=== PATIENT | male | born 1940 | race Caucasian/White ===

== ENCOUNTER 2020-06-01 09:30 | Outpatient (REF) | payer MEDICARE, SELFPAY ==
[2020-06-01 19:16] LABS: HCT 47.1 % (40.0-50.0); HGB 14.8 g/dL (13.5-17.5); MCHC 31.4 % (32.0-36.0); MCV 92.4 fL (80-95); MPV 12.5 fL (8.0-11.0); Platelet Count 193 10^3/uL (130-400); RDW 14.1 % (11.8-14.1); RDW-SD 48.2 fL; WBC 5.86 10^3/uL (4.4-10.8)
[2020-06-01 19:51] LABS: Hemoglobin A1C 5.5 % (<5.7)
[2020-06-01 20:23] LABS: ALT 26 U/L (16-63); AST 23 U/L (15-37); Albumin 3.6 g/dL (3.4-5.0); Alkaline Phosphatase 75 U/L (46-116); Anion Gap 5.7 mmol/L (3-11); BUN 23 mg/dL (7-18); Bilirubin, Total 1.6 mg/dL (0.2-1.0); CO2 29.3 mmol/L (21.0-32.0); CREATININE 1.59 mg/dL (0.70-1.30); Calcium 10.2 mg/dL (8.5-10.1); Calculated LDL 125 mg/dL (<100); Chloride 107 mmol/L (98-107); Cholesterol 177 mg/dL (<200); Estimated GFR 42.43 (mL/min/1.73m2); Glucose 97 mg/dL (74-106); HDL Cholesterol 41 mg/dL (40-60); Potassium 4.4 mmol/L (3.5-5.1); Sodium 142 mmol/L (136-145); TSH 0.57 uIU/mL (0.36-3.74); Total Protein 6.7 g/dL (6.4-8.2); Triglyceride 55 mg/dL (<150); Vitamin B12 366 pg/mL (193-986)
[2020-06-01 22:27] LABS: FREE T4 1.01 ng/dL (0.76-1.46)
[2020-06-06 10:07] LABS: Methylmalonic Acid 0.27 nmol/mL (<=0.40)
== END 2020-06-01 09:50 ==
LOC: NCHCN 09:30
PROVIDERS: Visit Provider Physician Assistant
DX: I25.10 Atherosclerotic heart disease of native coronary artery without angina pectoris (principal); R73.03 Prediabetes; R53.83 Other fatigue; R41.3 Other amnesia
CPT/HCPCS: 80053; 80061; 80186; 85027; 82607; 83036; 84439; 84443

== ENCOUNTER 2020-06-09 04:49 | Outpatient (CLI) | payer MEDICARE, SELFPAY ==
--- NOTE | 2020-06-09 | DI.MRI_ITS ---
EXAM: MR BRAIN WO CLINICAL HISTORY: MEMORY DEFICIT,LOSS,R41.3 TECHNIQUE: Multiplanar multisequence MRI of the brain was performed. COMPARISON: No exams were available for comparison FINDINGS: VENTRICLES AND EXTRA AXIAL SPACES: Normal in size and morphology for the patient's age. MIDLINE SHIFT: None. CEREBRAL PARENCHYMA: No focus of restricted diffusion to suggest acute infarct. There is a large area of encephalomalacia in the right frontal lobe. There is a thin rim of surrounding gliosis or calcif ication. An additional area of old infarct is seen in the posterior right parietal lobe, also showin g surrounding gliosis versus calcification. An area of increased signal is seen in the posterior lef t frontal lobe, also consistent with an old infarct. Scattered high signal foci in the white matter without restricted diffusion, consistent with sequela of chronic microvascular disease. HEMORRHAGE: No acute hemorrhage. BRAINSTEM/CEREBELLUM: Mildly increased central signal within the jean consistent with microvascular c hanges. VISUALIZED PARANASAL SINUSES/MASTOIDS:Clear. [place]UZ: Normal flow void. PITUITARY GLAND: Unremarkable. 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 No evidence of acute h emorrhage or acute infarct. No evidence of mass. DATA REPOSITORY: CONTRAST MATERIAL: Noncontrast.
== END 2020-06-09 05:09 ==
PROVIDERS: Visit Provider Physician Assistant
DX: R41.3 Other amnesia (principal); Z86.73 Personal history of transient ischemic attack (TIA), and cerebral infarction without residual deficits
CPT/HCPCS: 70551

== ENCOUNTER 2020-06-28 01:00 | Outpatient (CLI) | payer MEDICARE, SELFPAY ==
--- NOTE | 2020-06-28 | DI.US_ITS ---
EXAM: US CAROTID CLINICAL HISTORY: CEREBROVASCULAR ACCIDENT LATE EFFECTS, I69.90, DIZZINESS, R42, CAD, I25.10. TECHNIQUE: Ultrasound carotids performed using grayscale, color-flow, and spectral Doppler imaging. COMPARISON: No exams were available for comparison FINDINGS: RIGHT CAROTID ARTERY: Plaque: Minimal. Velocity elevation: None. LEFT CAROTID ARTERY: Plaque: Minimal calcific plaque is seen in the proximal left internal carotid artery. Velocity elevation: None. VERTEBRAL ARTERIES: Antegrade flow. Measurements: R Bulb: 53.3cm/s PS / 8.4cm/s ED R CCA: 91.9cm/s PS / 17.4cm/s ED R ECA: 95.4cm/s PS / 14.5cm/s ED R ICA Prox: 128.3cm/s PS /16.8cm/s ED R ICA Mid: 73.1cm/s PS / 16.3cm/s ED R ICA Distal: 82cm/s PS /19.5cm/s ED R Vert: 56.8cm/s PS / 17.4cm/s ED R SVR: 1.4 R DVR: 0.97 L Bulb: 84.1cm/s PS /16.8cm/s ED L CCA: 87.3cm/s PS / 25.2cm/s ED L ECA: 89.9cm/s PS /14.7cm/s ED L ICA Prox:72.6cm/s PS / 25.2cm/s ED L ICA Mid: 74.7cm/sPS / 25.2cm/s ED L ICA Distal: 83.6cm/s PS / 29.4cm/s ED L Vert: 58.4cm/s PS / 15.2cm/s ED L SVR: 0.96 L DVR: 1.17 IMPRESSION: No evidence for hemodynamically significant carotid stenosis. Criteria for Carotid Stenosis: Normal: ICA PSV <125 cm/s no plaque or intimal thickening is visible. <50% stenosis: ICA PSV <125 cm/s and plaque or intimal thickening is visible. 50-69% stenosis: ICA PSV is 125-250 cm/s and plaque is visible. >70% stenosis to near occlusion: ICA PSV >250 cm/s with visible plaque and luminal narrowing. DATA REPOSITORY:
== END 2020-06-28 01:20 ==
PROVIDERS: PCP Physician Assistant; Visit Provider Physician Assistant
DX: I69.398 Other sequelae of cerebral infarction (principal); R42 Dizziness and giddiness; I25.10 Atherosclerotic heart disease of native coronary artery without angina pectoris
CPT/HCPCS: 93880

== ENCOUNTER 2020-07-10 16:17 | Outpatient (REF) | payer MEDICARE, SELFPAY ==
[2020-07-13 08:42] LABS: SARS-CoV-2 RNA Not Detected (NotDetected); SARS-CoV-2 RNA Source Nasal/Nares
== END 2020-07-10 16:37 ==
LOC: NCHCN 16:17
PROVIDERS: PCP Physician Assistant; Visit Provider Physician Assistant
DX: Z11.59 Encounter for screening for other viral diseases (principal)
CPT/HCPCS: U0003

== ENCOUNTER 2020-07-13 00:40 | Outpatient (CLI) | payer MEDICARE, SELFPAY ==
--- NOTE | 2020-07-13 12:30 | DI.US_ITS ---
APPROVED REPORT EXAM: Comprehensive 2D, Doppler, and color-flow Echocardiogram Patient Location: Out-Patient Head Of Strategy: Stephanie Sanchez RDCS ([facility]) Indications: CVA, CAD Other Information Study Quality: Adequate Conclusion Left Ventricle : Left ventricle is mildly dilated. Left ventricular systolic function is moderately d ecreased. There is normal left ventricular wall thickness. There is global hypokinesis of the left ve ntricle. The left ventricular diastolic function is abnormal LVEF is 28-30%. Right Ventricle: Right ventricle is borderline dilated. The right ventricular systolic function is mi ldly reduced. The RVSP is 21.2 mmHg. Atria : Left atrium is moderately dilated. Right atrium is moderately dilated. Valves: There are no hemodynamically significant valvular lesions. Great Vessels : The aortic root is normal in size. The ascending aorta is normal in size. Aortic arch is normal in caliber. IVC is normal in size and collapses >50% with inspiration. Compared to study from August 2017 at [facility], the patient's ejection fraction has decreased from normal to moderately reduced. Wall motion Left Ventricle Left ventricle is mildly dilated. Left ventricular systolic function is moderately decreased. There i s normal left ventricular wall thickness. There is global hypokinesis of the left ventricle. The left ventricular diastolic function is abnormal There is no ventricular septal defect visualized. LVEF is 28-30%. Right Ventricle Right ventricle is borderline dilated. The right ventricular systolic function is mildly reduced. The RVSP is 21.2 mmHg. Atria Left atrium is moderately dilated. Right atrium is moderately dilated. The interatrial septum is inta ct with no evidence for an atrial septal defect. Aortic Valve The Aortic valve is sclerotic. Aortic valve is trileaflet. There is no aortic valvular stenosis. No a ortic regurgitation is present. Mitral Valve Mild mitral annular calcification. No evidence of mitral valve stenosis. Trace to mild mitral regurgi tation. Tricuspid Valve The tricuspid valve is normal in structure. There is no tricuspid valve stenosis. Trace tricuspid reg urgitation. Pulmonic Valve The pulmonary valve is normal in structure. There is no pulmonic valvular stenosis. Trace pulmonic re gurgitation. Great Vessels The aortic root is normal in size. The ascending aorta is normal in size. Aortic arch is normal in ca liber. IVC is normal in size and collapses >50% with inspiration. Pericardium There is no pericardial effusion. 2D Dimensions IVSD d PLAX 0.72 cm M: 0.6-1.2 LV Vol A2C d MOD 143.6 mL LVPW d PLAX 0.79 cm M: 0.6 - 1.2 LV Vol A4C d MOD 146.4 mL LVID d PLAX 6.01 cm M: 4.2 - 5.8 LA vol/ BSA A2C s A-L 37.1 mL/m2 LVDs 5.10 cm M: 2.5 - 4.0 LA vol/ BSA A4C s A-L 35.2 mL/m2 Ao Root d 2.91 cm M: 3.1 - 3.7 LA Vol/ BSA Biplane s A-L 36.4 mL/m2 RA Area A4C 10.70 cm2 LA Area A4C s MOD 21.07 cm2 RA Vol/ BSA A4C s A-L 13.8 mL/m2 LA Area A2C s MOD 21.49 cm2 Ao Asc Diam d 3.40 cm M: 2.6 - 3.4 LV EF A4C MOD 32.5 % LV EF Teichholz 31.2 % LV EF A2C MOD 28.3 % LVEF ([facility]) 28.47 % M: 52 - 72 LV EF Biplane MOD 28.5 % LV Volume 114.57 mL M: 62 - 150 SV 41.57 mL LV Volume Index 65.46 mL/m2 M: 34 - 74 SV Index 23.67 mL/m2 LV Vol Biplane MOD 146.0 mL FS 14.95 % M-Mode TAPSE 1.42 cm (M/F) >1.7 LV Diastology MV E' medial 0.046 (>0.07 m/s) E/A Ratio 0.7 LV E/e MED 9.30 (<14) MV E Vmax 0.43 (0.4-1.3 m/s) MV E' lateral 0.102 (>0.1 m/s) MV A Vmax 0.60 (0.4-1.3 m/s) LV E/e LAT 4.15 (<14) MV E/A Ratio 0.67 MV E/E' medial 9.34 MV E/E' lateral 4.18 Aortic Valve LVOT Area 2.72 cm2 AoV Area Vmax 2.04 cm2 LVOT Vmax 0.89 m/s AoV Area/ BSA (Vmax) 1.16 cm2/m2 LVOT Mean Monty. 0.59 m/s TESSA Mean Monty. 2.01 cm2 LVOT Peak Grad 3.1 mmHg TESSA Mean Monty. Index 1.15 cm2/m2 LVOT Mean Grad 1.6 mmHg LVOT VTI 0.171 m LVOT Diam s 1.85 cm AoV Vmax 1.18 m/s Velocity Ratio 0.75 AoV Mean Monty. 0.79 m/s AoV Peak Grad 5.6 mmHg LVOT SV 46.48 mL AoV Mean Grad 2.8 mmHg AoV VTI 0.210 m AoV Area VTI 2.22 cm2 AoV Area/ BSA (VTI) 1.26 cm/m2 Mitral Valve MV DT 273 (160-240 msec) MR Vmax 4.20 m/s MV PHT 79 msec MR VTI 1.458 m MV Area PHT 2.77 cm2 MR Peak Grad 70.7 mmHg MV VTI 0.264 m MR Mean Grad 44.9 mmHg MV VTI Annulus 0.243 m MV Area VTI 1.63 (4.0-6.0 cm2) Pulmonary Valve PV Vmax 1.00 (0.5-1.5 m/s) RVOT Peak Gr. 1.31 mmHg PV Peak Grad 4.0 mmHg RVOT Mean Gr. 0.65 mmHg PV Mean Grad 2.1 mmHg RVOT VTI 0.130 m PV VTI 0.207 m RVOT Vmax 0.57 m/s Tricuspid Valve TR Peak Grad 18.1 mmHg TR Vmax 2.13 m/s RA Pressure 3.00 mmHg RVSP (TR) 21.2 mmHg
== END 2020-07-13 01:00 ==
PROVIDERS: PCP Physician Assistant; Visit Provider Physician Assistant
DX: I25.10 Atherosclerotic heart disease of native coronary artery without angina pectoris (principal); Z86.73 Personal history of transient ischemic attack (TIA), and cerebral infarction without residual deficits; I51.7 Cardiomegaly
CPT/HCPCS: 93306

== ENCOUNTER 2020-09-26 18:03 | Outpatient (REF) | payer MEDICARE, SELFPAY ==
[2020-09-26 16:01] LABS: Anion Gap 5.8 mmol/L (3-11); BUN 36 mg/dL (7-18); CO2 27.2 mmol/L (21.0-32.0); CREATININE 1.62 mg/dL (0.70-1.30); Calcium 10.1 mg/dL (8.5-10.1); Chloride 107 mmol/L (98-107); Estimated GFR 41.52 (mL/min/1.73m2); Glucose 147 mg/dL (74-106); Potassium 4.4 mmol/L (3.5-5.1); Sodium 140 mmol/L (136-145)
[2020-09-27 09:35] LABS: Parathyroid Hormone,Intact 190 pg/mL (19-88)
[2020-09-28 04:48] LABS: Vitamin D 25 Total 17.1 ng/ml (30-100)
== END 2020-09-26 18:23 ==
LOC: NCHCN 18:03
PROVIDERS: PCP Physician Assistant; Visit Provider Nurse Practitioner Family
DX: I10 Essential (primary) hypertension (principal); N28.9 Disorder of kidney and ureter, unspecified; E78.5 Hyperlipidemia, unspecified; I25.10 Atherosclerotic heart disease of native coronary artery without angina pectoris
CPT/HCPCS: 80048; 82306; 83970

== ENCOUNTER 2020-12-25 11:39 | Outpatient (REF) | payer MEDICARE, SELFPAY ==
[2020-12-25 12:19] LABS: Calcium 10.3 mg/dL (8.5-10.1); Magnesium 2.1 mg/dL (1.8-2.4); PHOSPHORUS 2.3 mg/dL (2.6-4.7)
[2020-12-25 12:39] LABS: Vitamin D 25 Total 27.4 ng/mL (30-100)
[2020-12-26 11:45] LABS: Parathyroid Hormone,Intact 170 pg/mL (19-88)
== END 2020-12-25 11:40 | disposition home or self-care (01) ==
LOC: NCHCN 11:39
PROVIDERS: PCP Physician Assistant; Visit Provider Nurse Practitioner Family
DX: R19.7 Diarrhea, unspecified (principal); I50.9 Heart failure, unspecified; E83.52 Hypercalcemia; R53.83 Other fatigue; K21.9 Gastro-esophageal reflux disease without esophagitis; I10 Essential (primary) hypertension; R79.89 Other specified abnormal findings of blood chemistry
CPT/HCPCS: 82306; 82310; 83735; 83970; 84100

== ENCOUNTER 2021-03-19 03:19 | Outpatient (CLI) | payer MEDICARE, SELFPAY ==
[2021-03-19 09:59] LABS: Hemoglobin A1C 5.6 % (<5.7)
[2021-03-19 11:29] LABS: ALT 25 U/L (16-63); AST 16 U/L (15-37); Albumin 3.8 g/dL (3.4-5.0); Alkaline Phosphatase 70 U/L (46-116); BUN 23 mg/dL (7-18); CREATININE 1.7 mg/dL (0.70-1.30); Calcium 10.7 mg/dL (8.5-10.1); Chloride 107 mmol/L (98-107); Estimated GFR 39.18 (mL/min/1.73m2); Glucose 147 mg/dL (74-106); NT-proBNP 458 pg/mL (<300); PHOSPHORUS 2.3 mg/dL (2.6-4.7); Potassium 4.6 mmol/L (3.5-5.1); Sodium 144 mmol/L (136-145)
[2021-03-19 12:36] LABS: Vitamin D 25 Total 29.2 ng/mL (30-100)
[2021-03-19 15:29] LABS: Ionized Calcium 1.28 mmol/L (1.12-1.32)
[2021-03-20 09:46] LABS: Parathyroid Hormone,Intact 183 pg/mL (19-88)
[2021-03-20 10:21] LABS: Lyme Ab w Rflx to Lyme Confirm Positive (Negative)
[2021-03-22 15:58] LABS: IgG Band(s) p93; IgG Immunoblot Positive (Negative); IgM Band(s) p41; IgM Immunoblot Negative (Negative)
== END 2021-03-19 03:20 | disposition home or self-care (01) ==
LOC: LBO 03:20
PROVIDERS: PCP Physician Assistant; Visit Provider Nurse Practitioner Family
DX: R79.89 Other specified abnormal findings of blood chemistry (principal); E83.52 Hypercalcemia; E55.9 Vitamin D deficiency, unspecified; N28.9 Disorder of kidney and ureter, unspecified; R19.7 Diarrhea, unspecified; I10 Essential (primary) hypertension; R41.3 Other amnesia; R53.83 Other fatigue; I25.10 Atherosclerotic heart disease of native coronary artery without angina pectoris; I50.9 Heart failure, unspecified
CPT/HCPCS: 36415; 80053; 82306; 86617; 82330; 83036; 83880; 83970; 84100; 86618

== ENCOUNTER 2021-05-09 02:00 | Outpatient (CLI) | payer MEDICARE, SELFPAY ==
--- NOTE | 2021-05-09 | DI.US_ITS ---
Exam(s) US RENAL EXAM: US RENAL CLINICAL HISTORY: RENAL INSUFFICIENCY,N28.9. TECHNIQUE: Hernandez scale, color and spectral Doppler were used. COMPARISON: No exams were available for comparison FINDINGS: Renal size in cm: Right: 16.5 cm. This includes the large cyst superiorly.. Left: 9.5. Echogenicity: Normal. Hydronephrosis: No. Cyst or mass: In the right kidney, there is an 8.6 x 8.1 x 5.8 cm cyst. There is a thin septation. No internal blood flow is seen. In the left kidney there is a 0.5 x 0.4 x 0.4 cm simple cyst in the inferior pole. No follow-up is recommended. Nephrolithiasis: No. Other findings: Mild bilateral renal cortical thinning. Bladder:Normal. Ureteral jets: Right: Visualized and unremarkable. Left: Visualized and unremarkable. Prevoid vol:116 cc Postvoid vol:Patient was unable to void. Prostate: 18 cc Renal color flow: Symmetric and within normal limits. IMPRESSION: 1. Bilateral renal cysts. DATA REPOSITORY:
--- NOTE | 2021-05-09 | DI.US_ITS ---
Exam(s) US THYROID EXAM: US THYROID CLINICAL HISTORY: ELEVATED PARATHYROID HORMONE,R79.89,HYPERCALCEMIA,E83.52,VIT D DEFICIENCY. TECHNIQUE: Ultrasound thyroid performed using standard protocol. COMPARISON: No exams were available for comparison FINDINGS: ISTHMUS: 3 mm RIGHT LOBE: Size: 4.8 cc by 1.6 AP by 1.9 transverse cm Echogenicity: Normal. Vascularity: Normal. Nodules: There are multiple subcentimeter nodules in the right lobe of the thyroid gland. There is a 1 x 0.6 x 0.6 cm cystic lesion in the superior pole. Comet tail artifact are seen internally. This is consistent with a TI-RADS level 2 nodule. LEFT LOBE: Size: 4.8 cc by 1.7 AP by 1.9 transverse cm Echogenicity: Normal. Vascularity: Normal. Nodules: There are multiple subcentimeter nodules in the left lobe. There is a 1.8 x 1.3 x 0.7 cm mi xed cystic and solid nodule in the midpole. It is hypoechoic and well-circumscribed with no echogeni c foci. It is consistent with a TI-RADS level 3 nodule. OTHER FINDINGS: There is a 1.8 x 1.4 x 1.7 cm hypoechoic avascular nodule which is at the inferior as pect of the right lobe of the thyroid gland. It appears to be separate from the thyroid gland and ma y represent a parathyroid nodule. IMPRESSION: 1. Multinodular thyroid gland. 2. 1.8 x 1.4 x 1.7 cm hypoechoic nodule at the inferior aspect of the thyroid gland which appears sep arate from the thyroid gland and may represent a parathyroid nodule. DATA REPOSITORY:
== END 2021-05-09 02:20 ==
PROVIDERS: PCP Physician Assistant; Visit Provider Nurse Practitioner Family
DX: N28.9 Disorder of kidney and ureter, unspecified (principal); R79.89 Other specified abnormal findings of blood chemistry; E83.52 Hypercalcemia; E55.9 Vitamin D deficiency, unspecified; E04.2 Nontoxic multinodular goiter; Q61.02 Congenital multiple renal cysts
CPT/HCPCS: 76770; 76536

== ENCOUNTER 2021-06-04 15:47 | Outpatient (REF) | payer MEDICARE, SELFPAY ==
[2021-06-04 16:36] LABS: Bilirubin Negative (Negative); Blood Negative (Negative); Clarity Clear (Clear); Glucose Negative (Negative); Ketones Negative (Negative); Leukocyte Esterase Trace (Negative); Nitrite Negative (Negative); Specific Gravity 1.015 (1.005-1.025); Urobilinogen 0.2 EU/dL (Up TO 0.2); pH 5.5 (5-8)
[2021-06-04 16:46] LABS: Bacteria Few HPF (Negative); C & S Indicated? Yes; Casts Negative LPF (Negative); Crystals Negative HPF (Negative); Epithelial Cells Rare HPF (Negative); Mucus Negative (Negative); RBC 0-2 HPF (0-2)
== END 2021-06-04 15:48 | disposition home or self-care (01) ==
LOC: NCHCN 15:47
PROVIDERS: PCP Physician Assistant; Visit Provider Nurse Practitioner Family
DX: R31.9 Hematuria, unspecified (principal); N28.89 Other specified disorders of kidney and ureter
CPT/HCPCS: 81003; 81015; 87086

== ENCOUNTER 2021-09-10 13:33 | Outpatient (REF) | payer MEDICARE, SELFPAY ==
[2021-09-10 15:30] LABS: Anion Gap 7.4 mmol/L (3-11); BUN 27 mg/dL (7-18); CO2 29.6 mmol/L (21.0-32.0); CREATININE 1.7 mg/dL (0.70-1.30); Calcium 10.5 mg/dL (8.5-10.1); Chloride 105 mmol/L (98-107); Estimated GFR 39.18 (mL/min/1.73m2); Glucose 126 mg/dL (74-106); Potassium 5.5 mmol/L (3.5-5.1); Sodium 142 mmol/L (136-145)
[2021-09-10 15:40] LABS: Hemoglobin A1C 5.6 % (<5.7)
== END 2021-09-10 13:34 | disposition home or self-care (01) ==
LOC: NCHCN 13:33
PROVIDERS: PCP Physician Assistant; Visit Provider Nurse Practitioner Family
DX: R73.03 Prediabetes (principal); I10 Essential (primary) hypertension; N28.9 Disorder of kidney and ureter, unspecified
CPT/HCPCS: 80048; 83036

== ENCOUNTER 2021-09-14 11:46 | Outpatient (CLI) | payer MEDICARE, SELFPAY ==
[2021-09-16 15:33] LABS: COVID-19 RT-PCR UVMMC Result Negative (Negative)
== END 2021-09-14 11:47 | disposition home or self-care (01) ==
PROVIDERS: PCP Physician Assistant; Visit Provider Nurse Practitioner Family
DX: Z20.822 Contact with and (suspected) exposure to COVID-19 (principal)
CPT/HCPCS: U0003

== ENCOUNTER 2021-09-19 17:25 | Outpatient (REF) | payer MEDICARE, SELFPAY ==
[2021-09-19 17:31] LABS: Anion Gap 6.1 mmol/L (3-11); BUN 26 mg/dL (7-18); CO2 27.9 mmol/L (21.0-32.0); CREATININE 1.6 mg/dL (0.70-1.30); Calcium 10.2 mg/dL (8.5-10.1); Chloride 107 mmol/L (98-107); Estimated GFR 42.01 (mL/min/1.73m2); Glucose 94 mg/dL (74-106); Sodium 141 mmol/L (136-145)
== END 2021-09-19 17:26 | disposition home or self-care (01) ==
LOC: NCHCN 17:25
PROVIDERS: PCP Physician Assistant; Visit Provider Nurse Practitioner Family
DX: E87.5 Hyperkalemia (principal)
CPT/HCPCS: 80048

== ENCOUNTER 2022-01-11 20:25 | Outpatient (REF) | payer MEDICARE, SELFPAY ==
[2022-01-12 12:14] LABS: COVID-19 RT-PCR UVMMC Result Negative (Negative)
== END 2022-01-11 20:26 | disposition home or self-care (01) ==
LOC: NCHCN 20:25
PROVIDERS: PCP Nurse Practitioner Family; Visit Provider Nurse Practitioner Family
DX: Z20.822 Contact with and (suspected) exposure to COVID-19 (principal)
CPT/HCPCS: U0003; U0005

== ENCOUNTER 2022-01-15 15:52 | Outpatient (REF) | payer MEDICARE, SELFPAY ==
[2022-01-16 12:06] LABS: COVID-19 RT-PCR UVMMC Result Positive (Negative)
== END 2022-01-15 15:53 | disposition home or self-care (01) ==
LOC: NCHCN 15:52
PROVIDERS: PCP Nurse Practitioner Family; Visit Provider Nurse Practitioner Family
DX: Z20.822 Contact with and (suspected) exposure to COVID-19 (principal)
CPT/HCPCS: U0003; U0005

== ENCOUNTER 2022-01-16 18:24 | Outpatient (REF) | payer MEDICARE, SELFPAY ==
[2022-01-17 15:04] LABS: COVID-19 RT-PCR UVMMC Result Positive (Negative)
== END 2022-01-16 18:25 | disposition home or self-care (01) ==
LOC: NCHCN 18:24
PROVIDERS: PCP Nurse Practitioner Family; Visit Provider Nurse Practitioner Family
DX: Z20.822 Contact with and (suspected) exposure to COVID-19 (principal)
CPT/HCPCS: U0003; U0005

== ENCOUNTER 2022-03-21 18:59 | Outpatient (REF) | payer MEDICARE, SELFPAY ==
[2022-03-21 21:03] LABS: ALT 19 U/L (16-63); AST 19 U/L (15-37); Albumin 3.4 g/dL (3.4-5.0); Alkaline Phosphatase 98 U/L (46-116); Anion Gap 7.5 mmol/L (3-11); BUN 29 mg/dL (7-18); Bilirubin, Total 0.7 mg/dL (0.2-1.0); CO2 26.5 mmol/L (21.0-32.0); CREATININE 1.6 mg/dL (0.70-1.30); Calcium 8.7 mg/dL (8.5-10.1); Chloride 110 mmol/L (98-107); Glucose 96 mg/dL (74-106); Potassium 5.2 mmol/L (3.5-5.1); Sodium 144 mmol/L (136-145); TSH (W/Ref FT4) 0.22 uIU/mL (0.36-3.74); Total Protein 6.7 g/dL (6.4-8.2)
[2022-03-21 21:08] LABS: Hemoglobin A1C 5.6 % (<5.7)
[2022-03-21 21:17] LABS: Vitamin D 25 Total 33.8 ng/mL (30-100)
[2022-03-21 21:21] LABS: FREE T4 0.85 ng/dL (0.76-1.46)
== END 2022-03-21 19:00 | disposition home or self-care (01) ==
LOC: NCHCN 18:59
PROVIDERS: PCP Nurse Practitioner Family; Visit Provider Nurse Practitioner Family
DX: R73.03 Prediabetes (principal); E87.5 Hyperkalemia; E21.5 Disorder of parathyroid gland, unspecified; N28.9 Disorder of kidney and ureter, unspecified; E55.9 Vitamin D deficiency, unspecified
CPT/HCPCS: 80053; 82306; 83036; 84439; 84443

== ENCOUNTER → 2022-04-24 01:26 | Outpatient (CLI) | payer MEDICARE, SELFPAY ==
--- NOTE | 2022-04-24 15:00 | DI.US_ITS ---
APPROVED REPORT EXAM: Comprehensive 2D, Doppler, and color-flow Echocardiogram Patient Location: Out-Patient [employer]er: Stephanie Sanchez RDCS (AE) Indications: Heart failure, Reduced ejection fraction Other Information Study Quality: Adequate Conclusion Normal left ventricular wall thickness and chamber size. Estimated ejection fraction is 35%. There is global hypokinesis Right ventricle is normal in size, mildly hypokinetic Both atria are normal in size There are no structural or hemodynamically significant valvular abnormalities Wall motion Left Ventricle The left ventricle is normal size. Left ventricular systolic function is moderately decreased. There is normal left ventricular wall thickness. There is global hypokinesis of the left ventricle. There i s no ventricular septal defect visualized. LVEF is 35%. Right Ventricle The right ventricle is normal size. Right ventricular systolic function is mildly reduced. Atria The left atrium size is normal. The right atrium size is normal. The interatrial septum is intact wit h no evidence for an atrial septal defect. Aortic Valve The aortic valve is normal in structure. Aortic valve is trileaflet. There is no aortic valvular sten osis. No aortic regurgitation is present. Mitral Valve Mitral valve leaflets are mildly thickened. No evidence of mitral valve stenosis. Trace mitral regurg itation. Tricuspid Valve The tricuspid valve is normal in structure. There is no tricuspid valve stenosis. Trace tricuspid reg urgitation. Unable to assess PA pressure. Pulmonic Valve The pulmonary valve is normal in structure. There is no pulmonic valvular stenosis. Trace pulmonic re gurgitation. Great Vessels The aortic root is normal in size. The ascending aorta is normal in size. Aortic arch is normal in ca liber. IVC is normal in size and collapses >50% with inspiration. Pericardium There is no pericardial effusion. 2D Dimensions IVSD d PLAX 0.84 cm M: 0.6-1.2 LV Vol A2C d MOD 89.1 mL LVPW d PLAX 0.85 cm M: 0.6 - 1.2 LV Vol A4C d MOD 107.4 mL LVID d PLAX 5.48 cm M: 4.2 - 5.8 LA vol/ BSA A2C s A-L 27.6 mL/m2 LVDs 4.50 cm M: 2.5 - 4.0 LA vol/ BSA A4C s A-L 27.6 mL/m2 Ao Root d 3.24 cm M: 3.1 - 3.7 LA Vol/ BSA Biplane s A-L 27.7 mL/m2 RA Area A4C 11.22 cm2 LA Area A4C s MOD 17.09 cm2 RA Vol/ BSA A4C s A-L 13.2 mL/m2 LA Area A2C s MOD 17.01 cm2 Ao Asc Diam d 3.42 cm M: 2.6 - 3.4 LV EF A4C MOD 35.5 % LV EF Teichholz 35.2 % LV EF A2C MOD 30.0 % LVEF ([facility]) 33.29 % M: 52 - 72 LV EF Biplane MOD 33.3 % LV Volume 77.82 mL M: 62 - 150 SV 33.19 mL LV Volume Index 43.71 mL/m2 M: 34 - 74 SV Index 18.63 mL/m2 LV Vol Biplane MOD 99.7 mL FS 17.00 % M-Mode TAPSE 1.60 cm (M/F) >1.7 LV Diastology MV E' medial 0.037 (>0.07 m/s) E/A Ratio 0.6 LV E/e MED 10.10 (<14) MV E Vmax 0.38 (0.4-1.3 m/s) MV E' lateral 0.047 (>0.1 m/s) MV A Vmax 0.65 (0.4-1.3 m/s) LV E/e LAT 8.00 (<14) MV E/A Ratio 0.58 MV E/E' medial 10.12 MV E/E' lateral 8.03 Aortic Valve LVOT Area 3.21 cm2 AoV Area Vmax 2.61 cm2 LVOT Vmax 0.82 m/s AoV Area/ BSA (Vmax) 1.47 cm2/m2 LVOT Mean Monty. 0.57 m/s TESSA Mean Monty. 2.70 cm2 LVOT Peak Grad 2.7 mmHg TESSA Mean Monty. Index 1.52 cm2/m2 LVOT Mean Grad 1.5 mmHg LVOT VTI 0.156 m LVOT Diam s 2.00 cm AoV Vmax 1.01 m/s Velocity Ratio 0.81 AoV Mean Monty. 0.68 m/s AoV Peak Grad 4.1 mmHg LVOT SV 50.02 mL AoV Mean Grad 2.1 mmHg AoV VTI 0.188 m AoV Area VTI 2.67 cm2 AoV Area/ BSA (VTI) 1.50 cm/m2 Mitral Valve MV DT 265 (160-240 msec) MV PHT 77 msec MV Area PHT 2.86 cm2 MV VTI 0.221 m MV Area VTI 2.26 (4.0-6.0 cm2) Pulmonary Valve PV Vmax 1.08 (0.5-1.5 m/s) RVOT Peak Gr. 0.96 mmHg PV Peak Grad 4.7 mmHg RVOT Mean Gr. 0.45 mmHg PV Mean Grad 1.8 mmHg RVOT VTI 0.096 m PV VTI 0.169 m RVOT Vmax 0.49 m/s
== END ==
PROVIDERS: PCP Nurse Practitioner Family; Visit Provider Nurse Practitioner
DX: I50.9 Heart failure, unspecified (principal); I50.33 Acute on chronic diastolic (congestive) heart failure
CPT/HCPCS: 93306

== ENCOUNTER 2022-05-06 18:47 | Outpatient (REF) | payer MEDICARE, SELFPAY ==
[2022-05-06 14:06] LABS: TSH (W/Ref FT4) 0.53 uIU/mL (0.36-3.74)
== END 2022-05-06 18:48 | disposition home or self-care (01) ==
LOC: NCHCN 18:47
PROVIDERS: PCP Nurse Practitioner Family; Visit Provider Nurse Practitioner Family
DX: R53.83 Other fatigue (principal); R19.7 Diarrhea, unspecified; I10 Essential (primary) hypertension; E78.5 Hyperlipidemia, unspecified; D35.1 Benign neoplasm of parathyroid gland
CPT/HCPCS: 84443

== ENCOUNTER 2022-08-26 16:41 | Outpatient (REF) | payer MEDICARE, SELFPAY ==
[2022-08-26 17:18] LABS: BUN 30 mg/dL (7-18); CREATININE 1.6 mg/dL (0.70-1.30); Chloride 107 mmol/L (98-107); Estimated GFR 43.56 (mL/min/1.73m2); Glucose 96 mg/dL (74-106); Potassium 4.6 mmol/L (3.5-5.1); Sodium 142 mmol/L (136-145)
== END 2022-08-26 16:42 | disposition home or self-care (01) ==
LOC: NCHCN 16:41
PROVIDERS: PCP Nurse Practitioner Family; Visit Provider Nurse Practitioner Family
DX: D35.1 Benign neoplasm of parathyroid gland (principal); R19.7 Diarrhea, unspecified; R79.89 Other specified abnormal findings of blood chemistry
CPT/HCPCS: 80048

== ENCOUNTER 2022-12-16 13:57 | Outpatient (REF) | payer MEDICARE, SELFPAY ==
[2022-12-16 11:22] LABS: ALT 21 U/L (16-63); AST 16 U/L (15-37); Albumin 3.6 g/dL (3.4-5.0); Alkaline Phosphatase 82 U/L (46-116); Anion Gap 7.2 mmol/L (3-11); BUN 29 mg/dL (7-18); CO2 29.8 mmol/L (21.0-32.0); CREATININE 1.8 mg/dL (0.70-1.30); Calcium 8.9 mg/dL (8.5-10.1); Chloride 108 mmol/L (98-107); Estimated GFR 37.82 (mL/min/1.73m2); Glucose 135 mg/dL (74-106); Potassium 4.3 mmol/L (3.5-5.1); Sodium 145 mmol/L (136-145); TSH (W/Ref FT4) 1.05 uIU/mL (0.36-3.74); Total Protein 6.9 g/dL (6.4-8.2)
== END 2022-12-16 13:58 | disposition home or self-care (01) ==
LOC: NCHCN 13:57
PROVIDERS: PCP Nurse Practitioner Family; Visit Provider Nurse Practitioner Family
DX: I10 Essential (primary) hypertension (principal); B07.9 Viral wart, unspecified; D35.1 Benign neoplasm of parathyroid gland; E04.2 Nontoxic multinodular goiter; R19.7 Diarrhea, unspecified; E83.52 Hypercalcemia; R53.83 Other fatigue; F32.A Depression, unspecified
CPT/HCPCS: 80053; 84443

== ENCOUNTER 2023-02-21 15:00 | Outpatient (REF) | payer MEDICARE, SELFPAY ==
[2023-02-21 17:24] LABS: Hemoglobin A1C 5.5 % (<5.7)
[2023-02-21 17:46] LABS: ALT 20 U/L (16-63); AST 18 U/L (15-37); Albumin 3.7 g/dL (3.4-5.0); Alkaline Phosphatase 89 U/L (46-116); Anion Gap 8.7 mmol/L (3-11); BUN 30 mg/dL (7-18); Bilirubin, Total 1.1 mg/dL (0.2-1.0); CO2 27.3 mmol/L (21.0-32.0); CREATININE 1.6 mg/dL (0.70-1.30); Calcium 8.7 mg/dL (8.5-10.1); Chloride 105 mmol/L (98-107); Estimated GFR 43.29 (mL/min/1.73m2); Glucose 138 mg/dL (74-106); Potassium 4.3 mmol/L (3.5-5.1); Sodium 141 mmol/L (136-145); TSH (W/Ref FT4) 0.63 uIU/mL (0.36-3.74); Total Protein 7.3 g/dL (6.4-8.2)
== END 2023-02-21 15:01 | disposition home or self-care (01) ==
LOC: NCHCN 15:00
PROVIDERS: PCP Nurse Practitioner Family; Visit Provider Nurse Practitioner Family
DX: B07.9 Viral wart, unspecified (principal); D35.1 Benign neoplasm of parathyroid gland; E04.2 Nontoxic multinodular goiter; R19.7 Diarrhea, unspecified; R53.83 Other fatigue; F32.A Depression, unspecified; I10 Essential (primary) hypertension; E83.52 Hypercalcemia
CPT/HCPCS: 80053; 83036; 84443

== ENCOUNTER 2023-08-16 15:51 | Outpatient (REF) | payer MEDICARE, SELFPAY ==
[2023-08-16 16:18] LABS: Hemoglobin A1C 5.6 % (<5.7)
[2023-08-16 16:22] LABS: ALT 15 U/L (16-63); AST 17 U/L (15-37); Albumin 3.6 g/dL (3.4-5.0); Alkaline Phosphatase 81 U/L (46-116); Anion Gap 9.2 mmol/L (3-11); BUN 29 mg/dL (7-18); Bilirubin, Total 0.8 mg/dL (0.2-1.0); CO2 25.8 mmol/L (21.0-32.0); CREATININE 1.7 mg/dL (0.70-1.30); Calcium 8.9 mg/dL (8.5-10.1); Chloride 107 mmol/L (98-107); Estimated GFR 40.25 (mL/min/1.73m2); Glucose 144 mg/dL (74-106); Potassium 4.6 mmol/L (3.5-5.1); Sodium 142 mmol/L (136-145); TSH 0.74 uIU/mL (0.36-3.74)
== END 2023-08-16 15:52 | disposition home or self-care (01) ==
LOC: NCHCN 15:51
PROVIDERS: PCP Nurse Practitioner Family; Visit Provider Nurse Practitioner Family
DX: N18.32 Chronic kidney disease, stage 3b (principal); E83.52 Hypercalcemia; R73.9 Hyperglycemia, unspecified
CPT/HCPCS: 80053; 83036; 84443

== ENCOUNTER 2023-10-28 18:37 | Outpatient (REF) | payer MEDICARE, SELFPAY ==
[2023-10-28 17:26] LABS: Source Nasopharynx
[2023-10-28 18:06] LABS: COVID-19 PCR Negative (Negative)
== END 2023-10-28 18:38 | disposition home or self-care (01) ==
LOC: NCHCN 18:37
PROVIDERS: PCP Nurse Practitioner Family; Visit Provider Nurse Practitioner Family
DX: Z20.822 Contact with and (suspected) exposure to COVID-19 (principal)
CPT/HCPCS: 87635

== ENCOUNTER 2024-03-28 13:00 | Outpatient (REF) | payer MEDICARE, SELFPAY ==
--- OUTSIDE RECORDS SUMMARY | 2024-03-28 13:04 | XMS_ITS | Encounter Summary ---
[place] [address] Care Team Providers Care Corporate Wellness Coordinator Name Role Phone Yumi Moreland APRN Primary Care Provider [phone] Reason for Referral * Consultation (Routine) - Closed Specialty Diagnoses / Procedures Referred By Contac t Referred To Contact General Surgery Diagnoses Hyperparathyroidism Yuri Regan MD [facility] [place] [address] Gardenia Francis MD [facility] [place] [address] Referral ID Status Reason Start Date Expiration Date V isits Requested Visits Authorized [id number] Closed Consult, Test & Treat 12/28/2021 12/28/2022 1 1 * Diagnostic Test (Routine) - Closed Specialty Diagnoses / Procedures Referred By Contac t Referred To Contact Radiology Diagnoses Hyperparathyroidism Procedures NM Parathyroid w Spect CT & Thyroid Imaging (Leb) Jamie Tristan DO [facility] [place] [address] [place] [address] Referral ID Status Reason Start Date Expiration Date V isits Requested Visits Authorized [id number] Closed Specialty Service Requested 09/14/2021 03/14/2023 3 3 Reason for Visit * Consultation (Routine) - Closed Specialty Diagnoses / Procedures Referred By Mt kong Referred To Contact Endocrinology Diagnoses Disorder of parathyroid gland, unspecified Nontoxic multinodular goiter Other specified abnormal findings of blood chemistry Hypercalcemia Vitamin D deficiency, unspecified Yumi Moreland APRN [address] [place] [address] [facility] [address] [place] [address] Referral ID Status Reason Start Date Expiration Date V isits Requested Visits Authorized [id number] Closed Consult, Test & Treat Connection Center PCP Updated and/or Approved 05/11/2021 05/11/2022 6 6 Encounter Details Date Type Department Care Team (Late st Contact Info) Description 09/14/2021 10:00 AM EST Office [place] [address] Jamie Tristan, [facility] [place] [address] Hyperparathyroidism; Hyperthyroidism Social History Tobacco Use Types Packs/Day Years Used Date Smoking Tobacco: Former Cigarettes 0.5 15 0 09/08/1978 - 09/08/1993 Smokeless Tobacco: Never Comments:Patient smoked a pi pe for 20 more years (quit 1993) after quitting cigarettes Alcohol Use Standard Drinks/Week Comments No 0 (1 standard drink = 0.6 oz pur e alcohol) Sex and Gender Information Value Date Recorded Sex Assigned at Not on file Gender Identity Not on file Sexual Orientation Not on file documented as of this encounter Last Filed Vital Signs Vital Sign Reading Time Taken Comments Blood Pressure 151/93 09/14/2021 10:46 AM EST Pulse 93 09/14/2021 10:46 AM EST Temperature 37.1 ??C (98.8 ??F) 09/14/2021 1 0:46 AM EST Respiratory Rate - - Oxygen Saturation 94% 09/14/2021 10: 46 AM EST Inhaled Oxygen Concentration - - Weight 77.5 kg (170 lb 12.8 oz) 022 10:46 AM EST Height 172.7 cm (5' 8) 09/14/2021 10:4 6 AM EST Body Mass Index 25.97 09/14/2021 10:46 AM EST documented in this encounter Progress Notes * Jamie Tristan, - 09/14/2021 10:00 AM EST Images from the original note were not included. Mr. Jacob Allen is an 80 y.o. male who presents in consultation for chief complaint of thyroidnodule / parathyroid adenoma. Referred by: Yumi Moreladn APRN Acquisition, Review and Summation of Old Medical Records: Prior thyroid ultrasound report reviewed. 80-year-old male with a history of CAD, cognitive dysfunction presents for evaluation of thyroid nodules and possible parathyroid adenoma. patient is unable to provide history. He comes today with a staff member from his living facility who has known him for about 2 years. Per chart review seems hehas had labs showing elevated calcium and PTH. His last TSH on file was from a few years back and was suppressed. He is asking to be taking thyroid related medications. As far as we know he has not broken any bones. There is a recent renal ultrasound in the chart shows no nephrolithiasis. He does have a reduced GFR and is hypertensive. He does not sleep well. Past Medical History: Diagnosis Date ??? Depression 12/29/2013 ??? Dyslipidemia 12/30/2013 Trialed mevachor in 1993 for lipids ??? Essential hypertension 09/16/2017 ??? Gastroesophageal reflux disease without esophagitis 09/16/2017 ??? ST elevation myocardial infarction (STEMI) of lateral wall 12/29/[address] [facility] w/ 4-5mm JES Rec'd lytics prior to transfer No past surgical history on file. Social History Socioeconomic History ??? Marital status: Single Spouse name: Not on file ??? Number of children: Not on file ??? Years of education: Not on file ??? Highest education level: Not on file Occupational History ??? 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 Smoking status: Former Smoker Packs/day: 0.50 Years: 15.00 Pack years: 7.50 Types: Cigarettes Quit date: 09/08/1993 Years since quittin.0 ??? Smokeless tobacco: Never Used ??? Tobacco comment: Patient smoked a pipe for 20 more years (quit 1993) after quitting cigarettes Substance and Sexual Activity ??? Alcohol use: No ??? Drug use: No ??? Sexual activity: Not Currently Other Topics Concern ??? Not on file Social History Narrative Patient lives alone; His brother and sister are his closest living relatives. 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 Social Determinants of Health Financial Resource Strain: Not on file Food Insecurity: Not on file Transportation Needs: Not on file Physical Activity: Not on file Housing Stability: Not on file Family History Problem Relation Age of Onset ??? Myocardial Infarction Mother ??? Rectal Cancer Father ??? Heart Disease Paternal Uncle Review of Systems: Unable to obtain due to cognitive dysfunction Current Outpatient Medications: ??? atorvastatin (Lipitor) 20 mg Tablet, Take 20 mg by mouth daily., Disp: , Rfl: ??? lisinopriL (Zestril) 5 mg Tablet, Take 5 mg by mouth daily., Disp: , Rfl: ??? mirtazapine (REMERON) 7.5 mg Tablet, Take 7.5 mg by mouth nightly., Disp: , Rfl: ??? cholecalciferol, Vitamin D3, (Vitamin D3) 1,000 unit Tablet, Take by mouth daily., Disp: , Rfl: ??? aspirin 81 mg Tablet, Delayed Release (E.C.), Take 1 tablet by mouth daily., Disp: 30 tablet, Rfl: 12 ??? nitroGLYcerin (NITROSTAT) 0.4 mg Tablet, Sublingual, Place 1 tablet under the tongue daily as needed for Chest pain. (Patient not taking: Reported on 09/14/2021), Disp: 90 tablet, Rfl: 3 ??? meTOPROLOL succinate (TOPROL-XL) 25 mg Tablet Sustained Release 24 hr, Take 1 tablet by mouth daily. (Patient not taking: Reported on 09/14/2021), Disp: 30 tablet, Rfl: 12 ??? clopidogrel (PLAVIX) 75 mg Tablet, Take 1 tablet by mouth daily. (Patient not taking: Reported on 09/14/2021), Disp: 90 tablet, Rfl: 3 No Known Allergies Physical Exam: Patient Vitals for the past 24 hrs: Temp Pulse BP SpO2 09/14/21 1046 37.1 ??C (98.8 ??F) 93 (!) 151/93 94 % Respiratory: symmetrical chest expansion, breathing comfortably on room air without audible wheeze or stridor Cardiovascular: RRR Musculoskeletal: moving all 4 extremities normally. normal male musculature Skin: normal temperature/texture, no jaundice or pallor Neurological: awake and alert Psychological: cooperative, confused Radiology Studies: Laboratory Data: Assessment / Plan: 80-year-old male presents for evaluation of thyroid nodules hyperparathyroidism with possible parathyroid nodule seen on outside ultrasound. We performed bedside ultrasound here today. There is a 1.78 cm lesion in the right lobe of the thyroid which could be a thyroid nodule or could be parathyroidadenoma. We will obtain a sestamibi scan to further clarify this. He will need repeat ultrasound atsome point to be determined after the sestamibi is performed. Will update labs today. -lab today including BMP, PTH, Vit D, Phos, TFTs (TSH suppressed in the past) -Sestamibi scan for parathyroid adenoma -repeat ultrasound in 1 year or earlier A note will be sent to the referring provider Return to clinic in 12 months Discussed with attending physician, Dr. Regan. It was a pleasure to be involved in the care of Jacob Allen. If you have any questions about the management and treatment plan as outlined above, or if I can be of further assistance, please do not hesitate to contact me. Sincerely, Jamie Tristan DO Endocrinology Fellow * Yuri Regan MD - 09/14/2021 10:00 AM EST I have seen the patient and reviewed Dr. Jamie Tristan's above history and I agree with the details as written. The assessment and plan were formulated in discussion with me and I agree with them as documented. I also directly supervised thyroid US and agree with the findings as written. The RLP iso-/hypoechoic solid nodule looks more like thyroid nodule especially on the isoechoic core but there are also area of deep hypoechoic which looks like a large 1.8 cm PTH adenoma below the right lower pole of thethyroid. He will need Sestamibi PTH nuclear/Spec CT scan soon to clarify this nodule as we need to localize PTH adenoma for his primary hyperparathyroidism (PTH 183 with Ca 10.7, 25vitD 29, Cr 1.7) with cognitive dysfunction. Review of his old lab also showed hyperthyroid with suppressed TSH 0.02 in 2017 of unclear reason, so we will recheck TFTs today as well. Thanks for the consult of this interesting patient. Yuri Regan MD, PhD, FACP, FACE Recent Results (from the past 24 hour(s)) Calcium, Ionized, Serum Result Value Ref Range ICA serum 1.44 (H) 1.15 - 1.33 mmol/L Vitamin D, 25-Hydroxy Result Value Ref Range 25-OH Vit D Total 30 21 - 100 ng/mL 25-OH Vit D Interp Sufficient Phosphorus Result Value Ref Range Phosphorus 2.0 (L) 2.5 - 4.5 mg/dL T3 Total Result Value Ref Range T3, Total 89 75 - 170 ng/dL T4, free Result Value Ref Range Free T4 1.09 0.93 - 1.70 ng/dL TSH Result Value Ref Range TSH 0.64 0.27 - 4.20 mcIU/mL Albumin Level Result Value Ref Range Albumin 4.4 3.2 - 5.2 g/dL Basic Metabolic Panel (non-fasting) Result Value Ref Range Glucose Lvl 82 65 - 199 mg/dL BUN 27 (H) 10 - 20 mg/dL Creatinine 1.50 0.80 - 1.50 mg/dL Sodium 138 135 - 145 mmol/L Potassium 4.8 3.5 - 5.0 mmol/L Chloride 106 98 - 107 mmol/L CO2 24 22 - 31 mmol/L Anion Gap 8 5 - 15 mmol/L Calcium 11.0 (H) 8.5 - 10.5 mg/dL Estimated GFR 44 (L) >=60 mL/min/1.73 m?? EXAMINATION: NM PARATHYROID W SPECT CT AND THYROID IMAGING (LEB) ??Date 12/27/21 CLINICAL HISTORY: hyperparathyroidism TECHNIQUE: Technetium-99m sestamibi was administered intravenously at a dose of 18.2 mCi. 15 minutes later, anterior image of the neck and chest was obtained.?? COMPARISON: None?? FINDINGS: Early and delayed planar sestamibi scans: Small focus of persistent sestamibi uptake in the right lower pole region. ?? SPECT-CT sestamibi scan: Confirms the presence of a 16 mm sestamibi avid nodule posterior to the right lower pole thyroid (CT series 3 axial image 47). ?? Pertechnetate thyroid scan: Normal activity in both lobes of the thyroid. ?? Incidental CT findings: Coronary and aortic calcifications. Large area of encephalomalacia in the right frontoparietal region and additional focal areas of encephalomalacia in the posterior right parietal and left frontoparietal region, consistent with sites of prior infarcts. ?? IMPRESSION 1. A 16 mm sestamibi avid nodule posterior to the right lower pole thyroid, consistent with a parathyroid adenoma. 2. Unexpected finding. Multiple areas of focal encephalomalacia in the partially visualized brain as described above, consistent with prior infarcts. Please correlate with prior CT or MR imaging. * Jamie Tristan DO - 09/14/2021 10:00 AM EST Images from the original note were not included. ENDOCRINOLOGY THYROID ULTRASOUND REPORT Patient:Jacob Allen, [id number] Date of exam: 09/14/2021 Indication: thyroid nodules, hyperparathyroidism Comparison: US 05/09/21 Performed by: Yuri Garcias DO, MD Real time images of the thyroid gland were obtained using a BK US machine. All measurements are given as Longitudinal/Sagittal x AP x Transverse. Right Lobe: The right lobe measures 3.9cm x 1.4cm x 2.2cm. Isthmus: The isthmus measures 3mm. Left Lobe: The left lobe measures 3.3cm x 1.7cm x 2.2cm. Lateral neck: I examined the lateral neck regions and saw no morphologically abnormal lymph nodes. Impression: Right Lobe: -Nodule 1: 1.6cm x 1.7cm x 1.8cm. Solid hypoechoic wider than tall smooth ill- defined borders with no calcifications. If this is a thyroid nodule, would be TR4. Unclear if this was the lesion suspected of being a parathyroid adenoma or if the more inferior hypoechoic area is a parathyroid adenoma. Also present in the right lobe is a subcentimeter cyst with comet-tail artifact Left Lobe: -Nodule 1: 1.6cm x 0.6cm x 1.3cm. Mixed cystic and solid, 12 calcifications Should have repeat ultrasound in 1 year, posisbly earlier depending on results of Sestamibi scan. documented in this encounter Miscellaneous Notes * Addendum Note - Yuri Regan MD - 09/14/2021 10:00 AM ESTAddended by: YURI REGAN on: 12/28/2021 12:28 PM Modules accepted: Orders documented in this encounter Plan of Treatment Scheduled Referrals Name Type Priority Associated Diagnoses Orde r Schedule Referral to General Surgery Outpatient Referral Routine Hyperparathyroidism Ordered: 12/28/2021 documented as of this encounter Procedures Procedure Name Priority Date/Time Associated Diagnosis Comments HC VENIPUNCTURE Routine 09/14/2021 12:04 PM EST Hyperparathyroidism HC VITAMIN D TOTAL-25 HYDROXY Routine 09/14/2021 12:04 PM EST Hyperparathyroidism HC TOTAL T3 Routine 09/14/2021 12:04 PM EST Hyperthyroidism HC THYROID STIMULATING HORMONE, SERUM Routine 09/14/2021 12:04 PM EST Hyperthyroidism HC FREE THYROXINE (T4) Routine 09/14/2021 12:04 PM EST Hyperthyroidism HC PHOSPHORUS, SERUM Routine 09/14/2021 12:04 PM EST Hyperparathyroidism HC ALBUMIN, SERUM Routine 09/14/2021 12: 04 PM EST Hyperparathyroidism BASIC METABOLIC PANEL (NON-FASTING) Routine 09/14/2021 12:04 PM EST Hyperparathyroidism documented in this encounter Results * (ABNORMAL) NM Parathyroid w Spect CT & Thyroid Imaging (Leb) (12/27/2021 1:27 PM EDT) Anatomical Region Laterality Modality Nuclear Medicine Impressions 12/28/2021 11:47 AM EDT 1. ??A 16 mm sestamibi avid nodule posterior to the right lower pole thyroid, consistent with a parathyroid adenoma. 2. ??Unexpected finding. Multiple areas of focal encephalomalacia in the partially visualized brain as described above, consistent with prior infarcts. Please correlate with prior CT or MR imaging. Thank you for letting us participate in the care of this patient. ??If you are a health care provider and have any questions regarding this report, please contact the number below. ??For patients who have questions please contact the health care management specialist that requested your imaging first. ? Electronically signed by: Justo Waite MD, [facility] ([phone]), at 12/28/2021 11:47 AM Narrative 12/28/2021 11:47 AM EDT EXAMINATION: NM PARATHYROID W SPECT CT AND THYROID IMAGING (LEB) CLINICAL HISTORY: hyperparathyroidism TECHNIQUE: Technetium-99m sestamibi was administered intravenously at a dose of 18.2 mCi. 15 minutes later, anterior image of the neck and chest was obtained. Two hours later, the anterior image of the neck and chest was repeated. Tomographic imaging of the neck and chest was then performed with the images reconstruction in the axial, coronal and sagittal planes. A low dose CT scan was acquired for attenuation correction and anatomic localization. Technetium-99m pertechnetate was then administered intravenously at a dose of 18.8 mCi. 20 minutes later, the anterior image of the neck and chest was repeated. COMPARISON: None FINDINGS: Early and delayed planar sestamibi scans: Small focus of persistent sestamibi uptake in the right lower pole region. SPECT-CT sestamibi scan: Confirms the presence of a 16 mm sestamibi avid nodule posterior to the right lower pole thyroid (CT series 3 axial image 47). Pertechnetate thyroid scan: Normal activity in both lobes of the thyroid. Incidental CT findings: Coronary and aortic calcifications. Large area of encephalomalacia in the right frontoparietal region and additional focal areas of encephalomalacia in the posterior right parietal and left frontoparietal region, consistent with sites of prior infarcts. Resulting Agency Comment Unexpected Finding Yuri Regan MD [facility] [place] ORDERABLES * (ABNORMAL) Calcium, Ionized, Serum (09/14/2021 12:04 PM EST) ICA serum 1.44(H) 1.15 - 1.33 mmol/L [facility] Comment: Note: Total bilirubin higher than 20 mg/dL may lead to falsely low ionized calcium. Blood 09/14/2021 12:0 4 PM EST 09/14/2021 12:10 PM EST Narrative Resulting Agency Comment Spec In Lab Yuri Regan MD CHEMISTRY ORDERAB LES [facility] [place] [address] * Vitamin D, 25-Hydroxy (09/14/2021 12:04 PM EST) 25-OH Vit D Total 30 21 - 100 ng/mL [facility] 25-OH Vit D Interp Sufficient [facility] Blood 09/14/2021 12:0 4 PM EST 09/14/2021 12:10 PM EST Narrative Resulting Agency Comment Spec In Lab Yuri Regan MD CHEMISTRY ORDERAB LES [facility] [place] [address] * (ABNORMAL) Phosphorus (09/14/2021 12:04 PM EST) Phosphorus 2.0(L) 2.5 - 4.5 mg/dL [facility] Blood 09/14/2021 12:0 4 PM EST 09/14/2021 12:10 PM EST Narrative Resulting Agency Comment Spec In Lab Yuri Regan MD CHEMISTRY ORDERAB LES [facility] [place] [address] * T3 Total (09/14/2021 12:04 PM EST) T3, Total 89 75 - 170 ng/dL [facility] Blood 09/14/2021 12:0 4 PM EST 09/14/2021 12:10 PM EST Narrative Resulting Agency Comment Spec In Lab Yuri Regan MD CHEMISTRY ORDERAB LES Performing Organization Address City/[facility]/ZIP Co de Phone Number [facility] [place] [address] * T4, free (09/14/2021 12:04 PM EST) Free T4 1.09 0.93 - 1.70 ng/dL [facility] Comment: Reference Interval (ng/dL): Females: ??First Trimester: 0.97-1.68 ??Second Trimester: 0.77-1.51 ??Third Trimester: 0.77-1.49 Blood 09/14/2021 12:0 4 PM EST 09/14/2021 12:10 PM EST Narrative Resulting Agency Comment Spec In Lab Yuri Regan MD CHEMISTRY ORDERAB LES Performing Organization Address City/[facility]/ZIP Co de Phone Number [facility] [place] [address] * TSH (09/14/2021 12:04 PM EST) TSH 0.64 0.27 - 4.20 mcIU/mL [facility] Comment: Reference Interval (mcIU/mL): Females: ??First Trimester: 0.23-3.88 ??Second Trimester: 0.22-3.90 ??Third Trimester: 0.44-4.66 Blood 09/14/2021 12:0 4 PM EST 09/14/2021 12:10 PM EST Narrative Resulting Agency Comment Spec In Lab Yuri Regan MD CHEMISTRY ORDERAB LES Performing Organization Address [facility] Co de Phone Number [facility] [place] [address] * Albumin Level (09/14/2021 12:04 PM EST) Albumin 4.4 3.2 - 5.2 g/dL [facility] Blood 09/14/2021 12:0 4 PM EST 09/14/2021 12:10 PM EST Narrative Resulting Agency Comment Spec In Lab Yuri Regan MD CHEMISTRY ORDERAB LES Performing Organization Address [facility] Co de Phone Number [facility] [place] [address] * (ABNORMAL) Basic Metabolic Panel (non-fasting) (09/14/2021 12:04 PM EST) Glucose Lvl 82 65 - 199 mg/dL [facility] Comment:Diabetes: >=200 mg/d L plus symptoms BUN 27(H) 10 - 20 mg/dL [facility] Creatinine 1.50 0.80 - 1.50 mg/dL [facility] Sodium 138 135 - 145 mmol/L [facility] Potassium 4.8 3.5 - 5.0 mmol/L [facility] Comment: Please note: ??Patients with WBC >100,000 may have falsely elevated Potassium levels. ??For accurate Potassium quantification in these patients send serum separator tube (gold top) for subsequent determinations. ??Contact the Clinical Chemistry Laboratory if there are any questions. Chloride 106 98 - 107 mmol/L [facility] CO2 24 22 - 31 mmol/L [facility] Anion Gap 8 5 - 15 mmol/L [facility] Calcium 11.0(H) 8.5 - 10.5 mg/dL [facility] Estimated GFR 44(L) >=60 mL/min/1. 73 m?? [facility] Comment: This patient? s estimated glomerular filtration rate (eGFR) is between 44 mL/min/1.73 m2 (patients with less muscle mass per kg body weight) and 51 mL/min/1.73 m2 (patients with more muscle mass per kg body weight) as determined by the CKD-EPI equation. Assessment of eGFR is not appropriate when creatinine concentrations are rapidly changing. For clinical decisions where creatinine clearance will affect therapy, a 24-hour urine creatinine clearance may be advised. Assignment of CKD stage 1 - 5 for patients with an eGFR near the transition point between stages may be based on clinical assessment of muscle mass and symptoms in addition to eGFR. Blood 09/14/2021 12:0 4 PM EST 09/14/2021 12:10 PM EST Narrative Resulting Agency Comment Spec In Lab Yuri Regan MD CHEMISTRY ORDERAB LES [facility] [place] [address] documented in this encounter Visit Diagnoses Diagnosis Hyperparathyroidism Hyperparathyroidism, unspecified Hyperthyroidism Thyrotoxicosis without mention of goiter or other cause, without mention of thyrotoxic crisis or storm Hyperparathyroidism Hyperparathyroidism, unspecified documented in this encounter Care Teams Corporate Wellness Coordinator Relationship Specialty Start Date End Date Yumi Moreland APRN [address] [place] [address] PCP - General Family Medicine 05/20/21 documented as of this encounter
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
--- OUTSIDE RECORDS SUMMARY | 2024-03-28 13:04 | XMS_ITS | Encounter Summary ---
Author Organization [facility] Address [facility] [place] [address] Care Team Providers Care Laboratory Technology Teacher Name Role Phone Yumi [place] APRN Primary Care Provider [phone] Reason for Visit * Diagnostic Test (Routine) - Closed Specialty Diagnoses / Procedures Referred By Contac t Referred To Contact Radiology Diagnoses Hyperparathyroidism Procedures NM Parathyroid w Spect CT & Thyroid Imaging (Leb) Jamie Tristan, [facility] [place] [address] [place] [address] Referral ID Status Reason Start Date Expiration Date V isits Requested Visits Authorized [id number] Closed Specialty Service Requested 09/14/2021 03/14/2023 3 3 Encounter Details Date Type Department Care Team (Latest Contact Info) Description 12/27/2021 10:18 AM EDT - 12/27/2021 11:59 PM EDT Hospital Encounter [place] [address] Yuri Regan MD [facility] [place] [address] Discharge Disposition: Home Social History Tobacco Use Types Packs/Day Years [...] on file documented as of this encounter Medications at Time of Discharge Medication Sig Dispensed Refills Start Date End Date atorvastatin (Lipitor) 20 mg Tablet Take 20 mg by mouth daily. mirtazapine (REMERON) 7.5 mg Tablet Take 7.5 mg by mouth nightly. cholecalciferol, Vitamin D3, (Vitamin D3) 1,000 unit Tablet Take by mouth daily. aspirin 81 mg Tablet, Delayed Release (E.C.) Take 1 tablet by mouth daily. 30 tablet 12 08/19/2017 lisinopriL (Zestril) 5 mg Tablet Take 5 mg by mouth daily. 02/07/2022 nitroGLYcerin (NITROSTAT) 0.4 mg Tablet, Sublingual Place 1 tablet under the tongue daily as needed for Chest pain. 90 tablet 3 08/19/2017 02/07/2022 meTOPROLOL succinate (TOPROL-XL) 25 mg Tablet Sustained Release 24 hr Take 1 tablet by mouth daily. 30 tablet 12 08/19/2017 02/07/2022 clopidogrel (PLAVIX) 75 mg Tablet Take 1 tablet by mouth daily. 90 tablet 3 08/19/2017 02/07/2022 documented as of this encounter Plan of Treatment Not on file documented as of this encounter Procedures Procedure Name Priority Date/Time Associated Diagnosis Comments NM PARATHYROID W/SPECT CT AND THYROID IMAGING Routine 12/27/2021 1:27 PM EDT Hyperparathyroidism documented in this encounter Visit Diagnoses Not on filedocumented in this encounter Administered Medications Inactive Administered Medications - up to 3 most recent administrations Medication Order MAR Action Action Date Dose Rate Site technetium (Tc-99m) pertechnetate (TC04) injection 0-20 mCi 0-20 mCi, Intravenous, ONCE PRN, 1 dose, Starting on Thelma 12/27/21 at 1312, Until Thelma 12/27/21 at 1310, Per Protocol, Radiology Contrast, Routine Given 12/27/2021 1:10 PM EDT 18.8 mCi Right Arm documented in this encounter Care Teams Laboratory Technology Teacher Relationship Specialty Start Date End Date Yumi Moreland APRN [address] [place] [address] PCP - General Family Medicine 05/20/21 documented as of this encounter
--- OUTSIDE RECORDS SUMMARY | 2024-03-28 13:04 | XMS_ITS | Encounter Summary ---
Author Organization [facility] Address [facility] [facility] [place] [address] Care Team Providers Care Sap Portal Architect Name Role Phone Yumi Moreland APRN Primary Care Provider [phone] Reason for Visit * Diagnostic Test (Routine) - Closed Specialty Diagnoses / Procedures Referred By Contac t Referred To Contact Radiology Diagnoses Hyperparathyroidism Procedures NM Parathyroid w Spect CT & Thyroid Imaging ([place]eb) Jamie Tristan, [facility] [place] [address] [place] [address] Referral ID Status Reason Start Date Expiration Date V isits Requested Visits Authorized [id number] Closed Specialty Service Requested 09/14/2021 03/14/2023 3 3 Encounter Details Date Type Department Care Team (Latest Contact Info) Description 12/27/2021 10:18 AM EDT - 12/27/2021 11:59 PM EDT Hospital Encounter [place] [address] Yuri Regan MD [facility] [place] [address] Discharge Disposition: Home Social History [...] PM EDT Hyperparathyroidism documented in this encounter Results * [...] who have questions please contact the health career professional that requested your imaging first. ? Electronically signed by: Justo Waite MD, [facility] ([phone]), at 12/28/2021 11:47 AM Narrative 12/28/2021 11:47 [...] Agency Comment Unexpected Finding Yuri Regan MD IMG NM ORDERABLES documented in this encounter Visit Diagnoses Not on filedocumented in this encounter Care Teams Sap Portal Architect Relationship Specialty Start Date End Date Yumi Moreland APRN [address] [place] [address] PCP - General Family Medicine 05/20/21 documented as of this encounter
--- OUTSIDE RECORDS SUMMARY | 2024-03-28 13:04 | XMS_ITS | Encounter Summary ---
Author Organization [facility] Address [facility] [place] [address] Care Team Providers Care Peer Support Specialist Name Role Phone Kierra Clay APRN Primary Care Provider Encounter Details Date Type Department Care Team (Late st Contact Info) Description 09/16/2017 Abstract Cardiology at [address] [address] Santiago Aguilera RN Social History Tobacco Use Types Packs/Day Years [...] on file documented as of this encounter Plan of Treatment Not on file documented as of this encounter Visit Diagnoses Not on filedocumented in this encounter Care Teams Peer Support Specialist Relationship Specialty Start Date End Date Kierra Clay APRN [address] [place] [address] PCP - General Internal Medicine 08/19/17 09/29/17 documented as of this encounter
--- OUTSIDE RECORDS SUMMARY | 2024-03-28 13:04 | XMS_ITS | Encounter Summary ---
Author Organization [facility] [place] [address] Care Team Providers Care Force Variation Equipment Tender Name Role Phone Yumi Moreland APRN Primary Care Provider [phone] Encounter Details Date Type Department Care Team (Latest Contact Info) Description 03/05/2022 9:58 AM EDT - 03/05/2022 5:04 PM EDT Hospital Encounter [place] [address] Kenneth Yap MD [facility] [place] [place] [address] Primary hyperparathyroidism (PTH 183 with Ca 10.7, 25vitD 29, Cr 1.7) w/ cognitive dysfunction Discharge Disposition: Home Social History Tobacco Use [...] Sign Reading Time Taken Comments Blood Pressure 111/86 03/05/2022 4:55 PM EDT Pulse 69 03/05/2022 10:30 AM EDT Temperature 36.8 ??C (98.2 ??F) 03/05/2022 4:30 PM ED T Respiratory Rate 16 03/05/2022 4:55 PM EDT Oxygen Saturation 92% 03/05/2022 4:55 PM EDT Inhaled Oxygen Concentration - - Weight 74.8 kg (165 lb) 03/05/2022 10:30 AM EDT Height 172.7 cm (5' 8) 03/05/2022 10:30 AM EDT Body Mass Index 25.09 03/05/2022 10:30 AM EDT documented in this encounter Discharge Instructions * Patient Instructions* Jayleen Velasquez MD - 03/04/2022 12:01 PM EDT PARATHYROIDECTOMY PATIENT DISCHARGE INSTRUCTIONS What to Expect Following Surgery: Swelling and/or bruising under and around the incision is normal. It is usually greatest on the second or third day following surgery. You may also feel the sensation of swelling or firmness that canlast for a month or more Your scar will be most visible for 1-2 months following your operation and will gradually fade overthe next 6-8 months. As it heals, a scar often looks more pink or red than the skin around it. You may feel a ???healing ridge?? directly under the incision. This is completely normal and is the result of swelling, healing, and scar formation. Usually, this will go away when healing is complete in 3-6 months. The skin just above and below your incision will feel numb. This will improve over several months but some patients may have long-term decrease in sensation over these areas. You may notice minor difficulty in swallowing which will improve over time. Your voice may be hoarse or weak at first--this is normal and does not mean there was damage done to the nerves that make the vocal cords move. Your voice will usually go back to normal after severaldays to a few weeks. Incision Care: Neck incisions heal rapidly--usually within a week or two. The incision can get wet in the shower 24 hours after surgery. However, do not submerge the incision underwater (i.e. bath tub, swimming pool, hot tub, etc.) for at least 2 weeks after your operation. Pat the incision dry immediately following your shower. Do not scrub the area vigorously for the next 2 weeks. You have a skin glue closure, and you may notice tiny pieces of yellow/white/aguillon material on your washcloth or there may be a thin clear or purplish/aguillon crust around the edges of the incision. Thisis normal. The glue will start to come off about a week after surgery. Do not pull off the skin glue in order to allow time for the incision to heal completely. If there is still some glue on your skin 2 weeks after surgery, you may gently wash it away. Do not use any ointments/salves/Vitamin E on the incision for 2 weeks as these may impair early wound healing. After 2 weeks (and after the skin glue is gone), you may apply vitamin E oil or scar creams to the incision. Gentle massage may help soften your scar tissue. Incisions are sensitive to sunlight. For at least 1 year after surgery you should use sunscreen when outdoors for long periods of time to prevent permanent darkening of the scar. This includes tanning booths. Pain Management: You may apply ice or cold packs to the incision for 15-20 minutes several times a day for the first2-3 days following surgery to help with discomfort. You may feel some stiffness/soreness in your shoulders, back, and neck. This may take a few days orweeks to go away completely. You may use moist warm heat, a heating pad, or massage to these areas for 15-20 minutes several times a day. Do not be afraid to move your neck - gently flexing and stretching your neck muscles and light massage will help prevent stiffness NSAIDs (non-steroidal anti-inflammatory drugs) such as ibuprofen (Motrin, Advil) and naproxen (Naprosyn, Aleve) or acetaminophen (Tylenol) are most helpful for the pain experienced after surgery. Generally, these are even more effective than the stronger pain medications (narcotics or opioids) after parathyroid surgery. Take NSAIDS or Tylenol every 6 hours [id number] for the first 3-5 days following surgery to help minimize pain. It is unusual to require opioid pain medications after parathyroid surgery. If you were prescribed oxycodone, use only for severe pain, and never take with alcohol. Opioid medications typically causeconstipation, so we suggest using a stool softener in addition (metamucil, colace...etc.). Diet & Activity: No restrictions in your diet are necessary. Activity as tolerated by your comfort level. You may return to work as soon as you would like. However, if your job requires heavy lifting or strenuous physical activity, your surgeon may ask you to wait to return to work for two weeks. NO DRIVING for at least 8 hours following any dose of an opioid pain medication if one was prescribed for you. Pathology Report: All specimens removed at surgery are analyzed by a pathologist. This report usually takes approximately 5-7 business days to be ready. As of December 2020, the reports are released directly to your electronic patient portal as soon as they are available. THIS MAY MEAN THAT YOU WILL SEE THE RESULTS BEFORE YOUR SURGEON DOES!!! Dr. Yap or Shaila Gonzales APRN, will call you to discuss the report within 72 hours of its release. Follow-up Appointment: Will be scheduled with Dr. Yap and/or Shaila Gonzales APRN, in 6 weeks. If you do not already have a follow up appointment, the date and time as well as any required labs will be mailed to you. Please call [phone] to confirm the date and time of your appointment if you do not hear from us in the next 2 weeks. Future Appointments Date Time Provider Department [place] 04/18/2022 9:40 AM LAB, THREE L Lab 3L [place] 04/18/2022 11:00 AM Shaila Gonzales APRN [facility] SURG [facility] Call Doctor for: Call if you have trouble talking or breathing (call 911 if this is severe) Call if you develop numbness or tingling around your mouth/lips or on the tips of your fingers or your hands, as this may mean your calcium is low. This may also be related to pain medication, where the breathing tube was positioned against your lips, the positioning of your arms and hands in the operating room, or how you were positioned when sleeping. If the sensation does not go away within a half hour, or if it worsens prior to that, call us immediately so we can discuss increasing your calcium if we think you need it. Call if your incision becomes red or begins to drain fluid. Call if you have fevers greater than 101 degrees F Call if you have persistent nausea or vomiting (this may be related to opioid pain medications). Call if you begin feeling worse, rather than better, several days after surgery. Information about Calcium Supplementation WHAT IS THE EFFECT OF SURGERY ON MY CALCIUM LEVELS? The parathyroid glands are responsible for controlling the body???s calcium levels, and you probably needed parathyroid surgery because your calcium level was too high. However, after we remove the abnormal gland(s), the remaining parathyroids frequently do not work perfectly right away. This can result in a decrease in blood calcium levels. This is usually temporary and the remaining parathyroidglands almost always make a full recovery. WHAT ARE THE SYMPTOMS OF LOW CALCIUM? If the calcium level in the blood stream decreases after surgery, you may experience symptoms of numbness, tingling, or cramps in the fingers, toes, legs, or around the mouth. WHAT ARE CALCIUM SUPPLEMENTS? Each over the counter calcium supplement tablet is approximately 500-600 mg. There are several different types of calcium sold over the counter. Some of the more common brands you will see include: Tums, Viactiv, Citracal, Caltrate. The two main forms of calcium in supplements are carbonate and citrate. Calcium carbonate (Tums, Viactiv) is absorbed most efficiently when taken with food, whereas calcium citrate (Citracal) is absorbed equally well when taken with or without food. HOW MUCH CALCIUM SHOULD I TAKE AFTER SURGERY? The exact dose of calcium that is right for you after surgery depends on several factors including the type and extent of surgery. Most patients will temporarily require some extra calcium as the parathyroid glands recover. You probably already purchased calcium supplements after reviewing your preoperative handout. A good guideline is to start with 600-1200 mg (1-2 over the counter supplements) twice a day. If you notice symptoms of numbness/tingling, you may need to take it more frequently (up to 3-4 times perday). If you have no symptoms, the dose can be gradually decreased and the extra calcium stopped altogether within a few days of surgery. WHAT ABOUT VITAMIN D? Vitamin D can be very helpful with calcium levels, as adequate vitamin D stores in the body help your body absorb calcium. If you were on Vitamin D prior to surgery, this can be resumed post-operatively. Additional Vitamin D may be included in your calcium supplement, this is fine as well. If you are not on Vitamin D and would like to start after surgery, an over the counter supplement of 400-800 IU is the usual recommended dosage, however, if you are on other medications or have otherhealth issues, you will want to discuss this with your PCP. If your surgeon is concerned about your calcium levels, (s)he may prescribe a different form of vitamin D called Rocaltrol (Calcitriol). This should be taken as instructed. Note that this is not a replacement for calcium, it should be taken in addition to the recommended calcium supplements to helpwith absorption. COMMONLY ASKED QUESTIONS: Are there side effects to calcium supplements? The most common side effect is constipation and stomach upset. If you are taking high doses of calcium after surgery, be sure to include a stool softener or laxative as needed. Minimize narcotics, as these can also cause constipation. Finally, decreaseyour calcium supplements if you note no symptoms of low calcium as noted above. Do I need a blood test after surgery to check my calcium levels? Your calcium level will be checkedat your routine follow up visit to make sure it has returned to normal. You will most likely be offthe postoperative supplements by then. Our bodies will signal us that the calcium level is low withthe symptoms noted above. If you do not have these symptoms, then most likely your calcium level isjust fine. Should I take a long-term calcium supplement? Routine calcium supplements can be good for general bone health, especially if you have osteoporosis as a result of your hyperparathyroidism. We recommend that you discuss long-term supplementation with your PCP. Phone number for questions: [phone] before 5 PM on weekdays [phone] after 5 PM and on weekends/holidays. Ask for the general surgery resident extension division director. documented in this encounter Medications at Time of Discharge [...] by mouth daily. 30 tablet 12 08/19/2017 documented as of this encounter Progress Notes * Ynes Hudson RN - 03/05/2022 4:47 PM EDT AVS reviewed with pt and caregiver with good understanding. Pt tolerating po prior to dc. IV removed without difficulty. Pt meets discharge criteria at this time. Pt discharged home with caregiver. Abbi RN documented in this encounter H&P Notes * Jayleen Velasquez MD - 03/05/2022 10:28 AM EDT [facility] General Surgery Pre-Operative History and Physical Jacob Allen is a 81 y.o. male with primary hyperparathyroidism and abnormality of the right lower parathyroid on localization studies who presents today for parathyroidectomy with intraoperativePTH monitoring. The patient reports that he has been well since his last clinic visit in early February, without significant changes to medical status. He denies new diagnoses or medication changes. He denies recent illness including fever/chills, cough/flu- like symptoms, or recent infection. He denies chest pain or shortness of breath. Signficant PM/SH Limited mobility, wheelchair bound CAD, EF 38% Past Medical History: Diagnosis Date ??? Depression 12/29/2013 ??? Dyslipidemia 12/30/2013 Trialed mevachor in 1993 for lipids ??? Essential hypertension 09/16/2017 ??? Gastroesophageal reflux disease without esophagitis 09/16/2017 ??? ST elevation myocardial infarction (STEMI) of lateral wall 12/29/2013 Presented to [facility] w/ 4-5mm JES Rec'd lytics prior to transfer No prior neck surgery. Physical Exam Gen: no distress, lying comfortably in bed Neuro: alert and oriented, no focal deficits CV: regular rate and rhythm Pulm: clear bilaterally, breathing comfortably on room air GI: soft, nondistended, nontender Assessment and Plan: Proceed with scheduled procedure: parathyroidectomy with intraoperative PTH monitoring. - He has been appropriately consented and is ready to proceed. Jayleen Velasquez MD 03/05/2022 documented in this encounter Miscellaneous Notes * Brief Op Note - Kenneth Yap MD - 03/05/2022 1:37 PM EDT Brief Operative Note Patient Name: Jacob Allen : [id number] MR#: [id number] Case Date: 03/05/2022 Surgeon: Surgeon(s) and Role: * Kenneth Yap MD - Primary * Jayleen Velasquez MD - Resident Preoperative diagnosis: HYPERPARATHYROIDISM Postoperative diagnosis: HYPERPARATHYROIDISM Procedure(s) (LRB): PARATHYROIDECTOMY OR EXPLORATION OF PARATHYROID(S) (WRVU 15.6) (N/A) FACIAL NERVE MONITORING, SETUP LARYNGEAL (WRVU 1.57) (N/A) Anesthesia: General Findings: massively enlarged right lower parathyroid. Right RLN adherent to the posterior aspect ofthe gland, preserved thoughout. Friable thyroid. IOPTH findings (from anterior jugular): Baseline: 267 pg/mL Preexcision 219 pg/mL 10-min post-excision 140 pg/mL 15-min post-excision 88 pg/mL Complications: none apparent Intake: Intraprocedure Crystalloid Total Output Blood Loss 50 mL Total Output 50 mL Transfusion No data found in the last 1 encounters. Output: Estimated Blood Loss: 50 mL Urine Output:: (no urine output recorded) Other Output: (no other output recorded) Drains: none Specimens removed during surgery: Order Name Source Comment Collection Info Order Time SPECIMEN TO PATHOLOGY HYPERPARATHYROIDISM right lower parathyroid excision No 03/05/2022 12:33 PM Time specimen removed from patient: 12:32 PM Number of tissue samples (in container) 1 Biospecimen to store? No PATHOLOGY ORDER UPDATE 03/05/2022 1:26 PM Additional information: Cancellation Enter requested changes: cancel order eD-H Order Id number [id number] Disposition: awakened from anesthesia, extubated and taken to the recovery room in a stable condition, having suffered no apparent untoward event. Condition: doing well without problems Attestation: Case Date: 03/05/2022 I was present and I participated during the entire procedure (does not need to include opening and closing). (Please see the Surgical Encounter Summary for any Implant and Specimen details pertinent to this patient.) Surgical Infection Prevention Bundle Used? N/A * Op Note - Kenneth Yap MD - 03/05/2022 11:52 AM EDT [facility] Operative Note Patient Name: Jacob Allen : [id number] MR#: [id number] Case Date: 03/05/2022 Surgeon: Surgeon(s) and Role: * Kenneth Yap MD - Primary * Jayleen Velasquez MD - Resident Preoperative diagnosis: HYPERPARATHYROIDISM Postoperative diagnosis: HYPERPARATHYROIDISM Procedure(s) (LRB): PARATHYROIDECTOMY OR EXPLORATION OF PARATHYROID(S) (WRVU 15.6) (N/A) FACIAL NERVE MONITORING, SETUP LARYNGEAL (WRVU 1.57) (N/A) Anesthesia: General Estimated Blood Loss: 50 mL Specimens removed during surgery: Order Name Source Comment Collection Info Order Time SPECIMEN TO PATHOLOGY HYPERPARATHYROIDISM right lower parathyroid excision No 03/05/2022 12:33 PM Time specimen removed from patient: 12:32 PM Number of tissue samples (in container) 1 Biospecimen to store? No PATHOLOGY ORDER UPDATE 03/05/2022 1:26 PM Additional information: Cancellation Enter requested changes: cancel order eD-H Order Id number [id number] Drains: * No LDAs found * Surgical Closure: Primary Closure - skin incision is completely closed without any wires, tracy, drains or other devices Disposition: awakened from anesthesia, extubated and taken to the recovery room in a stable condition, having suffered no apparent untoward event. Condition: doing well without problems (Please see the Surgical Encounter Summary for any Implant and Specimen details pertinent to this patient.) HPI/Surgical Indications: Mr. Jacob Allen is a 81 y.o. year old male with symptomatic biochemical primary hyperparathyroidism. Localization studies including ultrasound and sestamibi scan indicate a right lower parathyroid abnormality. We discussed the typical work up and management of primary hyperparathyroidism. He has a significant cardiac history, but with careful review I think would maine safe surgical candidate. Given his limited mobility, he is a fall risk and therefore maintaining bone density is important. I would recommend that he get a baseline DEXA scan. His parathyroid is easily localized by two modalities and I therefore recommended minimally invasive parathyroidectomy with intraoperative parathyroid hormone monitoring. If IOPTH levels do not decrease appropriately, we will proceed with a bilateral exploration. Procedure Description: The patient was taken to the operating room and placed on the operating table in the supine position. Adequate general anesthesia was completed by anesthesiology with the [employer] recurrent laryngeal nerve monitoring system. A crease on the anterior neck was identified and marked, and this area was infiltrated with 10 cc 0.25% marcaine with epinephrine. He was then preppedand draped in the usual sterile fashion over the anterior neck. A timeout procedure was done, and all members of the OR team were in agreement. The procedure began by making a curvilinear incision along the lower anterior neck along the previously marked skin crease with a scalpel. Electrocautery was used to continue dissection through the subcutaneous tissue and through the platysma muscle. Subplatysmal flaps were created in cranial and caudal directions. The median raphe of the strap muscles was divided with electrocautery. We josé a baseline PTH from a right anterior jugular vein. IOPTH levels are noted in the table below, and the same anterior jugular was used for all 4 draws. We then dissected the strap muscles off the right thyroid lobe out to its lateral aspect. The middle thyroidal veins were ligated. The thyroid surface was extremely friable. We identified a right lower parathyroid gland in the normal anatomic position which was markedly enlarged. It had some fibrous adhesions around it, and the right recurrent laryngeal nerve was adherent to the posterior surfaceof the adenoma. We were able to carefully dissect this away and preserve it throughout. We dissected the enlarged parathyroid free onto its vascular pedicle. We josé a pre-excision PTH from the anterior jugular vein. We then removed the right lower parathyroid gland and ligated its vascular pediclewith a 3-0 silk suture. The gland was passed off the table as a permanent specimen. At 10 and 15 minutes, we josé post-excision PTHs from the internal jugular vein. While we waited for them to result, we worked on hemostasis, as the friable thyroid continued to ooze throughout. When the 10 minute resulted still elevated, we started to explore for the right uppergland. It was not immediately evident, and simply retracting the thyroid caused additional surface bleeding. The 15 minute IOPTH result was a 67% decrease from baseline and a 37% decrease from the 10-minute, and therefore we decided to conclude the exploration. We then irrigated the operative field. A Valsalva to 30 millimeters of mercury was accomplished by Anesthesia. Hemostasis was assured again. The recurrent laryngeal nerve was tested again, and it wasfully functional on the nerve monitor. We placed Surgicel in the paratracheal space, closed the strap muscles using running 3-0 Vicryl suture, the platysma with interrupted 3-0 Vicryl suture, and theskin with running 5-0 Prolene subcuticular suture. We then placed Dermabond on the incision and removed the Prolene suture. A final PTH level will be checked in recovery. IOPTH findings: Baseline: 267 pg/mL Preexcision 219 pg/mL 10-min post-excision 140 pg/mL 15-min post-excision 88 pg/mL Surgical Infection Prevention Bundle Used? N/A Attestation: Case Date: 03/05/2022 I was present and I participated during the entire procedure (does not need to include opening and closing). KENNETH YAP MD 03/05/2022 documented in this encounter Plan of Treatment Not on file documented as of this encounter Procedures Procedure Name Priority Date/Time Associated Diagnosis Comments HC PARATHYROID HORMONE(PTH INTACT STAT 03/05/2022 3:31 PM EDT HC INTRAOPERATIVE PTH STAT 03/05/2022 12:49 PM EDT HC INTRAOPERATIVE PTH Routine 03/05/2022 12:41 PM EDT SPECIMEN TO PATHOLOGY Routine 03/05/2022 12:33 PM EDT SURGICAL PATHOLOGY REPORT Routine 03/05/2022 12:32 PM EDT HC INTRAOPERATIVE PTH STAT 03/05/2022 12:27 PM EDT HC INTRAOPERATIVE PTH STAT 03/05/2022 11:55 AM EDT Needle Electromyography, Larynx Global ([id number]) 03/05/2022 11:12 AM EDT HYPERPARATHYROIDIS M Explore Parathyroid Glands ([id number]) 03/05/2022 11:12 AM EDT HYPERPARATHYROIDIS M documented in this encounter Results * Calcium (04/18/2022 9:48 AM EDT) Calcium 9.4 8.5 - 10.5 mg/dL [facility] Blood 04/18/2022 9:48 AM EDT 04/18/2022 9:56 AM EDT Narrative Resulting Agency Comment Spec In Lab Kenneth Yap MD CHEMISTRY ORDERAB LES [facility] [place] [address] * PTH (04/18/2022 9:48 AM EDT) PTH 65 15 - 65 pg/mL [facility] Blood 04/18/2022 9:48 AM EDT 04/18/2022 9:56 AM EDT Narrative Resulting Agency Comment Spec In Lab Kenneth Yap MD CHEMISTRY ORDERAB LES Performing Organization Address City/[facility]/ZIP Co de Phone Number [facility] [place] [address] * PTH (03/05/2022 3:31 PM EDT) PTH 21 15 - 65 pg/mL [facility] Blood 03/05/2022 3:31 PM EDT 03/05/2022 3:31 PM EDT Narrative Resulting Agency Comment Spec In Lab Kenneth Yap MD CHEMISTRY ORDERAB LES Performing Organization Address City/[facility]/ZIP Co de Phone Number [facility] [place] [address] * (ABNORMAL) Intraoperative PTH ([facility]) (03/05/2022 12:49 PM EDT) Intraoper PTH 88(H) 15 - 65 pg/mL [facility] Comment: 15 min post Called by: remy, Read back by: Chloe Paz, Date/Time:03/05/22 13:19. A 50 % decrease in venous iPTH levels at 10 min post adenoma excision is expected if all the hypersecreting parathyroid tissue has been removed (Dexter GL et al. Surgery 1993:114; [id number]) Blood 03/05/2022 12:4 9 PM EDT 03/05/2022 12:56 PM EDT Narrative Resulting Agency Comment Spec In Lab Kenneth Yap MD CHEMISTRY ORDERAB LES Performing Organization Address [facility] Co de Phone Number [facility] [place] [address] * (ABNORMAL) Intraoperative PTH ([facility]) (03/05/2022 12:41 PM EDT) Intraoper PTH 140(H) 15 - 65 pg/mL [facility] Comment: 10 min post Called by: remy, Read back by: Chloe Machado, Date/Time:03/05/22 13:07. A 50 % decrease in venous iPTH levels at 10 min post adenoma excision is expected if all the hypersecreting parathyroid tissue has been removed (Edxter GL et al. Surgery 1993:114; [id number]) Blood 03/05/2022 12:4 1 PM EDT 03/05/2022 12:47 PM EDT Narrative Resulting Agency Comment Spec In Lab Kenneth Yap MD CHEMISTRY ORDERAB LES Performing Organization Address [facility] Co de Phone Number [facility] [place] [address] * Specimen to Pathology (03/05/2022 12:33 PM EDT) AP Specimen 03/05/2022 12:3 3 PM EDT 03/05/2022 12:33 PM EDT Narrative [facility] - 03/05/2022 12:33 PM EDT Specimen requisition ordered. ??Separate Pathology report to follow Kenneth Yap MD PATHOLOGY/CYTOLOG Y ORDERABLES Performing Organization Address [facility]/ZIP Co de Phone Number [facility] [place] [address] * Surgical Pathology Report (03/05/2022 12:32 PM EDT) [facility] Surgical Pathology Report [id number] ? Location: [facility]; [facility]; A The signing pathologist has (i) examined the relevant preparation(s) for the specimen(s) and (ii) rendered or confirmed the diagnosis(es). . ?Surgical Pathology DIAGNOSIS Right lower parathyroid, excision: Parathyroid adenoma with associated internal hemorrhage and fibrosis Electronically signed by: ?Jose LUIS, Jayleen Brannon Verified: ??03/13/2022 11:20 ??Pathologist Performed at: ??-[facility] Dept. of Pathology, [place], [place] DISCUSSION The intraoperative PTH decrease from 267 pg/mL to 88 pg/mL. SPECIMEN(S) SUBMITTED A - right lower parathyroid, excision (1) CLINICAL INFORMATION Hyperparathyroidi sm SPECIMEN PROCESSING A - Labeled/Fixative: Right lower parathyroid, fresh. Quantity/Size/Gonzales ght: Single, 2.8 x 2.0 x 1.2 cm, 3.40 g. Tissue Description: Irregular ovoid samuel-brown rubbery tissue. Sections/Processi ng: Entirely submitted in 3 cassettes labeled A1-A3. ??pps [facility] 03/05/2022 12:3 2 PM EDT Kenneth Yap MD PATHOLOGY/CYTOLOG Y ORDERABLES Performing Organization Address City/[facility]/ZIP Co de Phone Number [facility] [place] [address] * (ABNORMAL) Intraoperative PTH ([facility]/P) (03/05/2022 12:27 PM EDT) Pathologist [facility] Intraoper PTH 219(H) 15 - 65 pg/mL [facility] Comment: pre-excision Called by: remy, Read back by: Chloe Paz, Date/Time:03/05/22 12:51. A 50 % decrease in venous iPTH levels at 10 min post adenoma excision is expected if all the hypersecreting parathyroid tissue has been removed (Dexter GL et al. Surgery 1993:114; [id number]) Blood 03/05/2022 12:2 7 PM EDT 03/05/2022 12:32 PM EDT Narrative Resulting Agency Comment Spec In Lab Kenneth Yap MD CHEMISTRY ORDERAB LES Performing Organization Address [facility]/ZIP Co de Phone Number [facility] [place] [address] * (ABNORMAL) Intraoperative PTH ([facility]) (03/05/2022 11:55 AM EDT) Intraoper PTH 267(H) 15 - 65 pg/mL [facility] Comment: baseline Called by: remy, Read back by: Lucy Mireles, Date/Time:03/05/22 12:20. A 50 % decrease in venous iPTH levels at 10 min post adenoma excision is expected if all the hypersecreting parathyroid tissue has been removed (Dexter GL et al. Surgery 1993:114; [id number]) Blood 03/05/2022 11:5 5 AM EDT 03/05/2022 12:00 PM EDT Narrative Resulting Agency Comment Spec In Lab Kenneth Yap MD CHEMISTRY ORDERAB LES Performing Organization Address City/[facility]/ZIP Co de Phone Number [facility] [place] [address] documented in this encounter Visit Diagnoses Diagnosis Primary hyperparathyroidism (PTH 183 with Ca 10.7, 25vitD 29, Cr 1.7) w/ cognitive dysfunction Primary hyperparathyroidism documented in this encounter Administered Medications Inactive Administered Medications - up to 3 most recent administrations Medication Order MAR Action Action Date Dose Rate Site acetaminophen (Tylenol) tablet 975 mg 975 mg, Oral, ONCE, 1 dose, On Fri03/05/22 at 1100, Maximum dose of acetaminophen is 4000 mg from all sources in 24 hours. When ordered for pain, acetaminophen should be given even when other ordered pain medications are indicated. , Day of Surgery (Day of Procedure), Routine Given 03/05/2022 11:08 AM EDT 975 mg fentaNYL (pf) (50 mcg/mL) multi-dose injection 12.5 mcg 12.5 mcg, Intravenous, EVERY 5 MIN PRN, Starting on Fri03/05/22 at 1412, Until Fri03/05/22 at 1706, Pain, Mild to moderate pain (1-5 out of 10), Hold for respiratory rate less than 10 per minute. Maximum dose 200 mcg over one hour, including OR administration. If ordered with HYDROmorphone or morphine, give HYDROmorphone or morphine first and use fentaNYL for breakthrough pain., PACU Recovery, Routine fentaNYL (pf) (50 mcg/mL) multi-dose injection 25 mcg 25 mcg, Intravenous, EVERY 5 MIN PRN, Starting on Fri03/05/22 at 1412, Until Fri03/05/22 at 1706, Pain, Moderate to severe pain (6-10 out of 10), Hold for respiratory rate less than 10 per minute. Maximum dose 200 mcg over one hour, including OR administration. If ordered with HYDROmorphone or morphine, give HYDROmorphone or morphine first and use fentaNYL for breakthrough pain., PACU Recovery, Routine lactated ringers infusion 1,000 mL, at 100 mL/hr, Intravenous, CONTINUOUS, Starting on Fri03/05/22 at 1100, Until Fri03/05/22 at 1706, Day of Surgery (Day of Procedure) New Bag 03/05/2022 11:03 AM EDT lidocaine (Xylocaine) 1% (10 mg/mL) injection 3 mg 3 mg (0.3 mL), Subcutaneous, ONCE PRN, 1 dose, Starting on Fri03/05/22 at 1030, Until Fri03/05/22 at 1706, for discomfort with PIV insertion, Day of Surgery (Day of Procedure), Routine naloxone (Narcan) (0.4 mg/mL) injection 0.04 mg 0.04 mg, Intravenous, EVERY 5 MIN PRN, 3 doses, Starting on Fri03/05/22 at 1412, Until Fri03/05/22 at 1706, Opioid Reversal, for respiratory rate less than 6 or unresponsive., May repeat every 5 minutes to increase respiratory rate. DO NOT exceed 0.12 mg total dose. Notify anesthesia immediately if administered., PACU Recovery, Routine ondansetron (pf) (Zofran) (2 mg/mL) injection 4 mg 4 mg, Intravenous, EVERY 30 MIN PRN, 2 doses, Starting on Fri03/05/22 at 1412, Until Fri03/05/22 at 1706, Nausea, Maximum total dose of 8 mg (including OR administration). If multiple antiemetics ordered, use ondansetron first and if ineffective use prochlorperazine second and if ineffective use promethazine, PACU Recovery prochlorperazine (Compazine) (5 mg/mL) injection 5 mg 5 mg, Intravenous, EVERY 30 MIN PRN, 2 doses, Starting on Fri03/05/22 at 1412, Until Fri03/05/22 at 1706, Nausea, Maximum total dose of 10 mg (including OR administration). If multiple antiemetics ordered, use ondansetron first and if ineffective use prochlorperazine second and if ineffective use promethazine, PACU Recovery, Routine promethazine (Phenergan) (25 mg/mL) injection 6.25 mg 6.25 mg, Intravenous, EVERY 30 MIN PRN, Nausea, Starting on Fri03/05/22 at 1412, 2 doses, Until Fri03/05/22 at 1706, Maximum total dose of 12.5 mg (including OR administration). VESICANT - Dilute with a minimum of 10 mL sodium chloride 0.9%. LARGE VEIN only. Inject over 10 minutes into the farthest port of a running IV infusion. Remain with the patient and STOP infusion immediately if patient reports burning. Avoid extravasation. If multiple antiemetics are ordered, use ondansetron first and if ineffective use prochlorperazine second and if ineffective use promethazine., PACU Recovery sodium chloride 0.9 % (flush) (BD PosiFlush Normal Saline 0.9) flush 5-20 mL 5-20 mL, Intravenous, EVERY 1 MIN PRN, Starting on Fri03/05/22 at 1030, Until Fri03/05/22 at 1706, flush, Flush pertains to all indwelling lines. Flush per protocol found in the job aid using the link provided on this medication record., Day of Surgery (Day of Procedure), Routine documented in this encounter Active and Recently Administered Medications Times are shown in EDT. Scheduled Medication Order 03/03/2022 03/04/2022 03/05/2022 acetaminophen (Tylenol) tablet 975 mg (COMPLETED) 975 mg, Oral, ONCE, 1 dose, On Fri03/05/22 at 1100, Maximum dose of acetaminophen is 4000 mg from all sources in 24 hours. When ordered for pain, acetaminophen should be given even when other ordered pain medications are indicated. , Day of Surgery (Day of Procedure), Routine 1108 (Given - Provid er: Veronique Murphy RN) Continuous Medication Order 03/03/2022 03/04/2022 03/05/2022 lactated ringers infusion 1,000 mL, at 100 mL/hr, Intravenous, CONTINUOUS, Starting on Fri03/05/22 at 1100, Until Fri03/05/22 at 1706, Day of Surgery (Day of Procedure) 1103 (New Bag - Prov ider: Josh Cassidy MD)1336 (Anesthesia Volume Adjustment - Provider: Josh Cassidy MD) PRN Medication Order 03/03/2022 03/04/2022 03/05/2022 BUpivacaine-EPINEPHrine (Marcaine-epiNEPHrine) 0.25 %-1:200,000 injection (CANCELED) ONCE PRN, Starting on Fri03/05/22 at 1151, Until Fri03/05/22 at 1904, Intra-Operative (Intra-Procedure), Routine 1151 (Given - Provid er: Jayleen Velasquez MD) fentaNYL (pf) (50 mcg/mL) multi-dose injection 12.5 mcg(Linked Group 1) 12.5 mcg, Intravenous, EVERY 5 MIN PRN, Starting on Fri03/05/22 at 1412, Until Fri03/05/22 at 1706, Pain, Mild to moderate pain (1-5 out of 10), Hold for respiratory rate less than 10 per minute. Maximum dose 200 mcg over one hour, including OR administration. If ordered with HYDROmorphone or morphine, give HYDROmorphone or morphine first and use fentaNYL for breakthrough pain., PACU Recovery, Routine fentaNYL (pf) (50 mcg/mL) multi-dose injection 25 mcg(Linked Group 1) 25 mcg, Intravenous, EVERY 5 MIN PRN, Starting on Fri03/05/22 at 1412, Until Fri03/05/22 at 1706, Pain, Moderate to severe pain (6-10 out of 10), Hold for respiratory rate less than 10 per minute. Maximum dose 200 mcg over one hour, including OR administration. If ordered with HYDROmorphone or morphine, give HYDROmorphone or morphine first and use fentaNYL for breakthrough pain., PACU Recovery, Routine lidocaine (Xylocaine) 1% (10 mg/mL) injection 3 mg 3 mg (0.3 mL), Subcutaneous, ONCE PRN, 1 dose, Starting on Fri03/05/22 at 1030, Until Fri03/05/22 at 1706, for discomfort with PIV insertion, Day of Surgery (Day of Procedure), Routine naloxone (Narcan) (0.4 mg/mL) injection 0.04 mg 0.04 mg, Intravenous, EVERY 5 MIN PRN, 3 doses, Starting on Fri03/05/22 at 1412, Until Fri03/05/22 at 1706, Opioid Reversal, for respiratory rate less than 6 or unresponsive., May repeat every 5 minutes to increase respiratory rate. DO NOT exceed 0.12 mg total dose. Notify anesthesia immediately if administered., PACU Recovery, Routine ondansetron (pf) (Zofran) (2 mg/mL) injection 4 mg 4 mg, Intravenous, EVERY 30 MIN PRN, 2 doses, Starting on Fri03/05/22 at 1412, Until Fri03/05/22 at 1706, Nausea, Maximum total dose of 8 mg (including OR administration). If multiple antiemetics ordered, use ondansetron first and if ineffective use prochlorperazine second and if ineffective use promethazine, PACU Recovery prochlorperazine (Compazine) (5 mg/mL) injection 5 mg 5 mg, Intravenous, EVERY 30 MIN PRN, 2 doses, Starting on Fri03/05/22 at 1412, Until Fri03/05/22 at 1706, Nausea, Maximum total dose of 10 mg (including OR administration). If multiple antiemetics ordered, use ondansetron first and if ineffective use prochlorperazine second and if ineffective use promethazine, PACU Recovery, Routine promethazine (Phenergan) (25 mg/mL) injection 6.25 mg 6.25 mg, Intravenous, EVERY 30 MIN PRN, Nausea, Starting on Fri03/05/22 at 1412, 2 doses, Until Fri03/05/22 at 1706, Maximum total dose of 12.5 mg (including OR administration). VESICANT - Dilute with a minimum of 10 mL sodium chloride 0.9%. LARGE VEIN only. Inject over 10 minutes into the farthest port of a running IV infusion. Remain with the patient and STOP infusion immediately if patient reports burning. Avoid extravasation. If multiple antiemetics are ordered, use ondansetron first and if ineffective use prochlorperazine second and if ineffective use promethazine., PACU Recovery sodium chloride 0.9 % (flush) (BD PosiFlush Normal Saline 0.9) flush 5-20 mL 5-20 mL, Intravenous, EVERY 1 MIN PRN, Starting on Fri03/05/22 at 1030, Until Fri03/05/22 at 1706, flush, Flush pertains to all indwelling lines. Flush per protocol found in the job aid using the link provided on this medication record., Day of Surgery (Day of Procedure), Routine Linked Groups Order Group 1: fentaNYL (pf) (50 mcg/mL) multi-dose injection 12.5 mcgJump to med 12.5 mcg, Intravenous, EVERY 5 MIN PRN, Starting on Fri03/05/22 at 1412, Until Fri03/05/22 at 1706, Pain, Mild to moderate pain (1-5 out of 10), Hold for respiratory rate less than 10 per minute. Maximum dose 200 mcg over one hour, including OR administration. If ordered with HYDROmorphone or morphine, give HYDROmorphone or morphine first and use fentaNYL for breakthrough pain., PACU Recovery, Routine Or fentaNYL (pf) (50 mcg/mL) multi-dose injection 25 mcgJump to med 25 mcg, Intravenous, EVERY 5 MIN PRN, Starting on Fri03/05/22 at 1412, Until Fri03/05/22 at 1706, Pain, Moderate to severe pain (6-10 out of 10), Hold for respiratory rate less than 10 per minute. Maximum dose 200 mcg over one hour, including OR administration. If ordered with HYDROmorphone or morphine, give HYDROmorphone or morphine first and use fentaNYL for breakthrough pain., PACU Recovery, Routine documented in this encounter Care Teams Force Variation Equipment Tender Relationship Specialty Start Date End Date Yumi Moreland, LEVEL VIAL INSPECTOR AND TESTER [address] [place] [address] PCP - General Family Medicine 05/20/21 documented as of this encounter
--- OUTSIDE RECORDS SUMMARY | 2024-03-28 13:04 | XMS_ITS | Encounter Summary ---
[place] [address] Care Team Providers Care Maintenance Electrician Name Role Phone DinoPancho Fernandez CARDOZA Primary Care Provider [phone] Reason for Visit * Reason Comments Follow-up F/U After Cardiac Re hab ends in 3 months Encounter Details Date Type Department Care Team (Late st Contact Info) Description 12/23/2017 10:20 AM EDT Office Visit Cardiology at [address] [phone] Nikhil Nunez Jr., MD [address] [place] [id number] Essential hypertension; Dyslipidemia; ASCVD (arteriosclerotic cardiovascular disease) Social History Tobacco Use Types Packs/Day Years [...] Sign Reading Time Taken Comments Blood Pressure 140/88 12/23/2017 10:26 AM EDT Pulse 60 12/23/2017 10:25 AM EDT Temperature - - Respiratory Rate - - Oxygen Saturation - - Inhaled Oxygen Concentration - - Weight 73.5 kg (162 lb) 12/23/2017 10:25 AM EDT Height 172.7 cm (5' 8) 12/23/2017 10:25 AM EDT Body Mass Index 24.63 12/23/2017 10:25 AM EDT documented in this encounter Progress Notes * Nikhil Nunez Jr., MD - 12/23/2017 10:20 AM EDT Subjective: Patient ID: Jacob Allen is a 77 y.o. male. Chief Complaint Patient presents with ??? Follow-up F/U After Cardiac Rehab ends in 3 months HPI He did well in cardiac rehab increasing his METS level from 2.1-6.3. He has been walking and snow shoeing without chest pain or limiting dyspnea. His energy level is good. He denies palpitations,dizziness or edema. He had stopped his statin in August (did not tell me that at last visit) but is taking all the other medications as below. Review of Systems denies other issues No Known Allergies Current Outpatient Prescriptions Medication Sig Dispense Refill ??? lisinopril (PRINIVIL;ZESTRIL) 2.5 mg Tablet Take 2.5 mg by mouth daily. ??? aspirin 81 mg Tablet, Delayed Release (E.C.) Take 1 tablet by mouth daily. 30 tablet 12 ??? nitroGLYcerin (NITROSTAT) 0.[address], [address] 1 tablet under the tongue daily as needed for Chest pain. 90 tablet 3 ??? meTOPROLOL succinate (TOPROL-XL) 25 mg Tablet Sustained Release 24 hr Take 1 tablet by mouth daily. 30 tablet 12 ??? clopidogrel (PLAVIX) 75 mg Tablet Take 1 tablet by mouth daily. 90 tablet 3 No current facility-administered medications for this visit. Patient Active Problem List Diagnosis ??? Essential hypertension ??? Gastroesophageal reflux disease without esophagitis ??? Dyslipidemia Trialed mevachor in 1993 for lipids ??? ST elevation myocardial infarction (STEMI) of lateral wall 2014: STEMI- cath mild diffuse disease and significant disease in D1-> BMS Did not take meds post [place] 08/2017: Presented to [facility] w/ 4-5mm JES Rec'd lytics prior to transfer Cath- mild diffuse disease, patent staent, 90% distal RCA-> BMS Echo- EF 56%, lateral hypokinesis, basal inferior akinesis, mild MR ??? Depression Objective: Physical Exam BP 140/88 (BP Location (NBP): Left arm, Patient Position: Standing) Pulse 60 Ht 172.7 cm (5' 8) Wt 73.5 kg (162 lb) BMI 24.63 kg/m2 NAD thin No JVD/HJR Chest clear Cor RR, no murmur Abd benign Ext no edema Assessment and Plan: Well controlled angina- encouraged to stay on medications and keep up activity Acceptable BP Lipids- LDL off statin 94- continue to work on diet and exercise Follow up 6 months documented in this encounter Plan of Treatment Not on file documented as of this encounter Visit Diagnoses Diagnosis Essential hypertension Unspecified essential hypertension Dyslipidemia Other and unspecified hyperlipidemia ASCVD (arteriosclerotic cardiovascular disease) Unspecified cardiovascular disease documented in this encounter Care Teams Maintenance Electrician Relationship Specialty Start Date End Date Pancho Sun DO [address] [place] [address] PCP - General General Internal Medicine 09/30/17 documented as of this encounter
--- OUTSIDE RECORDS SUMMARY | 2024-03-28 13:04 | XMS_ITS | Encounter Summary ---
Author Organization [facility] [place] [address] Care Team Providers Care Gymnastics Coach Or Instructor Name Role Phone Yumi Moreland APRN Primary Care Provider [phone] Encounter Details Date Type Department Care Team (Late st Contact Info) Description 05/28/2021 Orders [place] [phone] Jacob Fuentes MD [facility] [place] [address] Thyroid nodule Social History Tobacco Use Types Packs/Day Years [...] as of this encounter Visit Diagnoses Diagnosis Thyroid nodule Nontoxic uninodular goiter documented in this encounter Care Teams Gymnastics Coach Or Instructor Relationship Specialty Start Date End Date Yumi Moreland APRN [address] [place] [address] PCP - General Family Medicine 05/20/21 documented as of this encounter
--- OUTSIDE RECORDS SUMMARY | 2024-03-28 13:04 | XMS_ITS | Encounter Summary ---
Author Organization [facility] [place] [address] Care Team Providers Care Oil Boiler Name Role Phone Yumi Moreland APRN Primary Care Provider [phone] [phone] Encounter Details Date Type Department Care Team (Late st Contact Info) Description 03/05/2022 11:16 AM EDT - 03/05/2022 2:42 PM EDT [place] [address] Kenneth Yap MD [facility] [place] [address] PARATHYROIDECTOMY OR EXPLORATION OF PARATHYROID(S) (WRVU 15.6) Social History Tobacco Use Types Packs/Day Years [...] Sign Reading Time Taken Comments Blood Pressure 145/96 03/05/2022 2:30 PM EDT Pulse 69 03/05/2022 10:30 AM EDT Temperature 36.3 ??C (97.3 ??F) 03/05/2022 2:09 PM ED T Respiratory Rate 16 03/05/2022 2:30 PM EDT Oxygen Saturation 97% 03/05/2022 2:30 PM EDT Inhaled Oxygen Concentration - - [...] Take NSAIDS or Tylenol every 6 hours xbvrdd-[id number] for the first 3-5 days following surgery [...] will be mailed to you. Please call [phone] to confirm the date and time of your appointment if you do not hear from us in the next 2 weeks. Future Appointments Date Time Provider Department [place] 04/18/2022 9:40 AM LAB, THREE L Lab 3L NINO CALIX 04/18/2022 11:00 AM Shaila Gonzales APRN [facility] SURG [facility] Call Doctor for: Call if you have [...] with your PCP. Phone number for questions: [phone] before 5 PM on weekdays [phone] after 5 PM and on weekends/holidays. Ask for the general surgery resident director cloud transformation. documented in this encounter Medications at Time [...] Velasquez MD - 03/05/2022 10:28 AM EDT [facility] General Surgery Pre-Operative History and Physical Jacob [...] (STEMI) of lateral wall 12/29/2013 Presented to [facility] w/ 4-5mm JES Rec'd lytics prior [...] Operative Note Patient Name: Jacob Allen : [id number] MR#: [id number] Case Date: 03/05/2022 Surgeon: Surgeon(s) and Role: [...] changes: cancel order eD-H Order Id number [id number] Disposition: awakened from anesthesia, extubated and taken [...] Yap MD - 03/05/2022 11:52 AM EDT [facility] Operative Note Patient Name: Jacob Allen : [id number] MR#: [id number] Case Date: 03/05/2022 Surgeon: Surgeon(s) and Role: [...] changes: cancel order eD-H Order Id number [id number] Drains: * No LDAs found * Surgical [...] anesthesia was completed by anesthesiology with the [employer] recurrent laryngeal nerve monitoring system. A crease [...] 11:55 AM EDT Needle Electromyography, Larynx Global (09601) 03/05/2022 11:12 AM EDT HYPERPARATHYROIDIS M Explore Parathyroid Glands (62562) 03/05/2022 11:12 AM EDT HYPERPARATHYROIDIS M documented in this encounter Results * Calcium (04/18/2022 9:48 AM EDT) Calcium 9.4 8.5 - 10.5 mg/dL [facility] Blood 04/18/2022 9:48 AM EDT 04/18/2022 9:56 AM EDT Narrative Resulting Agency Comment Spec In Lab Kenneth Yap MD CHEMISTRY ORDERAB LES Performing Organization Address City/[facility]/ZIP Co de Phone Number [facility] [place] [address] * PTH (04/18/2022 9:48 AM EDT) PTH 65 15 - 65 pg/mL [facility] Blood 04/18/2022 9:48 AM EDT 04/18/2022 9:56 AM EDT Narrative Resulting Agency Comment Spec In Lab Kenneth Yap MD CHEMISTRY ORDERAB LES Performing Organization Address City/[facility]/ZIP Co de Phone Number [facility] [place] [address] * PTH (03/05/2022 3:31 PM EDT) PTH 21 15 - 65 pg/mL [facility] Blood 03/05/2022 3:31 PM EDT 03/05/2022 3:31 PM EDT Narrative Resulting Agency Comment Spec In Lab Kenneth Yap MD CHEMISTRY ORDERAB LES Performing Organization Address [facility] Co de Phone Number [facility] [place] [address] * (ABNORMAL) Intraoperative PTH ([facility]) (03/05/2022 12:49 PM EDT) Intraoper PTH 88(H) 15 - 65 pg/mL [facility] Comment: 15 min post Called by: remy, Read back by: Chloe Paz, Date/Time:03/05/22 13:19. A 50 % decrease in venous iPTH levels at 10 min post adenoma excision is expected if all the hypersecreting parathyroid tissue has been removed (Dexter GL et al. Surgery 1993:114; [id number]) Blood 03/05/2022 12:4 9 PM EDT 03/05/2022 12:56 PM EDT Narrative Resulting Agency Comment Spec In Lab Kenneth Yap MD CHEMISTRY ORDERAB LES Performing Organization Address [facility] Co de Phone Number [facility] [place] [address] * (ABNORMAL) Intraoperative PTH ([facility]) (03/05/2022 12:41 PM EDT) Intraoper PTH 140(H) 15 - 65 pg/mL [facility] Comment: 10 min post Called by: remy, Read back by: Chloe Machado, Date/Time:03/05/22 13:07. A 50 % decrease in venous iPTH levels at 10 min post adenoma excision is expected if all the hypersecreting parathyroid tissue has been removed (Dexter GL et al. Surgery 1993:114; [id number]) Blood 03/05/2022 12:4 1 PM EDT 03/05/2022 12:47 PM EDT Narrative Resulting Agency Comment Spec In Lab Kenneth Yap MD CHEMISTRY ORDERAB LES Performing Organization Address [facility] Co de Phone Number [facility] [place] [address] * Specimen to Pathology (03/05/2022 12:33 PM EDT) AP Specimen 03/05/2022 12:3 3 PM EDT 03/05/2022 12:33 PM EDT Narrative [facility] - 03/05/2022 12:33 PM EDT Specimen requisition ordered. ??Separate Pathology report to follow Kenneth Yap MD PATHOLOGY/CYTOLOG Y ORDERABLES Performing Organization Address [facility] Co de Phone Number [facility] [place] [address] * Surgical Pathology Report (03/05/2022 12:32 PM EDT) Pathologist [facility] Surgical Pathology Report [id number] ? Location: [facility]; [facility]; A The signing pathologist has (i) examined the relevant preparation(s) for the specimen(s) and (ii) rendered or confirmed the diagnosis(es). . ?Surgical Pathology DIAGNOSIS Right lower parathyroid, excision: Parathyroid adenoma with associated internal hemorrhage and fibrosis Electronically signed by: ?Jose LUIS, Jayleen Brannon Verified: ??03/13/2022 11:20 ??Pathologist Performed at: ??-[facility] Dept. of Pathology, [place], [place] DISCUSSION The intraoperative PTH decrease from 267 pg/mL to 88 pg/mL. SPECIMEN(S) SUBMITTED A - right lower parathyroid, excision (1) CLINICAL INFORMATION Hyperparathyroidi sm SPECIMEN PROCESSING A - Labeled/Fixative: Right lower parathyroid, fresh. Quantity/Size/Gonzales ght: Single, 2.8 x 2.0 x 1.2 cm, 3.40 g. Tissue Description: Irregular ovoid samuel-brown rubbery tissue. Sections/Processi ng: Entirely submitted in 3 cassettes labeled A1-A3. ??pps [facility] 03/05/2022 12:3 2 PM EDT Kenneth Yap MD PATHOLOGY/CYTOLOG Y ORDERABLES [facility] [place] [address] * (ABNORMAL) Intraoperative PTH ([facility]) (03/05/2022 12:27 PM EDT) Intraoper PTH 219(H) 15 - 65 pg/mL [facility] Comment: pre-excision Called by: remy, Read back by: Chloe Paz, Date/Time:03/05/22 12:51. A 50 % decrease in venous iPTH levels at 10 min post adenoma excision is expected if all the hypersecreting parathyroid tissue has been removed (Dexter GL et al. Surgery 1993:114; [id number]) Blood 03/05/2022 12:2 7 PM EDT 03/05/2022 12:32 PM EDT Narrative Resulting Agency Comment Spec In Lab Kenneth Yap MD CHEMISTRY ORDERAB LES Performing Organization Address [facility]/ZIP Co de Phone Number [facility] [place] [address] * (ABNORMAL) Intraoperative PTH ([facility]) (03/05/2022 11:55 AM EDT) Intraoper PTH 267(H) 15 - 65 pg/mL [facility] Comment: baseline Called by: remy, Read back by: Lucy Mireles, Date/Time:03/05/22 12:20. A 50 % decrease in venous iPTH levels at 10 min post adenoma excision is expected if all the hypersecreting parathyroid tissue has been removed (Dexter GL et al. Surgery 1993:114; [id number]) Blood 03/05/2022 11:5 5 AM EDT 03/05/2022 12:00 PM EDT Narrative Resulting Agency Comment Spec In Lab Kenneth Yap MD CHEMISTRY ORDERAB LES Performing Organization Address City/[facility]/ZIP Co de Phone Number [facility] [place] [address] documented in this encounter Visit Diagnoses Not [...] Given 03/05/2022 11:08 AM EDT 975 mg BUpivacaine-EPINEPHrine (Marcaine-epiNEPHrine) 0.25 %-1:200,000 injection ONCE PRN, Starting on Fri03/05/22 at 1151, Until Fri03/05/22 at 1904, Intra-Operative (Intra-Procedure), Routine Given 03/05/2022 11:51 AM EDT 10 mLs 19- Surgical Site fentaNYL (pf) (50 mcg/mL) multi-dose injection 12.5 [...] Routine documented in this encounter Care Teams Oil Boiler Relationship Specialty Start Date End Date Yumi Moreland APRN [address] [place] [address] PCP - General Family Medicine 05/20/21 documented as of this encounter
--- OUTSIDE RECORDS SUMMARY | 2024-03-28 13:04 | XMS_ITS | Encounter Summary ---
Author Organization [facility] [place] [address] Care Team Providers Care Parts Salesman Name Role Phone Yumi Moreland APRN Primary Care Provider [phone] [phone] Encounter Details Date Type Department Care Team (Latest Contact Info) Description 02/27/2022 4:40 PM EDT Ext Surgery or Single Event [facility] [address] [place] [address] Swetha Mckenzie MD [facility] [place] [address] Systolic congestive heart failure, unspecified HF chronicity Social History Tobacco Use Types Packs/Day Years [...] Procedure Name Priority Date/Time Associated Diagnosis Comments ECHO SCAN (SCAN) 02/27/2022 12:0 0 AM EDT documented in this encounter Results * SCAN DOC: ECHO (02/27/2022 12:00 AM EDT) Anatomical Region Laterality Modality Cardiac Other Unknown MEDIA MGR SCAN EXT O RDR/RSLT documented in this encounter Visit Diagnoses Diagnosis Systolic congestive heart failure, unspecified HF chronicity documented in this encounter Care Teams Parts Salesman Relationship Specialty Start Date End Date Yumi Moreland, VERONIQUE [address] [place] [address] PCP - General Family Medicine 05/20/21 documented as of this encounter
--- OUTSIDE RECORDS SUMMARY | 2024-03-28 13:04 | XMS_ITS | Encounter Summary ---
Author Organization [facility] [place] [address] Care Team Providers Care Surveillance Observer Name Role Phone Carl Mahan DO Primary Care Provider [phone]- [phone] Reason for Visit * Reason Comments Follow-up 6 month F/U HTN, Dys lipidemia, ASCVD Encounter Details Date Type Department Care Team (Late st Contact Info) Description 06/25/2018 9:40 AM EDT Office Visit Cardiology at [address] [id number] Nikhil Nunez Jr., MD [address] [place] [id number] ASCVD (arteriosclerotic cardiovascular disease); Essential hypertension; Hyperlipidemia, unspecified hyperlipidemia type Social History Tobacco Use Types Packs/Day Years [...] Sign Reading Time Taken Comments Blood Pressure 136/86 06/25/2018 9:46 AM EDT Pulse 60 06/25/2018 9:42 AM EDT Temperature - - Respiratory Rate - - Oxygen Saturation - - Inhaled Oxygen Concentration - - Weight 73.5 kg (162 lb) 06/25/2018 9:42 AM EDT Height 172.7 cm (5' 8) 06/25/2018 9:42 AM EDT Body Mass Index 24.63 06/25/2018 9:42 AM EDT documented in this encounter Progress Notes * Nikhil Nunez Jr., MD - 06/25/2018 9:40 AM EDT Subjective: Patient ID: Jacob Allen is a 77 y.o. male. Chief Complaint Patient presents with ??? Follow-up 6 month F/U HTN, Dyslipidemia, ASCVD HPI He has kept active cutting firewood and going on long walks. He has not had chest pain or limiting dyspnea but has had occasional orthostatic visual changes which has interfered with some activities. He denies dizziness or palpitations. He has not had edema, PND or orthopnea. His energy level is stable. Review of Systems no bruising or bleeding, ongoing problem with low body temperature, denies other issues No Known Allergies Current Outpatient Medications Medication Sig Dispense Refill ??? lisinopril (PRINIVIL;ZESTRIL) [...] D1-> BMS Did not take meds post [place] 08/2017: Presented to [facility] w/ 4-5mm JES Rec'd lytics prior to transfer Cath- mild diffuse disease, patent staent, 90% distal RCA-> BMS Echo- EF 56%, lateral hypokinesis, basal inferior akinesis, mild MR ??? Depression Objective: Physical Exam BP 136/86 (BP Location (NBP): Left arm, Patient Position: Standing) Pulse 60 Ht 172.7 cm (5' 8) Wt 73.5 kg (162 lb) BMI 24.63 kg/m?? NAD No JVD/HJR Chest clear Cor RR, 1/6 systolic murmur Abd benign Ext no edema Assessment and Plan: Well controlled angina Good BP- blurry vision may be side effect of lisinopril- to hold it and see if symptoms improve Lipids- intolerant of statins- continue to work on diet Follow up 6 months documented in this encounter Plan of Treatment Not on file documented as of this encounter Visit Diagnoses Diagnosis ASCVD (arteriosclerotic cardiovascular disease) Unspecified cardiovascular disease Essential hypertension Unspecified essential hypertension Hyperlipidemia, unspecified hyperlipidemia type documented in this encounter Care Teams Surveillance Observer Relationship Specialty Start Date End Date Carl Mahan DO [address] [place] [address] PCP - General General Internal Medicine 06/25/1803/08 documented as of this encounter
--- OUTSIDE RECORDS SUMMARY | 2024-03-28 13:04 | XMS_ITS | Encounter Summary ---
[place] [address] Care Team Providers Care Concrete Plant Laborer Name Role Phone Yumi Moreland APRN Primary Care Provider [phone] [phone] Encounter Details Date Type Department Care Team (Late st Contact Info) Description 02/19/2022 Orders [place] [address] Marivel Tracey [place] [address] HFrEF (heart failure with reduced ejection fraction) Social History Tobacco Use Types Packs/Day Years [...] as of this encounter Visit Diagnoses Diagnosis HFrEF (heart failure with reduced ejection fraction) documented in this encounter Care Teams Concrete Plant Laborer Relationship Specialty Start Date End Date Yumi Moreland APRN [address] [place] [address] PCP - General Family Medicine 05/20/21 documented as of this encounter
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
--- OUTSIDE RECORDS SUMMARY | 2024-03-28 13:04 | XMS_ITS | Encounter Summary ---
[place] [address] Care Team Providers Care Taffy Puller Name Role Phone Yumi Moreland APRN Primary Care Provider [phone] Reason for Referral * Diagnostic Test (Routine) - Closed Specialty Diagnoses / Procedures Referred By Contac t Referred To Contact Radiology Diagnoses Hyperparathyroidism Procedures NM Parathyroid w Spect CT & Thyroid Imaging ([place]) Jamie Tristan [facility] [place] [address] [place] [address] Referral ID Status Reason Start Date Expiration Date V isits Requested Visits Authorized [id number] Closed Specialty Service Requested 09/14/2021 03/14/2023 3 3 Reason for Visit * Diagnostic Test (Routine) - Closed Specialty Diagnoses / Procedures Referred By Contac t Referred To Contact Radiology Diagnoses Hyperparathyroidism Procedures NM Parathyroid w Spect CT & Thyroid Imaging ([place]) Jamie Tristan [facility] [place] [address] [place] [address] Referral ID Status Reason Start Date Expiration Date V isits Requested Visits Authorized [id number] Closed Specialty Service Requested 09/14/2021 03/14/2023 3 3 Encounter Details Date Type Department Care Team (Latest Contact Info) Description 12/27/2021 10:16 AM EDT - 12/27/2021 10:17 AM EDT Hospital Encounter [place] [address] Yuri Regan MD [facility] [address] [place] [address] Hyperparathyroidism Discharge Disposition: Home Social History Tobacco Use [...] who have questions please contact the health pet care worker that requested your imaging first. ? Electronically signed by: Justo Waiet MD, [facility] ([phone]), at 12/28/2021 11:47 AM Narrative 12/28/2021 11:47 [...] Agency Comment Unexpected Finding Yuri Regan MD [facility] [place] ORDERABLES documented in this encounter Visit Diagnoses Diagnosis Hyperparathyroidism Hyperparathyroidism, unspecified documented in this encounter Administered Medications Inactive Administered Medications - up to 3 most recent administrations Medication Order MAR Action Action Date Dose Rate Site technetium (Tc-99m) sestamibi injection 0-30 mCi 0-30 mCi, Intravenous, 2 TIMES DAILY PRN, 2 doses, Starting on Thelma 12/27/21 at 1035, Until 12/28/21 at 0433, Per Protocol, Radiology Contrast, Routine Given 12/27/2021 10:30 AM EDT 18.2 mCi documented in this encounter Care Teams Taffy Puller Relationship Specialty Start Date End Date Yumi Moreland APRN [address] [place] [address] PCP - General Family Medicine 05/20/21 documented as of this encounter
--- OUTSIDE RECORDS SUMMARY | 2024-03-28 13:04 | XMS_ITS | Encounter Summary ---
[place] [address] Care Team Providers Care Client Service Representative Name Role Phone Yumi Moreland APRN Primary Care Provider [phone] Encounter Details Date Type Department Care Team (Latest Contact Info) Description 04/18/2022 9:40 AM EDT Laboratory Appointment Lab [address] [place] [address] Primary hyperparathyroidism (PTH 183 with Ca 10.7, 25vitD 29, Cr 1.7) w/ cognitive dysfunction Social History Tobacco Use Types Packs/Day Years [...] Associated Diagnosis Comments HC PARATHYROID HORMONE(PTH INTACT Routine 04/18/2022 9:48 AM EDT Primary hyperparathyroidism (PTH 183 with Ca 10.7, 25vitD 29, Cr 1.7) w/ cognitive dysfunction HC VENIPUNCTURE Routine 04/18/2022 9:48 AM EDT Primary hyperparathyroidism (PTH 183 with Ca 10.7, 25vitD 29, Cr 1.7) w/ cognitive dysfunction documented in this encounter Results * PTH (04/18/2022 9:48 AM EDT) PTH 65 15 - 65 pg/mL [facility] Blood 04/18/2022 9:48 AM EDT 04/18/2022 9:56 AM EDT Narrative Resulting Agency Comment Spec In Lab Khushi Barber MD CHEMISTRY ORDERAB LES [facility] [place] [address] * Calcium (04/18/2022 9:48 AM EDT) Calcium 9.4 8.5 - 10.5 mg/dL [facility] Blood 04/18/2022 9:48 AM EDT 04/18/2022 9:56 AM EDT Narrative Resulting Agency Comment Spec In Lab Khushi Barber MD CHEMISTRY ORDERAB LES Performing Organization Address City/[facility]/ZIP Co de Phone Number [facility] [place] [address] documented in this encounter Visit Diagnoses Diagnosis Primary hyperparathyroidism (PTH 183 with Ca 10.7, 25vitD 29, Cr 1.7) w/ cognitive dysfunction Primary hyperparathyroidism documented in this encounter Care Teams Client Service Representative Relationship Specialty Start Date End Date Yumi Moreland, VERONIQUE [address] [place] [address] PCP - General Family Medicine 05/20/21 documented as of this encounter
--- OUTSIDE RECORDS SUMMARY | 2024-03-28 13:04 | XMS_ITS | Encounter Summary ---
[place] [address] Care Team Providers Care Hearing Specialist Name Role Phone Nawaf Mahanrey Justin CARDOZA Primary Care Provider [phone] Encounter Details Date Type Department Care Team (Late st Contact Info) Description 12/21/2018 Telephone Cardiology at [address] [address] Nikhil Nunez Jr., MD [address] [place] [id number] Social History Tobacco Use Types Packs/Day Years [...] on file documented as of this encounter Miscellaneous Notes * Telephone Encounter - Nikhil Nunez Jr., MD - 12/21/2018 8:25 AM EDT email from patient- please cancell my appointment with Dr Nunez .He told me to stop taking lisinopril 2.5 tab on 06/25/18 This was the wrong med. for blurred ??vision it should have been clopidogrel 75mg per H ??Radha LUIS guide I stopped taking clopidogrel on . I had one more spell the next week andnone since. I restarted the Lisinopril on 09/08/18 with no side affects since The Dr will not treat my low ??body temp ??which I have charted since 1993 * Telephone Encounter - Nikhil Nunez Jr., MD - 12/21/2018 8:25 AM EDT Regarding: Appointment Follow-Up Question Contact: ----- Message from Santiago Aguilera RN sent at 12/16/2018 8:46 AM EDT ----- ----- Message from Jacob Allen to Nikhil Nunez Jr., MD sent at 12/16/2018 8:12 AM ----- please cancell my appointment with Dr Nunez .He told me to stop taking lisinopril 2.5 tab on 06/25/18 This was the wrong med. for blurred vision it should have been clopidogrel 75mg per H Tati Naqvi MD guide I stopped taking clopidogrel on . I had one more spell the next week and none since. I restarted the Lisinopril on 09/08/18 with no side affects since The Dr will not treat my low body temp which I have charted since 1993 documented in this encounter Plan of Treatment Not on file documented as of this encounter Visit Diagnoses Not on filedocumented in this encounter Care Teams Hearing Specialist Relationship Specialty Start Date End Date Carl Mahan DO [address] [place] [address] PCP - General General Internal Medicine 06/25/1803/08 documented as of this encounter
--- OUTSIDE RECORDS SUMMARY | 2024-03-28 13:04 | XMS_ITS | Encounter Summary ---
[place] [address] Care Team Providers Care Electrical Manager Name Role Phone Yumi Moreland APRN Primary Care Provider [phone] Encounter Details Date Type Department Care Team (Late st Contact Info) Description 02/18/2022 10:00 AM EDT TH Visit (TeleHealth) [place] [id number] Social History Tobacco Use Types Packs/Day Years [...] on filedocumented in this encounter Care Teams Electrical Manager Relationship Specialty Start Date End Date Yumi Moreland APRN [address] [place] [address] PCP - General Family Medicine 05/20/21 documented as of this encounter
--- OUTSIDE RECORDS SUMMARY | 2024-03-28 13:04 | XMS_ITS | Encounter Summary ---
Author Organization [facility] Address [facility] [place] [address] Care Team Providers Care Director Sterile Processing Name Role Phone Yumi Moreland APRN Primary Care Provider [phone] Reason for Visit * Consultation (Routine) - Closed Specialty Diagnoses / Procedures Referred By Contbrook t Referred To Contact General Surgery Diagnoses Hyperparathyroidism Yuri Regan MD [facility] [place] [address] Gardenia Francis MD [facility] [place] [address] Referral ID Status Reason Start Date Expiration Date V isits Requested Visits Authorized [id number] Closed Consult, Test & Treat 12/28/2021 12/28/2022 1 1 Encounter Details Date Type Department Care Team (Late st Contact Info) Description 02/07/2022 1:00 PM EDT Office [place] [address] Khushi Barber MD [facility] [place] [address] Shaila Gonzales APRN [facility] [place] [address] Hyperparathyroidism, primary Social History Tobacco Use Types Packs/Day Years [...] Sign Reading Time Taken Comments Blood Pressure 150/82 02/07/2022 1:35 PM EDT Pulse 76 02/07/2022 1:35 PM EDT Temperature 37 ??C (98.6 ??F) 02/07/2022 1:35 PM EDT Respiratory Rate 16 02/07/2022 1:35 PM EDT Oxygen Saturation 96% 02/07/2022 1:35 PM EDT Inhaled Oxygen Concentration - - Weight 74.4 kg (164 lb) 02/07/2022 1:35 PM EDT Height - - Body Mass Index 24.94 09/14/2021 10:46 AM EST documented in this encounter Progress Notes * Khushi Barber MD - 02/07/2022 1:00 PM EDT `Endocrine Surgery Initial Consultation HPI: Mr. Jacob Allen is a pleasant 81 y.o. year old male who presents for evaluation of primary hyperparathyroidism as a referral from Dr. Regan. His hypercalcemia was initially detected on routine labs. There is not a history of nephrolithiasis. He does not have a history of osteoporosis but it is unclear if he has ever had a bone density scan. There is not a recent history of fractures. He has limited mobility and is in a wheelchair. He reports symptoms of hyperparathyroidism includingfatigue and nocturia x 2. There is not a history of previous anterior neck surgery. He does not have a family history of endocrinopathies, hypercalcemia or endocrine malignancy. He presents today for consideration of surgical management of his hyperparathyroidism. Recent labs: Serum calcium Lab Results Component Value Date CALCIUM 11.0 (H) 09/14/2021 mg/dL PTH pg/mL 25-OH Vitamin D Lab Results Component Value Date 25OHVITD 30 09/14/2021 ng/mL Ionized Calcium mmol/L Phosphorus Lab Results Component Value Date PHOS 2.0 (L) 09/14/2021 mg/dL 24 hour urine calcium mg/24hr Recent studies: Recent DEXA scan: never performed Sestamibi scan: possible right lower parathyroid abnormality Cervical ultrasound from [facility] suggested a right-sided parathyroid Past Medical History: Diagnosis Date ??? Depression 12/29/2013 ??? Dyslipidemia 12/30/2013 Trialed mevachor in 1993 for lipids ??? Essential hypertension 09/16/2017 ??? Gastroesophageal reflux disease without esophagitis 09/16/2017 ??? ST elevation myocardial infarction (STEMI) of lateral wall 12/29/2013 Presented to [facility] w/ 4-5mm JES Rec'd lytics prior to transfer No past surgical history on file. Current Outpatient Medications on File Prior to Visit Medication Sig Dispense Refill ??? atorvastatin (Lipitor) 20 mg Tablet Take 20 mg by mouth daily. ??? mirtazapine (REMERON) 7.5 mg Tablet Take 7.5 mg by mouth nightly. ??? cholecalciferol, Vitamin D3, (Vitamin D3) 1,000 unit Tablet Take by mouth daily. ??? [DISCONTINUED] lisinopriL (Zestril) 5 mg Tablet Take 5 mg by mouth daily. ??? aspirin 81 mg Tablet, Delayed Release (E.C.) Take 1 tablet by mouth daily. 30 tablet 12 ??? [DISCONTINUED] nitroGLYcerin (NITROSTAT) 0.4 mg Tablet, Sublingual Place 1 tablet under the tongue daily as needed for Chest pain. (Patient not taking: Reported on 09/14/2021) 90 tablet 3 ??? [DISCONTINUED] meTOPROLOL succinate (TOPROL-XL) 25 mg Tablet Sustained Release 24 hr Take 1 tablet by mouth daily. (Patient not taking: Reported on 09/14/2021) 30 tablet 12 ??? [DISCONTINUED] clopidogrel (PLAVIX) 75 mg Tablet Take 1 tablet by mouth daily. (Patient not taking: Reported on 09/14/2021) 90 tablet 3 No current facility-administered medications on file prior to visit. Allergies as of 02/07/2022 ??? (No Known Allergies) Family History: No thyroid cancer. No pituitary, pancreas or adrenal tumors. No parathyroid disease. Social History: He is in assisted living at [facility] in [facility]. Does not have any close family. He is a former pipe smoker. No etoh. No professional public speaking or singing. Review of Systems: 10 of 14 systems reviewed and all negative except as per HPI Encounter Vitals: BP 150/82 Pulse 76 Temp 37 ??C (98.6 ??F) Resp 16 Wt 74.4 kg (164 lb) SpO2 96% BMI 24.94 kg/m?? Physical Exam: System Normal Abnl Findings General [x] [] Well nourished, appears well Skin [x] [] Warm and dry Neck [x] [] No thyromegaly, no masses, trachea midline Lymph Nodes [x] [] No cervical lymphadenopathy Lungs [x] [] Normal respiratory effort, clear to auscultation bilaterally Cardiovascular [x] [] Regular rate and rhythm, no murmurs Extremities [x] [] Warm, no edema, full ROM Neuro [x] [] Motor intact, voice normal Psych [x] [] Normal mood and affect; responds to questions appropriately Procedures performed this visit: Thyroid, Parathyroid and Cervical Ultrasound I performed a thyroid, parathyroid and cervical ultrasound at the time of the clinic visit today using the 12 mHz linear ultrasound transducer. The thyroid, parathyroid and central and bilateral lateral neck lymph node basins were evaluated. The findings include: Thyroid Isthmus: Thickness: 0.26 cm Nodules: none Right lobe: Lobe: 5.51 x 2.24 x 1.60 cm Nodules: scattered subcentimeter cysts and nodules Left lobe: Lobe: 3.72 x 1.61 x 1.36 cm Nodules: Scattered subcentimeter cysts and nodules In the right lower parathyroid location is a hypoechoic nodule measuring 2.26 x1.71 x 1.52cm Cervical lymph nodes Central neck: Normal ultrasonographic appearing lymph nodes Right lateral neck: Normal ultrasonographic appearing lymph nodes Left lateral neck: Normal ultrasonographic appearing lymph nodes Assessment and Plan: Mr. Jacob Allen is a 81 y.o. year old male with symptomatic biochemical primary hyperparathyroidism. Localization studies including ultrasound and sestamibi scan indicate a right lower parathyroid abnormality. We discussed the typical work up and management of primary hyperparathyroidism. He has a significant cardiac history, but with careful review I think would be a safe surgical candidate. Given his limited mobility, he is a fall risk and therefore maintaining bone density is important.I would recommend that he get a baseline DEXA scan. His parathyroid is easily localized by two modalities and I therefore recommended minimally invasive parathyroidectomy with intraoperative parathyro id hormone monitoring. If IOPTH levels do not decrease appropriately, we will proceed with a bilateral exploration. I discussed the risks of parathyroidectomy with the patient including, but not limited to, nerve injury resulting in voice changes or hoarseness of voice, low calcium related to removal of parathyroid tissue, bleeding which may require reoperation, infection and complications related to anesthesia. He confirmed understanding of these risks and consent was obtained today. Surgery will be scheduled for the soonest mutually convenient date. I did ask for an anesthesia review of hiscomorbidities to ensure that the available cardiac workup (per recent PCP's notes, EF 38%) is satisfactory. I discussed his post-operative status with the director of teenage activities from his assisted living facility, who told me they have 24/7 nursing care available and would be comfortable with this as a same-day procedure. [facility] Data Patient Characteristics Body mass index is 24.94 kg/m??. Prior neck irradiation: no Prior anterior neck surgery: no Pre-operative laryngoscopy: no Anti-coagulation meds (warfarin, heparin, oral thrombin or factor Xa inhibitors): no Plan to hold for surgery: no Anti-platelet meds (aspirin, clopidogrel): yes Plan to hold for surgery: no Disease Characteristics Primary Pre-Operative Diagnosis: sporadic primary hyperparathyroidism Persistent/Recurrent Hyperparathyroidism: No Calcium: high high 24-hour Urine calcium: not examined GFR decreased: No Ionized calcium: not examined PTH:high [id number] D: normal Subjective Symptoms: yes Objective Symptoms: unsure Imaging Studies: Localization studies performed: yes Localization study type: ultrasound and sestamibi Ultrasound result: Localized single gland with high confidence Sestamibi result: Localized single gland with high confidence documented in this encounter Plan of Treatment Scheduled Referrals Name Type Priority Associated Diagnoses Orde r Schedule Referral to General Surgery Outpatient Referral Routine Hyperparathyroidism Ordered: 12/28/2021 documented as of this encounter Visit Diagnoses Diagnosis Hyperparathyroidism, primary Primary hyperparathyroidism documented in this encounter Care Teams Director Sterile Processing Relationship Specialty Start Date End Date Yumi Moreland APRN [address] [place] [address] PCP - General Family Medicine 05/20/21 documented as of this encounter
--- OUTSIDE RECORDS SUMMARY | 2024-03-28 13:04 | XMS_ITS | Clinical Summary ---
Author Organization [facility] Address [facility] [place] [address] Care Team Providers Care Garage Hand Name Role Phone Yumi Moreland APRN Primary Care Provider [phone] Allergies Active Allergy Reactions Criticality Noted Date Comments Lisinopril 02/18/2022 Venom-Honey Bee 02/18/2022 Medications Medication Sig Dispensed Refills Start Date End Date Status aspirin 81 mg Tablet, Delayed Release (E.C.) Take 1 tablet by mouth daily. 30 tablet 12 08/19/2017 Active atorvastatin (Lipitor) 20 mg Tablet Take 20 mg by mouth daily. Active mirtazapine (REMERON) 7.5 mg Tablet Take 7.5 mg by mouth nightly. Active cholecalciferol, Vitamin D3, (Vitamin D3) 1,000 unit Tablet Take by mouth daily. Active Active Problems Problem Noted Date Diagnosed Date Hyperthyroidism (TSH 0.02 in 2017) 09/14/2021 Primary hyperparathyroidism (PTH 183 with Ca 10.7, 25vitD 29, Cr 1.7) w/ cognitive dysfunction 09/14/2021 Essential hypertension 09/16/2017 Gastroesophageal reflux disease without esophagi tis 09/16/2017 Dyslipidemia 12/30/2013 Overview (12/30/2013): Trialed mevachor in [address] elevation myocardial infarction (STEMI) of la teral wall 12/29/2013 Overview (09/30/2017): 2014: STEMI- cath mild diffuse disease and significant disease in D1-> BMS Did not take meds post AL 08/2017: Presented to [facility] w/ 4-5mm JES Rec'd lytics prior to transfer Cath- mild diffuse disease, patent staent, 90% distal RCA-> BMS Echo- EF 56%, lateral hypokinesis, basal inferior akinesis, mild MR Depression 12/29/2013 Resolved Problems Problem Noted Date Diagnosed Date Resolved Date STEMI (ST elevation myocardial infarction) 08/16/2017 09/30/2017 Family History Medical History Relation Comments Rectal Cancer Father Myocardial Infarction Mother Heart Disease Paternal Uncle Relation Status Comments Brother Alive healthy Father (Age 74) rectal CA Mother (Age 66) fatal AL age 6 6 Paternal Uncle Sister Alive healthy Social History Tobacco Use Types Packs/Day Years [...] on file Sexual Orientation Not on file Last Filed Vital Signs Vital Sign Reading [...] 10:30 AM EDT Height 172.7 cm (5' 7.99) 04/18/2022 11:01 AM E DT Body Mass Index 25.09 03/05/2022 10:30 AM EDT Plan of Treatment Health Maintenance Due Date Last Done Comments Pneumoccocal Vaccine: 65+ (1 of 2 - PCV) 1948 Tdap adult 1961 Tetanus vaccine 1961 Zoster vaccine (1 of 2) 1992 Covid-19 Vaccine (1 - 2022-24 season) 2023 Influenza (Flu) vaccine (1 o f 1 - Influenza standard series) 05/09/2024 Advance Directives Documents on File Type Date Recorded Patient Software Intern Expl anation Advance Directives and Living Will 03/05/2022 11:58 AM General Durable 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 r of [employer] 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 dated 05-29-2020 * Attempt Cardiopulmonary Resuscitation - Inpatient (Latest Code Status on File) Date Activated Date Inactivated Comments 03/05/2022 10:33 AM 03/05/2022 7:04 PM Question Answer Comments Code Status decision made by: Patient * Full Code Date Activated Date Inactivated Comments 08/16/2017 12:11 PM 08/19/2017 2:19 PM Question Answer Comments Does patient have capacity to make decision: Yes * Full Code Date Activated Date Inactivated Comments 08/16/2017 10:07 AM 08/16/2017 12:11 PM Question Answer Comments Does patient have capacity to make decision: Yes * Full Code Date Activated Date Inactivated Comments 12/30/2013 12:06 AM 01/02/2014 2:32 PM Question Answer Comments Order Status: Initial Order Does patient have decision m aking capacity? Yes, Order is based on Patients wishes. Care Teams Garage Hand Relationship Specialty Start Date End Date Yumi Moreland APRN [address] [place] [address] PCP - General Family Medicine 05/20/21
--- OUTSIDE RECORDS SUMMARY | 2024-03-28 13:04 | XMS_ITS | Encounter Summary ---
Author Organization [facility] [place] [address] Care Team Providers Care Prize Jacker Name Role Phone Yumi Moreland APRN Primary Care Provider [phone] Reason for Visit * Reason Comments Follow-up Encounter Details Date Type Department Care Team (Latest Contact Info) Description 04/18/2022 11:00 AM EDT Office [place] [phone] Shaila Gonzales APRN [facility] [place] [address] S/P parathyroidectomy Social History Tobacco Use Types Packs/Day Years [...] Sign Reading Time Taken Comments Blood Pressure - - Pulse - - Temperature - - Respiratory Rate - - Oxygen Saturation - - Inhaled Oxygen Concentration - - Weight - - Height 172.7 cm (5' 7.99) 04/18/2022 11:01 AM E DT Body Mass Index - - documented in this encounter Progress Notes * Shaila Gonzales APRN - 04/18/2022 11:00 AM EDT Parathyroidectomy Post-Op Visit Subjective: Mr. Jacob Allen is a very pleasant 81 y.o. year old male who is 6 weeks s/p right lower parathyroidectomy for primary hyperparathyroidism. He is doing very well without complaints. He is not having hypocalcemic symptoms or issues with pain or difficulty swallowing. Exam: No data found. Healing anterior neck incision with underlying healing ridge. No hematoma or seroma. Voice appears normal. 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 Jacob Allen is a very pleasant 81 y.o. year old male s/p targeted parathyroidectomy for primary hyperparathyroidism who is doing very well post- operatively without evidence of complications.I discussed the pathology results with the patient and recommended no further treatment. Calcium was checked today and was normal. He does not need to continue taking post-operative supplemental doses of calcium and vitamin D. I did encourage him to discuss calcium supplementation for general bone health purposes with his PCP. I explained that he should have his serum calcium checked annually, and that we do not need to follow PTH levels unless his calcium level rises again. I discussed scar massage with vitamin E to aid in incisional appearance and discussed the importance of UV light protection on scar healing. Overall, he is doing very well post-operatively and I recommended follow up with me on an as neededbasis hereafter. Shaila Gonzales APRN documented in this encounter Plan of Treatment Not on file documented as of this encounter Visit Diagnoses Diagnosis S/P parathyroidectomy Other postprocedural status documented in this encounter Care Teams Prize Jacker Relationship Specialty Start Date End Date Yumi Moreland APRN [address] [place] [address] PCP - General Family Medicine 05/20/21 documented as of this encounter
--- OUTSIDE RECORDS SUMMARY | 2024-03-28 13:04 | XMS_ITS | Encounter Summary ---
[place] [address] Care Team Providers Care Stonecutter Apprentice Hand Name Role Phone None Primary Care Provider Unavailabl e Encounter Details Date Type Department Care Team (Late st Contact Info) Description 05/09/2021 Ancillary Procedure [place] [phone] Yumi Moreland APRN [address] [place] [address] Social History Tobacco Use Types Packs/Day Years [...] Procedure Name Priority Date/Time Associated Diagnosis Comments FILM LIBRARY STORAGE ONLY ULTRASOUND STUDY Routine 05/09/2021 12:00 AM EDT documented in this encounter Results * Film Library- Storage Only Ultrasound Study (05/09/2021 12:00 AM EDT) Narrative [facility] - 02/05/2022 2:36 PM EDT This exam is auto-finalizing. It's purpose is for storage only. Yumi Moreland APRN IMG FILM LIBRARY ORDERABLES Performing Organization Address City/State/[facility] Co de Phone Number [place], [place] documented in this encounter Visit Diagnoses Not on filedocumented in this encounter Care Teams Stonecutter Apprentice Hand Relationship Specialty Start Date End Date None None PCP - General 07/10/20 05/19/21 documented as of this encounter
--- OUTSIDE RECORDS SUMMARY | 2024-03-28 13:04 | XMS_ITS | Encounter Summary ---
[place] [address] Care Team Providers Care News Technical Director Name Role Phone Yumi Moreland APRN Primary Care Provider [phone] Encounter Details Date Type Department Care Team (Late st Contact Info) Description 02/28/2022 3:30 PM EDT TH Visit (TeleHealth) [place] [id number] Social History Tobacco Use Types Packs/Day Years [...] on filedocumented in this encounter Care Teams News Technical Director Relationship Specialty Start Date End Date Yuim Moreland APRN [address] [place] [address] PCP - General Family Medicine 05/20/21 documented as of this encounter
--- OUTSIDE RECORDS SUMMARY | 2024-03-28 13:04 | XMS_ITS | Encounter Summary ---
Author Organization [facility] [place] [address] Care Team Providers Care Javascript Programmer Name Role Phone None Primary Care Provider Unavailabl e Encounter Details Date Type Department Care Team (Latest Contact Info) Description 07/10/2020 4:52 PM EST - 07/10/2020 11:59 PM EST Hospital [place] [address] Discharge Disposition: Home Social History Tobacco Use [...] Sig Dispensed Refills Start Date End Date aspirin 81 mg Tablet, Delayed Release (E.C.) Take 1 tablet by mouth daily. 30 tablet 12 08/19/2017 nitroGLYcerin (NITROSTAT) 0.[address], [address] [...] Procedure Name Priority Date/Time Associated Diagnosis Comments COVID-19 PCR Routine 07/10/2020 1:30 PM EST documented in this encounter Results * COVID-19 PCR (07/10/2020 1:30 PM EST) SARS-CoV-2 RNA Not Detected Not Detected [facility] Comment: This result should be interpreted in combination with the clinical observations, patient history and epidemiological information in making a final diagnosis. For testing of asymptomatic individuals, assay performance characteristics and clinical utility have not been evaluated. Testing for SARS-CoV-2 (Severe acute respiratory syndrome coronavirus 2, formerly known as 2019 novel coronavirus or 2019-nCoV) to aid in the diagnosis of COVID-19 is performed using the fl3ur m SARS-CoV-2 Assay as authorized by the FDA Emergency Use Authorization (EUA). This EUA assay is intended for In-vitro Diagnostic (IVD) use with respiratory specimens such as nasopharyngeal swabs collected from individuals during the acute phase of infection. This assay is performed based on the instructions for use provided by [employer] and additional guidance provided by CDC and FDA. Testing is performed in the [facility] within the Department of Pathology and Laboratory Medicine at [facility], certified under the Clinical Laboratory Improvement Amendments of 1988 (CLIA), 42 U.S.C. 263a, to perform high complexity tests. Assay performance has been verified according to clinical laboratory regulatory requirements for use with specimens collected from individuals suspected of COVID-19. Test results are provided above. A result of ? Not Detected? indicates that the viral RNA target is not present above the limit of detection, but does not preclude SARS-CoV-2 infection. False negative results may occur if a specimen is improperly collected, transported or handled; if amplification inhibitors are present; or if inadequate numbers of viral particles are present in the specimen. When a diagnostic test is negative, the possibility of a false negative result should be considered in the context of a patient? s recent exposures and the presence of clinical signs and symptoms consistent with COVID-19. A result of ? Detected? indicates that RNA from SARS-CoV-2 was detected and the patient is infected. As required or requested by public health authorities, positive specimens may be sent for additional testing. Positive and negative predictive values for this test are highly dependent on disease prevalence. A result of ? Invalid? indicates that neither the viral RNA targets nor the internal control target was detected. An invalid result suggests the presence of inhibitors. Recollection and re-testing is recommended in the case of an invalid result. CDC COVID-19 criteria for testing on human specimens and clinical management guidance information are available at the CDC Coronavirus Disease 2019 (COVID-19) webpage under ? Information for Healthcare Professionals? (https://www.cdc.gov/coronavirus/2019-ncov/hcp/index.html) Additional information about this and other EUA tests can be found in provider and patient fact sheets at the following FDA website: https://www.fda.gov/medical-devices/ccmzxxcsoiu-cuchzxm-1010-jjsyh-58-oqkyuktmg- use-a ygjtqzuwulbey-lpfeame-xgtaqgm/mntpa-zpuggpcnqob-cqtj SARS-Cov-2 RNA Source Nasal [facility] Specimen from nose (specimen) Other / Unknown 07/10/2020 1:30 PM EST 07/12/2020 12:21 AM EST Narrative Resulting Agency Comment Spec In Lab [facility] - GENER AL ORDERABLES Performing Organization Address City/State/[facility] Co de Phone Number [facility] [place] [address] documented in this encounter Visit Diagnoses Not on filedocumented in this encounter Care Teams Javascript Programmer Relationship Specialty Start Date End Date None None PCP - General 07/10/20 05/19/21 documented as of this encounter
--- OUTSIDE RECORDS SUMMARY | 2024-03-28 13:04 | XMS_ITS | Encounter Summary ---
Author Organization [facility] Address [facility] [place] [address] Care Team Providers Care Exchange Mechanic Name Role Phone Yumi Moreland APRN Primary Care Provider [phone] Encounter Details Date Type Department Care Team (Late st Contact Info) Description 03/05/2022 11:13 AM EDT Anesthesia [place] [id number] Lauren Mcgill MD [facility] [place] [address] Marivel Tracey [place] [address] Anesthesia Record Procedure Summary Procedure Name Responsible Anesthesiologist Anesthesia Start Time Anesthesia Stop Time PARATHYROIDECTOMY OR EXPLORATION OF PARATHYROID(S) (WRVU 15.6) (Neck) Lauren Mcgill MD 03/05/22 1113 03/05/22 1414 Events Date Time Event Comment 03/05/2022 1112 AN Verify 1113 Start 1114 An Start Data 1121 An Induction 1122 An Intubation 1123 Anesthesia Ready 1151 Procedure Start 1319 Handoff Intra-procedure anesthesia care was transferred after review of the patient's history, current anesthetic/surgical status and procedural plan, anticipated issues and expected post-operative course (including disposition.) Lauren Mcgill MD 1335 PACU Bed 1402 Extubation/LMA Out 1414 an stop data 1414 Recovery or ICU Handoff Leticia ent care was transferred to the destination unit staff after review of the patient's medical history, current anesthetic/surgical status and plan, according to the Provider Handoff Checklist. 1414 Stop 03/06/2022 0820 Meds Name Total Propofol 190 mg Ondansetron 8 mg Dexamethasone 8 mg REMIfentanil INF 1.36 mg PHENYLephrine INF 5,830 mcg ePHEDrine 30 mg Succinylcholine 100 mg lactated ringers infusion 700 mL * Agents Name O2 Air N2O Sevoflurane (et) * Blood No blood administrations on file. Lines, Drains, and Airways Type Details Placement Removal Incision 03/05/22; 1152; neck 03/05/22 11 52 by Danielle Paz, ELO (RETIRED) Peripheral IV Line - Single Lumen 03/05/22; 1053; metacarpal vein (top of hand), right; mdpd-kqt-yxtkzs catheter system; Anatomical Landmarks; 20 gauge; Stephanie Mathur RN; distraction, tolerated well, appears comfortable; no longer indicated; 03/05/22; 1656 03/05/22 1053 by Stephanie Hinojosa RN 03/05/22 1656 by Zeny Barry RN ETT Mask Ventilation: Ea sy (1); ETT Type: Cuffed, Oral; ETT Size: 8 mm; Mac Blade: 3; Notes: Asleep; Attempts: 1; Laryngoscopy Grade: 1; Secured at Teeth: 22 cm; Inserted by: Khanh LUIS; Removal Date: 03/05/22; Removal Time: 1402 03/05/22 1127 by Josh Cassidy MD 03/05/22 1402 by Josh Cassidy MD documented in this encounter Social History Tobacco Use Types Packs/Day Years [...] on file documented as of this encounter OR Notes * Anesthesia Postprocedure Evaluation - Josh Cassidy MD - 03/05/2022 2:14 PM EDT Department of Anesthesiology Post-procedure Note Patient: Jacob Aleln Procedure Summary Date: 03/05/22 Room / Location: [address] MAIN OR Anesthesia Start: 1113 Anesthesia Stop: 1414 Procedures: PARATHYROIDECTOMY OR EXPLORATION OF PARATHYROID(S) (WRVU 15.6) (N/A Neck) FACIAL NERVE MONITORING, SETUP LARYNGEAL (WRVU 1.57) (N/A Neck) Diagnosis: (HYPERPARATHYROIDISM) Surgeons: Khushi Barbre MD Responsible Provider: Lauren Mcgill MD Anesthesia Type: general ASA Status: 3 All Anesthesia Providers: Anesthesiologist: Dominique Best MD; Lauren Mcgill MD SOFTWARE PROGRAM MANAGER: Jimi Gianes CRNA Director Transportation: Josh Cassidy MD Vitals Value Taken Time BP 151/96 03/05/22 1409 Temp Pulse Resp SpO2 95 % 03/05/22 1413 Pain Level Vitals shown include unvalidated device data. Patient Location: PACU/[facility] Level of Consciousness: Conscious but Sleepy Pain Management: Satisfactory Analgesia PONV: None Cardiovascular Status: At Baseline and Hemodynamically Stable Respiratory Status: At Baseline and Room Air Postoperative Fluid Status: Intravascular EUvolemia Possible Anesthetic Complications: NONE apparent at time of evaluation Final Primary Anesthesia Type: General (The anesthetic type performed was the same as planned.) Comments: Josh Cassidy MD * Anesthesia Preprocedure Evaluation - Dominique Best MD - 02/18/2022 3:14 PM EDT Pre-Anesthesia Evaluation for: Jacob Allen a 81 y.o. male. Procedure(s): PARATHYROIDECTOMY OR EXPLORATION OF PARATHYROID(S) (WRVU 15.6) FACIAL NERVE MONITORING, SETUP LARYNGEAL (WRVU 1.57) Patient Active Problem List Diagnosis Date Noted ??? Primary hyperparathyroidism (PTH 183 with Ca 10.7, 25vitD 29, Cr 1.7) w/ cognitive dysfunction 09/14/2021 ??? Hyperthyroidism (TSH 0.02 in 2017) 09/14/2021 ??? Essential hypertension 09/16/2017 ??? Gastroesophageal reflux disease without esophagitis 09/16/2017 ??? Dyslipidemia 12/30/2013 ??? ST elevation myocardial infarction (STEMI) of lateral wall 12/29/2013 ??? Depression 12/29/2013 Past Medical History: Diagnosis Date ??? Depression 12/29/2013 ??? Dyslipidemia 12/30/2013 Trialed mevachor in 1993 for lipids ??? Essential hypertension 09/16/2017 ??? Gastroesophageal reflux disease without esophagitis 09/16/2017 ??? ST elevation myocardial infarction (STEMI) of lateral wall 12/29/[address] [facility] w/ 4-5mm JES Rec'd lytics prior to transfer No past surgical history on file. Social History Tobacco Use ??? Smoking status: Former Smoker Packs/day: 0.50 Years: 15.00 Pack years: 7.50 Types: Cigarettes Quit date: 09/08/1993 Years since quittin.4 ??? Smokeless tobacco: Never Used ??? Tobacco comment: Patient smoked a pipe for 20 more years (quit 1993) after quitting cigarettes Substance Use Topics ??? Alcohol use: No Social History Substance and Sexual Activity Drug Use No Allergies Allergen Reactions ??? Lisinopril ??? Venom-Honey Bee Medications: MAR and/or home medications have been reviewed. Physical Exam: Preprocedure Vitals Current as of 02/18/22 1514 No BP, pulse, respiration, SpO2, or temperature recorded. Height: Weight: BMI: IBW: Airway Assessment: Mallampati: III TM distance: >3 FB Neck ROM: full Cardiovascular Assessment: Rhythm: regular Rate: normal Pulmonary Assessment: unlabored breathing Dental Assessment: Comment: Poor overall Misc Assessment: Last Filed Perioperative Cognitive Screening None Anesthesia Plan: ASA 3 general, with a(n) intravenous induction Jacob Allen is a 81 y.o. male (body mass index is unknown because there is no height or weighton file. ) with primary hyperparathyroudism and abnormality of the right lower parathyroid on location studies presenting for right parathyroidectomy PMHx: GERD (not on medication), STEMI (see anesthesia screening note), HTN stable off medications I140n's/80's NPO adequate. No other recent illnesses/fevers. Activity tolerance: METS>4. Anesthesia Hx: Remote history of anesthesia without prior issues with. Labs (reviewed): 09/14/21: iCa1.44 Plan is for GA with ETT, standard ASA monitors, and adequate venous access+ intra-op PTH monitoring. Special consideration to avoid post op delirium due to baseline cognitive deficits (opiate sparing) Josh Cassidy MD 03/04/2022 Region - Other Informed Consent: Anesthetic plan and risks discussed with patient. Use of blood products discussed with patient who. Plan discussed with resident. Anesthesia Screening Note: Date and Time of Entry: 02/18/2022 3:14 PM Entered By: Marivel Tracey APRN Reason for Evaluation: Surgeon Request Other Reason: Cardiac history Screening Visit Type: Telephone Call Additional/Outside Records Requested? Did not request medical information from outside organization. Findings, Assessment and Plan: 81 y.o. male presenting for a telephone pre- anesthesia consultation prior to a parathyroidectomy with Dr. Barber on 03/05/22. The patient lives in an assisted living facility ([facility]) and the patient's nurse, Jose Francisco Bull was present to help provide details.Deandra states the patient has some baseline confusion and is not an accurate historian. Information was also obtained from most recent PCP note scanned under media. ?? MEDICAL HISTORY: #CAD s/p STEMI 2013 s/p BMS to diag 1 of LAD, STEMI 2016 s/p BMS to RCA, and possible STEMI of lateral wall in 2019 per PCP notes although unable to find records of this admission, #heart failure with reduced EF 28-30% - on statin and 81mg asa. Per PCP notes, has declined referral to cardiology previously. Update 02/27/22: patient had updated echo EF 40%, see full results below #HTN with renal insufficiency: BP stable off medications #HLD: on statin #CVA: patient unsure about details of when this occurred or where he was evaluated, per guardian, had TIA in 2019. No residual symptoms #prediabetes: A1C 5.6 #GERD: managed with diet #Depression and anxiety ?? The patient denies chest pain, SOB or syncope. Jacob's nurse states the patient is not very physically active but would be able to climb a flight of stairs. ?? [facility] Echo 07/2020: LV mildly dilated, LV systolic function moderately decreased. Normal wall thickness, Global hypokinesis of the LV. LVEF 28-30%. RV borderline dilated. RVSP 21.2. Left and right atrium moderately dilated. No hemodynamically significant valvular lesions. TTE 02/27/22 ([facility], under media): Normal LV wall thickness and size, LVEF 40%. There is generalized hypokinesis though septal and inferobasal segments appear worse. Mildly dilated RV with normal systolic function. Atria normal in size. No hemodynamically significant valve disease. ?? ANESTHETIC HISTORY: Patient states they had hand surgery in the 5th grade. No personal or family history of complications related to anesthesia. ?? Allergies reviewed Labs reviewed Meds reviewed Overall: Jacob has a history of CAD s/p multiple STEMIs with BMS placement, HTN, HLD and previousCVA. Update (02/28/22) Records from PCP indicate patient had STEMI in 2019 but they do not have any records on where patient was evaluated for this. Contacted [facility], no records of patient having STEMI in 2019, discussed with patient's guardian who thinks last AZ was in 2017. We have records of an echocardiogram being performed at [facility] from 2019. Echo from 2020 showed a reduced EF of 28-30%. Obtained updated echo which shows LVEF of 40%, generalized hypokinesis though septal and inferobasal segments appear worse, mildly dilated RV. We discussed the risks, benefits and alternatives of GA. Since Jacob has some baseline cognitive impairment, he is at increased risk of post-operative delirium. Discussed possible mitigation strategies. He will bring his glasses with him on the DOS. Patient's nurse states Jacob's brother is hisDPOA. Requested DPOA paperwork be faxed to us to include in chart. Contacted POA/guardian Jose Allen, reviewed anesthesia consent for parathyroidectomy. Discussed general anesthesia and the risks associated with it. Discussed the possibility of an arterial line for close hemodynamic monitoring. Made aware final anesthetic plan will be determined by day of surger y anesthesia team. All question's answered. Marivel rTacey, VERONIQUE 02/18/22 documented in this encounter Plan of Treatment Not on file documented as of this encounter Visit Diagnoses Not on filedocumented in this encounter Administered Medications Inactive Administered Medications - up to 3 most recent administrations Medication Order MAR Action Action Date Dose Rate Site dexAMETHasone (Decadron) injection Intravenous, PRN, Starting on Fri03/05/22 at 1147, Until Fri03/05/22 at 1414, Anesthesia Intra-op, Routine Given 03/05/2022 11:47 AM EDT 8 mg ePHEDrine sulfate (5 mg/mL) multi-dose injection Intravenous, PRN, Starting on Fri03/05/22 at 1131, Until Fri03/05/22 at 1414, Anesthesia Intra-op, Routine Given 03/05/2022 12:40 PM EDT 5 mg Given 03/05/2022 11:53 AM EDT 10 mg Given 03/05/2022 11:48 AM EDT 5 mg lactated ringers infusion 1,000 mL, at 100 mL/hr, Intravenous, CONTINUOUS, Starting on Fri03/05/22 at 1100, Until Fri03/05/22 at 1706, Day of Surgery (Day of Procedure) New Bag 03/05/2022 11:03 AM EDT ondansetron (pf) (Zofran) (2 mg/mL) injection Intravenous, PRN, Starting on Fri03/05/22 at 1340, Until Fri03/05/22 at 1414, Anesthesia Intra-op, Routine Given 03/05/2022 1:40 PM EDT 8 mg PHENYLephrine (Subhash-Synephrine) (80 mcg/mL) in sodium chloride 0.9% 250 mL infusion Intravenous, CONTINUOUS PRN, Starting on Fri03/05/22 at 1127, Until Fri03/05/22 at 1414, Anesthesia Intra-op, Routine Rate/Dose Change 03/05/2022 1:17 PM EDT 25 mcg/min 18.75 mL/hr Restarted 03/05/2022 12:07 PM EDT 30 mcg/min 22.5 mL/hr Rate/Dose Change 03/05/2022 12:03 PM EDT 20 mcg/min 15 mL/ hr propofoL (Diprivan) 10 mg/mL bolus injection (Anesthesia) Intravenous, PRN, Starting on Fri03/05/22 at 1120, Until Fri03/05/22 at 1414, Anesthesia Intra-op Given 03/05/2022 1:45 PM EDT 20 mg Given 03/05/2022 1:19 PM EDT 20 mg Given 03/05/2022 1:15 PM EDT 20 mg remifentaniL (Ultiva) (0.02 mg/mL) infusion (Anesthesia) Intravenous, CONTINUOUS PRN, Starting on Fri03/05/22 at 1127, Until Fri03/05/22 at 1414, Anesthesia Intra-op Rate/Dose Change 03/05/2022 1:42 PM EDT 0.05 mcg/kg/min 11.22 mL/hr Rate/Dose Change 03/05/2022 12:55 PM EDT 0.1 mcg/kg/min 22 .44 mL/hr Rate/Dose Change 03/05/2022 11:50 AM EDT 0.13 mcg/kg/min 2 9.172 mL/hr succinylcholine (Anectine;Quelicin) (20 mg/mL) injection Intravenous, PRN, Starting on Fri03/05/22 at 1120, Until Fri03/05/22 at 1414, Anesthesia Intra-op, Routine Given 03/05/2022 11:20 AM EDT 100 mg documented in this encounter Care Teams Exchange Mechanic Relationship Specialty Start Date End Date Yumi Moreland, VERONIQUE [address] [place] [address] PCP - General Family Medicine 05/20/21 documented as of this encounter
--- OUTSIDE RECORDS SUMMARY | 2024-03-28 13:04 | XMS_ITS | Encounter Summary ---
[place] [address] Care Team Providers Care Union Laborer Name Role Phone Yumi Moreland APRN Primary Care Provider [phone] Encounter Details Date Type Department Care Team (Late st Contact Info) Description 12/28/2021 Telephone [place] [address] Jamie Tristan DO [facility] [place] [address] Social History Tobacco Use Types Packs/Day Years [...] encounter Miscellaneous Notes * Telephone Encounter - Jamie Tristan DO - 12/28/2021 1:11 PM EDT Called patient's living facility and conveyed test results showing parathyroid adenoma. Discussed that we will place a surgical consult for him to meet with endocrine surgery regarding possible surgical management of the parathyroid adenoma causing elevated calcium levels. Jamie Tristan DO Endocrinology Fellow documented in this encounter Plan of Treatment Not on file documented as of this encounter Visit Diagnoses Not on filedocumented in this encounter Care Teams Union Laborer Relationship Specialty Start Date End Date Yumi Moreland APRN [address] [place] [address] PCP - General Family Medicine 05/20/21 documented as of this encounter
--- OUTSIDE RECORDS SUMMARY | 2024-03-28 13:04 | XMS_ITS | Encounter Summary ---
Author Organization [facility] Address [facility] [place] [address] Care Team Providers Care Sealant Mixer Name Role Phone SunPancho Fernandez CARDOZA Primary Care Provider [phone] Reason for Visit * Reason Comments Establish Care Here after having an NC in and transfered to Encounter Details Date Type Department Care Team (Late st Contact Info) Description 09/30/2017 8:20 AM EST Office Visit Cardiology at [address] [phone] Nikhil Nunez Jr., MD [address] [place] [address] [id number] elevation myocardial infarction (STEMI) of lateral wall; Essential hypertension; Hyperlipidemia, unspecified hyperlipidemia type Social [...] Sign Reading Time Taken Comments Blood Pressure 128/88 09/30/2017 8:21 AM EST Pulse 65 09/30/2017 8:21 AM EST Temperature - - Respiratory Rate - - Oxygen Saturation - - Inhaled Oxygen Concentration - - Weight 72.1 kg (159 lb) 09/30/2017 8:21 AM EST Height 172.7 cm (5' 8) 09/30/2017 8:21 AM EST Body Mass Index 24.18 09/30/2017 8:21 AM EST documented in this encounter Progress Notes * Nikhil Nunez Jr., MD - 09/30/2017 8:20 AM EST Subjective: Patient ID: Debora Allen is a 76 y.o. male. Chief Complaint Patient presents with ??? Establish Care Here after having an NC in and transfered to HPI He has had no chest pain and is progressing in cardiac rehab. He denies limiting dyspnea, palpitations, edema, PND or orthopnea. His energy level is stable. He stopped pantoprazole due to dizziness but says he is taking all the other medications as directed (though he told Dr. Sun he would not take lisinopril or atorvastatin). 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 atorvastatin (LIPITOR) 80 mg Tablet Take 80 mg by mouth daily. ??? lisinopril (PRINIVIL;ZESTRIL) 2.5 mg Tablet Take [...] take meds post NC 08/2017: Presented to [facility] w/ 4-5mm JES Rec'd lytics prior to transfer Cath- mild diffuse disease, patent staent, 90% distal RCA-> BMS Echo- EF 56%, lateral hypokinesis, basal inferior akinesis, mild MR ??? Depression Objective: Physical Exam BP 128/88 (BP Location (NBP): Left arm, Patient Position: Sitting) Pulse 65 Ht 172.7 cm (5' 8) Wt 72.1 kg (159 lb) BMI 24.18 kg/m2 NAD No JVD/HJR Chest clear Cor RR, 1/6 systolic murmur at apex Abd benign Ext no edema EKG: NSR 65, T inversions 2,3,F,V5-6 no change Labs: TSH 0.79 cre 1.54 LFT nl except bili 1.5 Results for DEBORA ALLEN ( ) as of 09/30/2017 09:31 Ref. Range 09/02/2017 00:00 Chol, Total Unknown 144 HDL Unknown 36 Triglycerides Unknown 69 LDL Cholesterol Unknown 94 Assessment and Plan: Well controlled angina- encouraged to continue rehab and progressively increase activity Good BP Acceptable lipids- he says he is taking his statin now I could find no connection between hypothermia and Saulo's disease- unclear what workup he had forthat in the past Routine follow up 3 months documented in this encounter Plan of Treatment Not on file documented as of this encounter Procedures Procedure Name Priority Date/Time Associated Diagnosis Comments ECG SCAN 10/07/2017 12:00 AM EST EXTERNAL LIPID LAB RESULTS PANEL Routine 09/02/2017 documented in this encounter Results * SCAN DOC: ECG (10/07/2017 12:00 AM EST) Narrative 10/07/2017 12:00 AM EST Ordered by an unspecified provider. Scanning Provider MEDIA MGR SCAN EXT O RDR/RSLT * Lipid External Results (09/02/2017) Chol, Total 144 HDL 36 LDL Cholesterol 94 Triglycerides 69 Historical Provider POINT OF CARE JIMMIE T ORDERABLES documented in this encounter Visit Diagnoses Diagnosis ST elevation myocardial infarction (STEMI) of lateral wall Acute myocardial infarction of other lateral wall, episode of care unspecified Essential hypertension Unspecified essential hypertension Hyperlipidemia, unspecified hyperlipidemia type documented in this encounter Care Teams Sealant Mixer Relationship Specialty Start Date End Date Pancho Sun DO [address] [place] [address] PCP - General General Internal Medicine 09/30/17 documented as of this encounter
--- OUTSIDE RECORDS SUMMARY | 2024-03-28 13:05 | XMS_ITS | Encounter Summary ---
Author Organization [facility] [place] [address] Care Team Providers Care Business Services Representative Name Role Phone Yumi Mroeland APRN Primary Care Provider [phone] Reason for Visit * Reason Comments Medication Refill Encounter Details Date Type Department Care Team (Late st Contact Info) Description 01/17/2015 [place]ill [place] [address] Telly Rizvi MD [facility] [place] [address] Social History Tobacco Use Types Packs/Day Years Used Date Smoking Tobacco: Former Cigarettes 0.5 15 0 09/08/1978 - 09/08/1993 Comments:Patient smoked a pi pe for 20 [...] on filedocumented in this encounter Care Teams Business Services Representative Relationship Specialty Start Date End Date Yumi Moreland APRN [address] [place] [address] PCP - General Family Medicine 05/20/21 documented as of this encounter
--- OUTSIDE RECORDS SUMMARY | 2024-03-28 13:05 | XMS_ITS | Encounter Summary ---
Author Organization Formerly [facility] [place] [address] Care Team Providers Care Web Site Developer Name Role Phone Kierra Clay APRN Primary Care Provider [phone] Reason for Referral * Consultation (Routine) - Closed Specialty Diagnoses / Procedures Referred By Contact Referred To Contact Cardiac Rehabilitation Diagnoses ST elevation myocardial infarction (STEMI) of lateral wall Hardik Schultz MD [facility] [place] [address] Cardiac Rehab, [address] [place] [address] Referral ID Status Reason Start Date Expiration Date V isits Requested Visits Authorized [id number] Closed Consult, Test & Treat 08/19/2017 02/15/2018 36 36 Reason for Visit * Auth/Cert Specialty Diagnoses / Procedures Referred By Contac t Referred To Contact Diagnoses STEMI (ST elevation myocardial infarction) STEMI STEMI Procedures CARDIAC CATHETERIZATION Referral ID Status Reason Start Date Expiration Date Visits Re quested Visits Authorized [id number] 1 1 Encounter Details Date Type Department Care Team (Late st Contact Info) Description 08/16/2017 9:03 AM EST - 08/19/2017 12:19 PM EST Hospital Encounter Cardiac Special Care Unit [facility] [place] [address] Jade Strickland [place] [address] Hardik Schultz MD [facility] [place] [address] Marika Acuna MD [facility] [place] [address] ST elevation myocardial infarction (STEMI) of lateral wall Discharge Disposition: Home Social History Tobacco Use [...] Sign Reading Time Taken Comments Blood Pressure 103/64 08/19/2017 8:01 AM EST Pulse 63 08/19/2017 8:01 AM EST Temperature 36.3 ??C (97.3 ??F) 08/19/2017 8:01 AM ES T Respiratory Rate 14 08/19/2017 3:43 AM EST Oxygen Saturation 96% 08/19/2017 8:01 AM EST Inhaled Oxygen Concentration - - Weight 71.7 kg (158 lb 1.1 oz) 08/18/2017 5:00 A M EST Height 172.7 cm (5' 7.99) 08/16/2017 10:[address] Body Mass Index 24.04 08/16/2017 10:00 AM EST documented in this encounter Discharge Summaries * Hardik Schultz MD - 08/16/2017 3:11 PM EST Inpatient Hospital Medicine - Discharge Summary Patient Name: Jacob Allen Patient Age: 76 y.o. Birthdate: 1940 Admit date: 08/16/2017 Discharge date and time: 08/19/2017 Attending Physician: No att. providers found Follow-up Recommendations for Providers: Patient started on lisinopril: eleanor follow up BMP upon follow up for K and Cr changes possible with this new medication Please follow up BP and HR to ensure patient not bradycardic on metoprolol and lisinopril. These should be triturated as blood pressure allows: we started at low doses. Patient will need to continue dual antiplatelet medications for 12 months Patient with cerumen impaction, started mineral oil drops to soften wax, please remove or refer to ENT out patient for removal Discharge Diagnoses (Hospital Problems) and Secondary Diagnoses (Chronic Problems): Active Hospital Problems Diagnosis ??? STEMI (ST elevation myocardial infarction) Resolved Hospital Problems Diagnosis Date Resolved No resolved problems to display. Active Non-Hospital Problems Diagnosis ??? Dyslipidemia Trialed mevachor in 1993 for lipids ??? ST elevation myocardial infarction (STEMI) of lateral wall Presented to [facility] w/ 4-5mm JES Rec'd lytics prior to transfer ??? Depression Operations/Major Procedures: Operations: Procedure(s) with comments: CARDIAC CATHETERIZATION - Procedure: Coronary Angiography Other Major Procedures: History of Presentation: Jacob Allen is a 76 y.o. male with a PMHX significant for prior STEMI in December 2013 s/p BMS todiag 1 of LAD. He woke up this morning with severe chest pain, mostly in the middle of his chest. It did not radiate. He also reports SOB yesterday afternoon, and possible shortness of breath this morning. He went to OSH and was found to have inferior ST elevations. STEMI alert called and transferred to [facility]. Loaded with plavix and aspirin. 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 Taken to [facility] post cath for close monitoring. ?? On arrival to [facility], chest pain has resolved. He reports that he has not seen a doctor in january years,other then prior stent And STEMI in 2013. He was prescribed medications at that time, but does not take any of them. The only medication he does take was prescribed to him over [address] Chiang (of [employer]) in [place]. It is for his baseline low body temperature. ?? Hospital Course: STEMI Patient admitted to [facility] post cath and started on appropriate ACS meds of aspirin, plavix, and statin.Patients coronary cath showed one vessel disease in RCA (distal, 90%)and a BMS was placed with recommendation to continue DAPT for 12 months. TTE showed EF preserved at 56% with some lateral apicalhypokinesis and akinetic basal infeior and basal inferoseptal segments. His pressures post cath were soft and so we conservatively started low doses of metoprolol and lisinopril. #ATN Patient had a depressed GFR on discharge, this is possibly ATN in setting of BP changes, impaired renal function and dye loads during an Acute KS and his renal function should be followed up on discharge Cerumen impaction: Attempted saline wash out of cerumen bilaterall after plugs were appreciated on otoscope exam, no effect. ENT consulted, as he could not be taken to ENT lab/room mineral oil drops recommended. Important Studies and Lab Data: Labs: Recent Results (from the past 24 hour(s)) BMP w/fasting Glucose Result Value Ref Range Glucose Fasting 117 (H) 65 - 99 mg/dL BUN 29 (H) 10 - 20 mg/dL Creatinine 1.49 0.80 - 1.50 mg/dL Sodium 140 135 - 145 mmol/L Potassium 4.4 3.5 - 5.0 mmol/L Chloride 104 98 - 107 mmol/L CO2 21 (L) 22 - 31 mmol/L Anion Gap 15 5 - 15 mmol/L Calcium 10.0 8.5 - 10.5 mg/dL Estimated GFR 46 (L) >=60 Hemogram Result Value Ref Range WBC 7.1 4.0 - 9.5 x10(3)/mcL RBC 5.47 4.58 - 5.54 x10(6)/mcL Hemoglobin 16.0 13.7 - 16.5 gm/dL Hematocrit 47.3 40.5 - 48.5 % MCV 86.5 82.9 - 93.1 fL MCH 29.3 27.5 - 32.1 pg MCHC 33.8 32.0 - 35.7 gm/dL Platelets 171 145 - 357 x10(3)/mcL RDWSD 39.9 36.0 - 45.0 fL RDWCV 12.8 11.4 - 13.8 % MPV 10.6 7.6 - 12.9 fL nRBC % Auto 0.0 % nRBC Abs Auto 0.000 0.000 - 0.000 x10(3)/mcL Differential, Automated Result Value Ref Range Neutrophils % 69.1 % Neutr Abs (ANC) 4.93 1.70 - 6.10 x10(3)/mcL Lymphocytes % 17.3 % Lymphocytes Abs 1.2 0.9 - 3.2 x10(3)/mcL Monocytes % 10.0 % Monocyte Abs 0.7 0.3 - 0.9 x10(3)/mcL Eosinophils % 2.8 % Eosinophils Abs 0.2 0.0 - 0.4 x10(3)/mcL Basophils % 0.7 % Basophils Abs 0.0 0.0 - 0.1 x10(3)/mcL Immature Gran % 0.10 % Rebecca Gran Abs 0.01 0.00 - 0.04 x10(3)/mcL Studies: Cardiac cath 08/16/17: Dominance: Right ? Left Main There was mild diffuse disease of the ostial segment of the left main artery. ? Left Anterior Descending There was mild diffuse disease of the entire vessel segment of the left anterior descending artery (LAD). ? The proximal segment of the first diagonal branch (Diagonal 1) of the LAD was noted. The previously placed stent is patent. The mid segment of the Diagonal 1 had a single discrete 40% stenosis. ? Left Circumflex There was mild diffuse disease of the entire vessel segment of the left circumflex artery (LCX). ? Right Coronary Artery There was mild diffuse disease of the entire vessel segment of the right coronary artery (RCA). The RCA was large. The distal segment of the RCA had a single discrete 90% stenosis. * One vessel coronary artery disease (RCA) * Elevated left ventricular end diastolic pressure * Successful stent insertion of the distal RCA lesion * Recommend continuing clopidogrel 75 mg PO daily for 12 months (see DAPT Recommendations above for more information.) TTE 08/18/17 1. The left ventricular chamber size is normal. The quantitative left ventricular ejection fraction by biplane Grigsby's method is 56%. The mid anterolateral, and apical lateral wall segments are hypokinetic (score 2). The basal inferior, and basal inferoseptal wall segments are akinetic (score 3). 2. The left atrium is normal in size. 3. Right ventricular chamber size, wall thickness, and systolic function are within normal limits. 4. The aortic valve is trileaflet. The leaflets are thin with normal excursion. There is no aortic stenosis or regurgitation present. 5. There is mild (1+/4+) mitral regurgitation present. 6. There is trace tricuspid regurgitation present. 7. There is no pericardial effusion Pending Studies and Lab Data: No current labs Discharge Conditions/Prognosis: Stable for discharge Discharge to: Home Discharge Medications: Your Medications New Medications Dose Details meTOPROLOL succinate 25 mg Tablet sr Commonly known as: TOPROL-XL Take 1 tablet by mouth daily. 25 mg Quantity: 30 tablet Refills: 12 mineral oil Oil Apply 15 mLs topically nightly. 15 mL Quantity: 240 mL Refills: 0 pantoprazole 40 mg Tbec Commonly known as: PROTONIX Take 1 tablet by mouth daily. 40 mg Quantity: 90 tablet Refills: 3 Continued medications with new dosing Dose Details * aspirin 81 mg Tbec Take 1 tablet by mouth daily. What changed: Another medication with the same name was added. Make sure you understand how and when to take each. 81 mg Quantity: 30 tablet Refills: 12 * aspirin 81 mg Tbec Take 1 tablet by mouth daily. What changed: You were already taking a medication with the same name, and this prescription was added. Make sure you understand how and when to take each. 81 mg Quantity: 90 tablet Refills: 3 * atorvastatin 80 mg Tab Commonly known as: LIPITOR Take 1 tablet by mouth every evening. What changed: Another medication with the same name was added. Make sure you understand how and when to take each. 80 mg Quantity: 30 tablet Refills: 12 * atorvastatin 80 mg Tab Commonly known as: LIPITOR Take 1 tablet by mouth daily. What changed: You were already taking a medication with the same name, and this prescription was added. Make sure you understand how and when to take each. 80 mg Quantity: 90 tablet Refills: 3 * clopidogrel 75 mg Tab Commonly known as: PLAVIX Take 1 tablet by mouth daily. What changed: Another medication with the same name was added. Make sure you understand how and when to take each. 75 mg Quantity: 30 tablet Refills: 12 * clopidogrel 75 mg Tab Commonly known as: PLAVIX Take 1 tablet by mouth daily. What changed: You were already taking a medication with the same name, and this prescription was added. Make sure you understand how and when to take each. 75 mg Quantity: 90 tablet Refills: 3 lisinopril 2.5 mg Tab Commonly known as: PRINIVIL;ZESTRIL Take 1 tablet by mouth daily. What changed: - medication strength - how much to take 2.5 mg Quantity: 90 tablet Refills: 3 * Notice: This list has 6 medication(s) that are the same as other medications prescribed for you. Read the directions carefully, and ask your doctor or other care provider to review them with you. Continued medications, unchanged Dose Details nitroGLYcerin 0.4 mg Subl Commonly known as: NITROSTAT Place 1 tablet under the tongue daily as needed for Chest pain. 0.4 mg Quantity: 90 tablet Refills: 3 Updated Allergies/ADRs: No Known Allergies Instructions Given to Patient at Discharge: Patient Instructions Why you were hospitalized: You were admitted with signs and symptoms indicative of a heart attack or a myocardial infarction. It is important that you take your medications every day. In particular, missing a day of aspirin or plavix could allow your stent to close and cause another heart attack. Call your doctor or report to the nearest Emergency Department: if you have chest pain or pressure or symptoms similar or worse to that which initially brought you in to the hospital. If you begin sweating for no reason, have nausea/vomiting, headaches, blurred vision, lightheadedness/ fainting spells, or bleeding from the access site please call your doctor and/or call EMS. Activity: If you are very physically active, then take it easy for the next month, until you are seen in cardiology follow up or given permission by your primary care doctor. It will take time for your heart to recover, so while cardiovascular activity is highly encouraged, over working the heart too soon can be dangerous. Also do not do any heavy lifting for the next 7-10 days, as we accessed your heart via the high pressure femoral artery. We do not want you to begin bleeding. If you do so, apply much pressure and report to the nearest emergency department. Driving: Please refrain from driving for 48 hours after your procedure, as the access site is an area of high pressure and abrupt automobile accident can result in excessive bleeding. Also, it would be difficult to place pressure at the catheterization site if it began to bleed as you were driving. Diet: heart healthy diet including low carbohydrates/refined sugars, and much vegetables, fruits, lean protein and whole grains. Bathing: Showers are ok. Do not submerge your wound into a bath or hot tub for about 7-10 days in order to prevent infection. Sexual activity: You should refrain from sexual activity for 1 month following a heart attack. Wound care: since your femoral artery is in an area of high pressure, if it begins to bleed at all,please place a lot of pressure on this and report to the nearest emergency department. The importance of your medications: 1. Metoprolol, a beta silverio, lowers your heart rate and blood pressure and is known to decrease mortality rates in the acute post-heart attack setting. 2. Lisinopril, an EMILY inhibitor, lowers your blood pressure, is anti- inflammatory, and prevents remodeling and dilation of the parrish of your heart. 3. Atorvastatin, a statin, is a lipid-lowering drug. It is also anti- inflammatory and studies show intensive lipid lowering therapy decreases the rate of myocardial events after a heart attack. 4. Aspirin, an anti-platelet drug, is protective against future thrombus formation, especially in the stent. 5. Plavix or clopidogrel, is also an anti-platelet drug, is protective against future thrombus formation, especially in the stent. 6. Sublingual Nitroglycerine, an anti-anginal medication, is to be used only if you have recurrent chest pain; if you use this med, SEEK MEDICAL ATTENTION FOLLOW-UP APPOINTMENTS: Cardiology Follow up will be With Dr. Pugh on 09/30/[address] 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 It is very important that you abide by the instructions above with regards to activity, and this applies to work. 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 General Instructions None Discharge References/Attachments: Discharge References/Attachments None For questions regarding this document or issues relating to this hospitalization on the Medical Service, please contact your inpatient physician through the [facility] Food Service Representative . Issues afterhours and on weekends will be handled by the Hospitalist staff on-call. Signed: TRU VALENCIA MD documented in this encounter Discharge Instructions * Patient Instructions* Tru Valencia MD - 08/18/2017 3:29 PM EST Why you were hospitalized: You were admitted with signs and symptoms indicative of a heart attack or a myocardial infarction. It is important that you take your medications every day. In particular, missing a day of aspirin or plavix could allow your stent to close and cause another heart attack. Call your doctor or report to the nearest Emergency Department: if you have chest pain or pressure or symptoms similar or worse to that which initially brought you in to the hospital. If you begin sweating for no reason, have nausea/vomiting, headaches, blurred vision, lightheadedness/ fainting spells, or bleeding from the access site please call your doctor and/or call EMS. Activity: If you are very physically active, then take it easy for the next month, until you are seen in cardiology follow up or given permission by your primary care doctor. It will take time for your heart to recover, so while cardiovascular activity is highly encouraged, over working the heart too soon can be dangerous. Also do not do any heavy lifting for the next 7-10 days, as we accessed your heart via the high pressure femoral artery. We do not want you to begin bleeding. If you do so, apply much pressure and report to the nearest emergency department. Driving: Please refrain from driving for 48 hours after your procedure, as the access site is an area of high pressure and abrupt automobile accident can result in excessive bleeding. Also, it would be difficult to place pressure at the catheterization site if it began to bleed as you were driving. Diet: heart healthy diet including low carbohydrates/refined sugars, and much vegetables, fruits, lean protein and whole grains. Bathing: Showers are ok. Do not submerge your wound into a bath or hot tub for about 7-10 days in order to prevent infection. Sexual activity: You should refrain from sexual activity for 1 month following a heart attack. Wound care: since your femoral artery is in an area of high pressure, if it begins to bleed at all,please place a lot of pressure on this and report to the nearest emergency department. The importance of your medications: 1. Metoprolol, a beta silverio, lowers your heart rate and blood pressure and is known to decrease mortality rates in the acute post-heart attack setting. 2. Lisinopril, an EMILY inhibitor, lowers your blood pressure, is anti- inflammatory, and prevents remodeling and dilation of the parrish of your heart. 3. Atorvastatin, a statin, is a lipid-lowering drug. It is also anti- inflammatory and studies show intensive lipid lowering therapy decreases the rate of myocardial events after a heart attack. 4. Aspirin, an anti-platelet drug, is protective against future thrombus formation, especially in the stent. 5. Plavix or clopidogrel, is also an anti-platelet drug, is protective against future thrombus formation, especially in the stent. 6. Sublingual Nitroglycerine, an anti-anginal medication, is to be used only if you have recurrent chest pain; if you use this med, SEEK MEDICAL ATTENTION FOLLOW-UP APPOINTMENTS: Cardiology Follow up will be With Dr. Pugh on 09/30/[address] 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 It is very important that you abide by the instructions above with regards to activity, and this applies to work. 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 documented in this encounter Medications at Time of Discharge Medication Sig Dispensed Refills Start Date End Date aspirin 81 mg Tablet, Delayed Release (E.C.) Take 1 tablet by mouth daily. 30 tablet 12 08/19/2017 atorvastatin (LIPITOR) 80 mg Tablet Take 1 tablet by mouth every evening. 30 tablet 12 08/19/2017 09/16/2017 clopidogrel (PLAVIX) 75 mg Tablet Take 1 tablet by mouth daily. 30 tablet 12 08/19/2017 09/16/2017 lisinopril (PRINIVIL;ZESTRIL) 2.5 mg Tablet Take 1 tablet by mouth daily. 90 tablet 3 08/19/2017 09/16/2017 nitroGLYcerin (NITROSTAT) 0.4 mg Tablet, Sublingual Place 1 tablet under the tongue daily as needed for Chest pain. 90 tablet 3 08/19/2017 02/07/2022 pantoprazole (PROTONIX) 40 mg Tablet, Delayed Release (E.C.) Take 1 tablet by mouth daily. 90 tablet 3 08/19/2017 09/30/2017 mineral oil Oil Apply 15 mLs topically nightly. 240 mL 08/19/2017 09/30/2017 meTOPROLOL succinate (TOPROL-XL) 25 mg Tablet Sustained Release 24 hr Take 1 tablet by mouth daily. 30 tablet 12 08/19/2017 02/07/2022 atorvastatin (LIPITOR) 80 mg Tablet Take 1 tablet by mouth daily. 90 tablet 3 08/19/2017 09/16/2017 clopidogrel (PLAVIX) 75 mg Tablet Take 1 tablet by mouth daily. 90 tablet 3 08/19/2017 02/07/2022 documented as of this encounter Progress Notes * Hardik Schultz MD - 08/18/2017 2:51 PM EST Inpatient Cardiology Progress Note Patient Name: Jacob Allen Date of Admission: 08/16/2017 ( Hospital Day 2 days ) Service: S1 ID:Jacob Allen is a 76 y.o. male with a PMHX significant for prior STEMI in December 2013 s/p BMSto diag 1 of LAD. Loaded with plavix and aspirin. 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 Active Problems: Active Hospital Problems Diagnosis ??? STEMI (ST elevation myocardial infarction) Resolved Hospital Problems Diagnosis Date Resolved No resolved problems to display. 24 hr events: - No acute events overnight ROS: No complaints this AM. Denies CP, SOB, palpitations, PND, Orthopnea. Has fullness in ears with decreased hearing, same as yesterday. Telemetry: sinus rhythm with rare PVCs and brief episodes of bradycardia to mid 40s. Physical Exam: Last value Range last 24 hrs Temperature Temp: 36.7 ??C (98.1 ??F) Temp: [36.6 ??C (97.9 ??F)-36.7 ??C (98.1 ??F)] Heart Rate Heart Rate: 56 Heart Rate: [49-85] Blood Pressure BP: 91/56 BP: (91-124)/(47-80) Respiratory Rate Resp: 16 Resp: [14-18] SpO2 SpO2: 95 % SpO2: [91 %-97 %] Intake/Output Summary (Last 24 hours) at 08/18/17 1451 Last data filed at 08/18/17 1306 Gross per 24 hour Intake 390 ml Output 1825 ml Net -1435 ml Patient Vitals for the past 168 hrs: Weight 08/18/17 0500 71.7 kg (158 lb 1.1 oz) 08/17/17 0658 72.4 kg (159 lb 9.8 oz) 08/16/17 1000 75.4 kg (166 lb 3.6 oz) Gen: pleasant male in NAD. Disheveled with appearance of poor self care and crusted dirt. HEENT: MMM with poor dentition, atraumatic CV: RRR, normal s1/s2 , no m/r/g Resp: CTAB with good effort Abd: nondistended, soft, NT, normoactive bowel sounds throughout Ext: WWP, ++ dp/pt pulses, no edema Neuro: alert and responsive. Without focal deficit Labs Recent Labs 08/18/17 0406 08/17/17 0640 08/16/17 1230 WBC 7.2 7.9 10.7* HGB 15.4 14.9 15.1 HCT 45.6 44.8 45.9 PLATELET 171 157 178 Recent Labs 08/18/17 0406 08/17/17 0640 08/16/17 1230 NA 141 137 141 K 4.6 4.6 5.3* CL 106 103 107 CO2 22 23 24 BUN 26* 22* 21* CREATININE 1.41 1.43 1.40 Recent Labs 08/16/17 1230 AST 242* ALT 34 ALKPHOS 83 BILITOT 1.1 BILIDIR 0.2 Recent Labs 08/18/17 0406 08/17/17 0640 08/16/17 1230 CALCIUM 9.6 9.4 9.6 MAGNESIUM -- -- 0.98 PHOS -- -- 2.3* Recent Labs 08/16/17 1230 INR 1.0 PT 13.4 PTT 44* Recent Labs 08/17/17 0640 08/16/17 2330 08/16/17 1800 CK 861* 1257* 1909* TROPONINT 8.16* 11.25* 17.53* New Studies Assessment Jacob Allen is a 76 y.o. male with a PMHX significant for prior STEMI s/p BMS to LAD who presented as STEMI alert for inferior ST elevations. 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 Patient is currently stable and asymptomatic. Having rare ectopy. Will plan to start betablocker after echo evaluates hear function. Will start lisinopril and metoprolol for post KS therapy today. ?? Plan: ?? #Inferior STEMI - s/p RCA stent. Prior LAD stent in 2013 - cont aspirin, statin, plavix, lisinopril, metoprolol - consult to cardiac rehab -TTE today to eval heart function -discontinue heparin #poor hearing with ear fullness -suspect cerumen impaction, will consult ENT. ?? # Routine - DVT PPx: SCDs - GI PPx: protonix - Diet: heart healthy - Bowel meds: dulcolax PRN - Code Status: FULL ?? Madhav Zuluaga MD Cardiology S2 (pgr. [id number]) Cardiology Staff - Progress Note This patient was seen and examined on morning rounds. I agree with the findings and plan of care per Dr. Zuluaga (medical housestaff). Please refer to his note above for details. * Dania Self RN - 08/18/2017 5:53 AM EST OUTCOME EVALUATION NOTE: OUTCOME SUMMARY: Jacob had a good night, slept well between care. SR/SB on tele with rare PVCs/interpolated PVCs, rare couplets, rare NS burst PACs, HR 48-90 (rare NS reyna to 44). Pt sats well on RA; denied pain/discomfort and SOB throughout the shift. R radial cath site WDL, dressing CDI. Pt does need some reminding of R arm precautions. PLAN MOVING FORWARD: Continue education, PT/OT & cardiac rehab consults, Possible D/C home on Friday? INDIVIDUALIZED FALL PREVENTION INTERVENTIONS: Patient-specific fall risk factors per assessment: [current deficits]: New environment, tele wires,recent procedure Assistance [level of assistance required for transfers and ambulation]: SBA - Independent Supervision [direct monitoring required during toileting and ADLs]: Arms reach, call thakkar within reach Surveillance [continuous indirect monitoring]: Hourly rounding, room near nurses station, telemetrymonitoring Patient-specific fall prevention interventions for sensory deficits provided, if applicable: N/A CPG GOAL OUTCOME EVALUATION: On-going * Hardik Schultz MD - 08/17/2017 7:11 AM EST Inpatient Cardiology Progress Note Patient Name: Jacob Allen Date of Admission: 08/16/2017 ( Hospital Day 1 day ) Service: S1 ID:Jacob Allen is a 76 y.o. male with a PMHX significant for prior STEMI in December 2013 s/p BMSto diag 1 of LAD. Loaded with plavix and aspirin. 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 Active Problems: Active Hospital Problems Diagnosis ??? STEMI (ST elevation myocardial infarction) Resolved Hospital Problems Diagnosis Date Resolved No resolved problems to display. 24 hr events: - No acute events overnight -Trops down trending -750 ml without diuresis ROS: Denies CP, SOB, palpitations, PND, Orthopnea. Has fullness in ears with decreased hearing. Telemetry: sinus rhythm with rare PVC and 5 beat run VT Physical Exam: Last value Range last 24 hrs Temperature Temp: 36.6 ??C (97.9 ??F) Temp: [36.6 ??C (97.9 ??F)-37 ??C (98.6 ??F)] Heart Rate Heart Rate: 66 Heart Rate: [53-78] Blood Pressure BP: 105/63 BP: (104-156)/(57-104) Respiratory Rate Resp: 16 Resp: [12-22] SpO2 SpO2: 95 % SpO2: [93 %-97 %] Intake/Output Summary (Last 24 hours) at 08/17/17 0711 Last data filed at 08/17/17 0600 Gross per 24 hour Intake 850 ml Output 1575 ml Net -725 ml Patient Vitals for the past 168 hrs: Weight 08/17/17 0658 82.4 kg (181 lb 10.5 oz) 08/16/17 1000 75.4 kg (166 lb 3.6 oz) Gen: pleasant male in NAD. Disheveled with appearance of poor self care and crusted dirt. HEENT: MMM with poor dentition, atraumatic CV: RRR, s1/s2 of nl character and amplitude, no m/r/g, JVP Resp: CTAB with good effort Abd: nondistended, soft, NT, nabs throughout Ext: WWP, ++ dp/pt pulses, no edema Neuro: alert and responsive. Without focal deficit Labs Recent Labs 08/17/17 0640 08/16/17 1230 WBC 7.9 10.7* HGB 14.9 15.1 HCT 44.8 45.9 PLATELET 157 178 Recent Labs 08/16/17 1230 NA 141 K 5.3* CL 107 CO2 24 BUN 21* CREATININE 1.40 Recent Labs 08/16/17 1230 AST 242* ALT 34 ALKPHOS 83 BILITOT 1.1 BILIDIR 0.2 Recent Labs 08/16/17 1230 CALCIUM 9.6 MAGNESIUM 0.98 PHOS 2.3* Recent Labs 08/16/17 1230 INR 1.0 PT 13.4 PTT 44* Recent Labs 08/16/17 2330 08/16/17 1800 08/16/17 1230 CK 1257* 1909* 2465* TROPONINT 11.25* 17.53* 19.27* New Studies Assessment Jacob Allen is a 76 y.o. male with a PMHX significant for prior STEMI s/p BMS to LAD who presented as STEMI alert for inferior ST elevations. 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 Patient is currently stable and asymptomatic. Having rare ectopy: 5 beat run VT overnight. Will plan to start betablocker after echo evaluates hear function. Will start lisinopril for post KS therapytoday. ?? Plan: ?? #Inferior STEMI - s/p RCA stent. Prior LAD stent in 2014 - cont aspirin, statin, plavix - consult to cardiac rehab -Starting lisinopril today -Monitor for ectopy, plan metoprolol before discharge -TTE tomorrow to eval heart function #poor hearing with ear fullness -suspect cerumen impaction, will examine if otoscope can be obtained. ?? # Routine - DVT PPx: subq heparin - GI PPx: protonix - Diet: heart healthy - Bowel meds: dulcolax PRN - Code Status: FULL ?? TRU VALENCIA MD Cardiology S2 (pgr. [id number]) Cardiology Staff - Progress Note This patient was seen and examined on morning rounds. I agree with the findings and plan of care per Dr. Valencia (medical housestaff). Please refer to his note above for details. * Dania Self, RN - 08/17/2017 5:58 AM EST OUTCOME EVALUATION NOTE: OUTCOME SUMMARY: Jacob had a good night, slept well between care. SR/SB on tele with rare MF PVCs, rare couplets, 5 beat run VT, HR 50-82 (rare non-sustained reyna to 39). Pt sats well on RA; denied pain/discomfortand SOB throughout the shift. R radial cath site WDL, dressing CDI. PLAN MOVING FORWARD: Continue monitoring, Possible D/C Friday or Friday? INDIVIDUALIZED FALL PREVENTION INTERVENTIONS: Patient-specific fall risk factors per assessment: [current deficits]: New environment, tele wires,recent procedure Assistance [level of assistance required for transfers and ambulation]: SBA Supervision [direct monitoring required during toileting and ADLs]: Arms reach, call thakkar within reach Surveillance [continuous indirect monitoring]: Hourly rounding, room near nurses station, telemetrymonitoring Patient-specific fall prevention interventions for sensory deficits provided, if applicable: N/A CPG GOAL OUTCOME EVALUATION: On-going * Mariella Ferrer - 08/16/2017 3:43 PM EST Post-Catheterization Check S: Patient resting comfortably, mild discomfort at cath site. Notes no bleeding. Denies chest pain,palpitations, or SOB. O: Most Recent Vitals: 08/16/17 1400 BP: 131/88 Pulse: 66 Resp: 17 Temp: SpO2: 97% Gen: resting comfortably Arm: R radial access site without hematoma or ecchymosis. No active bleeding. Dressing c/d/i. No tenderness to palpation. Abd: No Jan's sign. Ext: LE warm with 2+ DP pulses. Sensation intact in LE bilaterally. Back: No flank or back tenderness. No retroperitoneal ecchymosis/ Khanna Adam's sign. Neuro: CNII-XII intact. Strength/sensation intact distally A/P: Patient stable following cardiac cath. No apparent complications. Will continue to monitor. * Marika Acuna MD - 08/16/2017 10:01 AM EST Preliminary Cardiac Catheterization Procedure Note: Procedure(s) performed: coronary angiography, [facility], PCI with bare metal stent to distal RCA Access: R radial A time-out was conducted prior to the start of the procedure to verify the correct patient and procedure, procedure location, and all relevant critical information. Preliminary findings: Focal 90% distal RCA lesion, patent previously placed diagonal stent with focal lesion distal, elsewhere mild diffuse disease. 3.5 mm BMS to distal RCA, good result. LVEDP 24. The patient tolerated the procedures smoothly and was transferred from the cardiac catheterization lab to the next level of care in stable condition. No evident early complications. Full report to follow. MARIKA ACUNA MD documented in this encounter H&P Notes * Hardik Schultz MD - 08/16/2017 12:04 PM EST CARDIOLOGY HISTORY & PHYSICAL EXAM Date of Admission: 08/16/2017 ( Hospital Day 0 days ) Responsible Attending: Jade Strickland MD PCP: Kelly Jackson APRN PCP#: [phone] CC: chest pain Patient Active Problem List Diagnosis Code ??? ST elevation myocardial infarction (STEMI) of lateral wall I21.29 ??? Depression F32.9 ??? Dyslipidemia E78.5 ??? STEMI (ST elevation myocardial infarction) I21.3 History of Present Illness: Jacob Allen is a 76 y.o. male with a PMHX significant for prior STEMI in December 2013 s/p BMS todiag 1 of LAD. He woke up this morning with severe chest pain, mostly in the middle of his chest. It did not radiate. He also reports SOB yesterday afternoon, and possible shortness of breath this morning. He went to OSH and was found to have inferior ST elevations. STEMI alert called and transferred to [facility]. Loaded with plavix and aspirin. 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 Taken to [facility] post cath for close monitoring. On arrival to [facility], chest pain has resolved. He reports that he has not seen a doctor in january years,other then prior stent And STEMI in 2013. He was prescribed medications at that time, but does not take any of them. The only medication he does take was prescribed to him over [address] Chiang (of [facility]) in [place]. It is for his baseline low body temperature. ROS: Constitutional: Low body temperature, no night sweats, no chills, no fatigue, no recent weight changes HEENT: No ZARATE, no dizziness, no rhinorrea; no vision changes, hearing loss (chronic) GI: No n/v/d/c, no abd pain : No trouble urinating, or dysuria or burning, no polyuria, no polydypsia MSK: No soreness or arthlagias otherwise, no joint pain or swelling Neuro: AAO x 3, non-focal Skin: No new rashes, ulcers, skin or hair changes Past Medical History: Past Medical History: Diagnosis Date ??? Depression 12/29/2013 ??? Dyslipidemia 12/30/2013 Trialed mevachor in 1993 for lipids ??? ST elevation myocardial infarction (STEMI) of lateral wall 12/29/[address] [facility] w/ 4-5mm JES Rec'd lytics prior to transfer Past Surgical History: No past surgical history on file. Medications: No current facility-administered medications on file prior to encounter. Current Outpatient Prescriptions on File Prior to Encounter Medication Sig Dispense Refill ??? aspirin 81 mg EC tablet Take 1 tablet by mouth daily. 30 tablet 12 ??? atorvastatin (LIPITOR) 80 mg tablet Take 1 tablet by mouth every evening. 30 tablet 12 ??? clopidogrel (PLAVIX) 75 mg tablet Take 1 tablet by mouth daily. 30 tablet 12 ??? nitroGLYcerin (NITROSTAT) 0.[address] 1 tablet under the tongue daily as needed for Chest pain. 90 tablet 3 ??? lisinopril (PRINIVIL;ZESTRIL) 5 mg tablet Take 1 tablet by mouth daily. 30 tablet 12 Allergies: No Known Allergies Family History: Family History Problem Relation Age of Onset ??? Rectal Cancer Father ??? Myocardial Infarction Mother ??? Heart Disease Paternal Uncle Social History: Social History Social History ??? Marital status: Single Spouse name: N/A ??? Number of children: N/A ??? 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 Smoking status: Former Smoker Packs/day: 0.50 Years: 15.00 Types: Cigarettes Quit date: 09/08/1993 ??? Smokeless tobacco: Not on file Comment: Patient smoked a pipe for 20 more years (quit 1993) after quitting cigarettes ??? Alcohol use No ??? Drug use: No ??? Sexual activity: Not on file Other Topics Concern ??? Not on file Social History Narrative Patient lives alone; His brother and sister are his closest living relatives. 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 Physical Exam: Vitals: Most Recent Vitals: 08/16/17 1200 BP: 132/84 Pulse: 66 Resp: 17 Temp: 36.7 ??C (98.1 ??F) SpO2: 93% General: disheleved male in no acute distress. HEENT: NCAT, EOMI, no thyromegaly, no lymphadenopathy, MMM + pink Neck: Supple, normal ROM, no JVD appreciated Heart: RRR, normal S1 and S2; no m/r/g apparent Lungs: No increased WOB; Abdomen: Soft, BS+ NT, ND, no bruits, no rebound or guarding, no organomegaly Extremities: Full ROM; no cyanosis, edema, or clubbing; pulses 2+ bilaterally Neuro: AOx3, tangential train of thought. non-focal, CN II-XII intact Skin: Warm, dry; no rashes or lesions Assessment: Jacob Allen is a 76 y.o. male with a PMHX significant for prior STEMI s/p BMS to LAD who presented as STEMI alert for inferior ST elevations. 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 To CV post cath for close monitoring. Plan: #Inferior STEMI - s/p RCA stent. Prior LAD stent in 2014 - cont aspirin, statin, plavix - consult to cardiac rehab - TSH, LFTs, lipid panel, HBA1c pending # Routine - DVT PPx: subq heparin - GI PPx: protonix - Diet: heart healthy - Bowel meds: dulcolax PRN - Code Status: FULL - Dispo: [facility] Mariella Ferrer MD 08/16/2017 Cardiology S2, Team Pager # [phone] Cardiology Staff - Admission Note This patient was seen and examined on morning rounds on Friday morning (08/16/17). I agree with the findings and plan of care per Dr. Ferrer (medical housestaff). Please refer to his note above for details. Jay aspects of care and updates are as noted below: documented in this encounter Miscellaneous Notes * Plan of Care - Radha Garner PT - 08/19/2017 12:19 PM EST Problem: Patient Care Overview Goal: Plan of Care Review Outcome: Ongoing (Interventions Implemented as Appropriate) 08/19/17 1226 Coping/Psychosocial Plan Of Care Reviewed With patient Physical Therapy Assessment Pt seen for skilled PT Treatment Number: 2 Please see the Rehab Evaluation Summaries report for objective data and specifics of today???s session. Pt has progressed well and goals of IND are met. No further PT needs. Appropriate for DC to home, plan is for later today. 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 Staff Mobility Recommendations: dc home today Precautions/Restrictions: cardiac Anticipated Physical Therapy Frequency: (DC) Anticipated Equipment Needs at Discharge: (none) Anticipated Discharge Disposition: home with home health Pager: [phone] Radha Garner, PT 08/19/2017 Inpatient Physical Therapy Problem: Acute Rehab Services Goal & Intervention Plan Goal: Gait Training Goal Stand Alone Therapy Goal Outcome: Ongoing (Interventions Implemented as Appropriate) 08/19/17 1226 Gait Training Goal Gait Training Goal, Outcome goal met Goal: Goal Transfer Training Stand Alone Therapy Goal Outcome: Ongoing (Interventions Implemented as Appropriate) 08/19/17 1226 Goal Transfer Training Transfer Training Goal, Outcome goal met * Plan of Care - Jeffrey Howell RN - 08/19/2017 12:43 AM EST Problem: Patient Care Overview Goal: Plan of Care Review Outcome: Ongoing (Interventions Implemented as Appropriate) 08/18/1734608/18/171999 Plan of Care Review Progress progress toward functional goals as expected -- Coping/Psychosocial Plan Of Care Reviewed With -- patient OUTCOME EVALUATION NOTE: OUTCOME SUMMARY: No pain, no acute events overnight. Pt still c/o hard of hearing/fullness of the ears, treated withmineral oil. Pt slept. PLAN MOVING FORWARD: Discharge this morning, outpatient ENT f/u. INDIVIDUALIZED FALL PREVENTION INTERVENTIONS: Patient-specific fall risk factors per assessment: [current deficits]: none Assistance [level of assistance required for transfers and ambulation]: none Supervision [direct monitoring required during toileting and ADLs]: none Surveillance [continuous indirect monitoring]: Telemetry + Pulse Ox CPG GOAL OUTCOME EVALUATION: Progressing Goal: Individualization & Mutuality Outcome: Ongoing (Interventions Implemented as Appropriate) 08/16/17 1000 Mutuality/Individual Preferences What Anxieties, Fears or Concerns Do You Have About Your Health or Care? none What Questions Do You Have About Your Health or Care? none What Information Would Help Us Give You More Personalized Care? none Goal: Fall Prevention-Safe Patient Handling Outcome: Ongoing (Interventions Implemented as Appropriate) 08/18/1734608/18/171999 Restraint Interventions Safety Promotion/Fall Prevention -- fall prevention program maintained;activity supervised;nonskid shoes/slippers when out of bed;safety round/check completed Positioning Body Position -- independent Activity and Safety Assistive Device None -- Daily Care Interventions Self-Care Promotion -- independence encouraged Musculoskeletal Interventions Muscle Strengthening activity/mobility promoted;mobility in bed promoted;personal routines for BADL/IADL promoted;sitting on edge of bed encouraged;strengthening exercises performed;up in chair encouraged for meals and activities -- Jacobson Fall Risk History of Falling -- 0 Secondary Diagnosis -- 15 Ambulatory Aids -- 0 Intravenous Therapy/Heparin/Saline Lock -- 20 Gait/Transferring -- 0 Mental Status -- 0 Score -- 35 OTHER Jacobson Fall Risk -- Med Goal: Infection Control Outcome: Ongoing (Interventions Implemented as Appropriate) 08/18/171999 Safety Interventions Isolation Precautions standard precautions maintained Infection Prevention environmental surveillance performed;rest/sleep promoted Coping Strategies Supportive Measures active listening utilized;decision-making supported;goal setting facilitated;positive reinforcement provided;problem solving facilitated;relaxation techniques promoted;self-care encouraged;self-reflection promoted;self-responsibility promoted;verbalization of feelings encouraged Goal: Discharge Needs Assessment Outcome: Ongoing (Interventions Implemented as Appropriate) 08/18/17 0347 08/18/17 1410 Discharge Needs Assessment Concerns To Be Addressed -- adjustment to diagnosis/illness concerns;basic needs concerns;compliance issue concerns;home safety concerns Readmission Within The Last 30 Days no previous admission in last 30 days -- Equipment Needed After Discharge -- none Current Discharge Risk -- lives alone Discharge Disposition still a patient;home or self-care -- Current Health Outpatient/Agency/Support Group Needs -- homecare agency (specify level of care) Anticipated Changes Related to Illness -- inability to care for self Activity/Self Care Review of Systems Equipment Currently Used at Home none -- Living Environment Transportation Available -- family or friend will provide Goal: Interdisciplinary Rounds/Family Conf Outcome: Ongoing (Interventions Implemented as Appropriate) 08/19/17 0039 Interdisciplinary Rounds/Family Conf Participants nursing;patient Problem: Cardiac Cath/Percutaneous Coronary Intervention (Adult) Goal: Signs and Symptoms of Listed Potential Problems Will be Absent, Minimized or Managed (CardiacCath/Percutaneous Coronary Intervention) Signs and symptoms of listed potential problems will be absent, minimized or managed by discharge/transition of care (reference Cardiac Cath/Percutaneous Coronary Intervention (Adult) CPG). Outcome: Ongoing (Interventions Implemented as Appropriate) 08/18/171999 Cardiac Cath/Percutaneous Coronary Intervention Problems Assessed (Cardiac Catheterization) all Problems Present (Cardiac Catheterization) none Problem: Health Knowledge, Opportunity to Enhance (Adult,NICU,,Obstetrics,Pediatric) Goal: Knowledgeable about Health Subject/Topic Patient will demonstrate the desired outcomes by discharge/transition of care. Outcome: Ongoing (Interventions Implemented as Appropriate) 08/18/17 0349 Health Knowledge, Opportunity to Enhance (Adult,NICU,[place],Obstetrics,Pediatric) Knowledgeable about Health Subject/Topic making progress toward outcome * Initial Assessments - Unique Rossi RN - 08/18/2017 5:58 PM EST Office of Care Management Initial Assessment UNIQUE ROSSI RN reviewed record and discussed patient with Care Team. Source of Information: Per patient and chart review. Introduced self/reviewed role; services accepted. Reason for Hospitalization: Reason for Admission as Stated by Patient: chest pain Per H&P: CC: chest pain. Past Medical History: Diagnosis Date ??? Depression 12/29/2013 ??? Dyslipidemia 12/30/2013 Trialed mevachor in 1993 for lipids ??? ST elevation myocardial infarction (STEMI) of lateral wall 12/29/2013 Presented to [facility] w/ 4-5mm JES Rec'd lytics prior to transfer No past surgical history on file. Hospitalizations Within the Past 30 Days: None at [facility] nor at outside hospitals. Anticipated Length Of Stay: Expected Length of Hospitalization: 4 IPI Admission Order completed by Dr. Marika Acuna on 08/16/17 @ 1007. Tentative discharge planned for 08/19 Current Decision-Making Capacity: Patient alert, oriented, pleasant. Pt currently capable of makinghis own health care decisions. Advance Care Planning: Not on file in eDH. Pt is a Full Code Status. If AD's have not been completed, pt's brother Jose Allen would be surrogate decision maker per [place] surrogate decision making law. Any patient receiving care at [facility] must abide by [place] law. The hierarchy for surrogate decision making is: (a) Patient???s spouse, or civil union partner or common law spouse unless there is a divorce proceeding, separation agreement, or restraining order limiting that person???s relationship with the patient. (b) Any adult son or daughter of the patient. (c) Either parent of the patient. (d) Any adult brother or sister of the patient. Current Coping/Education/Information Needs: Pt satisfied with updates from physicians and nurses. Am I going home for sure tomorrow? My brother needs to come get me before the weather gets bad. Current Functional Ability: Resting in bed. Pt on room air. No IV infusions in place. Functional Status Prior to Admission: Totally independent at baseline. 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 I go to [employer] in [place] once a month. Home Environment: Lives alone in [place], [place]. Social & Family Supports/Community Resources: ?? Jose Allen (Sibling) [address] [facility] [address] (H) [phone] (M) ? I have a sister in [place]. Behavioral Health History: Per H&P, history of Depression. Substance Use/Abuse: Tobacco Use: Former cigarette smoker; quit in 1993, also smoked a pipe for greater than 20 years. EtOH: None Illicit Drug Use: None Other Pertinent/Service Specific Information: None Health/Prescription Coverage: Primary Insurance: MEDICARE A&B Secondary Insurance: [facility] Prescription Coverage: I think so. Preferred Pharmacy: [id number] - [place], [place] - [address] [place] [address] ? [address] [facility] [id number] ? Not a 24 hour pharmacy; exact hours not known Other: None Primary Care Provider: Kelly Jackson APRN [phone] No longer sees this ROUGH RICE GRADER. I don't see nobody. I want to see a Crust Sorter at [facility]. Patient/Caregiver Goals of Treatment: To return home to independent living. I would like to go to Cardiac Rehab at [facility]. I did that before, went okay. Potential Needs for Transition of Care: Rehab/SNF: No previous experience with inpatient rehab facilities. Home Health: No prior VNA services. DME: None prior to admission Dialysis: N/A Community Resources: No Life Alert, No Meals on Wheels. Transportation: Pt's brother will drive pt home. Other: None Anticipated Barriers to Discharge/Special Considerations: No barriers noted during this visit. Plan: A member of the Care Management team will continue to monitor progress, follow for continuity of care and assist with transition of care planning. UNIQUE ROSSI, RN Pager: [phone] * Consult Note - Liv Atkins MD - 08/18/2017 2:35 PM EST OTOLARYNGOLOGY - HEAD & NECK SURGERY CONSULT NOTE Name: Jacob Allen Age/Sex: 76 y.o. male ENT Attending: Dr. Joshua Hospital Day: 3 2 Days Post-Op History of Present Illness We are seeing Jacob Allen today at the request of Hardik Powell MD regarding bilateral cerumen impaction resistant to saline flushes. Jacob Allen is a 76 y.o. male who presented with a STEMI to OSH after chest pain and then here was taken to cardiac catheterization. He has had difficulty hearing and per cardiology, has bilateral ear wax. Cardiology tried to removesome of the ear wax and were not able to. ASSESSMENT & RECOMMENDATIONS Jacob Allen is a 76 y.o. male with bilateral cerumen impaction. Recommendations: 1. Since patient recently had a cardiac event and is on telemetry, we would not bring him to the ENT clinic for cerumen removal while inpatient. 2. We recommend mineral oil drops in both ears nightly at 5 days to soften the cerumen. 3. Can do outpatient referral to ENT for cerumen removal with an SEGMENT BLOCK LAYER/PA if needed after discharge. __ Liv Atkins MD, PGY-1 08/18/17 2:36 PM Pager: [phone] * Plan of Care - Meagan Cruz RN - 08/18/2017 2:34 PM EST Problem: Patient Care Overview Goal: Individualization & Mutuality OUTCOME EVALUATION NOTE: OUTCOME SUMMARY:Pt had a OK morning, had PT and OT evals, totally refused any shape of AM Care, doesn't want to hear about shower, likes his bath tub at home. The r wrist looks stable no signs of bleeding or hematoma. PLAN MOVING FORWARD: Medications compliance. Patient-specific fall prevention interventions for sensory deficits provided, if applicable: OOB with SBA. The plan is after all to d/c home on friday [facility] GOAL OUTCOME EVALUATION: Goal: Fall Prevention-Safe Patient Handling Outcome: Ongoing (Interventions Implemented as Appropriate) 08/17/17203408/18/177 Restraint Interventions Safety Promotion/Fall Prevention fall prevention program maintained;nonskid shoes/slippers when outof bed;safety round/check completed -- Positioning Body Position independent -- Activity and Safety Assistive Device -- None Musculoskeletal Interventions Muscle Strengthening -- activity/mobility promoted;mobility in bed promoted;personal routines for BADL/IADL promoted;sitting on edge of bed encouraged;strengthening exercises performed;up in chair encouraged for meals and activities Goal: Infection Control 08/17/17203408/18/17 0800 Safety Interventions Isolation Precautions standard precautions maintained -- Infection Prevention environmental surveillance performed;rest/sleep promoted -- Coping Strategies Supportive Measures -- active listening utilized Goal: Discharge Needs Assessment Outcome: Ongoing (Interventions Implemented as Appropriate) 08/18/1734608/18/17 141 Discharge Needs Assessment Concerns To Be Addressed -- adjustment to diagnosis/illness concerns;basic needs concerns;compliance issue concerns;home safety concerns Readmission Within The Last 30 Days no previous admission in last 30 days -- Equipment Needed After Discharge -- none Current Discharge Risk -- lives alone Current Health Outpatient/Agency/Support Group Needs -- homecare agency (specify level of care) Anticipated Changes Related to Illness -- inability to care for self Activity/Self Care Review of Systems Equipment Currently Used at Home none -- Living Environment Transportation Available -- family or friend will provide Problem: Cardiac Cath/Percutaneous Coronary Intervention (Adult) Intervention: Monitor ECG and Peripheral Pulses 08/18/171409 ECG Lead Monitored Lead II Sinus Rhythm normal sinus rhythm Intervention: Prevent/Manage Vascular Access Site Complications 08/18/171409 Activity Activity Type bedrest with bathroom privileges Safety Interventions Bleeding Precautions coagulation study results reviewed Goal: Signs and Symptoms of Listed Potential Problems Will be Absent, Minimized or Managed (CardiacCath/Percutaneous Coronary Intervention) Signs and symptoms of listed potential problems will be absent, minimized or managed by discharge/transition of care (reference Cardiac Cath/Percutaneous Coronary Intervention (Adult) [facility]). Outcome: Ongoing (Interventions Implemented as Appropriate) 08/17/172034 Cardiac Cath/Percutaneous Coronary Intervention Problems Assessed (Cardiac Catheterization) all Problems Present (Cardiac Catheterization) none Problem: Health Knowledge, Opportunity to Enhance (Adult,NICU,[place],Obstetrics,Pediatric) Goal: Knowledgeable about Health Subject/Topic Patient will demonstrate the desired outcomes by discharge/transition of care. Outcome: Unable to achieve outcome by discharge 08/18/17 0349 Health Knowledge, Opportunity to Enhance (Adult,NICU,,Obstetrics,Pediatric) Knowledgeable about Health Subject/Topic making progress toward outcome * Consult Note - Janis Lei RN - 08/18/2017 12:08 PM EST Cardiac Rehabilitation Inpatient Evaluation Primary Cardiac Diagnosis: STEMI s/p MUKUL Cardiac Risk Factors: Smoking: no Overweight: no Hyperlipidemia: yes Sedentary: no HTN: yes Patient Education: Reviewed cardiac cath findings, implications of coronary artery disease, managing angina and risk factor modification. Reviewed managing angina /use of sl nitroglycerin. Mediterranean diet guidelines briefly reviewed. Given parameters for home exercise. Phase II Referral: Participation in the outpatient cardiac rehabilitation program at [facility] was discussed. Patient agrees to a referral to this program. The referral will be sent at discharge and the patient should be contacted by the Program within 1- 2 weeks from discharge. Activity Summary: By discharge, patient will be able to perform self care, walk 5-7 minutes and go up and down stairs without signs or symptoms of ischemia. Activity Baseline Response Symptoms/Comments 5 min walk HR 61 80 Pt tolerated activity well. Denied any s/s stairs BP 114/72 128/80 of angina O2 Sat RA 96 RA 96 ECG NSR NSR * Plan of Care - Arleth Freeman OT - 08/18/2017 12:03 PM EST Problem: Patient Care Overview Goal: Plan of Care Review Outcome: Ongoing (Interventions Implemented as Appropriate) 08/18/17 1158 Coping/Psychosocial Plan Of Care Reviewed With patient Occupational Therapy Evaluation Pertinent History of Current Problem: Jacob Allen is a 76 y.o. male with a PMHX significant for prior STEMI in December 2013 s/p BMS to diag 1 of LAD. Loaded with plavix and aspirin. 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 Active Non-Hospital Problems Diagnosis ??? Dyslipidemia ??? ST elevation myocardial infarction (STEMI) of lateral wall ??? Depression Precautions/Restrictions: cardiac Living Environment Comment: Patient lives alone in a private home. 2 JES, no rail. Once inside, single floor living with the exception of the basement; 12 steps; (has a workshop). Tub shower without a chair. No other AD. Prior Functional Level Comment: Independent all ADL/IADL tasks including driving. Very active. Enjoys snow shoeing Assessment: Pt has been seen by OT for evaluation, please refer to associated flowsheet data for details. Pt demonstrates the ability to perform basic ADL???s/functional mobility independently without any AD. He lives alone, but has a brother close by who can assist if needed. He does not require any AD. Anticipate that pt will return home with assistance once medically ready for discharge. Do not anticipate further OT needs while hospitalized. Therapy Frequency: evaluation only Anticipated Equipment Needs at Discharge: Patient has all necessary AD Anticipated Discharge Disposition: home Pager: [phone] ARLETH FREEMAN OT 08/18/2017 Occupational Therapy Rehabilitation Department 2017 OT Evaluation Code Rationale: ?? Diagnosis & Pertinent Co-Morbidities affecting Plan of Care: see PMHx above ?? Occupational Profile & Client History: Brief Expanded Extensive x ?? Assessment of Occupational Performance: 1-3 performance deficits x 3-5 performance deficits 5 + performance deficits ?? Clinical Decision Making: Low Moderate High x Clinical decision making of low complexity using standardized patient assessment instrument and measurable assessment of functional outcome. * Plan of Care - Radha Garner PT - 08/18/2017 11:24 AM EST Problem: Patient Care Overview Goal: Plan of Care Review Outcome: Ongoing (Interventions Implemented as Appropriate) 08/18/17 1001 Coping/Psychosocial Plan Of Care Reviewed With patient Physical Therapy Assessment Pt seen for skilled PT Treatment Number: 1 Please see the Rehab Evaluation Summaries report for objective data and specifics of today???s session. Pt alert and cooperative. Tolerated eval well.Pt is ind with bed mobility, sup with transfers and amb. To benefit from 1-2 more sessions to ensure ind, including stairs. 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 Staff Mobility Recommendations: amb with sup in hallway, Precautions/Restrictions: cardiac Anticipated Physical Therapy Frequency: 1-3 more visits Anticipated Equipment Needs at Discharge: (none) Anticipated Discharge Disposition: home with home health Pager: [phone] Radha Garner, PT 08/18/2017 Inpatient Physical Therapy Problem: Acute Rehab Services Goal & Intervention Plan Goal: Gait Training Goal Stand Alone Therapy Goal Outcome: Ongoing (Interventions Implemented as Appropriate) 08/18/17 1001 Gait Training Goal Gait Training Goal, Date Established 08/18/17 Gait Training Goal, Time to Achieve by discharge Gait Training Goal, [place] Level independent Gait Training Goal, Distance to Achieve 300 Gait Training Goal, Additional Goal ascend/descend 12 stairs ind without railing Goal: Goal Transfer Training Stand Alone Therapy Goal Outcome: Ongoing (Interventions Implemented as Appropriate) 08/18/17 1001 Goal Transfer Training Transfer Training Goal, Date Established 08/18/17 Transfer Training Goal, Time to Achieve by discharge Transfer Training Goal, Activity Type dph-kw-ifabp/fkpbn-oi-sum;qpn-gg-bvsds/rkidb-gt-xqg Transfer Train Goal, [place] Level independent * Plan of Care - Yumi Mascorro RN - 08/17/2017 3:26 PM EST Problem: Patient Care Overview Goal: Plan of Care Review 08/17/17 0315 08/17/17 0731 Plan of Care Review Progress progress toward functional goals as expected -- Coping/Psychosocial Plan Of Care Reviewed With -- patient OUTCOME EVALUATION NOTE: OUTCOME SUMMARY: Uneventful day, SR on telemetry. Ambulated around the unit, asymptomatic. Medication education initiated but patient will need reinforcement. PLAN MOVING FORWARD: Ambulate, Education, Medication changes. INDIVIDUALIZED FALL PREVENTION INTERVENTIONS: . Patient-specific fall risk factors per assessment: [current deficits]: Wires, Knowledge deficit Assistance [level of assistance required for transfers and ambulation]: SBA Supervision [direct monitoring required during toileting and ADLs]: IND Surveillance [continuous indirect monitoring]: Telemetry, purposeful rounding Patient-specific fall prevention interventions for sensory deficits provided, if applicable: [X] N/A [facility] GOAL OUTCOME EVALUATION: Goal: Individualization & Mutuality 08/16/17 1000 Mutuality/Individual Preferences What Anxieties, Fears or Concerns Do You Have About Your Health or Care? none What Questions Do You Have About Your Health or Care? none What Information Would Help Us Give You More Personalized Care? none Goal: Fall Prevention-Safe Patient Handling 08/16/17 2540 08/17/1731408/17/17730 Restraint Interventions Safety Promotion/Fall Prevention -- -- nonskid shoes/slippers when out of bed;safety round/check completed Positioning Body Position -- -- independent Activity and Safety Assistive Device -- None -- Daily Care Interventions Self-Care Promotion independence encouraged;BADL personal objects within reach;BADL personal routines maintained -- -- Musculoskeletal Interventions Muscle Strengthening -- activity/mobility promoted;mobility in bed promoted;personal routines for BADL/IADL promoted;sitting on edge of bed encouraged;strengthening exercises performed;up in chair encouraged for meals and activities -- Jacobson Fall Risk History of Falling -- -- 0 Secondary Diagnosis -- -- 15 Ambulatory Aids -- -- 0 Intravenous Therapy/Heparin/Saline Lock -- -- 20 Gait/Transferring -- -- 0 Mental Status -- -- 0 Score -- -- 35 OTHER Jacobson Fall Risk -- -- Med Goal: Infection Control 08/17/17730 Safety Interventions Isolation Precautions standard precautions maintained Infection Prevention rest/sleep promoted Coping Strategies Supportive Measures verbalization of feelings encouraged;self-responsibility promoted;self-care encouraged Goal: Discharge Needs Assessment 08/17/17314 Discharge Needs Assessment Concerns To Be Addressed denies needs/concerns at this time Readmission Within The Last 30 Days no previous admission in last 30 days Equipment Needed After Discharge none Discharge Disposition still a patient;home or self-care Current Health Anticipated Changes Related to Illness none Activity/Self Care Review of Systems Equipment Currently Used at Home none Living Environment Transportation Available family or friend will provide;car Problem: Cardiac Cath/Percutaneous Coronary Intervention (Adult) Goal: Signs and Symptoms of Listed Potential Problems Will be Absent, Minimized or Managed (CardiacCath/Percutaneous Coronary Intervention) Signs and symptoms of listed potential problems will be absent, minimized or managed by discharge/transition of care (reference Cardiac Cath/Percutaneous Coronary Intervention (Adult) [facility]). 08/16/17 2350 Cardiac Cath/Percutaneous Coronary Intervention Problems Assessed (Cardiac Catheterization) all Problems Present (Cardiac Catheterization) none documented in this encounter Plan of Treatment Scheduled Orders Name Type Priority Associated Diagnoses Orde r Schedule EKG [address] elevation myocardial infarction (STEMI) of lateral wall One Time for 1 Occurrences starting 08/16/2017 until 08/16/2017 Scheduled Referrals Name Type Priority Associated Diagnoses Orde r Schedule Referral to Cardiac Rehab Outpatient Referral Routine ST elevation myocardial infarction (STEMI) of lateral wall Ordered: 08/19/2017 documented as of this encounter Procedures Procedure Name Priority Date/Time Associated Diagnosis Comments EKG 12-LEAD STAT 08/19/2017 9:[address] elevation myocardial infarction (STEMI) of lateral wall BMP W/FASTING GLUCOSE Routine 08/19/2017 5:08 AM EST HEMOGRAM Routine 08/19/2017 5:08 AM EST DIFFERENTIAL, AUTOMATED Routine 08/19/20 17 5:08 AM EST CBC (WITH DIFF) Routine 08/19/2017 5:08 AM EST ECHO COMPLETE Routine 08/18/2017 10:[address] elevation myocardial infarction (STEMI) of lateral wall BMP W/FASTING GLUCOSE Routine 08/18/2017 4:06 AM EST HEMOGRAM Routine 08/18/2017 4:06 AM EST DIFFERENTIAL, AUTOMATED Routine 08/18/20 17 4:06 AM EST CBC (WITH DIFF) Routine 08/18/2017 4:06 AM EST EKG 12-LEAD Routine 08/17/2017 8:[address] elevation myocardial infarction (STEMI) of lateral wall BMP W/FASTING GLUCOSE Routine 08/17/2017 6:40 AM EST HEMOGRAM Routine 08/17/2017 6:40 AM EST DIFFERENTIAL, AUTOMATED Routine 08/17/20 17 6:40 AM EST CARDIAC ENZYMES ([facility]) Routine 08/17/2017 6:40 AM EST CBC (WITH DIFF) Routine 08/17/2017 6:40 AM EST LDL CHOLESTEROL, DIRECT Routine 08/17/20 6:40 AM EST HDL/CHOL PROFILE Routine 08/17/2017 6:40 AM EST HEMOGLOBIN A1C Routine 08/17/2017 6:40 AM EST CARDIAC ENZYMES ([facility]) Routine 08/16/2017 11:30 PM EST CARDIAC ENZYMES ([facility]) Routine 08/16/2017 6:00 PM EST XR CHEST ONE VIEW Routine 08/16/2017 12: 34 PM EST HEMOGRAM Routine 08/16/2017 12:30 PM EST DIFFERENTIAL, AUTOMATED Routine 08/16/20 17 12:30 PM EST CARDIAC ENZYMES ([facility]) Routine 08/16/2017 12:30 PM EST APTT Routine 08/16/2017 12:30 PM EST PROTHROMBIN TIME Routine 08/16/2017 12:3 0 PM EST CBC (WITH DIFF) Routine 08/16/2017 12:30 PM EST TSH Routine 08/16/2017 12:30 PM EST PHOSPHORUS Routine 08/16/2017 12:30 PM EST PRO-BRAIN NATRIURETIC PEPTIDE Routine 08/16/2017 12:30 PM EST MAGNESIUM Routine 08/16/2017 12:30 PM EST HEPATIC FUNCTION PANEL Routine 7 12:30 PM EST BASIC METABOLIC PANEL (NON-FASTING) Routine 08/16/2017 12:30 PM EST EKG 12-LEAD Routine 08/16/2017 12:[address] elevation myocardial infarction (STEMI) of lateral wall CARDIAC ENZYMES ([facility]) STAT 08/16/2017 11:30 AM EST CARDIAC CATHETERIZATION Routine 08/16/20 17 9:57 AM EST documented in this encounter Results * EKG 12 Lead (08/19/2017 9:09 AM EST) Ventricular rate 86 BPM MUSE SYSTEM Atrial Rate 86 BPM MUSE SYSTEM P-R Interval 154 ms MUSE SYSTEM QRS Duration 86 ms MUSE SYSTEM Q-T Interval 350 ms MUSE SYSTEM QTC Calculated (Bezet) 418 ms MUSE SYSTEM Calculated P [place] 54 degrees MUSE SYSTEM Calculated R [place] 0 degrees MUSE SYSTEM Calculated T [place] -92 degrees MUSE SYSTEM INTERPRETATION Normal sinus rhythm Inferior infarct , age undetermined T wave abnormality, consider lateral ischemia Abnormal ECG When compared with ECG of 17-AUG-2017 08:04, suspect limb lead error corrected with QRS in I and L now positive TWI now present in V4-V6 Confirmed by MD CRISTIANA, SYLVIE ([id number]) on 08/20/2017 5:46:16 PM MUSE SYSTEM 08/19/2017 9:09 AM EST 08/20/2017 5:46 PM EST Hardik Schultz MD ECG ORDERABLES MUSE SYSTEM * Differential, Automated (08/19/2017 5:08 AM EST) Neutrophils % 69.1 % [facility] Neutr Abs (ANC) 4.93 1.70 - 6.10 x10(3)/[facility] Lymphocytes % 17.3 % [facility] Lymphocytes Abs 1.2 0.9 - 3.2 x10(3)/[facility] Monocytes % 10.0 % [facility] Monocyte Abs 0.7 0.3 - 0.9 x10(3)/[facility] Eosinophils % 2.8 % [facility] Eosinophils Abs 0.2 0.0 - 0.4 x10(3)/[facility] Basophils % 0.7 % [facility] Basophils Abs 0.0 0.0 - 0.1 x10(3)/[facility] Immature Gran % 0.10 % [facility] Comment: Immature granulocytes(IG's)percentage and absolute count will include metamyelocytes, myelocytes, and promyelocytes. Blood smears from CBCs yielding IG's will be scanned manually for concordance. If this scan disagrees with the automated IG or if promyelocytes are noted, a manual differential will be performed. Rebecca Gran Abs 0.01 0.00 - 0.04 x10(3)/[facility] Blood specimen (specimen) 08/19/2017 5:08 AM EST 08/19/2017 5:15 AM EST Narrative Resulting Agency Comment Spec In Lab Hardik Schultz MD HEMATOLOGY ORDERABL ES [facility] [place] [address] * Hemogram (08/19/2017 5:08 AM EST) WBC 7.1 4.0 - 9.5 x10(3)/[facility] RBC 5.47 4.58 - 5.54 x10(6)/[facility] Hemoglobin 16.0 13.7 - 16.5 gm/dL [facility] Hematocrit 47.3 40.5 - 48.5 % [facility] MCV 86.5 82.9 - 93.1 [facility] MCH 29.3 27.5 - 32.1 pg [facility] MCHC 33.8 32.0 - 35.7 gm/dL [facility] Platelets 171 145 - 357 x10(3)/[facility] RDWSD 39.9 36.0 - 45.0 [facility] RDWCV 12.8 11.4 - 13.8 % [facility] MPV 10.6 7.6 - 12.9 [facility] nRBC % Auto 0.0 % [facility] nRBC Abs Auto 0.000 0.000 - 0.000 x10(3)/[facility] Blood specimen (specimen) 08/19/2017 5:08 AM EST 08/19/2017 5:15 AM EST Narrative Resulting Agency Comment Spec In Lab Hardik Schultz MD HEMATOLOGY ORDERABL ES [facility] [place] [address] * (ABNORMAL) BMP w/fasting Glucose (08/19/2017 5:08 AM EST) Glucose Fasting 117(H) 65 - 99 mg/dL [facility] Comment: ?Fasting* Glucose Interpretive Criteria Normal ?65-99 mg/dL Impaired Fasting glucose ?100-125 mg/dL Consistent with Diabetes Mellitus ? >or= 126 mg/dL *Fasting is defined as no caloric intake for at least 8 hours In the absence of unequivocal hyperglycemia a plasma glucose value of >or= 126 mg/dL should be repeated on a subsequent day. Diagnosis and Classification of Diabetes Mellitus, Position Statement from the [place] [employer]. ??Diabetes Care, Volume 33, Supplement 1, Sep 2009 BUN 29(H) 10 - 20 mg/dL [facility] Creatinine 1.49 0.80 - 1.50 mg/dL [facility] Sodium 140 135 - 145 mmol/L [facility] Potassium 4.4 3.5 - 5.0 mmol/L [facility] Comment: Please note: ??Patients with WBC >100,000 may have falsely elevated Potassium levels. ??For accurate Potassium quantification in these patients send serum separator tube (gold top) for subsequent determinations. ??Contact the Clinical Chemistry Laboratory if there are any questions. Chloride 104 98 - 107 mmol/L [facility] CO2 21(L) 22 - 31 mmol/L [facility] Anion Gap 15 5 - 15 mmol/L [facility] Calcium 10.0 8.5 - 10.5 mg/dL [facility] Estimated GFR 46(L) >=60 [facility] Comment: The reported eGFR should be multiplied by 1.2 for patients. The MDRD is not an appropriate measure of renal function for patients with body mass extremes or in patients with acute kidney failure. http://[employer]/DHnkdep http://[employer]/DHMCnkf Blood specimen (specimen) 08/19/2017 5:08 AM EST 08/19/2017 5:15 AM EST Narrative Resulting Agency Comment Spec In Lab Hardik Schultz MD CHEMISTRY ORDERABLE S [facility] [place] [address] * ECHO COMPLETE (08/18/2017 10:25 AM EST) EF 56 [facility] SYSTEM Anatomical Region Laterality Modality Other 08/18/2017 Narrative 08/18/2017 10:52 AM EST Procedure: ?Transthoracic Echocardiogram Patient: ?LINO JACOB Hall ?(Age): 1940(76y) Med Rec#: ? [id number] ?Sex: ?M ? [place] Loc[place] ? [facility] [place]Ht / Wt: ??173(cm)/72(kg) Pt. Loc: ?Adult Floor ? BSA: ?1.85 Study Date: ?? 08/18/2017 ?Pt. Type: Inpatient Tape: ? Referring: CATHERINE STEEL J Referring: Hardik Schultz ([id number]) Reading: Carl Flores ([id number]) Calcine Furnace Loader: Daniel Villegas Diagnosis: *ICD-10-PCS ST elevation (STEMI) myocardial infarction involving left anterior descending coronary artery (I21.02) CPT Codes: *Echo Full (35822) *Spectral Doppler (47171) *Color Doppler (71302) *Optison ([id number]) BP: ? 101/67 SUMMARY: 1. The left ventricular chamber size is normal. The quantitative left ventricular ejection fraction by biplane Grigsby's method is 56%. The mid anterolateral, and ??apical lateral wall segments are hypokinetic (score 2). The ??basal inferior, and ??basal inferoseptal wall segments are akinetic (score 3). 2. The left atrium is normal in size. 3. Right ventricular chamber size, wall thickness, and systolic function are within normal limits. 4. The aortic valve is trileaflet. The leaflets are thin with normal excursion. There is no aortic stenosis or regurgitation present. 5. There is mild (1+/4+) mitral regurgitation present. 6. There is trace tricuspid regurgitation present. 7. There is no pericardial effusion. Findings ? : Study Quality: ? Adequate Left Ventricle: ? The left ventricular chamber size is normal. ?Left ventricular wall thickness is normal. ?There is normal global left ventricular systolic function. ?The quantitative left ventricular ejection fraction by biplane Grigsby's method is 56%. ?There are left ventricular segmental wall motion abnormalities present, as shown in the diagram below. ?The left ventricular diastolic filling pattern is consistent with impaired LV relaxation. ?Doppler assessment is consistent with normal left sided filling pressure. ?The ??mid anterolateral, and ??apical lateral wall segments are hypokinetic (score 2). ?The ??basal inferior, and ??basal inferoseptal wall segments are akinetic (score 3). ?Overall wallmotion score index is ??1.38 Left Atrium: ? The left atrium is normal in size. 20.5 ml/m2 Right Ventricle: ? Right ventricular chamber size, wall thickness, and systolic function are within normal limits. ?The estimated pulmonary artery systolic pressure is 19 mmHg. ?The estimated right atrial pressure is 3 mmHg. Right Atrium: ? The right atrium is normal in size. Aortic Valve: ? The aortic valve is trileaflet. The leaflets are thin with normal excursion. There is no aortic stenosis or regurgitation present. Mitral Valve: ? The mitral valve appears normal in structure and function. ?There is no evidence of mitral stenosis. ?There is mild (1+/4+) mitral regurgitation present. Tricuspid Valve: ? The tricuspid valve appears normal in structure and function. ?There is trace tricuspid regurgitation present. Pulmonic Valve: ? The pulmonic valve appears normal in structure and function. ?There is trace pulmonic regurgitation present. Pericardium: ? There is no pericardial effusion. ?No pleural effusion is present. Aorta: ? The aortic root is normal in size. ?The ascending aorta is normal in size. Pulmonary Artery: ? The main pulmonary artery appears normal. Venous: ? The inferior vena cava appears normal in size. ?There is a greater than 50% respiratory change in the inferior vena cava dimension. Misc: ? See remainder of report for additional findings. ?Two-dimensional echo, spectral Doppler and color Doppler performed. Chambers 2D ?Value ?Units (Range) ? IVSd (2D) ? 1 ?cm ? LVPWd (2D) ?1 ?cm ? IVS:LVPW ratio (2D) 1 ?ratio ? RWT (2D) ?0.4 ?ratio ? RWT PW (2D) ? 0.4 ?ratio ? LVIDd (2D) ?5.3 ?cm ? LVIDs (2D) ?4.1 ?cm ? LV FS (2D) ?24 ? % ? EF Teichholz (2D) ?? 47 ? % ? Ao root diameter (2D3 ?cm (2.1 - 3.6) ? Ascending Ao ?3 ?cm (2 - 3.5) ? Volumes/Mass ?Value ?Units (Range) ? LA Area 4 CH ?17.3 ? cm2 (<21) ? LA ESV BP (A/L) inde20.5 ? ml/m2 ? RA AREA 4CH ? 11.8 ? cm2 ? LV ESV SP 4CH (MOD) 45 ? ml ? LV ESV SP 2CH (MOD) 51 ? ml ? LV EDV BP ? 117 ?ml ? LV ESV BP ? 51 ? ml ? BP EF (MOD) ? 56 ? % ? LV mass (2D) ?213.1 ?g ? Diastolic/Systolic Function ?Value ?Units (Range) ? MV E-wave Vmax ?0.3 ?m/sec ? MV deceleration [id number] ?msec ? MV A-wave Vmax ?0.7 ?m/sec ? MV E:A ratio ?0.4 ?ratio ? LV septal e' Vmax ?? 0 ?m/sec ? LV lateral e' Vmax ??0.1 ?m/sec ? LV average e' Vmax ??0.1 ?m/sec ? LV E:e' septal ratio8.4 ?ratio ? LV E:e' lateral rati4.7 ?ratio ? LV average E:e' rati6.2 ?ratio ? Tricuspid Valve ?Value ?Units (Range) ? TR Vmax ? 2 ?m/sec ? TR peak gradient ?16.3 ? mmHg ? RAP ? 3 ?mmHg ? RVSP ?19 ? mmHg ? Pulmonic Valve/Qp:Qs ?Value ?Units (Range) ? TX end-diastolic Vma1 ?m/sec ? PA end-diastolic pre6.6 ?mmHg ? Wall Motion: Segment Name ?Rest ? Base-Anteroseptal ?? Normal ? Base-Anterior ? Normal ? Base-Anterolateral ??Normal ? Base-Posterolateral Normal ? Base-Inferior ? Akinetic ? Base-Inferoseptal ?? Akinetic ? Mid-Anteroseptal ?Normal ? Mid-Anterior ?Normal ? Mid-Anterolateral ?? Hypokinetic ? Mid-Posterolateral ??Normal ? Mid-Inferior ?Normal ? Mid-Inferoseptal ?Normal ? Anderson-Septal ? Normal ? Anderson-Anterior ? Normal ? Anderson-Lateral ?Hypokinetic ? Anderson-Inferior ? Normal ? Anderson-Tip ?Hypokinetic ? This report has been electronically signed by: Carl Flores MD ? 08/18/2017 10:47:15 Images reviewed and interpretation verified [facility] Cardiac Ultrasound Laboratory Procedure Note Carl Flores MD - 08/18/2017 Procedure: Transthoracic Echocardiogram Patient: LINO ACEVES(Age): 1940(76y) Med Rec#: [id number] Sex: M [place] [facility] [place] / Wt: 173(cm)/72(kg) Pt. Loc: Adult Floor BSA: 1.85 Study Date: 08/18/2017 Pt. 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 The left ventricular chamber size is normal. The quantitative left ventricular ejection fraction by biplane Grigsby's method is 56%. The mid anterolateral, and apical lateral wall segments are hypokinetic (score 2). The basal inferior, and basal inferoseptal wall segments are akinetic (score 3). 2. The left atrium is normal in size. 3. Right ventricular chamber size, wall thickness, and systolic function are within normal limits. 4. The aortic valve is trileaflet. The leaflets are thin with normal excursion. There is no aortic stenosis or regurgitation present. 5. There is mild (1+/4+) mitral regurgitation present. 6. There is trace tricuspid regurgitation present. 7. There is no pericardial effusion. Findings : Study Quality: Adequate Left Ventricle: The left ventricular chamber size is normal. Left ventricular wall thickness is normal. There is normal global left ventricular systolic function. The quantitative left ventricular ejection fraction by biplane Grigsby's method is 56%. There are left ventricular segmental wall motion abnormalities present, as shown in the diagram below. The left ventricular diastolic filling pattern is consistent with impaired LV relaxation. Doppler assessment is consistent with normal left sided filling pressure. The mid anterolateral, and apical lateral wall segments are hypokinetic (score 2). The basal inferior, and basal inferoseptal wall segments are akinetic (score 3). Overall wallmotion score index is 1.38 Left Atrium: The left atrium is normal in size. 20.5 ml/m2 Right Ventricle: Right ventricular chamber size, wall thickness, and systolic function are within normal limits. The estimated pulmonary artery systolic pressure is 19 mmHg. The estimated right atrial pressure is 3 mmHg. Right Atrium: The right atrium is normal in size. Aortic Valve: The aortic valve is trileaflet. The leaflets are thin with normal excursion. There is no aortic stenosis or regurgitation present. Mitral Valve: The mitral valve appears normal in structure and function. There is no evidence of mitral stenosis. There is mild (1+/4+) mitral regurgitation present. Tricuspid Valve: The tricuspid valve appears normal in structure and function. There is trace tricuspid regurgitation present. Pulmonic Valve: The pulmonic valve appears normal in structure and function. There is trace pulmonic regurgitation present. Pericardium: There is no pericardial effusion. No pleural effusion is present. Aorta: The aortic root is normal in size. The ascending aorta is normal in size. Pulmonary Artery: The main pulmonary artery appears normal. Venous: The inferior vena cava appears normal in size. There is a greater than 50% respiratory change in the inferior vena cava dimension. Misc: See remainder of report for additional findings. Two-dimensional echo, spectral Doppler and color Doppler performed. Chambers 2D Value Units (Range) IVSd (2D) 1 cm LVPWd (2D) 1 cm IVS:LVPW ratio (2D) 1 ratio RWT (2D) 0.4 ratio RWT PW (2D) 0.4 ratio LVIDd (2D) 5.3 cm LVIDs (2D) 4.1 cm LV FS (2D) 24 % EF Teichholz (2D) 47 % Ao root diameter (2D3 cm (2.1 - 3.6) Ascending Ao 3 cm (2 - 3.5) Volumes/Mass Value Units (Range) LA Area 4 CH 17.3 cm2 (<21) LA ESV BP (A/L) inde20.5 ml/m2 RA AREA 4CH 11.8 cm2 LV ESV SP 4CH (MOD) 45 ml LV ESV SP 2CH (MOD) 51 ml LV EDV BP 117 ml LV ESV BP 51 ml BP EF (MOD) 56 % LV mass (2D) 213.1 g Diastolic/Systolic Function Value Units (Range) MV E-wave Vmax 0.3 m/sec MV deceleration bara067 msec MV A-wave Vmax 0.7 m/sec MV E:A ratio 0.4 ratio LV septal e' Vmax 0 m/sec LV lateral e' Vmax 0.1 m/sec LV average e' Vmax 0.1 m/sec LV E:e' septal ratio8.4 ratio LV E:e' lateral rati4.7 ratio LV average E:e' rati6.2 ratio Tricuspid Valve Value Units (Range) TR Vmax 2 m/sec TR peak gradient 16.3 mmHg RAP 3 mmHg RVSP 19 mmHg Pulmonic Valve/Qp:Qs Value Units (Range) TX end-diastolic Vma1 m/sec PA end-diastolic pre6.6 mmHg Wall Motion: Segment Name Rest Base-Anteroseptal Normal Base-Anterior Normal Base-Anterolateral Normal Base-Posterolateral Normal Base-Inferior Akinetic Base-Inferoseptal Akinetic Mid-Anteroseptal Normal Mid-Anterior Normal Mid-Anterolateral Hypokinetic Mid-Posterolateral Normal Mid-Inferior Normal Mid-Inferoseptal Normal Anderson-Septal Normal Anderson-Anterior Normal Anderson-Lateral Hypokinetic Anderson-Inferior Normal Anderson-Tip Hypokinetic This report has been electronically signed by: Carl Flores MD 08/18/2017 10:47:15 Images reviewed and interpretation verified [facility]iac Ultrasound [facility] Hardik Schultz MD ECHO ORDERABLES * Differential, Automated (08/18/2017 4:06 AM EST) Neutrophils % 64.1 % [facility] Neutr Abs (ANC) 4.58 1.70 - 6.10 x10(3)/[facility] Lymphocytes % 20.1 % [facility] Lymphocytes Abs 1.4 0.9 - 3.2 x10(3)/[facility] Monocytes % 11.7 % [facility] Monocyte Abs 0.8 0.3 - 0.9 x10(3)/[facility] Eosinophils % 3.4 % [facility] Eosinophils Abs 0.2 0.0 - 0.4 x10(3)/[facility] Basophils % 0.6 % [facility] Basophils Abs 0.0 0.0 - 0.1 x10(3)/[facility] Immature Gran % 0.10 % [facility] Comment: Immature granulocytes(IG's)percentage and absolute count will include metamyelocytes, myelocytes, and promyelocytes. Blood smears from CBCs yielding IG's will be scanned manually for concordance. If this scan disagrees with the automated IG or if promyelocytes are noted, a manual differential will be performed. Rebecca Gran Abs 0.01 0.00 - 0.04 x10(3)/[facility] Blood specimen (specimen) 08/18/2017 4:06 AM EST 08/18/2017 4:22 AM EST Narrative Resulting Agency Comment Spec In Lab Hardik Schultz MD HEMATOLOGY ORDERABL ES [facility] [place] [address] * Hemogram (08/18/2017 4:06 AM EST) WBC 7.2 4.0 - 9.5 x10(3)/[facility] RBC 5.30 4.58 - 5.54 x10(6)/[facility] Hemoglobin 15.4 13.7 - 16.5 gm/dL [facility] Hematocrit 45.6 40.5 - 48.5 % [facility] MCV 86.0 82.9 - 93.1 fL [facility] MCH 29.1 27.5 - 32.1 pg [facility] MCHC 33.8 32.0 - 35.7 gm/dL [facility] Platelets 171 145 - 357 x10(3)/[facility] RDWSD 40.2 36.0 - 45.0 [facility] RDWCV 12.8 11.4 - 13.8 % [facility] MPV 10.8 7.6 - 12.9 fL [facility] nRBC % Auto 0.0 % [facility] nRBC Abs Auto 0.000 0.000 - 0.000 x10(3)/[facility] Blood specimen (specimen) 08/18/2017 4:06 AM EST 08/18/2017 4:22 AM EST Narrative Resulting Agency Comment Spec In Lab Hardik Schultz MD HEMATOLOGY ORDERABL ES [facility] [place] [address] * (ABNORMAL) BMP w/fasting Glucose (08/18/2017 4:06 AM EST) Glucose Fasting 95 65 - 99 mg/dL [facility] Comment: ?Fasting* Glucose Interpretive Criteria Normal ?65-99 mg/dL Impaired Fasting glucose ?100-125 mg/dL Consistent with Diabetes Mellitus ? >or= 126 mg/dL *Fasting is defined as no caloric intake for at least 8 hours In the absence of unequivocal hyperglycemia a plasma glucose value of >or= 126 mg/dL should be repeated on a subsequent day. Diagnosis and Classification of Diabetes Mellitus, Position Statement from the [place] [employer]. ??Diabetes Care, Volume 33, Supplement 1, Sep 2009 BUN 26(H) 10 - 20 mg/dL [facility] Creatinine 1.41 0.80 - 1.50 mg/dL [facility] Sodium 141 135 - 145 mmol/L [facility] Potassium 4.6 3.5 - 5.0 mmol/L [facility] Comment: Please note: ??Patients with WBC >100,000 may have falsely elevated Potassium levels. ??For accurate Potassium quantification in these patients send serum separator tube (gold top) for subsequent determinations. ??Contact the Clinical Chemistry Laboratory if there are any questions. Chloride 106 98 - 107 mmol/L [facility] CO2 22 22 - 31 mmol/L [facility] Anion Gap 13 5 - 15 mmol/L [facility] Calcium 9.6 8.5 - 10.5 mg/dL [facility] Estimated GFR 49(L) >=60 [facility] Comment: The reported eGFR should be multiplied by 1.2 for patients. The MDRD is not an appropriate measure of renal function for patients with body mass extremes or in patients with acute kidney failure. http://[employer]/DHnkdep http://[employer]/DHMCnkf Blood specimen (specimen) 08/18/2017 4:06 AM EST 08/18/2017 4:22 AM EST Narrative Resulting Agency Comment Spec In Lab Hardik Schultz MD CHEMISTRY ORDERABLE S Performing Organization Address [facility] Co de Phone Number [facility] [place] [address] * EKG 12 Lead (08/17/2017 8:04 AM EST) Ventricular rate 58 BPM MUSE SYSTEM Atrial Rate 58 BPM MUSE SYSTEM P-R Interval 158 ms MUSE SYSTEM QRS Duration 78 ms MUSE SYSTEM Q-T Interval 392 ms MUSE SYSTEM QTC Calculated (Bezet) 384 ms MUSE SYSTEM Calculated P [place] 67 degrees MUSE SYSTEM Calculated R [place] 111 degrees MUSE SYSTEM Calculated T [place] 23 degrees MUSE SYSTEM INTERPRETATION Sinus bradycardia Lateral infarct , age undetermined Abnormal ECG When compared with ECG of 16-AUG-2017 12:00, QRS duration has decreased Lateral infarct is now Present Criteria for Inferior infarct are no longer Present T wave inversion now evident in Inferior leads T wave inversion no longer evident in Lateral leads Confirmed by MD Ahsan, Renzo ([id number]) on 08/17/2017 3:12:57 PM MUSE SYSTEM 08/17/2017 8:04 AM EST 08/17/2017 3:12 PM EST Hardik Schultz MD ECG ORDERABLES Performing Organization Address [facility] Co de Phone Number MUSE SYSTEM * Differential, Automated (08/17/2017 6:40 AM EST) Neutrophils % 70.2 % [facility] Neutr Abs (ANC) 5.53 1.70 - 6.10 x10(3)/[facility] Lymphocytes % 16.1 % [facility] Lymphocytes Abs 1.3 0.9 - 3.2 x10(3)/[facility] Monocytes % 11.5 % [facility] Monocyte Abs 0.9 0.3 - 0.9 x10(3)/[facility] Eosinophils % 1.6 % [place] Eosinophils Abs 0.1 0.0 - 0.4 x10(3)/[facility] Basophils % 0.5 % [facility] Basophils Abs 0.0 0.0 - 0.1 x10(3)/[facility] Immature Gran % 0.10 % [facility] Comment: Immature granulocytes(IG's)percentage and absolute count will include metamyelocytes, myelocytes, and promyelocytes. Blood smears from CBCs yielding IG's will be scanned manually for concordance. If this scan disagrees with the automated IG or if promyelocytes are noted, a manual differential will be performed. Rebecca Gran Abs 0.01 0.00 - 0.04 x10(3)/[facility] Blood specimen (specimen) 08/17/2017 6:40 AM EST 08/17/2017 6:52 AM EST Narrative Resulting Agency Comment Spec In Lab Hardik Schultz MD HEMATOLOGY ORDERABL ES [facility] [place] [address] * Hemogram (08/17/2017 6:40 AM EST) WBC 7.9 4.0 - 9.5 x10(3)/[facility] RBC 5.18 4.58 - 5.54 x10(6)/[facility] Hemoglobin 14.9 13.7 - 16.5 gm/dL [facility] Hematocrit 44.8 40.5 - 48.5 % [facility] MCV 86.5 82.9 - 93.1 fL [facility] MCH 28.8 27.5 - 32.1 pg [facility] MCHC 33.3 32.0 - 35.7 gm/dL [facility] Platelets 157 145 - 357 x10(3)/[facility] RDWSD 40.6 36.0 - 45.0 fL [facility] RDWCV 12.8 11.4 - 13.8 % [facility] MPV 10.4 7.6 - 12.9 [facility]ORY nRBC % Auto 0.0 % [facility] nRBC Abs Auto 0.000 0.000 - 0.000 x10(3)/[facility] Blood specimen (specimen) 08/17/2017 6:40 AM EST 08/17/2017 6:52 AM EST Narrative Resulting Agency Comment Spec In Lab Hardik Schultz MD HEMATOLOGY ORDERABL ES Performing Organization Address City/State/[facility] Co de Phone Number [facility] [place] [phone] * (ABNORMAL) BMP w/fasting Glucose (08/17/2017 6:40 AM EST) Glucose Fasting 122(H) 65 - 99 mg/dL [facility] Comment: ?Fasting* Glucose Interpretive Criteria Normal ?65-99 mg/dL Impaired Fasting glucose ?100-125 mg/dL Consistent with Diabetes Mellitus ? >or= 126 mg/dL *Fasting is defined as no caloric intake for at least 8 hours In the absence of unequivocal hyperglycemia a plasma glucose value of >or= 126 mg/dL should be repeated on a subsequent day. Diagnosis and Classification of Diabetes Mellitus, Position Statement from the [place] [employer]. ??Diabetes Care, Volume 33, Supplement 1, Sep 2009 BUN 22(H) 10 - 20 mg/dL [facility] Creatinine 1.43 0.80 - 1.50 mg/dL [facility] Sodium 137 135 - 145 mmol/L [facility] Potassium 4.6 3.5 - 5.0 mmol/L [facility] Comment: Please note: ??Patients with WBC >100,000 may have falsely elevated Potassium levels. ??For accurate Potassium quantification in these patients send serum separator tube (gold top) for subsequent determinations. ??Contact the Clinical Chemistry Laboratory if there are any questions. Chloride 103 98 - 107 mmol/L [facility] CO2 23 22 - 31 mmol/L [facility] Anion Gap 11 5 - 15 mmol/L [facility] Calcium 9.4 8.5 - 10.5 mg/dL [facility] Estimated GFR 48(L) >=60 [facility] Comment: The reported eGFR should be multiplied by 1.2 for patients. The MDRD is not an appropriate measure of renal function for patients with body mass extremes or in patients with acute kidney failure. http://[employer]/DHnkdep http://[employer]/DHMCnkf Blood specimen (specimen) 08/17/2017 6:40 AM EST 08/17/2017 6:52 AM EST Narrative Resulting Agency Comment Spec In Lab Hardik Schultz MD CHEMISTRY ORDERABLE S [facility] [place] [address] * (ABNORMAL) HDL/Cholesterol Profile (08/17/2017 6:40 AM EST) Chol, Total 149 <=239 mg/dL [facility] HDL 32(L) >=40 mg/dL [facility] Chol/HDL Ratio 4.7 ratio [facility] Chol/HDL Interpretation See Note [facility] Comment: Lipid management should be guided by a patient? s ASCVD risk, goals and preferences. ACC/AHA Guidelines recommend high intensity statin if clinical ASCVD or LDL greater than or equal to 190 mg/dL. http://[employer]/HIA-FJR-Fzzabtwid Measure LDL if Total Cholesterol minus HDL Cholesterol is greater than 220 mg/dL. Adults aged 40-75 with LDL 70-189 mg/dL should have their 10 year ASCVD risk estimated with the ACC/AHA ASCVD risk collision estimator http://tools.acc.org/LUQLI-Sboo-Xssidftqa/ Statin should be discussed if risk greater than or equal to 7.5% in non-diabetics. With diabetes, moderate intensity statin is recommended if risk less than 7.5%, high intensity if risk greater than or equal to 7.5%. Annual lipid monitoring on statins is not necessary. Lifestyle modification is a critical component of ASCVD risk reduction. Blood specimen (specimen) 08/17/2017 6:40 AM EST 08/17/2017 6:52 AM EST Narrative Resulting Agency Comment Spec In Lab Hardik Schultz MD CHEMISTRY ORDERABLE S Performing Organization Address [facility] Co de Phone Number [facility] [address] * LDL Cholesterol, Direct (08/17/2017 6:40 AM EST) LDL Chol Direct 109 <=190 mg/dL [facility] Blood specimen (specimen) 08/17/2017 6:40 AM EST 08/17/2017 6:52 AM EST Narrative Resulting Agency Comment Spec In Lab Hardik Schultz MD CHEMISTRY ORDERABLE S Performing Organization Address City/[facility] Co de Phone Number [facility] [place] [address] * Hemoglobin A1c (08/17/2017 6:40 AM EST) Hemoglobin A1C 5.4 4.3 - 5.6 % [facility] Comment: Reference Range: 4.3 - 5.6% 5.7 - 6.4% - Increased Risk of Developing Diabetes Mellitus >= 6.5% - Consistent with diagnosis of Diabetes Mellitus In the absence of hyperglycemia (i.e. plasma glucose > 200 mg/dL) or classic symptoms of hyperglycemia a repeat measurement of HbA1c should be performed on a separate sample to confirm the diagnosis. Diagnosis and Classification of Diabetes Mellitus, Diabetes Care 2013; 36: Suppl. 1, S67-74 Est Avg Gluc See note mg/dL [facility] Comment: Estimated Average Glucose not appropriate for patients over 70 years of age. eAG equivalents for HbA1c percentages: HbA1c(%) ?eAG(mg/dL) 6.0 ?126 6.5 ?140 7.0 ?154 7.5 ?169 8.0 ?183 8.5 ?197 9.0 ?212 9.5 ?226 10.0 ? 240 Limitations: The eAG calculation has not been validated on women, individuals below 18 years old and above 70 years old, and individuals with hemoglobinopathies. Additional resources are available on the ADA website. Chase RIDER, Grace J, Alok R, et al. ??Translating the A1C assay into estimated average glucose values. ??Diabetes Care 2008:31(8):8956-4103. Blood specimen (specimen) 08/17/2017 6:40 AM EST 08/17/2017 6:52 AM EST Narrative Resulting Agency Comment Spec In Lab Hardik Schultz MD CHEMISTRY ORDERABLE S [facility] [place] [address] * (ABNORMAL) Cardiac Enzymes (LEB/CGP) (08/17/2017 6:40 AM EST) Troponin-T 8.16(H) 0.00 - 0.00 ng/mL [facility] Comment: result rechecked-kml The 99th percentile for Troponin T is less than 0.01 ng/mL, any detectable cTnT concentration using this assay should be considered elevated. According to the third universal definition of myocardial infarction the following criteria with a clinical presentation consistent with acute myocardial ischemia meets the diagnosis for a myocardial infarction ([place]). Detection of a rise and/or fall of cTnT, with at least one value greater than the 99th percentile (> or = 0.01) and with at least one of the following ?? Symptoms of ischemia ?? New or presumed new significant DD-inbwkjp-T wave (ST-T) changes or new left bundle branch block (LBBB) ?? Development of pathologic Q waves in the ECG ?? Imaging evidence of new loss of viable myocardium or new regional wall motion abnormality ?? Identification of an intracoronary thrombus by angiography or autopsy Samples for cTnT testing should be obtained serially upon first assessment and again 3 to 6 hours later. If the clinical suspicion is high and previous samples have been negative an additional sample may be indicated. Reference: Third [place] Definition of Myocardial Infarction. Journal of the [place] College [employer] 2012;60:1581-98 CK, Total 861(H) 0 - 200 unit/L [facility] Blood specimen (specimen) 08/17/2017 6:40 AM EST 08/17/2017 6:52 AM EST Narrative Resulting Agency Comment Spec In Lab Hardik Schultz MD CHEMISTRY ORDERABLE S [facility] [place] [address] * (ABNORMAL) Cardiac Enzymes (LEB/CGP) (08/16/2017 11:30 PM EST) Troponin-T 11.25(H) 0.00 - 0.00 ng/mL [facility] Comment: result rechecked-JLK The 99th percentile for Troponin T is less than 0.01 ng/mL, any detectable cTnT concentration using this assay should be considered elevated. According to the third universal definition of myocardial infarction the following criteria with a clinical presentation consistent with acute myocardial ischemia meets the diagnosis for a myocardial infarction ([place]). Detection of a rise and/or fall of cTnT, with at least one value greater than the 99th percentile (> or = 0.01) and with at least one of the following ?? Symptoms of ischemia ?? New or presumed new significant PI-rgqdoqr-V wave (ST-T) changes or new left bundle branch block (LBBB) ?? Development of pathologic Q waves in the ECG ?? Imaging evidence of new loss of viable myocardium or new regional wall motion abnormality ?? Identification of an intracoronary thrombus by angiography or autopsy Samples for cTnT testing should be obtained serially upon first assessment and again 3 to 6 hours later. If the clinical suspicion is high and previous samples have been negative an additional sample may be indicated. Reference: [place] Definition of Myocardial Infarction. Journal of the [place] [employer] 2012;60:1581-98 CK, Total 1,257(H) 0 - 200 unit/L [facility] Blood specimen (specimen) 08/16/2017 11:30 PM EST 08/16/2017 11:36 PM EST Narrative Resulting Agency Comment Spec In Lab Hardik Schultz MD CHEMISTRY ORDERABLE S [facility] [place] [address] * (ABNORMAL) Cardiac Enzymes (LEB/CGP) (08/16/2017 6:00 PM EST) Troponin-T 17.53(H) 0.00 - 0.00 ng/mL [facility] Comment: result rechecked-RG The 99th percentile for Troponin T is less than 0.01 ng/mL, any detectable cTnT concentration using this assay should be considered elevated. According to the third universal definition of myocardial infarction the following criteria with a clinical presentation consistent with acute myocardial ischemia meets the diagnosis for a myocardial infarction ([place]). Detection of a rise and/or fall of cTnT, with at least one value greater than the 99th percentile (> or = 0.01) and with at least one of the following ?? Symptoms of ischemia ?? New or presumed new significant PT-saqluur-P wave (ST-T) changes or new left bundle branch block (LBBB) ?? Development of pathologic Q waves in the ECG ?? Imaging evidence of new loss of viable myocardium or new regional wall motion abnormality ?? Identification of an intracoronary thrombus by angiography or autopsy Samples for cTnT testing should be obtained serially upon first assessment and again 3 to 6 hours later. If the clinical suspicion is high and previous samples have been negative an additional sample may be indicated. Reference: [place] Definition of Myocardial Infarction. Journal of the [place] [employer] 2012;60:1581-98 CK, Total 1,909(H) 0 - 200 unit/L [facility] Blood specimen (specimen) 08/16/2017 6:00 PM EST 08/16/2017 6:08 PM EST Narrative Resulting Agency Comment Spec In Lab Hardik Schultz MD CHEMISTRY ORDERABLE S [facility] [place] [address] * XR Chest PA or AP 1 view (08/16/2017 12:34 PM EST) Anatomical Region Laterality Modality Chest N/A Digital Radiogra phy Impressions 08/16/2017 12:52 PM EST Bronchovascular crowding, no definite focal consolidation. Narrative 08/16/2017 12:52 PM EST EXAMINATION: XR CHEST PA OR AP 1 VIEW CLINICAL HISTORY: STEMI s/p cath TECHNIQUE: AP portable frontal chest. COMPARISON: 12/31/2013. FINDINGS: Multiple overlying leads. There is a tortuous aorta within normal size cardiomediastinal silhouette. The pulmonary vascularity is prominent, prominent daniel bilaterally, mildly oblique positioning. The airways are essentially midline. Lung parenchyma with bronchovascular crowding without focal consolidation. Large stomach bubble is partially characterized. Procedure Note Jose Alberto Talbot MD - 08/16/2017 EXAMINATION: XR CHEST PA OR AP 1 VIEW CLINICAL HISTORY: STEMI s/p cath TECHNIQUE: AP portable frontal chest. COMPARISON: 12/31/2013. FINDINGS: Multiple overlying leads. There is a tortuous aorta within normal size cardiomediastinal silhouette. The pulmonary vascularity is prominent,prominent daniel bilaterally, mildly oblique positioning. The airways areessentially midline. Lung parenchyma with bronchovascular crowding without focal consolidation. Large stomach bubble is partially characterized. IMPRESSION Bronchovascular crowding, no definite focal consolidation. Hardik Schultz MD IMG DX ORDERABLES * (ABNORMAL) Differential, Automated (08/16/2017 12:30 PM EST) Neutrophils % 84.5 % [facility] Neutr Abs (ANC) 9.05(H) 1.70 - 6.10 x10(3)/[facility] Lymphocytes % 8.1 % [facility] Lymphocytes Abs 0.9 0.9 - 3.2 x10(3)/[facility] Monocytes % 6.6 % [facility] Monocyte Abs 0.7 0.3 - 0.9 x10(3)/[facility] Eosinophils % 0.1 % [facility] Eosinophils Abs 0.0 0.0 - 0.4 x10(3)/[facility] Basophils % 0.4 % [facility] Basophils Abs 0.0 0.0 - 0.1 x10(3)/[facility] Immature Gran % 0.30 % [facility] Comment: Immature granulocytes(IG's)percentage and absolute count will include metamyelocytes, myelocytes, and promyelocytes. Blood smears from CBCs yielding IG's will be scanned manually for concordance. If this scan disagrees with the automated IG or if promyelocytes are noted, a manual differential will be performed. Rebecca Gran Abs 0.03 0.00 - 0.04 x10(3)/[facility] Blood specimen (specimen) 08/16/2017 12:30 PM EST 08/16/2017 12:41 PM EST Narrative Resulting Agency Comment Spec In Lab Hardik Schultz MD HEMATOLOGY ORDERABL ES [facility] [place] [address] * (ABNORMAL) Hemogram (08/16/2017 12:30 PM EST) Pathologist [facility] WBC 10.7(H) 4.0 - 9.5 x10(3)/[facility] RBC 5.24 4.58 - 5.54 x10(6)/[facility] Hemoglobin 15.1 13.7 - 16.5 gm/dL [facility] Hematocrit 45.9 40.5 - 48.5 % [facility] MCV 87.6 82.9 - 93.1 [facility] MCH 28.8 27.5 - 32.1 pg [facility] MCHC 32.9 32.0 - 35.7 gm/dL [facility] Platelets 178 145 - 357 x10(3)/[facility] RDWSD 40.6 36.0 - 45.0 [facility] RDWCV 12.6 11.4 - 13.8 % [facility] MPV 10.3 7.6 - 12.9 [facility] nRBC % Auto 0.0 % [facility] nRBC Abs Auto 0.000 0.000 - 0.000 x10(3)/[facility] Blood specimen (specimen) 08/16/2017 12:30 PM EST 08/16/2017 12:41 PM EST Narrative Resulting Agency Comment Spec In Lab Hardik Schultz MD HEMATOLOGY ORDERABL ES [facility] [place] [address] * (ABNORMAL) Cardiac Enzymes (LEB/CGP) (08/16/2017 12:30 PM EST) Pathologist [facility] Troponin-T 19.27(H) 0.00 - 0.00 ng/mL [facility] Comment: result rechecked-f f [facility] The 99th percentile for Troponin T is less than 0.01 ng/mL, any detectable cTnT concentration using this assay should be considered elevated. According to the third universal definition of myocardial infarction the following criteria with a clinical presentation consistent with acute myocardial ischemia meets the diagnosis for a myocardial infarction ([place]). Detection of a rise and/or fall of cTnT, with at least one value greater than the 99th percentile (> or = 0.01) and with at least one of the following ?? Symptoms of ischemia ?? New or presumed new significant QK-ehmaboq-U wave (ST-T) changes or new left bundle branch block (LBBB) ?? Development of pathologic Q waves in the ECG ?? Imaging evidence of new loss of viable myocardium or new regional wall motion abnormality ?? Identification of an intracoronary thrombus by angiography or autopsy Samples for cTnT testing should be obtained serially upon first assessment and again 3 to 6 hours later. If the clinical suspicion is high and previous samples have been negative an additional sample may be indicated. Reference: [place] Definition of Myocardial Infarction. Journal of the [place] [employer] 2012;60:1581-98 CK, Total 2,465(H) 0 - 200 unit/L [facility] Blood specimen (specimen) 08/16/2017 12:30 PM EST 08/16/2017 12:41 PM EST Narrative Resulting Agency Comment Spec In Lab Hardik Schultz MD CHEMISTRY ORDERABLE S [facility] [place] [address] * (ABNORMAL) APTT (08/16/2017 12:30 PM EST) Pathologist [facility] PTT 44(H) 25 - 35 sec [facility] Comment: The recommended therapeutic range for full dose, unfractionated heparin at [facility] is 80 ? 114 seconds. The use of the anti-Xa (heparin) level rather than the PTT is recommended for monitoring anticoagulation intensity in critically ill patients receiving unfractionated heparin by continuous IV infusion. Blood specimen (specimen) 08/16/2017 12:30 PM EST 08/16/2017 12:41 PM EST Narrative Resulting Agency Comment Spec In Lab Hardik Schultz MD HEMATOLOGY ORDERABL ES Performing Organization Address [facility] de Phone Number [facility] [place] [address] * Prothrombin Time (08/16/2017 12:30 PM EST) PT 13.4 11.8 - 14.0 sec [facility] INR 1.0 0.9 - 1.1 [facility] Comment: An INR <2.0 indicates adequate procoagulant activity for hemostasis in most patients without underlying bleeding disorders, though the INR may not adequately reflect hemostatic capacity in patients with liver disease and synthetic impairment. The recommended target INR range for therapeutic anticoagulation is 2.0 ? 3.0 for most applications, though lower and higher ranges may be appropriate depending on clinical circumstances. Blood specimen (specimen) 08/16/2017 12:30 PM EST 08/16/2017 12:41 PM EST Narrative Resulting Agency Comment Spec In Lab Hardik Schultz MD HEMATOLOGY ORDERABL ES Performing Organization Address [facility] de Phone Number [facility] [place] [address] * (ABNORMAL) Hepatic Function Panel (08/16/2017 12:30 PM EST) Total Protein 6.5 6.1 - 8.0 gm/dL [facility] Albumin 3.6 3.2 - 5.2 gm/dL [facility] AST 242(H) 0 - 39 unit/L [facility] ALT 34 0 - 55 unit/L [facility] Alk Phos 83 40 - 120 unit/L [facility] Total Bilirubin 1.1 0.2 - 1.3 mg/dL [facility] Bili, Direct 0.2 0.0 - 0.3 mg/dL [facility] Blood specimen (specimen) 08/16/2017 12:30 PM EST 08/16/2017 12:41 PM EST Narrative Resulting Agency Comment Spec In Lab Hardik Schultz MD CHEMISTRY ORDERABLE S Performing Organization Address [facility] Co de Phone Number [facility] [place] [address] * (ABNORMAL) pro-Brain Natriuretic Peptide (08/16/2017 12:30 PM EST) ProBNP 945(H) <=125 pg/mL [facility] Blood specimen (specimen) 08/16/2017 12:30 PM EST 08/16/2017 12:41 PM EST Narrative Resulting Agency Comment Spec In Lab Hardik Schultz MD CHEMISTRY ORDERABLE S Performing Organization Address [facility] Co de Phone Number [facility] [place] [address] * (ABNORMAL) TSH (08/16/2017 12:30 PM EST) TSH 0.02(L) 0.27 - 4.20 mlU/ML [facility] Blood specimen (specimen) 08/16/2017 12:30 PM EST 08/16/2017 12:41 PM EST Narrative Resulting Agency Comment Spec In Lab Hardik Schultz MD CHEMISTRY ORDERABLE S Performing Organization Address [facility] Co de Phone Number [facility] [place] [address] * (ABNORMAL) Phosphorus (08/16/2017 12:30 PM EST) Phosphorus 2.3(L) 2.5 - 4.5 mg/dL [facility] Blood specimen (specimen) 08/16/2017 12:30 PM EST 08/16/2017 12:41 PM EST Narrative Resulting Agency Comment Spec In Lab Hardik Schultz MD CHEMISTRY ORDERABLE S Performing Organization Address City/[facility]/ZIP Co de Phone Number [facility] [place] [address] * Magnesium (08/16/2017 12:30 PM EST) Pathologist [facility] Magnesium 0.98 0.69 - 1.07 mmol/L [facility] Blood specimen (specimen) 08/16/2017 12:30 PM EST 08/16/2017 12:41 PM EST Narrative Resulting Agency Comment Spec In Lab Hardik Schultz MD CHEMISTRY ORDERABLE S Performing Organization Address City/[facility]/ZIP Co de Phone Number [facility] [place] [address] * (ABNORMAL) Basic Metabolic Panel (non-fasting) (08/16/2017 12:30 PM EST) Pathologist [facility] Glucose Lvl 117 65 - 199 mg/dL [facility] Comment:Diabetes: >=200 mg/d L plus symptoms BUN 21(H) 10 - 20 mg/dL [facility] Creatinine 1.40 0.80 - 1.50 mg/dL [facility] Sodium 141 135 - 145 mmol/L [facility] Potassium 5.3(H) 3.5 - 5.0 mmol/L [facility] Comment: Please note: ??Patients with WBC >100,000 may have falsely elevated Potassium levels. ??For accurate Potassium quantification in these patients send serum separator tube (gold top) for subsequent determinations. ??Contact the Clinical Chemistry Laboratory if there are any questions. Chloride 107 98 - 107 mmol/L [facility] CO2 24 22 - 31 mmol/L [facility] Anion Gap 10 5 - 15 mmol/L [facility] Calcium 9.6 8.5 - 10.5 mg/dL [facility] Estimated GFR 50(L) >=60 [facility] Comment: The reported eGFR should be multiplied by 1.2 for patients. The MDRD is not an appropriate measure of renal function for patients with body mass extremes or in patients with acute kidney failure. http://[employer]/DHnkdep http://[employer]/DHMCnkf Blood specimen (specimen) 08/16/2017 12:30 PM EST 08/16/2017 12:41 PM EST Narrative Resulting Agency Comment Spec In Lab Hardik Schultz MD CHEMISTRY ORDERABLE S Performing Organization Address [facility] Co de Phone Number [facility] [place] [address] * EKG 12 Lead (08/16/2017 12:00 PM EST) Ventricular rate 63 BPM MUSE SYSTEM Atrial Rate 63 BPM MUSE SYSTEM P-R Interval 158 ms MUSE SYSTEM QRS Duration 98 ms MUSE SYSTEM Q-T Interval 372 ms MUSE SYSTEM QTC Calculated (Bezet) 380 ms MUSE SYSTEM Calculated P [place] 58 degrees MUSE SYSTEM Calculated R [place] 23 degrees MUSE SYSTEM Calculated T [place] 103 degrees MUSE SYSTEM INTERPRETATION Normal sinus rhythm Inferior injury pattern T wave abnormality , consider lateral ischemia Abnormal ECG Confirmed by MD John, Xavi ([id number]) on 08/16/2017 2:34:33 PM MUSE SYSTEM 08/16/2017 12:0 0 PM EST 08/16/2017 2:34 PM EST Jade Strickland MD ECG ORDERABLES Performing Organization Address [facility] de Phone Number MUSE SYSTEM * (ABNORMAL) Cardiac Enzymes (LEB/CGP) (08/16/2017 11:30 AM EST) Troponin-T 15.15(H) 0.00 - 0.00 ng/mL [facility] Comment: The 99th percentile for Troponin T is less than 0.01 ng/mL, any detectable cTnT concentration using this assay should be considered elevated. According to the third universal definition of myocardial infarction the following criteria with a clinical presentation consistent with acute myocardial ischemia meets the diagnosis for a myocardial infarction ([place]). Detection of a rise and/or fall of cTnT, with at least one value greater than the 99th percentile (> or = 0.01) and with at least one of the following ?? Symptoms of ischemia ?? New or presumed new significant ZJ-rrqjgqw-W wave (ST-T) changes or new left bundle branch block (LBBB) ?? Development of pathologic Q waves in the ECG ?? Imaging evidence of new loss of viable myocardium or new regional wall motion abnormality ?? Identification of an intracoronary thrombus by angiography or autopsy Samples for cTnT testing should be obtained serially upon first assessment and again 3 to 6 hours later. If the clinical suspicion is high and previous samples have been negative an additional sample may be indicated. Reference: Third [place] Definition of Myocardial Infarction. Journal of the [place] [employer] 2012;60:1581-98 CK, Total 2,513(H) 0 - 200 unit/L [facility] Blood specimen (specimen) 08/16/2017 11:30 AM EST 08/16/2017 11:37 AM EST Narrative Resulting Agency Comment Spec In Lab Marika Acuna MD CHEMISTRY ORDERABLES Performing Organization Address City/State/[facility] Co de Phone Number [facility] [place] [address] * CARDIAC CATHETERIZATION (08/16/2017 9:57 AM EST) Anatomical Region Laterality Modality Other Narrative 08/18/2017 12:48 PM EST ?[facility] ? Cardiac Catheterization/Intervention Report ? Patient Name: Lino, Jacob ? Procedure Date: 08/16/2017 ? A #: [id number] ? Primary Physician: Marika Acuna ? Case #: [id number] ? File Name: [id number] ? Catheterization Order Number: [id number] ? [facility] ? Final Report [place], [place] ? Patient Name: ? Jacob Lino ? ID#: ?[id number] ? : ?1940 ? Procedure Date: ? August 16, 2017 ? Case #: ? [id number] ? Room: ? 5 ? Case Physician: ? Marika Acuna M.D. ? Start: ?09:23 ?Fellow: ? Lela Garcia M.D. ? Admission: ??08/16/2017 ? Discharge: ??08/19/2017 ? Referring Physician: ??Kelly Jackson M.D. ? Procedures: ?* Coronary Angiography ?* Left Heart Catheterization ?* Coronary Stent Insertion ? Pre Case Status: ?These procedures were performed on an emergent basis. ? History ?Jacob Allen is a 76 year old man. He has hypertension. The patient has ?a history of smoking and is still smoking. He has untreated ?hypercholesterolemia. The patient has a history of chest pain and a prior ?history of coronary artery disease. He is status post an acute ST ?elevation myocardial infarction. The patient had a remote coronary ?intervention procedure. He has a history of an abnormal EKG. The patient ?also has a history of renal insufficiency. Prior to the initiation of ?this procedure, the patient was designated as ASA Class IV. ? Patient Status at Catheterization: ?The patient presented with: ST-Elevation [place] (STEMI) or equivalent (w/i 7 ?days). [place] [employer] angina class was IV. This patient ?received full dose lytics. No stress or imaging studies were performed ?prior to this procedure. The status of the diagnostic procedure was ?Emergent. ? Technique: ?A 6 SLFr sheath was inserted in the right radial artery utilizing the ?Seldinger technique. The left coronary artery was injected utilizing a ?5Fr TIG 4.0 catheter. A 6Fr JR 4 catheter was used to inject the right ?coronary artery. Left ventricular pressure was performed with a 6Fr JR 4 ?catheter. Coronary stent insertion was performed and the equipment ?utilized will be described in the intervention summary section. 5,000 ?units of heparin were administered. A total of 100cc of Omnipaque were ?opened, 95cc of Omnipaque were administered and 5cc of Omnipaque were ?wasted. Radiation: Fluoro time was 6.7 minutes, dose area product was ?40,445 mGYcm2 and air kerma was 901 mGY. ?The patient received the following medications prior to and during the ?procedure: Aspirin (any), Clopidogrel, Unfractionated Heparin (any) and ?Lytic (any). ? Hemodynamics: ?Left Heart Pressures ? Resting: ? Syst Diast ? EDP ?a ?v ? m ?Ao 127 ?? 69 ?94 ?LV 127 ? 24 ? Coronary Angiography: ?Dominance: Right ?Left Main ? There was mild diffuse (<=25% stenosis) disease of the ostial ? segment of the left main artery. ?Left Anterior Descending ? There was mild diffuse (<=25% stenosis) disease of the entire vessel ? segment of the left anterior descending artery (LAD). ? The proximal segment of the first diagonal branch (Diagonal 1) of ? the LAD was noted. ??The previously placed stent is patent. The mid ? segment of the Diagonal 1 had a single discrete 40% stenosis. ?Left Circumflex ? There was mild diffuse (<=25% stenosis) disease of the entire vessel ? segment of the left circumflex artery (LCX). ?Right Coronary Artery ? There was mild diffuse (<=25% stenosis) disease of the entire vessel ? segment of the right coronary artery (RCA). ??The RCA was large. ??The ? distal segment of the RCA had a single discrete 90% stenosis. ? Indication for Intervention: ?Coronary intervention was indicated for primary therapy for an acute ?myocardial infarction. Left Ventricular Ejection fraction was not ?assessed. The priority for the procedure was Emergent. The NCDR ?indication for the procedure was STEMI (Stable after successful full- dose ?Thrombolysis). ? Intervention Summary: ?Right Coronary Artery ? Distal 90% ? Stent insertion was performed on the 90% stenosis in the ? distal segment of the RCA. This was a de emma lesion. ? According to the ACC/AHA classification system, this lesion ? was a type B2 high risk lesion. Primary prevention of ? restenosis was the indication for stent insertion. This was ? the culprit lesion. Vessel flow pre intervention was LAURENCE 3. ? Stent insertion was accomplished through a 6 Fr. JR 4 guide. ? A premounted 3.50 x 15 mm Integrity (BMS) was deployed with a ? maximum inflation pressure of 12 atmospheres. ??Following stent ? deployment, the lesion was dilated using a 3.50mm NC EUPHORA ? 08 MM balloon with a maximum inflation pressure of 20 ? atmospheres. ? The final outcome was defined as successful. There was no ? residual stenosis following this intervention. The final LAURENCE ? flow was 3. ? STEM[facility] at [facility]. Distal RCA lesion direct stented ? without difficulty. No problems with symptoms, hemodynamics, ? rhythm or flow in the vessel. ? Vascular Access: ?Vascular Access Management: ? Mechanical Compression of the right radial artery access site was ? performed. ? Dual Antiplatelet (DAPT) Recommendations: ?Bare metal stent (BMS) inserted. ?P2Y12 Loading dose administered prior to arrival in the clay processing labourer. ?Recommend continuing clopidogrel 75 mg PO daily for 12 months. ??Recommend ?continuing aspirin 81 mg unless intolerant. ?The DAPT score is 2. ??The DAPT score calculates net clinical benefit of ?prolonged dual antiplatelet therapy following percutaneous coronary ?intervention. A DAPT Score of equal or greater than 2 suggests an ?increased risk of late stent thrombosis and MACCE. If the DAPT score is ?equal or greater than 2 and the patient tolerates the recommended ?duration of DAPT without bleeding or side effects, consider extending the ?DAPT to 30 months post procedure. ? Conclusions: ?* One vessel coronary artery disease (RCA) ?* Elevated left ventricular end diastolic pressure ?* Successful stent insertion of the distal RCA lesion ?* Recommend continuing clopidogrel 75 mg PO daily for 12 months (see DAPT ?Recommendations above for more information.) ? Complications/Events: ?The patient had no complications during these procedures. ?The attending physician was present for the entire procedure. ?Dr. Marika Acuna M.D. performed the coronary angiography, left heart ?catheterization and stent insertion-coronary. ? Marika Acuna M.D. ? Electronically Signed by: Marika Acuna M.D. ? Report Finalized: 08/16/2017 ??10:35 ? Report Last Ammended: 12/08/2017 ??14:16 ? Procedure Note Marika Acuna MD - 12/08/2017 [facility] Cardiac Catheterization/Intervention Report Patient Name: Jacob Allen Procedure Date: 08/16/2017 A #: [id number] Primary Physician: Marika Acuna Case #: [id number] File Name: [id number] Catheterization Order Number: [id number] [facility] FinalReport [place], [place] Patient Name: Jacob Allen ID#:[id number] Procedure Date: August 16, 2017 Case #: [id number] Room: 5 Case Physician: Marika Acuna M.D. Start: 09:23 Fellow: Lela Garcia M.D. Admission:08/16/2017 Discharge:08/19/2017 Referring Physician: Kelly Jackson M.D. Procedures: * Coronary Angiography * Left Heart Catheterization * Coronary Stent Insertion Pre Case Status: These procedures were performed on an emergent basis. History Jacob Allen is a 76 year old man. He has hypertension. Thepatient has a history of smoking and is still smoking. He has untreated hypercholesterolemia. The patient has a history of chest pain and aprior history of coronary artery disease. He is status post an acute ST elevation myocardial infarction. The patient had a remote coronary intervention procedure. He has a history of an abnormal EKG. Thepatient also has a history of renal insufficiency. Prior to the initiationof this procedure, the patient was designated as ASA Class IV. Patient Status at Catheterization: The patient presented with: ST-Elevation [place] (STEMI) or equivalent(w/i 7 days). [place] [employer] angina class was IV. Thispatient received full dose lytics. No stress or imaging studies wereperformed prior to this procedure. The status of the diagnostic procedure was Emergent. Technique: A 6 SLFr sheath was inserted in the right radial artery utilizingthe Seldinger technique. The left coronary artery was injected utilizinga 5Fr TIG 4.0 catheter. A 6Fr JR 4 catheter was used to inject theright coronary artery. Left ventricular pressure was performed with a 6FrJR 4 catheter. Coronary stent insertion was performed and the equipment utilized will be described in the intervention summary section.5,000 units of heparin were administered. A total of 100cc of Omnipaquewere opened, 95cc of Omnipaque were administered and 5cc of Omnipaquewere wasted. Radiation: Fluoro time was 6.7 minutes, dose area productwas 40,445 mGYcm2 and air kerma was 901 mGY. The patient received the following medications prior to and duringthe procedure: Aspirin (any), Clopidogrel, Unfractionated Heparin (any)and Lytic (any). Hemodynamics: Left Heart Pressures Resting: Syst Diast EDP a v m Ao 127 69 94 LV 127 24 Coronary Angiography: Dominance: Right Left Main There was mild diffuse (<=25% stenosis) disease of the ostial segment of the left main artery. Left Anterior Descending There was mild diffuse (<=25% stenosis) disease of the entirevessel segment of the left anterior descending artery (LAD). The proximal segment of the first diagonal branch (Diagonal 1)of the LAD was noted. The previously placed stent is patent. Themid segment of the Diagonal 1 had a single discrete 40% stenosis. Left Circumflex There was mild diffuse (<=25% stenosis) disease of the entirevessel segment of the left circumflex artery (LCX). Right Coronary Artery There was mild diffuse (<=25% stenosis) disease of the entirevessel segment of the right coronary artery (RCA). The RCA was large.The distal segment of the RCA had a single discrete 90% stenosis. Indication for Intervention: Coronary intervention was indicated for primary therapy for an acute myocardial infarction. Left Ventricular Ejection fraction was not assessed. The priority for the procedure was Emergent. The NCDR indication for the procedure was STEMI (Stable after successfulfull-dose Thrombolysis). Intervention Summary: Right Coronary Artery Distal 90% Stent insertion was performed on the 90% stenosis in the distal segment of the RCA. This was a de emma lesion. According to the ACC/AHA classification system, thislesion was a type B2 high risk lesion. Primary prevention of restenosis was the indication for stent insertion. Thiswas the culprit lesion. Vessel flow pre intervention was TIMI3. Stent insertion was accomplished through a 6 Fr. JR 4guide. A premounted 3.50 x 15 mm Integrity (BMS) was deployedwith a maximum inflation pressure of 12 atmospheres. Followingstent deployment, the lesion was dilated using a 3.50mm NCEUPHORA 08 MM balloon with a maximum inflation pressure of 20 atmospheres. The final outcome was defined as successful. There was no residual stenosis following this intervention. The finalTIMI flow was 3. STEMI patient pain free upon transfer via [facility] after receiving lytic at [facility]. Distal RCA lesion directstented without difficulty. No problems with symptoms,hemodynamics, rhythm or flow in the vessel. Vascular Access: Vascular Access Management: Mechanical Compression of the right radial artery access sitewas performed. Dual Antiplatelet (DAPT) Recommendations: Bare metal stent (BMS) inserted. 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 Recommend continuing clopidogrel 75 mg PO daily for 12 months.Recommend continuing aspirin 81 mg unless intolerant. The DAPT score is 2. The DAPT score calculates net clinical benefitof prolonged dual antiplatelet therapy following percutaneous coronary intervention. A DAPT Score of equal or greater than 2 suggests an increased risk of late stent thrombosis and MACCE. If the DAPT scoreis equal or greater than 2 and the patient tolerates the recommended duration of DAPT without bleeding or side effects, considerextending the DAPT to 30 months post procedure. Conclusions: * One vessel coronary artery disease (RCA) * Elevated left ventricular end diastolic pressure * Successful stent insertion of the distal RCA lesion * Recommend continuing clopidogrel 75 mg PO daily for 12 months (seeDAPT Recommendations above for more information.) Complications/Events: The patient had no complications during these procedures. The attending physician was present for the entire procedure. Dr. Marika Acuna M.D. performed the coronary angiography, left heart catheterization and stent insertion-coronary. Marika Acuna M.D. Electronically Signed by: Marika Acuna M.D. Report Finalized: 08/16/2017 10:35 Report Last Ammended: 12/08/2017 14:16 Jade Strickland MD CARDIAC CATH ORDERAB LES documented in this encounter Visit Diagnoses Diagnosis ST elevation myocardial infarction (STEMI) of lateral wall Acute myocardial infarction of other lateral wall, episode of care unspecified STEMI (ST elevation myocardial infarction) Acute myocardial infarction, unspecified site, episode of care unspecified documented in this encounter Admitting Diagnoses Diagnosis STEMI (ST elevation myocardial infarction) Acute myocardial infarction, unspecified site, episode of care unspecified documented in this encounter Administered Medications Inactive Administered Medications - up to 3 most recent administrations Medication Order MAR Action Action Date Dose Rate Site acetaminophen (TYLENOL) tablet 650 mg 650 mg, Oral, EVERY 4 HOURS PRN, Starting on 08/16/17 at 1208, Until Fri08/19/17 at 1419, Pain, Headaches, Maximum dose of acetaminophen is 4000 mg from all sources in 24 hours., Routine aspirin EC tablet 81 mg 81 mg, Oral, DAILY, First dose on [place] 08/17/17 at 0900, Until Discontinued, Recovery (Recovery-Hospital Unit), Routine Given 08/19/2017 9:32 AM EST 81 mg Given 08/18/2017 8:11 AM EST 81 mg Given 08/17/2017 8:49 AM EST 81 mg atorvastatin (LIPITOR) tablet 40 mg 40 mg, Oral, EVERY EVENING, First dose on 08/16/17 at 1700, Until Discontinued, Routine Given 08/18/2017 5:07 PM EST 40 mg Given 08/17/2017 5:17 PM EST 40 mg Given 08/16/2017 5:55 PM EST 40 mg bisacodyl (DULCOLAX) suppository 10 mg 10 mg, Rectal, DAILY PRN, Starting on 08/16/17 at 1215, Until Fri08/19/17 at 1419, Constipation, Routine clopidogrel (PLAVIX) tablet 75 mg 75 mg, Oral, DAILY, First dose on [place] 08/17/17 at 0900, Until Discontinued, Recovery (Recovery-Hospital Unit), Routine Given 08/19/2017 9:32 AM EST 75 mg Given 08/18/2017 8:11 AM EST 75 mg Given 08/17/2017 8:49 AM EST 75 mg heparin (Porcine) subcutaneous injection 5,000 Units 5,000 Units, Subcutaneous, 2 TIMES DAILY, First dose on 08/16/17 at 1315, Until Discontinued, Routine Given 08/18/2017 8:11 AM EST 5,000 Unit s Given 08/17/2017 8:36 PM EST 5,000 Units Given 08/17/2017 8:53 AM EST 5,000 Units lidocaine (XYLOCAINE) 10 mg/mL (1 %) injection 3 mg 3 mg (0.3 mL), Subcutaneous, ONCE PRN, 1 dose, Starting on 08/16/17 at 1207, Until Fri08/19/17 at 1419, for discomfort with PIV insertion, Routine lisinopril (PRINIVIL;ZESTRIL) tablet 2.5 mg 2.5 mg, Oral, DAILY, First dose on 08/17/17 at 1130, Until Discontinued, Routine Given 08/19/2017 9:3 2 AM EST 2.5 mg Given 08/18/2017 8:11 AM EST 2.5 mg Given 08/17/2017 12:13 PM EST 2.5 mg meTOPROLOL (LOPRESSOR) tablet 12.5 mg 12.5 mg, Oral, EVERY 12 HOURS SCHEDULED (2 times per day), First dose on 08/18/17 at 1030, Until Discontinued, Routine Given 08/18/2017 8:49 PM EST 12.5 mg Given 08/18/2017 11:51 AM EST 12.5 mg meTOPROLOL succinate (TOPROL-XL) XL tablet 25 mg 25 mg, Oral, DAILY, First dose on Fri08/19/17 at 0930, Until Discontinued, DO NOT CRUSH OR OPEN, Routine Given 08/19/2017 9:32 AM EST 25 mg mineral oil topical liquid 15 mL 15 mL, Topical (Top), NIGHTLY, First dose on 08/18/17 at 2100, Until Discontinued, To ears, Routine Given 08/18/2017 8:50 PM EST 15 mLs nitroGLYcerin (NITROSTAT) SL tablet 0.4 mg 0.4 mg, Sublingual, EVERY 5 MIN PRN, Starting on 08/16/17 at 1207, Until Fri08/19/17 at 1419, Chest pain, May repeat every 5 minutes for a total of three doses. Notify provider if chest pain not relieved with nitroglycerin. Do not administer nitroglycerin if the patinet has received or taken phosphodiesterase (PDE-5) inhibitors such as sildenafil, tadalafil or vardenafil within the last 24 to 72 hours., Routine pantoprazole (PROTONIX) tablet 40 mg 40 mg, Oral, DAILY, First dose on 08/16/17 at 1245, Until Discontinued, DO NOT CRUSH OR OPEN Given 08/19/2017 9:32 AM EST 40 mg Given 08/18/2017 8:11 AM EST 40 mg Given 08/17/2017 8:49 AM EST 40 mg sodium chloride 0.9 % flush 5 mL 5 mL, Intravenous, 2 TIMES DAILY, First dose on 08/16/17 at 1230, Until Discontinued, Routine Given 08/19/2017 9:34 AM EST 5 mLs Given 08/18/2017 9:00 PM EST 5 mLs Given 08/18/2017 9:00 AM EST 5 mLs sodium chloride 0.9 % flush 5-20 mL 5-20 mL, Intravenous, EVERY 1 MIN PRN, Starting on 08/16/17 at 1207, Until 08/19/17 at 1419, flush, Flush pertains to all indwelling lines. Flush per protocol found in the job aid using the link provided on this medication record., Routine sodium chloride 0.9% infusion 125 mL/hr, Intravenous, CONTINUOUS, Starting on 08/16/17 at 1045, Until 08/16/17 at 1344, Recovery (Recovery-Hospital Unit) New Bag 08/16/2017 11:00 AM EST 125 mL/hr 125 m L/hr documented in this encounter Active and Recently Administered Medications Times are shown in EST. Scheduled Medication Order 08/17/2017 08/18/2017 08/19/2017 aspirin EC tablet 81 mg 81 mg, Oral, DAILY, First dose on 08/17/17 at 0900, Until Discontinued, Recovery (Recovery-Hospital Unit), Routine 0849 (Given - Provider: Yumi Mascorro RN) 0811 (Given - Provider: Meagan Cruz RN) 0932 (Given - Provider: Meagan Cruz, ELO) atorvastatin (LIPITOR) tablet 40 mg 40 mg, Oral, EVERY EVENING, First dose on 08/16/17 at 1700, Until Discontinued, Routine 1717 (Given - Provider: Yumi Mascorro RN) 1707 (Given - Provider: Meagan Cruz, ELO) clopidogrel (PLAVIX) tablet 75 mg 75 mg, Oral, DAILY, First dose on 08/17/17 at 0900, Until Discontinued, Recovery (Recovery-Hospital Unit), Routine 0849 (Given - Provider: Yumi Mascorro RN) 0811 (Given - Provider: Meagan Cruz RN) 0932 (Given - Provider: Meagan Cruz RN) heparin (Porcine) subcutaneous injection 5,000 Units (CANCELED) 5,000 Units, Subcutaneous, 2 TIMES DAILY, First dose on 08/16/17 at 1315, Until Discontinued, Routine 0853 (Given - Provider: Yumi Mascorro RN)203 (Given - Provider: Dania Self RN) 0811 (Given - Provider: Meagan Cruz RN) lisinopril (PRINIVIL;ZESTRIL) tablet 2.5 mg 2.5 mg, Oral, DAILY, First dose on Fri08/17/17 at 1130, Until Discontinued, Routine 1213 (Given - Provider: Yumi Mascorro RN) 0811 (Given - Provider: Meagan Cruz RN) 0932 (Given - Provider: Meagan Cruz RN) meTOPROLOL (LOPRESSOR) tablet 12.5 mg (CANCELED) 12.5 mg, Oral, EVERY 12 HOURS SCHEDULED (2 times per day), First dose on Fri08/18/17 at 1030, Until Discontinued, Routine 1151 (Given - Provider: Meagan Cruz RN)2048 (Given - Provider: Jeffrey Howell RN) 0900 (Not Given - Provider: Meagan Cruz RN - Reason: Medication Discontinued) meTOPROLOL succinate (TOPROL-XL) XL tablet 25 mg 25 mg, Oral, DAILY, First dose on Fri08/19/17 at 0930, Until Discontinued, DO NOT CRUSH OR OPEN, Routine 0932 (Given - Provider: Meagan Cruz RN) mineral oil topical liquid 15 mL 15 mL, Topical (Top), NIGHTLY, First dose on Fri08/18/17 at 2100, Until Discontinued, To ears, Routine 2049 (Given - Provider: Jeffrey Howell RN) pantoprazole (PROTONIX) tablet 40 mg 40 mg, Oral, DAILY, First dose on Fri08/16/17 at 1245, Until Discontinued, DO NOT CRUSH OR OPEN 0849 (Given - Provider: Yumi Mascorro RN) 0811 (Given - Provider: Meagan Cruz RN) 0932 (Given - Provider: Meagan Cruz RN) sodium chloride 0.9 % flush 5 mL 5 mL, Intravenous, 2 TIMES DAILY, First dose on 08/16/17 at 1230, Until Discontinued, Routine 0851 (Given - Provider: Yumi Mascorro RN)2052 (Given - Provider: Dania Self RN) 0900 (Given - Provider: Meagan Cruz, ELO)2100 (Given - Provider: Jeffrey Howell RN) 0934 (Given - Provider: Meagan Cruz RN) PRN Medication Order 08/17/2017 08/18/2017 08/19/2017 acetaminophen (TYLENOL) tablet 650 mg 650 mg, Oral, EVERY 4 HOURS PRN, Starting on 08/16/17 at 1208, Until Fri08/19/17 at 1419, Pain, Headaches, Maximum dose of acetaminophen is 4000 mg from all sources in 24 hours., Routine bisacodyl (DULCOLAX) suppository 10 mg 10 mg, Rectal, DAILY PRN, Starting on 08/16/17 at 1215, Until Fri08/19/17 at 1419, Constipation, Routine lidocaine (XYLOCAINE) 10 mg/mL (1 %) injection 3 mg 3 mg (0.3 mL), Subcutaneous, ONCE PRN, 1 dose, Starting on 08/16/17 at 1207, Until Fri08/19/17 at 1419, for discomfort with PIV insertion, Routine nitroGLYcerin (NITROSTAT) SL tablet 0.4 mg 0.4 mg, Sublingual, EVERY 5 MIN PRN, Starting on 08/16/17 at 1207, Until Fri08/19/17 at 1419, Chest pain, May repeat every 5 minutes for a total of three doses. Notify provider if chest pain not relieved with nitroglycerin. Do not administer nitroglycerin if the patinet has received or taken phosphodiesterase (PDE-5) inhibitors such as sildenafil, tadalafil or vardenafil within the last 24 to 72 hours., Routine sodium chloride 0.9 % flush 5-20 mL 5-20 mL, Intravenous, EVERY 1 MIN PRN, Starting on 08/16/17 at 1207, Until Fri08/19/17 at 1419, flush, Flush pertains to all indwelling lines. Flush per protocol found in the job aid using the link provided on this medication record., Routine documented in this encounter Care Teams Web Site Developer Relationship Specialty Start Date End Date Kierra Clay APRN [address] [place] [address] PCP - General Internal Medicine 08/19/17 09/29/17 documented as of this encounter
--- OUTSIDE RECORDS SUMMARY | 2024-03-28 13:05 | XMS_ITS | Encounter Summary ---
Author Organization [facility] [place] [address] Care Team Providers Care Wrist Closer Name Role Phone Yumi Moreland APRN Primary Care Provider [phone] Reason for Visit * Reason Comments Medication Refill Encounter Details Date Type Department Care Team (Late st Contact Info) Description 02/15/2015 Refill [place] [address] Telly Rizvi MD [facility] [place] [address] Social History Tobacco Use Types Packs/Day Years [...] on filedocumented in this encounter Care Teams Wrist Closer Relationship Specialty Start Date End Date Yumi Moreland APRN [address] [place] [address] PCP - General Family Medicine 05/20/21 documented as of this encounter
--- OUTSIDE RECORDS SUMMARY | 2024-03-28 13:05 | XMS_ITS | Encounter Summary ---
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 Name Role Phone None Primary Care Provider Unavailabl e Reason for Visit * Auth/Cert Specialty Diagnoses / Procedures Referred By Contbrook t Referred To Contact Diagnoses STEMI (ST elevation myocardial infarction) STEMI STEMI Procedures CARDIAC CATHETERIZATION Referral ID Status Reason Start Date Expiration Date Visits Re quested Visits Authorized [id number] 1 1 Encounter Details Date Type Department Care Team (Late st Contact Info) Description 08/16/2017 8:50 AM EST - 08/16/2017 10:31 AM EST Surgery [place] [id number] Marika Acuna MD [facility] [place] [address] CARDIAC CATHETERIZATION Social History Tobacco Use Types Packs/Day Years [...] Discharge date and time: 08/19/2017 Attending Physician: Tatyana att. providers found Follow-up Recommendations for Providers: [...] infarction (STEMI) of lateral wall Presented to [facility] w/ 4-5mm JES Rec'd [...] elevations. STEMI alert called and transferred to [facility]. Loaded with plavix and aspirin. In bottle labeler, he had a PCI with BMS to distal RCA. Taken to CV post cath for close monitoring. ?? On arrival to [facility], chest pain has resolved. He reports that he has not seen a doctor in january years,other then prior stent And STEMI in 2013. He was prescribed medications at that time, but does not take any of them. The only medication he does take was prescribed to him over [address] Chiang (of [place]) in [place]. It is for his baseline low body temperature. ?? Hospital Course: STEMI Patient admitted to CV post cath and started on appropriate ACS [...] function and dye loads during an Acute [place] and his renal function should be followed [...] 09/30/[address] Pang In [facility] Primary car follow up Friday08/29/17 8:30 Pancho villarreal [address] [facility] [address] New primary care doctor: Park Manager- You tube building machine operator while in the hospital was Dr. Schultz [...] please contact your inpatient physician through the [facility] Supplier Quality Manager . Issues afterhours and on weekends will [...] 09/30/[address] Pang In [facility] Primary care follow up Friday08/29/17 8:30 Pancho villarreal [address] [phone] New primary care doctor: Park Manager- You tube building machine operator while in the hospital was Dr. Schultz [...] LAD. Loaded with plavix and aspirin. In bottle labeler, he had a PCI with BMS to [...] alert for inferior ST elevations. Taken to bottle labeler directly, had PCI with BMS to distal RCA. Patient is currently stable and asymptomatic. Having rare ectopy. Will plan to start betablocker after echo evaluates hear function. Will start lisinopril and metoprolol for post AZ therapy today. ?? Plan: ?? #Inferior STEMI [...] LAD. Loaded with plavix and aspirin. In bottle labeler, he had a PCI with BMS to [...] alert for inferior ST elevations. Taken to bottle labeler directly, had PCI with BMS to distal RCA. Patient is currently stable and asymptomatic. Having rare ectopy: 5 beat run [place] overnight. Will plan to start betablocker after echo evaluates hear function. Will start lisinopril for post AZ therapytoday. ?? Plan: ?? #Inferior STEMI - s/p RCA stent. Prior LAD stent in 2013 - cont aspirin, statin, plavix - consult [...] ?? TRU VALENCIA MD Cardiology S2 (pgr. [id number]) Cardiology Staff - Progress Note This patient was seen and examined on morning rounds. I agree with the findings and plan of care per Dr. Valencia (medical housestaff). Please refer to his note above for details. * Dania Self RN - 08/17/2017 5:58 AM EST OUTCOME [...] Catheterization Procedure Note: Procedure(s) performed: coronary angiography, LHC, PCI with bare metal stent to distal [...] Strickland MD PCP: Kelly Jackson APRN PCP#: [phone] CC: chest pain Patient Active Problem List [...] elevations. STEMI alert called and transferred to [facility]. Loaded with plavix and aspirin. In bottle labeler, he had a PCI with BMS to distal RCA. Taken to CV post cath for close monitoring. On arrival to [facility], chest pain has resolved. He reports that he has not seen a doctor in january years,other then prior stent And STEMI in 2013. He was prescribed medications at that time, but does not take any of them. The only medication he does take was prescribed to him over [address] Chiang (of [place]) in [place]. 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 Taken to bottle labeler directly, had PCI with BMS to distal RCA. To [facility] post cath for close monitoring. Plan: #Inferior STEMI - s/p RCA stent. Prior LAD stent in 2013 - cont aspirin, statin, plavix - consult to cardiac rehab - TSH, LFTs, lipid panel, HBA1c pending # Routine - DVT PPx: subq heparin - GI PPx: protonix - Diet: heart healthy - Bowel meds: dulcolax PRN - Code Status: FULL - Dispo: [facility] Mariella Ferrer MD 08/16/2017 Cardiology S2, Team Pager # [phone] Cardiology Staff - Admission Note This patient [...] 76 year old male admitted with STEMI.s/p bottle labeler with stenting.Pt has a pmh of STEMI. Staff Mobility Recommendations: dc home today Precautions/Restrictions: cardiac Anticipated Physical Therapy Frequency: (DC) Anticipated Equipment Needs at Discharge: (none) Anticipated Discharge Disposition: home with home health Pager: [phone] Radha Garner PT 08/19/2017 Inpatient Physical Therapy Problem: Acute [...] Ongoing (Interventions Implemented as Appropriate) 08/18/17 0347 08/18/171999 Plan of Care Review Progress progress toward [...] Outcome: Ongoing (Interventions Implemented as Appropriate) 08/18/1734608/18/17 1410 Discharge Needs Assessment Concerns To Be [...] Within the Past 30 Days: None at [facility] nor at outside hospitals. Anticipated Length Of [...] Allen would be surrogate decision maker per [place] surrogate decision making law. Any patient receiving care at [facility] must abide by [place] law. The hierarchy for surrogate decision making [...] to Admission: Totally independent at baseline. 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 [facility] [place] [facility]. Home Environment: Lives alone in [place], [place]. Social & Family Supports/Community Resources: ?? Jose Allen (Sibling) [address] [facility] [facility] [address] (H) [phone] (M) ? I have a sister in [place]. Behavioral Health History: Per H&P, history of Depression. Substance Use/Abuse: Tobacco Use: Former cigarette smoker; quit in 1993, also smoked a pipe for greater than 20 years. EtOH: None Illicit Drug Use: None Other Pertinent/Service Specific Information: None Health/Prescription Coverage: Primary Insurance: MEDICARE A&B Secondary Insurance: AARP Prescription Coverage: I think so. Preferred Pharmacy: [id number] - [place], [place] - [address] [facility] ? [address] [facility] [address] ? Not a 24 hour pharmacy; exact hours not known Other: None Primary Care Provider: Kelly Jackson, [employer] JUSTICE [employer] [phone] No longer sees this CRIM[employer]AL JUSTICE FACULTY. I don't see nobody. I want to see a Park Manager at [facility]. Patient/Caregiver Goals of Treatment: To return home to independent living. I would like to go to Cardiac Rehab at [facility]. I did that before, went okay. [...] assist with transition of care planning. UNIQUE ROSSI RN Pager: [phone] * Consult Note - Liv Atkins MD [...] to ENT for cerumen removal with an AUTHORIZATION REP/PA if needed after discharge. __ Liv Atkins MD, PGY-1 08/18/17 2:36 PM Pager: [phone] * Plan of Care - Meagan Cruz [...] Handling Outcome: Ongoing (Interventions Implemented as Appropriate) 08/17/17203408/18/17 0347 Restraint Interventions Safety Promotion/Fall Prevention fall prevention [...] Outcome: Ongoing (Interventions Implemented as Appropriate) 08/18/1734608/18/17 1410 Discharge Needs Assessment Concerns To Be [...] rhythm Intervention: Prevent/Manage Vascular Access Site Complications 08/18/17 141 Activity Activity Type bedrest with bathroom privileges [...] Outcome: Unable to achieve outcome by discharge 08/18/17348 Health Knowledge, Opportunity to Enhance (Adult,NICU,,Obstetrics,Pediatric) Knowledgeable [...] in the outpatient cardiac rehabilitation program at [facility] was discussed. Patient agrees to a [...] LAD. Loaded with plavix and aspirin. In bottle labeler, he had a PCI with BMS to [...] necessary AD Anticipated Discharge Disposition: home Pager: [phone] ARLETH FREEMAN OT 08/18/2017 Occupational Therapy Rehabilitation [...] outcome. * Plan of Care - Radha Garner, PT - 08/18/2017 11:24 AM EST Problem: [...] 76 year old male admitted with STEMI.s/p bottle labeler with stenting.Pt has a pmh of STEMI. Staff Mobility Recommendations: amb with sup in hallway, Precautions/Restrictions: cardiac Anticipated Physical Therapy Frequency: 1-3 more visits Anticipated Equipment Needs at Discharge: (none) Anticipated Discharge Disposition: home with home health Pager: [phone] Radha Garner, LIZ 08/18/2017 Inpatient Physical Therapy Problem: Acute Rehab Services Goal & Intervention Plan Goal: Gait Training Goal Stand Alone Therapy Goal Outcome: Ongoing (Interventions Implemented as Appropriate) 08/18/17 1001 Gait Training Goal Gait Training Goal, Date Established 08/18/17 Gait Training Goal, Time to Achieve by discharge Gait Training Goal, [place] Level independent Gait Training Goal, Distance to Achieve 300 Gait Training Goal, Additional Goal ascend/descend 12 stairs ind without railing Goal: Goal Transfer Training Stand Alone Therapy Goal Outcome: Ongoing (Interventions Implemented as Appropriate) 08/18/17 1001 Goal Transfer Training Transfer Training Goal, Date Established 08/18/17 Transfer Training Goal, Time to Achieve by discharge Transfer Training Goal, Activity Type hyu-jw-qkgon/skfoz-ak-kkt;ecv-iz-tqklu/pvftg-ur-blf Transfer Train Goal, [place] Level independent * Plan of Care - Yumi Mascorro RN - 08/17/2017 3:26 PM EST Problem: Patient Care Overview Goal: Plan of Care Review 08/17/1731408/17/17730 Plan of Care Review Progress progress toward [...] none Goal: Fall Prevention-Safe Patient Handling 08/16/17 2350 08/17/1731408/17/17 0731 Restraint Interventions Safety Promotion/Fall Prevention -- -- [...] Risk -- -- Med Goal: Infection Control 08/17/17 0731 Safety Interventions Isolation Precautions standard precautions maintained Infection Prevention rest/sleep promoted Coping Strategies Supportive Measures verbalization of feelings encouraged;self-responsibility promoted;self-care encouraged Goal: Discharge Needs Assessment 08/17/17 0315 Discharge Needs Assessment Concerns To Be Addressed [...] 08/17/20 17 6:40 AM EST CARDIAC ENZYMES (MC/CGP) Routine 08/17/2017 6:40 AM EST CBC (WITH DIFF) Routine 08/17/2017 6:40 AM EST LDL CHOLESTEROL, DIRECT Routine 08/17/20 17 6:40 AM EST HDL/CHOL PROFILE Routine 08/17/2017 6:40 AM EST HEMOGLOBIN A1C Routine 08/17/2017 6:40 AM EST CARDIAC ENZYMES (MC/CGP) Routine 08/16/2017 11:30 PM EST CARDIAC ENZYMES ([facility]/CGP) Routine 08/16/2017 6:00 PM EST XR CHEST ONE VIEW Routine 08/16/2017 12: 34 PM EST HEMOGRAM Routine 08/16/2017 12:30 PM EST DIFFERENTIAL, AUTOMATED Routine 08/16/20 12:30 PM EST CARDIAC ENZYMES ([facility]/CGP) Routine 08/16/2017 12:30 PM EST APTT Routine [...] infarction (STEMI) of lateral wall CARDIAC ENZYMES ([facility]/CGP) STAT 08/16/2017 11:30 AM EST CARDIAC CATHETERIZATION Routine 08/16/20 9:57 AM EST documented in this encounter Results * EKG 12 Lead (08/19/2017 9:09 AM EST) Ventricular rate 86 BPM MUSE SYSTEM Atrial Rate 86 BPM MUSE SYSTEM P-R Interval 154 ms MUSE SYSTEM QRS Duration 86 ms MUSE SYSTEM Q-T Interval 350 ms MUSE SYSTEM QTC Calculated (Bezet) 418 ms MUSE SYSTEM Calculated P [place] 54 degrees MUSE SYSTEM Calculated R [place] 0 degrees MUSE SYSTEM Calculated T [place] -92 degrees MUSE SYSTEM INTERPRETATION Normal sinus [...] * Differential, Automated (08/19/2017 5:08 AM EST) Pathologist [facility] Neutrophils % 69.1 % [facility] Neutr Abs (ANC) 4.93 1.70 - 6.10 x10(3)/[facility] Lymphocytes % 17.3 % [facility] Lymphocytes Abs 1.2 0.9 - 3.2 x10(3)/[facility] Monocytes % 10.0 % [facility] Monocyte Abs 0.7 0.3 - 0.9 x10(3)/[facility] Eosinophils % 2.8 % [facility] Eosinophils Abs 0.2 0.0 - 0.4 x10(3)/[facility] Basophils % 0.7 % [facility] Basophils Abs 0.0 0.0 - 0.1 x10(3)/[facility] Immature Gran % 0.10 % [facility] Comment: Immature granulocytes(IG's)percentage and absolute count will include metamyelocytes, myelocytes, and promyelocytes. Blood smears from CBCs yielding IG's will be scanned manually for concordance. If this scan disagrees with the automated IG or if promyelocytes are noted, a manual differential will be performed. Rebecca Gran Abs 0.01 0.00 - 0.04 x10(3)/[facility] Blood specimen (specimen) 08/19/2017 5:08 AM EST 08/19/2017 5:15 AM EST Narrative Resulting Agency Comment Spec In Lab Hardik Schultz MD HEMATOLOGY ORDERABL ES [facility] [address] * Hemogram (08/19/2017 5:08 AM EST) WBC 7.1 4.0 - 9.5 x10(3)/[facility] RBC 5.47 4.58 - 5.54 x10(6)/[facility] Hemoglobin 16.0 13.7 - 16.5 gm/dL [facility] Hematocrit 47.3 40.5 - 48.5 % [facility] MCV 86.5 82.9 - 93.1 [facility] MCH 29.3 27.5 - 32.1 pg [facility] MCHC 33.8 32.0 - 35.7 gm/dL [facility] Platelets 171 145 - 357 x10(3)/[facility] RDWSD 39.9 36.0 - 45.0 [facility] RDWCV 12.8 11.4 - 13.8 % [facility] MPV 10.6 7.6 - 12.9 [facility] nRBC % Auto 0.0 % [facility] nRBC Abs Auto 0.000 0.000 - 0.000 x10(3)/[facility] Blood specimen (specimen) 08/19/2017 5:08 AM EST 08/19/2017 5:15 AM EST Narrative Resulting Agency Comment Spec In Lab Hardik Schultz MD HEMATOLOGY ORDERABL ES [facility] [place] [place] [address] * (ABNORMAL) BMP w/fasting Glucose (08/19/2017 5:08 AM EST) Glucose Fasting 117(H) 65 - 99 mg/dL [facility] Comment: ?Fasting* Glucose Interpretive Criteria Normal [...] of Diabetes Mellitus, Position Statement from the [place] Diabetes [employer]. ??Diabetes Care, Volume 33, Supplement 1, Sep 2009 BUN 29(H) 10 - 20 mg/dL [facility] Creatinine 1.49 0.80 - 1.50 mg/dL [facility] Sodium 140 135 - 145 mmol/L [facility] Potassium 4.4 3.5 - 5.0 mmol/L [facility] Comment: Please note: ??Patients with WBC >100,000 may have falsely elevated Potassium levels. ??For accurate Potassium quantification in these patients send serum separator tube (gold top) for subsequent determinations. ??Contact the Clinical Chemistry Laboratory if there are any questions. Chloride 104 98 - 107 mmol/L [facility] CO2 21(L) 22 - 31 mmol/L [facility] Anion Gap 15 5 - 15 mmol/L [facility] Calcium 10.0 8.5 - 10.5 mg/dL [facility] Estimated GFR 46(L) >=60 [facility] Comment: The reported eGFR should be multiplied by 1.2 for patients. The MDRD is not an appropriate measure of renal function for patients with body mass extremes or in patients with acute kidney failure. [email or web address] [email or web address]/DHnkdep [email or web address] [email or web address]/DHMCnkf Blood specimen (specimen) 08/19/2017 5:08 AM EST 08/19/2017 5:15 AM EST Narrative Resulting Agency Comment Spec In Lab Hardik Schultz MD CHEMISTRY ORDERABLE S [facility] [place] [address] * ECHO COMPLETE (08/18/2017 10:25 AM EST) EF 56 HEARTLAB SYSTEM Anatomical Region Laterality Modality Other 08/18/2017 Narrative 08/18/2017 10:52 AM EST Procedure: ?Transthoracic Echocardiogram Patient: ?LINO JACOB E ?(Age): 1940(76y) Med Rec#: ? [id number] ?Sex: ?M ? Site Loc: ? [facility] ?Ht / Wt: ??173(cm)/72(kg) Pt. Loc: ?Adult Floor ? BSA: ?1.85 Study Date: ?? 08/18/2017 ?Pt. Type: Inpatient Tape: ? Referring: CATHERINE STEEL J Referring: Hardik Schultz ([id number]) Reading: Carl Flores ([id number]) Desulfurizer Hand: Daniel Villegas Diagnosis: *ICD-10-PCS ST elevation (STEMI) myocardial infarction involving left anterior descending coronary artery (I21.02) CPT Codes: *Echo Full (05888) *Spectral Doppler (30717) *Color Doppler (44173) *Optison (98349SA) BP: ? 101/67 SUMMARY: 1. The left [...] E-wave Vmax ?0.3 ?m/sec ? MV deceleration [id number] ?msec ? MV A-wave Vmax ?0.7 ?m/sec [...] ? Pulmonic Valve/Qp:Qs ?Value ?Units (Range) ? IL end-diastolic Vma1 ?m/sec ? PA end-diastolic pre6.6 ?mmHg ? Wall Motion: Segment Name ?Rest ? Base-Anteroseptal ?? Normal ? Base-Anterior ? Normal ? Base-Anterolateral ??Normal ? Base-Posterolateral Normal ? Base-Inferior ? Akinetic ? Base-Inferoseptal ?? Akinetic ? Mid-Anteroseptal ?Normal ? Mid-Anterior ?Normal ? Mid-Anterolateral ?? Hypokinetic ? Mid-Posterolateral ??Normal ? Mid-Inferior ?Normal ? Mid-Inferoseptal ?Normal ? [place]-Septal ? Normal ? [place]-Anterior ? Normal ? [place]-Lateral ?Hypokinetic ? [place]-Inferior ? Normal ? [place]-Tip ?Hypokinetic ? This report has been electronically signed by: Carl Flores MD ? 08/18/2017 10:47:15 Images reviewed and interpretation verified [facility] Cardiac Ultrasound Laboratory Procedure Note Carl Flores MD - 08/18/2017 Procedure: Transthoracic Echocardiogram Patient: LINO ACEVES(Age): 1940(76y) Med Rec#: [id number] Sex: M Site Loc: [facility] Ht / Wt: 173(cm)/72(kg) Pt. Loc: Adult Floor BSA: 1.85 Study Date: 08/18/2017 Pt. Type: Inpatient Tape: Referring: CATHERINE STEEL J Referring: Hardik Schultz ([id number]) Reading: Carl Flores ([id number]) Desulfurizer Hand: Daniel Villegas Diagnosis: *ICD-10-PCS ST elevation (STEMI) myocardial infarction involving left anterior descending coronary artery (I21.02) CPT Codes: *Echo Full (35445) *Spectral Doppler (54467) *Color Doppler (20547) *Optison (47083GL) BP: 101/67 SUMMARY: 1. The left ventricular [...] MV E-wave Vmax 0.3 m/sec MV deceleration [id number] msec MV A-wave Vmax 0.7 m/sec MV [...] 19 mmHg Pulmonic Valve/Qp:Qs Value Units (Range) IL end-diastolic Vma1 m/sec PA end-diastolic pre6.6 mmHg Wall Motion: Segment Name Rest Base-Anteroseptal Normal Base-Anterior Normal Base-Anterolateral Normal Base-Posterolateral Normal Base-Inferior Akinetic Base-Inferoseptal Akinetic Mid-Anteroseptal Normal Mid-Anterior Normal Mid-Anterolateral Hypokinetic Mid-Posterolateral Normal Mid-Inferior Normal Mid-Inferoseptal Normal [place]-Septal Normal [place]-Anterior Normal [place]-Lateral Hypokinetic [place]-Inferior Normal [place]-Tip Hypokinetic This report has been electronically signed by: Carl Flores MD 08/18/2017 10:47:15 Images reviewed and interpretation verified [facility] Cardiac Ultrasound Laboratory Hardik Schultz MD ECHO ORDERABLES * Differential, Automated (08/18/2017 4:06 AM EST) Neutrophils % 64.1 % [facility] Neutr Abs (ANC) 4.58 1.70 - 6.10 x10(3)/mcL [facility] Lymphocytes % 20.1 % [facility] Lymphocytes Abs 1.4 0.9 - 3.2 x10(3)/[facility] Monocytes % 11.7 % [facility] Monocyte Abs 0.8 0.3 - 0.9 x10(3)/[facility] Eosinophils % 3.4 % [facility] Eosinophils Abs 0.2 0.0 - 0.4 x10(3)/[facility] Basophils % 0.6 % [facility] Basophils Abs 0.0 0.0 - 0.1 x10(3)/[facility] Immature Gran % 0.10 % [facility] Comment: Immature granulocytes(IG's)percentage and absolute count will include metamyelocytes, myelocytes, and promyelocytes. Blood smears from CBCs yielding IG's will be scanned manually for concordance. If this scan disagrees with the automated IG or if promyelocytes are noted, a manual differential will be performed. Rebecca Gran Abs 0.01 0.00 - 0.04 x10(3)/[facility] Blood specimen (specimen) 08/18/2017 4:06 AM EST 08/18/2017 4:22 AM EST Narrative Resulting Agency Comment Spec In Lab Hardik Schultz MD HEMATOLOGY ORDERABL ES [facility] [place] [place] [address] * Hemogram (08/18/2017 4:06 AM EST) WBC 7.2 4.0 - 9.5 x10(3)/[facility] RBC 5.30 4.58 - 5.54 x10(6)/[facility] Hemoglobin 15.4 13.7 - 16.5 gm/dL [facility] Hematocrit 45.6 40.5 - 48.5 % [facility] MCV 86.0 82.9 - 93.1 fL [facility] MCH 29.1 27.5 - 32.1 pg [facility] MCHC 33.8 32.0 - 35.7 gm/dL [facility] Platelets 171 145 - 357 x10(3)/[facility] RDWSD 40.2 36.0 - 45.0 [facility]ORY RDWCV 12.8 11.4 - 13.8 % [facility] MPV 10.8 7.6 - 12.9 fL [facility] nRBC % Auto 0.0 % [facility] nRBC Abs Auto 0.000 0.000 - 0.000 x10(3)/[facility] Blood specimen (specimen) 08/18/2017 4:06 AM EST 08/18/2017 4:22 AM EST Narrative Resulting Agency Comment Spec In Lab Hardik Schultz MD HEMATOLOGY ORDERABL ES Performing Organization Address City/State/[facility] Co de Phone Number [facility] [place] [address] * (ABNORMAL) BMP w/fasting Glucose (08/18/2017 4:06 AM EST) Glucose Fasting 95 65 - 99 mg/dL [facility] Comment: ?Fasting* Glucose Interpretive Criteria Normal [...] of Diabetes Mellitus, Position Statement from the [place] Diabetes Association. ??Diabetes Care, Volume 33, Supplement 1, Sep 2009 BUN 26(H) 10 - 20 mg/dL [facility] Creatinine 1.41 0.80 - 1.50 mg/dL [facility] Sodium 141 135 - 145 mmol/L [facility] Potassium 4.6 3.5 - 5.0 mmol/L [facility] Comment: Please note: ??Patients with WBC >100,000 may have falsely elevated Potassium levels. ??For accurate Potassium quantification in these patients send serum separator tube (gold top) for subsequent determinations. ??Contact the Clinical Chemistry Laboratory if there are any questions. Chloride 106 98 - 107 mmol/L [facility] CO2 22 22 - 31 mmol/L [facility] Anion Gap 13 5 - 15 mmol/L [facility] Calcium 9.6 8.5 - 10.5 mg/dL [facility] Estimated GFR 49(L) >=60 [facility] Comment: The reported eGFR should be multiplied by 1.2 for patients. The MDRD is not an appropriate measure of renal function for patients with body mass extremes or in patients with acute kidney failure. [email or web address] [employer] [email or web address] Blood specimen (specimen) 08/18/2017 4:06 AM EST 08/18/2017 4:22 AM EST Narrative Resulting Agency Comment Spec In Lab Hardik Schultz MD CHEMISTRY ORDERABLE S [facility] [place] [address] * EKG 12 Lead (08/17/2017 8:04 AM EST) Ventricular rate 58 BPM MUSE SYSTEM Atrial Rate 58 BPM MUSE SYSTEM P-R Interval 158 ms MUSE SYSTEM QRS Duration 78 ms MUSE SYSTEM Q-T Interval 392 ms MUSE SYSTEM QTC Calculated (Bezet) 384 ms MUSE SYSTEM Calculated P [place] 67 degrees MUSE SYSTEM Calculated R [place] 111 degrees MUSE SYSTEM Calculated T [place] 23 degrees MUSE SYSTEM INTERPRETATION Sinus bradycardia [...] ECG ORDERABLES MUSE SYSTEM * Differential, Automated (08/17/2017 6:40 AM EST) Neutrophils % 70.2 % [facility] Neutr Abs (ANC) 5.53 1.70 - 6.10 x10(3)/[facility] LABORATORY Lymphocytes % 16.1 % [facility] Lymphocytes Abs 1.3 0.9 - 3.2 x10(3)/[facility] LABORATORY Monocytes % 11.5 % [facility] Monocyte Abs 0.9 0.3 - 0.9 x10(3)/[facility] LABORATORY Eosinophils % 1.6 % [facility] Eosinophils Abs 0.1 0.0 - 0.4 x10(3)/[facility] LABORATORY Basophils % 0.5 % [facility] Basophils Abs 0.0 0.0 - 0.1 x10(3)/[facility] LABORATORY Immature Gran % 0.10 % [facility] Comment: Immature granulocytes(IG's)percentage and absolute count will include metamyelocytes, myelocytes, and promyelocytes. Blood smears from CBCs yielding IG's will be scanned manually for concordance. If this scan disagrees with the automated IG or if promyelocytes are noted, a manual differential will be performed. Rebecca Gran Abs 0.01 0.00 - 0.04 x10(3)/[facility] LABORATORY Blood specimen (specimen) 08/17/2017 6:40 AM EST 08/17/2017 6:52 AM EST Narrative Resulting Agency Comment Spec In Lab Hardik Schultz MD HEMATOLOGY ORDERABL ES [facility] [place] [address] * Hemogram (08/17/2017 6:40 AM EST) WBC 7.9 4.0 - 9.5 x10(3)/[facility] LABORATORY RBC 5.18 4.58 - 5.54 x10(6)/[facility]ATORY Hemoglobin 14.9 13.7 - 16.5 gm/dL [facility] Hematocrit 44.8 40.5 - 48.5 % [facility] MCV 86.5 82.9 - 93.1 [facility] LABORATORY MCH 28.8 27.5 - 32.1 pg [facility] MCHC 33.3 32.0 - 35.7 gm/dL [facility] Platelets 157 145 - 357 x10(3)/[facility] LABORATORY RDWSD 40.6 36.0 - 45.0 [facility]ATORY RDWCV 12.8 11.4 - 13.8 % [facility] MPV 10.4 7.6 - 12.9 [facility] LABORATORY nRBC % Auto 0.0 % [facility] nRBC Abs Auto 0.000 0.000 - 0.000 x10(3)/[facility] LABORATORY Blood specimen (specimen) 08/17/2017 6:40 AM EST 08/17/2017 6:52 AM EST Narrative Resulting Agency Comment Spec In Lab Hardik Schultz MD HEMATOLOGY ORDERABL ES [facility] [place] [address] * (ABNORMAL) BMP w/fasting Glucose (08/17/2017 6:40 AM EST) Glucose Fasting 122(H) 65 - 99 mg/dL [facility] Comment: ?Fasting* Glucose Interpretive Criteria Normal [...] of Diabetes Mellitus, Position Statement from the [place] [employer]. ??Diabetes Care, Volume 33, Supplement 1, Sep 2009 BUN 22(H) 10 - 20 mg/dL [facility] Creatinine 1.43 0.80 - 1.50 mg/dL [facility] Sodium 137 135 - 145 mmol/L [facility] Potassium 4.6 3.5 - 5.0 mmol/L [facility] Comment: Please note: ??Patients with WBC >100,000 may have falsely elevated Potassium levels. ??For accurate Potassium quantification in these patients send serum separator tube (gold top) for subsequent determinations. ??Contact the Clinical Chemistry Laboratory if there are any questions. Chloride 103 98 - 107 mmol/L [facility] CO2 23 22 - 31 mmol/L [facility] Anion Gap 11 5 - 15 mmol/L [facility] Calcium 9.4 8.5 - 10.5 mg/dL [facility] Estimated GFR 48(L) >=60 [facility] Comment: The reported eGFR should be multiplied by 1.2 for patients. The MDRD is not an appropriate measure of renal function for patients with body mass extremes or in patients with acute kidney failure. [email or web address]/[email or web address] [email or web address]/[email or web address] Blood specimen (specimen) 08/17/2017 6:40 AM EST 08/17/2017 6:52 AM EST Narrative Resulting Agency Comment Spec In Lab Hardik Schultz MD CHEMISTRY ORDERABLE S [facility] [place] [address] * (ABNORMAL) HDL/Cholesterol Profile (08/17/2017 6:40 AM EST) Chol, Total 149 <=239 mg/dL [facility] HDL 32(L) >=40 mg/dL [facility] Chol/HDL Ratio 4.7 ratio [facility] Chol/HDL Interpretation See Note [facility] Comment: Lipid management should be guided by a patient? s ASCVD risk, goals and preferences. ACC/AHA Guidelines recommend high intensity statin if clinical ASCVD or LDL greater than or equal to 190 mg/dL. [email or web address]-[email or web address]-[email or web address] Measure LDL if Total Cholesterol minus HDL Cholesterol is greater than 220 mg/dL. Adults aged 40-75 with LDL 70-189 mg/dL should have their 10 year ASCVD risk estimated with the ACC/AHA ASCVD risk mr teacher http://tools.acc.org/GEPBC-Gfqa-Apkqdxonr/ Statin should be discussed if risk greater [...] MD CHEMISTRY ORDERABLE S Performing Organization Address City/[facility]/ZIP Co de Phone Number [facility] [place] [address] * LDL Cholesterol, Direct (08/17/2017 6:40 AM EST) LDL Chol Direct 109 <=190 mg/dL [facility] Blood specimen (specimen) 08/17/2017 6:40 AM EST 08/17/2017 6:52 AM EST Narrative Resulting Agency Comment Spec In Lab Hardik Schultz MD CHEMISTRY ORDERABLE S [facility] [place] [address] * Hemoglobin A1c (08/17/2017 6:40 AM EST) Hemoglobin A1C 5.4 4.3 - 5.6 % [facility] Comment: Reference Range: 4.3 - 5.6% [...] [id number] Est Avg Gluc See note mg/dL [facility] Comment: Estimated Average Glucose not appropriate [...] into estimated average glucose values. ??Diabetes Care 2008:31(8):9240-3298. Blood specimen (specimen) 08/17/2017 6:40 AM EST 08/17/2017 6:52 AM EST Narrative Resulting Agency Comment Spec In Lab Hardik Schultz MD CHEMISTRY ORDERABLE S [facility] [place] [address] * (ABNORMAL) Cardiac Enzymes (LEB/CGP) (08/17/2017 6:40 AM EST) Troponin-T 8.16(H) 0.00 - 0.00 ng/mL [facility] Comment: result rechecked-[facility] The 99th percentile for Troponin T is less than 0.01 ng/mL, any detectable cTnT concentration using this assay should be considered elevated. According to the third universal definition of myocardial infarction the following criteria with a clinical presentation consistent with acute myocardial ischemia meets the diagnosis for a myocardial infarction ([place]). Detection of a rise and/or fall of cTnT, with at least one value greater than the 99th percentile (> or = 0.01) and with at least one of the following ?? Symptoms of ischemia ?? New or presumed new significant JK-pqpvnoq-V wave (ST-T) changes or new left bundle [...] additional sample may be indicated. Reference: Third Spencer Definition of Myocardial Infarction. Journal of the [place] College [employer] 2012;60:1581-98 CK, Total 861(H) 0 - 200 unit/L [facility] Blood specimen (specimen) 08/17/2017 6:40 AM EST 08/17/2017 6:52 AM EST Narrative Resulting Agency Comment Spec In Lab Hardik Schultz MD CHEMISTRY ORDERABLE S Performing Organization Address [facility]/ZIP Co de Phone Number [facility] [place] [address] * (ABNORMAL) Cardiac Enzymes (LEB/CGP) (08/16/2017 11:30 PM EST) Troponin-T 11.25(H) 0.00 - 0.00 ng/mL [facility] Comment: result rechecked-K The 99th percentile for Troponin T is less than 0.01 ng/mL, any detectable cTnT concentration using this assay should be considered elevated. According to the third universal definition of myocardial infarction the following criteria with a clinical presentation consistent with acute myocardial ischemia meets the diagnosis for a myocardial infarction ([place]). Detection of a rise and/or fall of cTnT, with at least one value greater than the 99th percentile (> or = 0.01) and with at least one of the following ?? Symptoms of ischemia ?? New or presumed new significant OP-cjtrlcp-Y wave (ST-T) changes or new left bundle [...] additional sample may be indicated. Reference: Third Spencer Definition of Myocardial Infarction. Journal of the [place] College [employer] 2012;60:1581-98 CK, Total 1,257(H) 0 - 200 unit/L [facility] Blood specimen (specimen) 08/16/2017 11:30 PM EST 08/16/2017 11:36 PM EST Narrative Resulting Agency Comment Spec In Lab Hardik Schultz MD CHEMISTRY ORDERABLE S Performing Organization Address City/[facility]/ZIP Co de Phone Number [facility] [place] [address] * (ABNORMAL) Cardiac Enzymes (LEB/CGP) (08/16/2017 6:00 PM EST) Troponin-T 17.53(H) 0.00 - 0.00 ng/mL [facility] Comment: result rechecked-RG The 99th percentile for Troponin T is less than 0.01 ng/mL, any detectable cTnT concentration using this assay should be considered elevated. According to the third universal definition of myocardial infarction the following criteria with a clinical presentation consistent with acute myocardial ischemia meets the diagnosis for a myocardial infarction ([place]). Detection of a rise and/or fall of cTnT, with at least one value greater than the 99th percentile (> or = 0.01) and with at least one of the following ?? Symptoms of ischemia ?? New or presumed new significant FU-fklgout-K wave (ST-T) changes or new left bundle [...] additional sample may be indicated. Reference: Third Spencer Definition of Myocardial Infarction. Journal of the [place] College of [employer]iology 2012;60:1581-98 CK, Total 1,909(H) 0 - 200 unit/L [facility] Blood specimen (specimen) 08/16/2017 6:00 PM EST 08/16/2017 6:08 PM EST Narrative Resulting Agency Comment Spec In Lab Hardik Schultz MD CHEMISTRY ORDERABLE S [facility] [place] [address] * XR Chest PA or AP 1 [...] Neutr Abs (ANC) 9.05(H) 1.70 - 6.10 x10(3)/mc L [facility] Lymphocytes % 8.1 % [facility] Lymphocytes Abs 0.9 0.9 - 3.2 x10(3)/mc L [facility] Monocytes % 6.6 % [facility] Monocyte Abs 0.7 0.3 - 0.9 x10(3)/mc L [facility] Eosinophils % 0.1 % [facility] Eosinophils Abs 0.0 0.0 - 0.4 x10(3)/mc L [facility] Basophils % 0.4 % [facility] Basophils Abs 0.0 0.0 - 0.1 x10(3)/[facility] LABORATORY Immature Gran % 0.30 % [facility] Comment: Immature granulocytes(IG's)percentage and absolute count will include metamyelocytes, myelocytes, and promyelocytes. Blood smears from CBCs yielding IG's will be scanned manually for concordance. If this scan disagrees with the automated IG or if promyelocytes are noted, a manual differential will be performed. Rebecca Gran Abs 0.03 0.00 - 0.04 x10(3)/[facility] LABORATORY Blood specimen (specimen) 08/16/2017 12:30 PM EST 08/16/2017 12:41 PM EST Narrative Resulting Agency Comment Spec In Lab Hardik Schultz MD HEMATOLOGY ORDERABL ES Performing Organization Address City/State/[facility] Co de Phone Number [facility] [place] [address] * (ABNORMAL) Hemogram (08/16/2017 12:30 PM EST) WBC 10.7(H) 4.0 - 9.5 x10(3)/[facility] LABORATORY RBC 5.24 4.58 - 5.54 x10(6)/[facility] LABORATORY Hemoglobin 15.1 13.7 - 16.5 gm/dL [facility] Hematocrit 45.9 40.5 - 48.5 % [facility] MCV 87.6 82.9 - 93.1 fL [facility] MCH 28.8 27.5 - 32.1 pg [facility] MCHC 32.9 32.0 - 35.7 gm/dL [facility] Platelets 178 145 - 357 x10(3)/[facility] RDWSD 40.6 36.0 - 45.0 fL [facility] RDWCV 12.6 11.4 - 13.8 % [facility] MPV 10.3 7.6 - 12.9 fL [facility] nRBC % Auto 0.0 % [facility] nRBC Abs Auto 0.000 0.000 - 0.000 x10(3)/mcL [facility] Blood specimen (specimen) 08/16/2017 12:30 PM EST 08/16/2017 12:41 PM EST Narrative Resulting Agency Comment Spec In Lab Hardik Schultz MD HEMATOLOGY ORDERABL ES [facility] [place] [address] * (ABNORMAL) Cardiac Enzymes (LEB/CGP) (08/16/2017 12:30 PM EST) Troponin-T 19.27(H) 0.00 - 0.00 ng/mL [facility] Comment: result rechecked-[facility] The 99th percentile for Troponin T is less than 0.01 ng/mL, any detectable cTnT concentration using this assay should be considered elevated. According to the third universal definition of myocardial infarction the following criteria with a clinical presentation consistent with acute myocardial ischemia meets the diagnosis for a myocardial infarction ([place]). Detection of a rise and/or fall of cTnT, with at least one value greater than the 99th percentile (> or = 0.01) and with at least one of the following ?? Symptoms of ischemia ?? New or presumed new significant KP-puenuvr-U wave (ST-T) changes or new left bundle [...] additional sample may be indicated. Reference: Third Spencer Definition of Myocardial Infarction. Journal of the [place] College of [employer]iology 2012;60:1581-98 CK, Total 2,465(H) 0 - 200 unit/L [facility] Blood specimen (specimen) 08/16/2017 12:30 PM EST 08/16/2017 12:41 PM EST Narrative Resulting Agency Comment Spec In Lab Hardik Schultz MD CHEMISTRY ORDERABLE S Performing Organization Address [facility] Co de Phone Number [facility] [place] [address] * (ABNORMAL) APTT (08/16/2017 12:30 PM EST) PTT 44(H) 25 - 35 sec [facility] Comment: The recommended therapeutic range for full dose, unfractionated heparin at [facility] is 80 ? 114 seconds. The use of the anti-Xa (heparin) level rather than the PTT is recommended for monitoring anticoagulation intensity in critically ill patients receiving unfractionated heparin by continuous IV infusion. Blood specimen (specimen) 08/16/2017 12:30 PM EST 08/16/2017 12:41 PM EST Narrative Resulting Agency Comment Spec In Lab Hardik Schultz MD HEMATOLOGY ORDERABL ES Performing Organization Address [place] Co de Phone Number [facility] [place] [address] * Prothrombin Time (08/16/2017 12:30 PM EST) PT 13.4 11.8 - 14.0 sec [facility] INR 1.0 0.9 - 1.1 [facility] Comment: An INR <2.0 indicates [...] MD HEMATOLOGY ORDERABL ES Performing Organization Address City/[facility] Co de Phone Number [facility] [place] [address] * (ABNORMAL) Hepatic Function Panel (08/16/2017 12:30 PM EST) Total Protein 6.5 6.1 - 8.0 gm/dL [facility] Albumin 3.6 3.2 - 5.2 gm/dL [facility] AST 242(H) 0 - 39 unit/L [facility] ALT 34 0 - 55 unit/L [facility] Alk Phos 83 40 - 120 unit/L [facility] Total Bilirubin 1.1 0.2 - 1.3 mg/dL [facility] Bili, Direct 0.2 0.0 - 0.3 mg/dL [facility] Blood specimen (specimen) 08/16/2017 12:30 PM EST 08/16/2017 12:41 PM EST Narrative Resulting Agency Comment Spec In Lab Hardik Schultz MD CHEMISTRY ORDERABLE S Performing Organization Address [facility] Co de Phone Number [facility] [place] [address] * (ABNORMAL) pro-Brain Natriuretic Peptide (08/16/2017 12:30 PM EST) ProBNP 945(H) <=125 pg/mL [facility] Blood specimen (specimen) 08/16/2017 12:30 PM EST 08/16/2017 12:41 PM EST Narrative Resulting Agency Comment Spec In Lab Hardik Schultz MD CHEMISTRY ORDERABLE S Performing Organization Address [facility] Co de Phone Number [facility] [place] [address] * (ABNORMAL) TSH (08/16/2017 12:30 PM EST) TSH 0.02(L) 0.27 - 4.20 mlU/ML [facility] Blood specimen (specimen) 08/16/2017 12:30 PM EST 08/16/2017 12:41 PM EST Narrative Resulting Agency Comment Spec In Lab Hardik Schultz MD CHEMISTRY ORDERABLE S Performing Organization Address [facility]/ZIP Co de Phone Number [facility] [place] [address] * (ABNORMAL) Phosphorus (08/16/2017 12:30 PM EST) Phosphorus 2.3(L) 2.5 - 4.5 mg/dL [facility] Blood specimen (specimen) 08/16/2017 12:30 PM EST 08/16/2017 12:41 PM EST Narrative Resulting Agency Comment Spec In Lab Hardik Schultz MD CHEMISTRY ORDERABLE S Performing Organization Address [facility]/ZIP Co de Phone Number [facility] [place] [address] * Magnesium (08/16/2017 12:30 PM EST) Magnesium 0.98 0.69 - 1.07 mmol/L [facility] Blood specimen (specimen) 08/16/2017 12:30 PM EST 08/16/2017 12:41 PM EST Narrative Resulting Agency Comment Spec In Lab Hardik Schultz MD CHEMISTRY ORDERABLE S Performing Organization Address [facility]/ZIP Co de Phone Number [facility] [place] [address] * (ABNORMAL) Basic Metabolic Panel (non-fasting) (08/16/2017 12:30 PM EST) Glucose Lvl 117 65 - 199 mg/dL [facility] Comment:Diabetes: >=200 mg/d L plus symptoms BUN 21(H) 10 - 20 mg/dL [facility] Creatinine 1.40 0.80 - 1.50 mg/dL [facility] Sodium 141 135 - 145 mmol/L [facility] Potassium 5.3(H) 3.5 - 5.0 mmol/L [facility] Comment: Please note: ??Patients with WBC >100,000 may have falsely elevated Potassium levels. ??For accurate Potassium quantification in these patients send serum separator tube (gold top) for subsequent determinations. ??Contact the Clinical Chemistry Laboratory if there are any questions. Chloride 107 98 - 107 mmol/L [facility] CO2 24 22 - 31 mmol/L [facility] Anion Gap 10 5 - 15 mmol/L [facility] Calcium 9.6 8.5 - 10.5 mg/dL [facility] Estimated GFR 50(L) >=60 [facility] Comment: The reported eGFR should be multiplied by 1.2 for patients. The MDRD is not an appropriate measure of renal function for patients with body mass extremes or in patients with acute kidney failure. [email or web address] Blood specimen (specimen) 08/16/2017 12:30 PM EST 08/16/2017 12:41 PM EST Narrative Resulting Agency Comment Spec In Lab Hardik Schultz MD CHEMISTRY ORDERABLE S [facility] [place] [address] * EKG 12 Lead (08/16/2017 12:00 PM EST) Ventricular rate 63 BPM MUSE SYSTEM Atrial Rate 63 BPM MUSE SYSTEM P-R Interval 158 ms MUSE SYSTEM QRS Duration 98 ms MUSE SYSTEM Q-T Interval 372 ms MUSE SYSTEM QTC Calculated (Bezet) 380 ms MUSE SYSTEM Calculated P [place] 58 degrees MUSE SYSTEM Calculated R [place] 23 degrees MUSE SYSTEM Calculated T [place] 103 degrees MUSE SYSTEM INTERPRETATION Normal sinus rhythm Inferior injury pattern T wave abnormality , consider lateral ischemia Abnormal ECG Confirmed by MD John, Xavi ([id number]) on 08/16/2017 2:34:33 PM MUSE SYSTEM 08/16/2017 12:0 0 PM EST 08/16/2017 2:34 PM EST Jade Strickland MD ECG ORDERABLES MUSE SYSTEM * (ABNORMAL) Cardiac Enzymes (LEB/CGP) (08/16/2017 11:30 AM EST) Troponin-T 15.15(H) 0.00 - 0.00 ng/mL [facility] Comment: The 99th percentile for Troponin T is less than 0.01 ng/mL, any detectable cTnT concentration using this assay should be considered elevated. According to the third universal definition of myocardial infarction the following criteria with a clinical presentation consistent with acute myocardial ischemia meets the diagnosis for a myocardial infarction ([place]). Detection of a rise and/or fall of cTnT, with at least one value greater than the 99th percentile (> or = 0.01) and with at least one of the following ?? Symptoms of ischemia ?? New or presumed new significant KU-qxpvtjk-W wave (ST-T) changes or new left bundle [...] additional sample may be indicated. Reference: Third Spencer Definition of Myocardial Infarction. Journal of the [place] College [employer]iology 2012;60:1581-98 CK, Total 2,513(H) 0 - 200 unit/L [facility] Blood specimen (specimen) 08/16/2017 11:30 AM EST 08/16/2017 11:37 AM EST Narrative Resulting Agency Comment Spec In Lab Marika Acuna MD CHEMISTRY ORDERABLES [facility] [place] [place] [address] * CARDIAC CATHETERIZATION (08/16/2017 9:57 AM EST) Anatomical Region Laterality Modality Other Narrative 08/18/2017 12:48 PM EST ?[facility] ? Cardiac Catheterization/Intervention Report ? Patient Name: [place], Jacob ? Procedure Date: 08/16/2017 ? A #: [id number] ? Primary Physician: Kalpana, Marika Hall ? Case #: [id number] ? File Name: [id number] ? Catheterization Order Number: [id number] ? [facility] ? Final Report [place], [place] ? Patient Name: ? Jacob Allen ? ID#: ?[id number] ? : ?1940 ? Procedure Date: ? [...] at Catheterization: ?The patient presented with: ST-Elevation [place] (STEMI) or equivalent (w/i 7 ?days). [employer] angina class was IV. This [...] STEMI patient pain free upon [facility] ? receiving lytic at [facility]. Distal RCA lesion direct stented ? without difficulty. No problems with symptoms, hemodynamics, ? rhythm or flow in the vessel. ? Vascular Access: ?Vascular Access Management: ? Mechanical Compression of the right radial artery access site was ? performed. ? Dual Antiplatelet (DAPT) Recommendations: ?Bare metal stent (BMS) inserted. ?P2Y12 Loading dose administered prior to arrival in the bottle labeler. ?Recommend continuing clopidogrel 75 mg PO daily [...] heart ?catheterization and stent insertion-coronary. ? Marika Acuna, M.D. ? Electronically Signed by: Marika Acuna, M.D. ? Report Finalized: 08/16/2017 ??10:35 ? Report Last Ammended: 12/08/2017 ??14:16 ? Procedure Note Marika Acuna MD - 12/08/2017 [facility] Cardiac Catheterization/Intervention Report Patient Name: Jacob Allen Procedure Date: 08/16/2017 A #: [id number] Primary Physician: Marika Acuna Case #: [id number] File Name: [id number] Catheterization Order Number: [id number] [facility] FinalReport [place], [place] Patient Name: Jacob Allen ID#:[id number] :1940 Procedure Date: August 16, 2017 Case [...] at Catheterization: The patient presented with: ST-Elevation [place] (STEMI) or equivalent(w/i 7 days). [employer] angina class was IV. Thispatient [...] priority for the procedure was Emergent. [facility] procedure was STEMI (Stable [...] STEMI patient pain free upon [facility] receiving lytic at [facility]. Distal RCA lesion directstented without difficulty. No problems with symptoms,hemodynamics, rhythm or flow in the vessel. Vascular Access: Vascular Access Management: Mechanical Compression of the right radial artery access sitewas performed. Dual Antiplatelet (DAPT) Recommendations: Bare metal stent (BMS) inserted. P2Y12 Loading dose administered prior to arrival in the bottle labeler. Recommend continuing clopidogrel 75 mg PO daily [...] LES documented in this encounter Visit Diagnoses Not on filedocumented in this encounter Admitting Diagnoses Diagnosis STEMI [...] Given 08/17/2017 8:49 AM EST 75 mg fentaNYL 50 mcg/mL multi-dose injection ONCE PRN, Starting on 08/16/17 at 0916, Until 08/16/17 at 2351, Intra-Operative (Intra-Procedure), Routine Given 08/16/2017 9:16 AM EST 25 mcg heparin (porcine) injection ONCE PRN, Starting on 08/16/17 at 0927, Until 08/16/17 at 2351, Cath (Intra-Procedure), Routine Given 08/16/2017 9:27 AM EST 5,000 Units lidocaine (XYLOCAINE) 10 mg/mL (1 %) injection 3 mg 3 mg (0.3 mL), Subcutaneous, ONCE PRN, 1 dose, Starting on 08/16/17 at 1207, Until 08/19/17 at 1419, for discomfort with PIV insertion, Routine lisinopril (PRINIVIL;ZESTRIL) tablet 2.5 mg 2.5 mg, Oral, DAILY, First dose on 08/17/17 at 1130, Until Discontinued, Routine Given 08/19/2017 9:32 AM EST 2.5 mg Given 08/18/2017 8:11 AM EST 2.5 mg Given 08/17/2017 12:13 PM EST 2.5 mg meTOPROLOL succinate (TOPROL-XL) XL tablet 25 mg 25 mg, Oral, DAILY, First dose on 08/19/17 at 0930, Until Discontinued, DO NOT CRUSH OR OPEN, Routine Given 08/19/2017 9:32 AM EST 25 mg midazolam (PF) (VERSED) 1 mg/mL multi-dose injection ONCE PRN, Starting on 08/16/17 at 0916, Until 08/16/17 at 2351, Cath (Intra-Procedure), Routine Given 08/16/2017 9:16 AM EST 1 mg mineral oil topical liquid 15 mL 15 mL, Topical (Top), NIGHTLY, First dose on 08/18/17 at 2100, Until Discontinued, To ears, Routine Given 08/18/2017 8:50 PM EST 15 mLs nitroGLYcerin (NITROSTAT) SL tablet 0.4 mg 0.4 mg, Sublingual, EVERY 5 MIN PRN, Starting on 08/16/17 at 1207, Until 08/19/17 at 1419, Chest pain, May repeat every 5 minutes for a total of three doses. Notify provider if chest pain not relieved with nitroglycerin. Do not administer nitroglycerin if the patinet has received or taken phosphodiesterase (PDE-5) inhibitors such as sildenafil, tadalafil or vardenafil within the last 24 to 72 hours., Routine nitroGLYcerin 100 mcg/mL intracoronary dilution ONCE PRN, Starting on 08/16/17 at 0924, Until 08/16/17 at 2351, Cath (Intra-Procedure), Routine Given 08/16/2017 9:24 AM EST 150 mcg pantoprazole (PROTONIX) tablet 40 mg 40 mg, [...] PRN, Starting on 08/16/17 at 1207, Until Tu08/19/17 at 1419, flush, Flush pertains to all indwelling lines. Flush per protocol found in the job aid using the link provided on this medication record., Routine verapamil (ISOPTIN) injection ONCE PRN, Starting on 08/16/17 at 0924, Until 08/16/17 at 1007, Administer over 2 Minutes, Cath (Intra-Procedure) Given 08/16/2017 9:24 AM EST 2.5 mg documented in this encounter Active and Recently Administered Medications Times are shown in EST. Scheduled Medication Order 08/17/2017 08/18/2017 08/19/2017 aspirin EC tablet 81 mg 81 mg, Oral, DAILY, First dose on 08/17/17 at 0900, Until Discontinued, Recovery (Recovery-Hospital Unit), Routine 0849 (Given - Provider: Yumi Mascorro RN) 0811 (Given - Provider: Meagan Cruz RN) 0932 (Given - Provider: Meagan Cruz RN) atorvastatin (LIPITOR) tablet 40 mg 40 mg, Oral, EVERY EVENING, First dose on 08/16/17 at 1700, Until Discontinued, Routine 1717 (Given - Provider: Yumi Mascorro RN) 1707 (Given - Provider: Meagan Cruz RN) clopidogrel (PLAVIX) tablet 75 mg 75 mg, [...] on 08/17/17 at 1130, Until Discontinued, Routine 1213 (Given - Provider: Yumi Mascorro RN) 0811 (Given - Provider: Meagan Cruz RN) 0932 (Given - Provider: Meagan Cruz RN) meTOPROLOL (LOPRESSOR) tablet 12.5 mg (CANCELED) 12.5 mg, Oral, EVERY 12 HOURS SCHEDULED (2 times per day), First dose on 08/18/17 at 1030, Until Discontinued, Routine 1151 (Given - Provider: Meagan Cruz RN)2049 (Given - Provider: Jeffrey Howell RN) 0900 (Not Given - Provider: Meagan Cruz, ELO - Reason: Medication Discontinued) meTOPROLOL succinate (TOPROL-XL) XL tablet 25 mg 25 mg, Oral, DAILY, First dose on Fri08/19/17 at 0930, Until Discontinued, DO NOT CRUSH OR OPEN, Routine 0932 (Given - Provider: Meagan Cruz RN) mineral oil topical liquid 15 mL 15 mL, Topical (Top), NIGHTLY, First dose on 08/18/17 at 2100, Until Discontinued, To ears, Routine 205 (Given - Provider: Jeffrey Howell, ELO) pantoprazole (PROTONIX) tablet 40 mg 40 mg, Oral, DAILY, First dose on Fri08/16/17 at 1245, Until Discontinued, DO NOT CRUSH OR OPEN 0849 (Given - Provider: Yumi Mascorro RN) 0811 (Given - Provider: Meagan Cruz RN) 0932 (Given - Provider: Meagan Cruz RN) sodium chloride 0.9 % flush 5 mL 5 mL, Intravenous, 2 TIMES DAILY, First dose on Fri08/16/17 at 1230, Until Discontinued, Routine 0851 (Given - Provider: Yumi Mascorro RN)2052 (Given - Provider: Dania Self RN) 0900 (Given - Provider: Meagan Cruz, ELO)2100 (Given - Provider: Jeffrey Howell RN) 0934 (Given - Provider: Meagan Cruz, ELO) PRN Medication Order 08/17/2017 08/18/2017 08/19/2017 acetaminophen (TYLENOL) tablet 650 mg 650 mg, Oral, EVERY 4 HOURS PRN, Starting on 08/16/17 at 1208, Until Fri08/19/17 at 1419, Pain, Headaches, Maximum dose of acetaminophen is 4000 mg from all sources in 24 hours., Routine bisacodyl (DULCOLAX) suppository 10 mg 10 mg, Rectal, DAILY PRN, Starting on Fri08/16/17 at 1215, Until Fri08/19/17 at 1419, Constipation, [...] Routine documented in this encounter 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
--- OUTSIDE RECORDS SUMMARY | 2024-03-28 13:05 | XMS_ITS | Encounter Summary ---
Author Organization [facility] Address [facility] [place] [address] Care Team Providers Care Coil Taper Name Role Phone Unknown Primary Care Provider Unavailabl e Reason for Referral * (Routine) - Closed by system - Referral Specialty Diagnoses / Procedures Referred By Contac t Referred To Contact Cardiac Rehabilitation Diagnoses ST elevation myocardial infarction (STEMI) of lateral wall Jeffrey Gonzalez MD [facility] [place] [address] Referral ID Status Reason Start Date Expiration Date Visits Requested Visits Authorized [id number] Closed by system - Referral Evaluate and Treat 01/02/2014 07/01/2014 1 1 Encounter Details Date Type Department Care Team (Latest Contact Info) Description 12/29/2013 9:59 PM EDT - 01/02/2014 12:32 PM EDT Hospital Encounter Intermediate [place] [address] Nikko Andrew MD [facility] [place] [address] Jeffrey Gonzalez MD [facility] [place] [address] ST elevation myocardial infarction (STEMI) of lateral [...] Sign Reading Time Taken Comments Blood Pressure 104/69 01/02/2014 7:17 AM EDT Pulse 97 01/02/2014 7:38 AM EDT Temperature 36.7 ??C (98.1 ??F) 01/02/2014 7:17 AM ED T Respiratory Rate 18 01/02/2014 7:17 AM EDT Oxygen Saturation 98% 01/02/2014 7:17 AM EDT Inhaled Oxygen Concentration - - Weight 78.2 kg (172 lb 6.4 oz) 01/02/2014 6:51 A M EDT Height - - Body Mass Index - - documented in this encounter Discharge Instructions * Patient Instructions* Telly Rizvi - 12/31/2013 1:12 PM EDT Why you were hospitalized: You were admitted with signs and symptoms indicative of a heart attack or a myocardial infarction. Call your doctor or report to the [...] department. The importance of your medications: 1. Lisinopril, an EMILY inhibitor, lowers your blood pressure, is anti- inflammatory, and prevents remodeling and dilation of the parrish of your heart. >Take lisinopril 5mg by mouth once per day 2. Atorvastatin, a statin, is a lipid-lowering drug. It is also anti- inflammatory and studies show intensive lipid lowering therapy decreases the rate of myocardial events after a heart attack. >Take atorvastatin 80mg by mouth once each night 3. Aspirin, an anti-platelet drug, is protective against future thrombus formation, especially in the stent. >Take aspirin 81mg by mouth once per day (baby aspirin) 4. Plavix or clopidogrel, is also an anti-platelet drug, is protective against future thrombus formation, especially in the stent. >Take clopidogrel 75mg by mouth once per day 4. Sublingual Nitroglycerine, an anti-anginal medication, is to be used only if you have recurrent chest pain; if you use this med, SEEK MEDICAL ATTENTION FOLLOW-UP APPOINTMENTS: Primary care provider- Primary Care-01/07/2014 at 1:00 PM with Kelly Jackson APRN (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 Watkins at [facility] ([facility]) We will fax a copy of your discharge summary to [phone] for PCP, for [phone] Return to Work: You were hospitalized for a heart attack. It is very important that you abide by the instructions above with regards to activity, and this applies to work. 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 * Attachments The following attachments cannot be sent through Care Everywhere. * PERCUTANEOUS CORONARY INTERVENTION: WHAT TO EXPECT AT HOME (DANISH) * HEART ATTACK (DANISH) * HEART ATTACK: MEDICINE TO REDUCE RISK (DANISH) documented in this encounter Medications at Time of Discharge Medication Sig Dispensed Refills Start Date End Date aspirin 81 mg EC tablet Take 1 tablet by mouth daily. 30 tablet 12 01/02/2014 08/19/2017 atorvastatin (LIPITOR) 80 mg tablet Take 1 tablet by mouth every evening. 30 tablet 12 01/02/2014 08/19/2017 clopidogrel (PLAVIX) 75 mg tablet Take 1 tablet by mouth daily. 30 tablet 12 01/02/2014 08/19/2017 nitroGLYcerin (NITROSTAT) 0.[address] 1 tablet under the tongue daily as needed for Chest pain. 90 tablet 3 01/02/2014 08/19/2017 lisinopril (PRINIVIL;ZESTRIL) 5 mg tablet Take 1 tablet by mouth daily. 30 tablet 12 01/02/2014 08/19/2017 documented as of this encounter Progress Notes * Brittani Samuel RN - 01/02/2014 12:30 PM EDT IV and Tele D/C'd. AVS including medications, follow-up appointments and groin care instructions. Patient verbalized good understanding. No questions at this time. Patient discharged home with family. * Telly Rizvi - 01/02/2014 6:36 AM EDT Inpatient Cardiology Progress Note Patient ID: Jacob Allen is a 73 y.o. male former smoker without known significant PMH (has notseen a doctor in 20 years) s/p STEMI on 12/29 s/p BMS placed to the Diag 1 for a 90% stenosis, complicated by transient pericarditis symptoms resolved with aspirin. Now doing well following transfer [facility]. Hospital Day 4 days Active Hospital Problems Diagnosis ??? Dyslipidemia ??? Depression Resolved Hospital Problems Diagnosis Date Resolved No resolved problems to display. 24 Hour Events/Subjective: - No acute events - Bradycardia to a transiently low HR of 26 bpm, while asleep, asymptomatic with this - Holding metoprolol for asymptomatic bradycardia - Feeling well this morning. - Denies chest pain, arm pain/jaw pain, shortness of breath, dizziness/lightheadedness, nausea, vomiting or diaphoresis TELE: NSR/SB, HR as low as 26 bpm. Active Medications: ASA 81 Atorvastatin 80mg qhs Clopidogrel 75mg qd Lisinopril 5mg qd Metoprolol 12.5mg bid-hodling Pantoprazole 40mg qd Acetaminophen prn NTG SL prn Vitals: Last value Range last 24 hrs Temperature Temp: 36.5 ??C (97.7 ??F) Temp: [36.5 ??C (97.7 ??F)-37 ??C (98.6 ??F)] Heart Rate Heart Rate: 53 Heart Rate: [51-68] Blood Pressure BP: 112/71 mmHg BP: (107-125)/(56-72) Respiratory Rate Resp: 18 Resp: [16-18] SpO2 SpO2: 94 % on RA SpO2: [94 %-98 %] Ins/Outs: Intake/Output Summary (Last 24 hours) at 01/02/14 0636 Last data filed at 01/02/14 0500 Gross per 24 hour Intake 1080 ml Output 1300 ml Net -220 ml Net positive 240 mL for the hospitalization Patient Vitals for the past 168 hrs: Weight 01/01/14 0620 79.1 kg (174 lb 6.1 oz) 12/31/13 0616 79.7 kg (175 lb 11.3 oz) 12/29/13 2300 79.6 kg (175 lb 7.8 oz) Physical Exam: Gen: Talamantes in early 70s, lying supine in bed, alert and conversant, appearing comfortable and in NAD HEENT: NC/AT, sclera anicteric, EOMI, OP clear, MMM Neck: JVP not elevated. CV: RRR, normal S1 and S2, no M/G/R appreciated Pulm: Normal respiratory effort, poor air movement throughout and scant bibasilar crackles Abd: +NABS, soft NTND Ext: No peripheral edema. DP pulses equal and 2+ bilaterally Neuro: Awake, alert, and grossly oriented. Face symmetric. Ambulating with normal gait. Strength and sensation intact. Tangential in conversation. Labs: Recent Labs Basename 01/02/148 01/01/140 12/31/13 0351 WBC 7.1 7.0 9.4 HGB 15.0 14.2 13.5* PLATELET 178 160 166 ANC -- -- -- Recent Labs Basename 01/02/148 01/01/14 0340 12/31/13 0351 NA 137 138 137 K 4.5 4.3 4.4 CL 106 106 105 CO2 21* 21* 22 BUN 24* 28* 28* CREATININE 1.28 1.40 1.65* Recent Labs Basename 01/02/148 01/01/140 12/31/13 0351 CALCIUM 9.6 9.5 9.8 MAGNESIUM 0.95 0.96 0.98 PHOS -- -- -- Recent Labs Basename 12/30/13 0655 AST 176* ALT 20 ALKPHOS 85 BILITOT 0.8 BILIDIR 0.1 Recent Labs Basename 01/02/1444701/01/14 0340 12/31/13 0351 TROPONINT 4.00* 4.89* 7.90* CK 171 -- -- Imaging: No new imaging studies to review today (01/02/14) Cardiovascular Studies: Cardiac Catheterization: -LVEDP 24 -Ventriculography 50%, severe hypokinesis of anterolateral wall -Vessels >Left Main- mild diffuse disease >LAD- mild diffuse disease, 90% diffuse stenosis of Diag 1 >LCX- mild diffuse disease >RCA- mild diffuse disease Intervention >BMS (2.50 x 08mm Mini Vision RX) to Diag 1 TTE (12/30/2013): SUMMARY: 1. Global left ventricular systolic function is mildly reduced. Ejection fraction is estimated to be 50%. There are left ventricular segmental wall motion abnormalities present, as shown in the diagram below. 2. Right ventricular chamber size, wall thickness, and systolic function are within normal limits. 3. There is no hemodynamically significant valve disease. 4. See remainder of report for additional findings. Base-Anteroseptal Normal Base-Anterior Normal Base-Anterolateral Normal Base-Posterolateral Normal Base-Inferior Normal Base-Inferoseptal Normal Mid-Anteroseptal Normal Mid-Anterior Akinetic Mid-Anterolateral Hypokinetic Mid-Posterolateral Normal Mid-Inferior Normal Mid-Inferoseptal Normal Cropsey-Septal Normal Cropsey-Anterior Hypokinetic Cropsey-Lateral Akinetic Cropsey-Inferior Normal Cropsey-Tip Normal Assessment: Jacob Allen is a 73 y.o. male former smoker without known significant PMH (has not seen a doctor in 20 years) who presented in transfer as a STEMI alert after developing severe SSCP radiating tobilateral arms, found to have an elevated troponin and diffuse ST changes (STEs in I/aVL/Vs, STDs in II/III/aVF and remaining precordials), subsequently had a BMS placed to the Diag 1 for a 90% stenosis and admitted to the [facility] with STEMI and post MT pericarditis. Creatinine is now trending down following mild elevation post-cardiac catheterization. Asymptomaticbradycardia has been observed and is likely due to the combination of vagal tone post-MT and beta-blockade. Will hold beta-silverio and not prescribed on discharge, but will make recommendations that this be followed up as an outpatient. His post-catheterization chest pain, which was consistent withpericarditis pain and resolved with high dose aspirin, has not returned. Plan: # Plan discharge home -Will not discharge on beta-silverio due to bradycardia -Atorvastatin 80 mg qhs -Aspirin 81 mg daily -Lisinopril 5 mg daily -NTG SL prn for chest pain -Follow-up with primary care provider in 1 week and cardiology in 4 weeks -BMP should be checked at primary care follow-up to confirm creatinine return to baseline -Should be assessed for symptoms of pericarditis at follow-up # Routine -DVT ppx: ambulatory -GI ppx: d/c pantoprazole -Access: PIV -Code Status: FULL CODE -DISPO: Home today as above -Proxy: Jose Allen (home [phone]; cell [phone]) -Maico Rizvi Internal Medicine, PGY2 Cardiology Service, S1 Team Personal pager # [phone] 01/02/2014 * Елена Montoya RN - 01/02/2014 3:22 AM EDT 0315: HR dipped to 30bpm non sustained. Pt asleep, HR back in 50s,SpO2 98% RA, BP 127/71. Courtney Andersen MD paged. * Jeffrey Gonzalez MD - 01/01/2014 6:28 AM EDT Inpatient Cardiology Progress Note Patient ID: Jacob Allen is a 73 y.o. male former smoker without known significant PMH (has notseen a doctor in 20 years) who presented in transfer as a STEMI alert after developing severe SSCP radiating to bilateral arms, found to have an elevated troponin and diffuse ST changes (STEs in I/aVL/Vs, STDs in II/III/aVF and remaining precordials), subsequently had a BMS placed to the Diag 1 fora 90% stenosis and admitted to the [facility] with STEMI and post MT pericarditis. Hospital Day 3 days Active Hospital Problems Diagnosis ??? Dyslipidemia ??? Depression Resolved Hospital Problems Diagnosis Date Resolved No resolved problems to display. 24 Hour Events/Subjective: - No acute events - Resumed regular ASA dosing yesterday as pericarditis symptoms were resolved - Missing intermittent doses of metoprolol for mild bradycardia - Feeling well this morning. - Denies chest pain, arm pain/jaw pain, shortness of breath, dizziness/lightheadedness, nausea, vomiting or diaphoresis TELE: NSR/SB 50-70, no events Active Medications: ASA 81 Atorvastatin 80mg qhs Clopidogrel 75mg qd Lisinopril 5mg qd Metoprolol 12.5mg q6h Pantoprazole 40mg qd Acetaminophen prn NTG SL prn Vitals: Last value Range last 24 hrs Temperature Temp: 36.5 ??C (97.7 ??F) Temp: [36.5 ??C (97.7 ??F)-36.9 ??C (98.4 ??F)] Heart Rate Heart Rate: 83 Heart Rate: [52-83] Blood Pressure BP: 116/67 mmHg BP: (106-129)/(61-76) Respiratory Rate Resp: 16 Resp: [16-18] SpO2 SpO2: 95 % on RA SpO2: [93 %-98 %] Ins/Outs: Intake/Output Summary (Last 24 hours) at 01/01/14 0628 Last data filed at 01/01/14 0352 Gross per 24 hour Intake 1560 ml Output 1000 ml Net 560 ml Net negative -140mL for the hospitalization Patient Vitals for the past 168 hrs: Weight 01/01/14 0620 79.1 kg (174 lb 6.1 oz) 12/31/13 0616 79.7 kg (175 lb 11.3 oz) 12/29/13 2300 79.6 kg (175 lb 7.8 oz) Physical Exam: Gen: Pleasant very garrulous elderly gentleman appearing older than stated age in NAD, AAOx3 HEENT: NC/AT, sclera anicteric, EOMI, OP clear, MMM Neck: no cervical LAD, JVP not elevated CV: RRR, normal S1 and S2, no M/G/R appreciated Pulm: breathing non-labored, poor air movement throughout and scant bibasilar crackles Abd: +NABS, soft NTND Ext: no edema. DP pulses equal and 2+ bilaterally Neuro: Orientated to person, place and time. Face symmetric. Strength and sensation grossly intact.No focal deficits appreciated. Very circumferential thought process. Labs: Recent Labs Basename 01/01/14 03412/31/13 03512/30/13 0655 WBC 7.0 9.4 11.6* HGB 14.2 13.5* 14.5 PLATELET 160 166 209 ANC -- -- -- Recent Labs Basename 01/01/14 03412/31/13 0351 12/30/13 1341 NA 138 137 135 K 4.3 4.4 4.4 CL 106 105 104 CO2 21* 22 20* BUN 28* 28* 20 CREATININE 1.40 1.65* 1.12 Recent Labs Basename 01/01/14 0340 12/31/13 0351 12/30/13 1341 12/30/13 0655 CALCIUM 9.5 9.8 9.9 -- MAGNESIUM 0.96 0.98 -- 1.04 PHOS -- -- -- -- Recent Labs Basename 12/30/13 0655 AST 176* ALT 20 ALKPHOS 85 BILITOT 0.8 BILIDIR 0.1 Recent Labs Basename 01/01/14 0340 12/31/13 0351 12/30/13 0655 TROPONINT 4.89* 7.90* 11.59* CK 394* -- -- No results found for this basename: PHART:3,VCZ4JPX:3,PO2ART:3,WCQ0PLV:3 in the last 168 hours Imaging: Cardiovascular Studies: Cardiac Catheterization: -LVEDP 24 -Ventriculography 50%, severe hypokinesis of anterolateral wall -Vessels >Left Main- mild diffuse disease >LAD- mild diffuse disease, 90% diffuse stenosis of Diag 1 >LCX- mild diffuse disease >RCA- mild diffuse disease Intervention >BMS (2.50 x 08mm Mini Vision RX) to Diag 1 TTE (12/30/2013): SUMMARY: 1. Global left ventricular systolic function is mildly reduced. Ejection fraction is estimated to be 50%. There are left ventricular segmental wall motion abnormalities present, as shown in the diagram below. 2. Right ventricular chamber size, wall thickness, and systolic function are within normal limits. 3. There is no hemodynamically significant valve disease. 4. See remainder of report for additional findings. Base-Anteroseptal Normal Base-Anterior Normal Base-Anterolateral Normal Base-Posterolateral Normal Base-Inferior Normal Base-Inferoseptal Normal Mid-Anteroseptal Normal Mid-Anterior Akinetic Mid-Anterolateral Hypokinetic Mid-Posterolateral Normal Mid-Inferior Normal Mid-Inferoseptal Normal Cropsey-Septal Normal Cropsey-Anterior Hypokinetic Cropsey-Lateral Akinetic Cropsey-Inferior Normal Cropsey-Tip Normal Assessment: Jacob Allen is a 73 y.o. male former smoker without known significant PMH (has not seen a doctor in 20 years) who presented in transfer as a STEMI alert after developing severe SSCP radiating tobilateral arms, found to have an elevated troponin and diffuse ST changes (STEs in I/aVL/Vs, STDs in II/III/aVF and remaining precordials), subsequently had a BMS placed to the Diag 1 for a 90% stenosis and admitted to the [facility] with STEMI and post MT pericarditis. He is stable and doing well with some reperfusion arrythmia. His chest pain has resolved and his rub is gone. We will hold further pericarditis therapy for now and resume regular preventative daily aspirin dosing unless he develops further symptoms. He has a mild ANN following his catheterization, which is now improving. He will likely be ready for discharge home tomorrow. 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 Wallace. Please see her note which reflects myfindings and our plan. HOD 3 For this 73 yo male admitted in emergent transfer for treatment of STEMI. Course complicated by transient pericarditis is otherwise doing well. Plan is to transition to an outpatient appropriate regimen. There is concern regarding compliance in this patient who has not seen a Physician prior to admission for >20 years who eschews medical care. As such will work to keep out patient regimen as simple as possible. Jeffrey Gonzalez M.D., F.A.C.C. head of history (Cardiology) * Angela Schuler, RN - 12/31/2013 11:43 AM EDT Patient Name: Jacob Allen Patient Age: 73 y.o. Birthdate: 1940 Admit date: 12/29/2013 Attending Physician: Jeffrey Gonzalez MD Office of Care Management (OCM) / Clinical Collar Trimmer (CRC) Initial Assessment Discussed patient with Provider Team Reviewed record and interviewed patient. Introduced/reviewed CRC role and services accepted. REASON for HOSPITALIZATION: former smoker without known significant PMH (has not seen a doctor in 20 years) who presented in transfer as a STEMI alert after developing severe SSCP radiating to bilateral arms, found to have an elevated troponin and diffuse ST changes (STEs in I/aVL/Vs, STDs in II/III/aVF and remaining precordials), subsequently had a BMS placed to the Diag 1 for a 90% stenosis andadmitted to the [facility] with STEMI and post MT pericarditis. PMH/PSH: see admission H&P in [facility] PREVIOUS FUNCTIONAL STATUS / SOCIAL / FAMILY SUPPORTS: Patient states that he has not seen a doctor in 20 years. He said that he was followed by Dr. Chiang from [place]- the famous Dr. Chiang who specializes in people that have low temperature. The doctorsaround here thought it was a mental health condition. He went to another doctor that gave him Vitamin C and then he was able to go back to work in the 's. Dr. Cohen from [place] who gave me [place] and he wasn't able to work after that. This was in 1993. He thinks his cold body temperature contributes to his high cholesterol. The last time he saw a MD was when his income ran out. He filed for disability but they didn't recognize that fatigue is a disability. Retired in 2007. Then he started collecting disability. I don't have much mali in doctors. They are after your money; Discussed the need for medical follow-up. 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 Has been in [place] all his life. Sister lives in [place], [place]. Brother lives in [place], [place]- he has back disability. He has neighbors that are supportive. He did not bring the neighbors' clau number. Patient drives. Baseline independent. 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 When I need to get to the bach, I use my excavator to make my own road. CURRENT FUNCTIONAL STATUS: Ambulating without any problems. ADVANCE DIRECTIVES: None noted scanned into [facility] INSURANCE COVERAGE / FINANCIAL ISSUES: Medicare AARP- has prescription plan. CURRENT HOME/COMMUNITY SERVICES/EQUIPMENT: None POTENTIAL DISCHARGE NEEDS: Medication teaching. Heart Healthy diet. ANTICIPATED BARRIERS TO DISCHARGE: Does not want to have any physician follow-up because he does not trust any of them. He said that he will have to think about whether he wants to go to a doctor after this. TRANSPORTATION: Family vehicle. PLAN: Will continue to monitor progress, follow for continuity of care and assist with discharge planning while hospitalized DC REFERRALS: Patient will not be homebound so he will not qualify for VNA follow-up. Patient will need PCP and cardiology follow-up. CRC discussed if his brother has a trusting relationship with a doctor that this patient would be willing to get care from. He said that those doctors are not trusting either. He said that he will talk to the MD about this after he thinks a lot about it. ORDER TO ADMIT: Completed (x ) Attending. May benefit from BRANCH OPERATION EVALUATION MANAGER consult. Will ask SRAVANI Deleon to review patient. Continue to follow patient to assist w/ changing needs and collaborate w/ pt, medical team and family to formulate a plan for discharge. Covering pager #[phone]. * Jeffrey Gonzalez MD - 12/31/2013 6:15 AM EDT Inpatient Cardiology Progress Note Patient ID: Jacob Allen is a 73 y.o. male former smoker without known significant PMH (has notseen a doctor in 20 years) who presented in transfer as a STEMI alert after developing severe SSCP radiating to bilateral arms, found to have an elevated troponin and diffuse ST changes (STEs in I/aVL/Vs, STDs in II/III/aVF and remaining precordials), subsequently had a BMS placed to the Diag 1 fora 90% stenosis and admitted to the [facility] with STEMI and post MT pericarditis. Hospital Day 2 days Active Hospital Problems Diagnosis ??? Dyslipidemia ??? Depression Resolved Hospital Problems Diagnosis Date Resolved No resolved problems to display. 24 Hour Events/Subjective: - Transferred to [facility] from [facility] - Started lisinopril - Continued high dose ASA yesterday for post-MT pericarditis - Feeling well this morning. Pleuritic chest pain has resolved - Denies chest pain, arm pain/jaw pain, shortness of breath, dizziness/lightheadedness, nausea, vomiting or diaphoresis TELE: NSR/SB 50-80 with rare PVCs Active Medications: ASA 81 Atorvastatin 80mg qhs Clopidogrel 75mg qd Lisinopril 5mg qd Metoprolol 12.5mg q6h Pantoprazole 40mg qd Acetaminophen prn NTG SL prn Vitals: Last value Range last 24 hrs Temperature Temp: 36.8 ??C (98.2 ??F) Temp: [36.5 ??C (97.7 ??F)-37 ??C (98.6 ??F)] Heart Rate Heart Rate: 52 Heart Rate: [52-64] Blood Pressure BP: 97/54 mmHg BP: (97-130)/(52-73) Respiratory Rate Resp: 18 Resp: [16-21] SpO2 SpO2: 97 % on RA SpO2: [94 %-97 %] Ins/Outs: Intake/Output Summary (Last 24 hours) at 12/31/13 0615 Last data filed at 12/31/13 0500 Gross per 24 hour Intake 672 ml Output 1425 ml Net -753 ml Patient Vitals for the past 168 hrs: Weight 12/29/13 2300 79.6 kg (175 lb 7.8 oz) Physical Exam: Gen: Pleasant very garrulous elderly gentleman appearing older than stated age in NAD, AAOx3 HEENT: NC/AT, sclera anicteric, EOMI, OP clear, MMM Neck: no cervical LAD, JVP not elevated CV: RRR, normal S1 and S2, no M/G/R appreciated Pulm: breathing non-labored, poor air movement throughout and scant bibasilar crackles Abd: +NABS, soft NTND Ext: no edema. DP pulses equal and 2+ bilaterally Neuro: Orientated to person, place and time. Face symmetric. Strength and sensation grossly intact.No focal deficits appreciated. Very circumferential thought process. Labs: Recent Labs Basename 12/31/13 0351 12/30/13 0655 12/29/13 2250 WBC 9.4 11.6* 8.8 HGB 13.5* 14.5 -- PLATELET 166 209 -- ANC -- -- -- Recent Labs Basename 12/31/13 0351 12/30/13 1341 12/30/13 0655 NA 137 135 136 K 4.4 4.4 5.3* CL 105 104 103 CO2 22 20* 22 BUN 28* 20 20 CREATININE 1.65* 1.12 1.24 Recent Labs Basename 12/31/13 0351 12/30/13 1341 12/30/13 0655 12/29/13 2250 CALCIUM 9.8 9.9 9.7 -- MAGNESIUM 0.98 -- 1.04 0.88 PHOS -- -- -- -- Recent Labs Basename 12/30/13 0655 AST 176* ALT 20 ALKPHOS 85 BILITOT 0.8 BILIDIR 0.1 Recent Labs Basename 12/31/13 0351 12/30/13 0655 12/29/13 2250 TROPONINT 7.90* 11.59* 10.04* CK 850* -- -- No results found for this basename: PHART:3,DNA8THG:3,PO2ART:3,UYU3ZYY:3 in the last 168 hours Imaging: Cardiovascular Studies: Cardiac Catheterization: -LVEDP 24 -Ventriculography 50%, severe hypokinesis of anterolateral wall -Vessels >Left Main- mild diffuse disease >LAD- mild diffuse disease, 90% diffuse stenosis of Diag 1 >LCX- mild diffuse disease >RCA- mild diffuse disease Intervention >BMS (2.50 x 08mm Mini Vision RX) to Diag 1 TTE (12/30/2013): SUMMARY: 1. Global left ventricular systolic function is mildly reduced. Ejection fraction is estimated to be 50%. There are left ventricular segmental wall motion abnormalities present, as shown in the diagram below. 2. Right ventricular chamber size, wall thickness, and systolic function are within normal limits. 3. There is no hemodynamically significant valve disease. 4. See remainder of report for additional findings. Base-Anteroseptal Normal Base-Anterior Normal Base-Anterolateral Normal Base-Posterolateral Normal Base-Inferior Normal Base-Inferoseptal Normal Mid-Anteroseptal Normal Mid-Anterior Akinetic Mid-Anterolateral Hypokinetic Mid-Posterolateral Normal Mid-Inferior Normal Mid-Inferoseptal Normal Cropsey-Septal Normal Cropsey-Anterior Hypokinetic Cropsey-Lateral Akinetic Cropsey-Inferior Normal Cropsey-Tip Normal Assessment: Jacob Allen is a 73 y.o. male former smoker without known significant PMH (has not seen a doctor in 20 years) who presented in transfer as a STEMI alert after developing severe SSCP radiating tobilateral arms, found to have an elevated troponin and diffuse ST changes (STEs in I/aVL/Vs, STDs in II/III/aVF and remaining precordials), subsequently had a BMS placed to the Diag 1 for a 90% stenosis and admitted to the [facility] with STEMI and post MT pericarditis. He is stable and doing well with some reperfusion arrythmia. His chest pain has resolved and his rub is gone. We will hold further pericarditis therapy for now and resume regular preventative daily aspirin dosing unless he develops further symptoms. He has a mild ANN with an increase in his creatinine from 1.2 to 1.6 today, in the appropriate timeframe for contrast nephropathy. He will likely be ready for discharge home in 2 days as long as his kidney functions trends toward improvement. Plan: # STEMI s/p BMS to Diag 1, Post-MT Pericarditis - ECG CP protocol & daily - Telemetry - Medications >Plavix 75mg daily >ASA 81mg qd >metoprolol tartrate 12.5mg PO q6h w/ titration for MT double-prodcuction control >stop NTG gtt >Atorvastatin 80mg PO daily >Start lisinopril 5mg qd >NTG SL prn for chest pain -Will hold further pericarditis therapy and monitor, consider meds if continues # ANN 2/2 Contrast Nephropathy - Encourage good po intake of fluids - Avoid nephrotoxins - daily BMP # Routine -DVT ppx: ambulatory -GI ppx: pantoprazole -FEN/Diet: heart healthy replace K/Mg for goal 12/07 -Access: PIV -Code Status: FULL CODE -DISPO: home in 2 days as long as kidney function improves -Proxy: Jose Allen (home [phone]; cell [phone]) Shona Wallace MD PGY1, Internal Medicine Inpatient Cardiology S1, team pager [phone] 12/31/2013 CARDIOLOGY ATTENDING NOTE Patient seen and examined by me and discussed with Dr. Wallace. Please see her note which reflects myfindings and our plan. 73 yo male admitted with STEMI (Diag) treated with PCI-Stent (BMS) doing well. Course complicated by pericarditis which has resolved. Agree with advancing medications to out patient appropriate regimen * Zeny Randall RN - 12/30/2013 8:00 AM EDT Pt. Received awake and alert. 0830 Physician rounds made and orders written 1000 Bedside Echo done pt. Still has sharp midsternal chest pain on inspiration and physicians aware 1120 Pt. Transferred to [facility] via w/c * Shona Wallace - 12/30/2013 5:31 AM EDT Inpatient Cardiology Progress Note Patient ID: Jacob Allen is a 73 y.o. male former smoker without known significant PMH (has notseen a doctor in 20 years) who presented in transfer as a STEMI alert after developing severe SSCP radiating to bilateral arms, found to have an elevated troponin and diffuse ST changes (STEs in I/aVL/Vs, STDs in II/III/aVF and remaining precordials), subsequently had a BMS placed to the Diag 1 fora 90% stenosis and admitted to the [facility] with STEMI and post MT pericarditis. Hospital Day 1 day Active Hospital Problems Diagnosis ??? Dyslipidemia ??? Depression Resolved Hospital Problems Diagnosis Date Resolved No resolved problems to display. 24 Hour Events/Subjective: -Admitted directly to laboratory tech after receiving TNK, plavix load, full dose ASA, heparin bolus/gtt, NITG gtt and morphine -Cath showed 90% stenosis of Diag 1, now s/p BMS. LV-gram showed EF 50% with severe hypokinesis of anterolateral wall -Noted to have persistent chest pain and a rub on exam after cath--> started treatment for post-MT pericarditis -Feeling well this morning. Having some sharp pleuritic chest pain (improved from previously) but no recurrent chest pressure, arm pain/jaw pain, shortness of breath, dizziness/lightheadedness, nausea, vomiting or diaphoresis TELE: 55-100 with frequent PVCs, multifocal PVCs, paired PVCs, runs of PVCs, variable QRS Active Medications: ASA 975mg q8h Atorvastatin 80mg qhs Clopidogrel 75mg qd Metoprolol 12.5mg q6h NTG gtt @ 10mcg/min (for BP control) NS @ 125mL/h (to stop at 0700) Acetaminophen prn NTG SL prn Vitals: Last value Range last 24 hrs Temperature Temp: 36.6 ??C (97.9 ??F) Temp: [36.6 ??C (97.9 ??F)] Heart Rate Heart Rate: 57 Heart Rate: [57-83] Blood Pressure BP: 116/71 mmHg BP: (110-153)/(70-96) Respiratory Rate Resp: 15 Resp: [13-20] SpO2 SpO2: 96 % on 2L/min SpO2: [96 %-99 %] Ins/Outs: Intake/Output Summary (Last 24 hours) at 12/30/13 0531 Last data filed at 12/30/13 0400 Gross per 24 hour Intake 571.72 ml Output 775 ml Net -203.28 ml Patient Vitals for the past 168 hrs: Weight 12/29/13 2300 79.6 kg (175 lb 7.8 oz) Physical Exam: Gen: Pleasant very garrulous elderly gentleman appearing older than stated age in NAD, AAOx3 HEENT: NC/AT, sclera anicteric, EOMI, OP clear, MMM Neck: no cervical LAD, JVP not elevated CV: RRR, normal S1 and S2, no M/G/ appreciated, faint intermittent rub Pulm: breathing non-labored, mild bibasilar crackles Abd: +NABS, soft NTND Ext: no edema. DP pulses equal and 2+ bilaterally Neuro: Orientated to person, place and time. Face symmetric. Strength and sensation grossly intact.No focal deficits appreciated. Very circumferential thought process. Labs: Recent Labs Basename 12/29/13 2250 WBC 8.8 HGB -- PLATELET -- ANC -- Recent Labs Basename 12/29/13 2250 NA 130* K 4.5 CL 102 CO2 22 BUN 21* CREATININE 1.10 Recent Labs Basename 12/29/13 2250 CALCIUM 8.4* MAGNESIUM 0.88 PHOS -- No results found for this basename: AST:3,ALT:3,ALKPHOS:3,BILITOT:3,BILIDIR:3 in the last 168 hours Recent Labs Basename 12/29/13 2250 TROPONINT 10.04* CK 2373* No results found for this basename: PHART:3,ERI2MVY:3,PO2ART:3,XLG4KFA:3 in the last 168 hours Imaging: Cardiovascular Studies: Cardiac Catheterization: -LVEDP 24 -Ventriculography 50%, severe hypokinesis of anterolateral wall -Vessels >Left Main- mild diffuse disease >LAD- mild diffuse disease, 90% diffuse stenosis of Diag 1 >LCX- mild diffuse disease >RCA- mild diffuse disease Intervention >BMS (2.50 x 08mm Mini Vision RX) to Diag 1 Assessment: Jacob Allen is a 73 y.o. male former smoker without known significant PMH (has not seen a doctor in 20 years) who presented in transfer as a STEMI alert after developing severe SSCP radiating tobilateral arms, found to have an elevated troponin and diffuse ST changes (STEs in I/aVL/Vs, STDs in II/III/aVF and remaining precordials), subsequently had a BMS placed to the Diag 1 for a 90% stenosis and admitted to the [facility] with STEMI and post MT pericarditis. He is stable and doing well with some reperfusion arrythmia. His chest pain is almost resolved and his rub is gone. We will hold further pericarditis therapy for now. He is appropriate for transfer to the floor. Plan: # STEMI s/p BMS to Diag 1, Post-MT Pericarditis -CXR -TTE - ECG CP protocol & daily - Cycle daily - Telemetry - Medications >Plavix 75mg daily >ASA 81mg qd >metoprolol tartrate 12.5mg PO q6h w/ titration for MT double-prodcuction control >stop NTG gtt >Atorvastatin 80mg PO daily >Start lisinopril 5mg qd >NTG SL prn for chest pain -Will hold further pericarditis therapy and monitor, consider meds if continues # Routine -DVT ppx: holding for now, HSQ in 24h -GI ppx: pantorazole -FEN/Diet: Third Chicken replace K/Mg for goal 4/1 -Access: PIV -Code Status: FULL CODE -DISPO: stable for transfer to [facility] -Proxy: Jose Allen (home [phone]; cell [phone]) Shona Wallace MD PGY1, Internal Medicine Inpatient Cardiology S1, team pager [phone] 12/30/2013 * Jayleen Lewis MD - 12/30/2013 2:45 AM EDT Post Cath (Femoral) Note S: No abdominal, groin, or back pain. No rash. No weakness/numbness/tingling. No bleeding/swelling from R femoral access site. O: Blood pressure 130/86, pulse 59, temperature 36.6 ??C (97.9 ??F), resp. rate 13, weight 79.6 kg (175 lb 7.8 oz), SpO2 97.00%. General: Lying in bed in NAD. Groin: Right groin access site without hematoma or ecchymoses. dressing c/d/i. No bruit. Nontender. Lower Extrem: no livedo reticularis, feet warm/symmetric, light-touch sensation intact/symmetric, symmetric 2+ PT/DP pulses. A/P: s/p cath with benign appearing right femoral access site and no issues Jayleen Lewis MD (PGY-2) M1 Night Float 12/30/2013 * Josh Williamson - 12/29/2013 10:08 PM EDT Cardiology Admission H&P Patient Name: Jacob Allen Date of : 1940 Age: 73 y.o. Hospital Admit Date: 12/29/2013 Inpatient Attending: Nikko Andrew MD PCP: YVONNE WILLS MD Presenting Diagnosis/Chief Complaint: Chest pain Active Problem List: # Lateral STEMI-> BMS to pD1 (95% D1 lesion w/ thrombus) History of Present Illness: HPI This is a 73 yo male patient who has not sought medical care for almost 20 years, presented to [facility] with acute chest pain. The patient began to cut fire wood yesterday and noticed that he was more fatigued than usual. He attributed this at the time to deconditioning. This morning he developed some mild chest heaviness which went away with rest. He had not furtherpains until about 5 Pm when he was eating dinner. He developed acute sudden substernal CP radiatingto both arms with associated SOB. He was nauseous and felt bloated. After walking around and resting for an hour and no resolution of his symptoms, he drove himself to the ED for evaluation. On arrival, the patient was found to have a large lateral STEMI. He was given ASA, 300 mg of Plavix, a heparin bolus, and full dose TNK. For his HR and BP he was given lopressor 5 mg IV as well. The patient'schest pain was managed in th ED with nitro. His transportation was delayed slightly because [facility] was unavailable. On arrival to the laboratory tech, the patient had persistent chest pain despite nitro. Thepatient consented for cardiac cath, and a proximal D1 high grade lesion was identified and stented with a bare metal stent. The chest pain improved after the procedure. In the CCU, the patient is currently pain free and feeling well. Past Medical History: Past Medical History Diagnosis Date ??? ST elevation myocardial infarction (STEMI) of lateral wall 12/29/2013 Presented to [facility] w/ 4-5mm JES Rec'd lytics prior to transfer ??? Depression 12/29/2013 Surgical History/Problems: No past surgical history on file. Significant Family History: Family History Problem Relation Age of Onset ??? Rectal Cancer Father ??? Myocardial Infarction Mother ??? Heart Disease Paternal Uncle Social History: History Social History ??? Marital Status: Single Spouse Name: N/A Number of Children: N/A ??? Years of Education: N/A Occupational History ??? 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 Smoking status: Former Smoker -- 0.5 packs/day for 15 years Types: Cigarettes Quit date: 09/08/1993 ??? Smokeless tobacco: Not on file Comment: Patient smoked a pipe for 20 more years after quitting cigarettes ??? Alcohol Use: No ??? Drug Use: No ??? Sexually Active: Not on file Other Topics Concern ??? Not on file Social History Narrative Patient lives alone; His brother and sister are his closest living relatives REVIEW OF SYSTEMS: Review of Systems Constitutional: Positive for fatigue. Negative for fever and chills. HENT: Positive for neck pain. Negative for congestion and drooling. Eyes: Negative for pain and visual disturbance. Respiratory: Positive for shortness of breath. Negative for cough. Cardiovascular: Positive for chest pain. Negative for palpitations and leg swelling. Gastrointestinal: Positive for nausea. Negative for vomiting, abdominal pain, diarrhea, constipation and anal bleeding. Genitourinary: Negative for dysuria and urgency. Musculoskeletal: Positive for back pain and arthralgias. Skin: Negative for pallor and rash. Neurological: Positive for weakness. Negative for dizziness, light-headedness and headaches. Psychiatric/Behavioral: Negative for confusion. The patient is not nervous/anxious. Medications: No prescriptions prior to admission Allergies: No Known Allergies PHYSICAL EXAM: Last set of vital signs: BP 146/89 Pulse 63 Temp 36.6 ??C (97.9 ??F) Resp 20 Wt 79.6 kg (175 lb 7.8 oz) SpO2 99% Physical Exam Constitutional: He is oriented to person, place, and time. No distress. Disheveled appearing male patient, unkempt with poor dentition; Pt is talkative and has some tangential thinking; otherwise cooperative HENT: Head: Normocephalic and atraumatic. Mouth/Throat: Oropharynx is clear and moist. Dried blood at both nares- no active bleeding Eyes: Conjunctivae normal and EOM are normal. Pupils are equal, round, and reactive to light. Righteye exhibits no discharge. Left eye exhibits no discharge. No scleral icterus. Neck: Normal range of motion. Neck supple. No JVD present. Cardiovascular: Normal rate, regular rhythm and intact distal pulses. Frequent extrasystoles are present. Exam reveals no gallop and no friction rub. No murmur heard. Access site is C/D/I- no hematoma Pulmonary/Chest: Effort normal and breath sounds normal. He has no wheezes. He has no rales. Abdominal: Soft. Bowel sounds are normal. He exhibits no distension. There is no tenderness. There is no guarding. Musculoskeletal: Normal range of motion. He exhibits no edema and no tenderness. Neurological: He is alert and oriented to person, place, and time. No cranial nerve deficit. He exhibits normal muscle tone. Coordination normal. Skin: Skin is warm and dry. No rash noted. He is not diaphoretic. No erythema. Psychiatric: He has a normal mood and affect. Judgment normal. His speech is tangential. Diagnostics: # ECG 19:37: 3-[address] elevations in leads I and aVL; ST depressions in leads II, III and aVF; ST elevations in V2; ST depressions V1 and V3 # Cath: -Mild diffuse disease -90% D1 lesion-> BMS x 1 -LVEP= 24 LABS: # [facility] labs: Na 139, K 4.4, Cl 103, CO2 27, BUN 24, Paper Slitter 1.5, Ca 9.8, Mg 2.3 Trop 0.89 INR 1.1 WBC 10.8, hgb 16, Hct 47.1, Plat 202 ASSESSMENT: 73 yo male patient presenting with a lateral STEMI found to have a 90% D1 high grade lesion suspicious for thrombus and received PCI s/p lytic therapy. The patient is currently HD stable with varyingectopy on telemetry. His HR and BP have room for better double product control. His personality is such, that patient education about medical therapies post-MT is of special emphasis. The patient will be monitored in the CCU overnight. LVEDP is high, so assessment of pulmonary edema important if the patient has increased work of breathing. TREATMENT PLAN: # STEMI: -Admit to CCU -ASA -Plavix 75 daily -Titrate Metoprolol for improved double product control -Post-cath check with emphasis on fluid status (LVEDP was 24) -TTE in AM -Trend enzymes to peak -Statin -Call fellow with questions Provider: JOSH WILLIAMSON MD Provider #: [id number] 12/29/2013 documented in this encounter H&P Notes * Nikko Andrew MD - 12/29/2013 10:35 PM EDT Inpatient Cardiology- Admission Note Patient Name: Jacob Allen Patient Age: 73 y.o. Admit date: 12/29/2013 Attending Physician: Nikko Andrew MD Problem List: Active Hospital Problems Diagnosis ??? Dyslipidemia ??? Depression Resolved Hospital Problems Diagnosis Date Resolved No resolved problems to display. PCP: YVONNE WILLS MD History of Present Illness (obtained from patient, OSH records): 73M w/o medical conditions (but who hasn't seen a doctor in 20y), here on Trx from [facility] for STEMI alert and was taken directly to cath. Feeling in [facility] until Friday when tired (napped the afternoon). AM while splitting wood, noticed mild non-radiating heavy weight CP in middle of chest that lasted 1.5h. No associated sx. After supper, pain returned more severe (now 8/10) and radiating to b/l inner upper arms (not to jaw/neck/back) and was a little SOB. Rest didn't improve the pain. Thought he needed to burp. Never pain like this before. The pain is not tearing and does not radiatedthrough to the back. The pain is not respirophasic/pleuritic or related to position/coughing/swallowing. Denies associated sx including LH, N/V, sweating/flushing, palpitations. Denies BRAVO,PND, orthopnea, whz, cough, wt gain, increased belly girth, incr'd belt size, swelling. Not recently sick. OSH Data -Initial VS: 35.9, 51, 121/72, 18, 99% (no O2 given) -Labs: Trop-I 0.89 (ULN 0.06) Chem 139/4.4/103/27/24/1.5; Mg 2.3 (ULN 2.4) CBC: 10.9 (82% pmn), 16, 202 -EKG: STEMI (see below) -Therapy: TNK 40mg, plavix 300, full dose ASA, hep bolus/gtt, NTG (SL then gtt), morphine Cath (see full report below): 90% prox Diag1 lesion w/ BMS placed. Post-cath (during my interview), he notes 5/10 pain that is both heavy (similar to before) but is now sharp w/ inspiration. He no longer has b/l arm pains. Review of Systems (positives bold/underlined): Constitutional: appetite change, fatigue, fevers, chills HEENT: visual changes, dysphagia, odynophagia,hearing problems. Respiratory: cough, wheeze, shortness of breath. Cardiovascular: chest pain, paroxysmal nocturnal dyspnea, dyspnea on exertion, orthopnea, palpitations, leg swelling, calf cramping (when in bed and sometimes w/ walking) Gastrointestinal: heartburn, abdominal pain, nausea, vomitting, diarrhea, constipation, blood in stool, melena. Genitourinary: dysuria, frequency Skin: rash. Muskuloskeletal: arthralgia Neurological: headaches, dizziness, lightheadedness, tingling, numbness, weakness, Hematological: adenopathy, easy bruising. Past Medical and Surgical History: Past Medical History Diagnosis Date ??? ST elevation myocardial infarction (STEMI) of lateral wall 12/29/2013 Presented to [facility] w/ 4-5mm JES Rec'd lytics prior to transfer ??? Depression 12/29/2013 ??? Dyslipidemia 12/30/2013 Trialed mevachor in 1993 for lipids No past surgical history on file. Prior To Admission Medications: No prescriptions prior to admission Allergies: No Known Allergies Family History: No early MT (mother=age 66) Family History Problem Relation Age of Onset ??? Rectal Cancer Father ??? Myocardial Infarction Mother ??? 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 Snow shoes during the winter Physical Exam: Last Set of Vitals and range of vitals over past 24 hours: Last value Range last 24 hrs Temperature Temp: 36.6 ??C (97.9 ??F) Heart Rate Heart Rate: 68 Heart Rate: [58-83] Blood Pressure BP: 147/96 mmHg BP: (134-153)/(88-96) Respiratory Rate Resp: 15 Resp: [13-20] SpO2 SpO2: 98 % SpO2: [98 %-99 %] Tele: variable QRS w/ premature beats Gen: NAD, stated age, NC in place HEENT: dried blood on lips, poor dentition w/ many fillings, fresh blood L upper canines, OP clear,dry mucus membranes, neck supple, no carotid bruits, CVP within normal limits, equal 2+ carotids CV: Mayito/regular then multiple fib-type beats, loud corduroy-zipping decrescendo systomic rub throughout precordium (loudest at LLSB) Pulm: Normal respiratory effort, speaking normally, clear to auscultation laterally, no rales/rhonchi/wheezes Thorax: slight upper sternal tenderness to palpation, no tenderness w/ lateral wall compression Abd: Non-distended, normal bowel sounds in all 4 quadrants, soft, non-tender, no masses, no guarding Ext: equal coloration, no pedal edema, 2+ radial/DP pulses, equal warmth, no hematoma in groin Skin: dirty hands/feet, Warm, dry, no rash/livedo Neuro: -alert, appropriate, oriented -sensation to light touch equal/symmetric U/L limbs Laboratory (Last 24 Hours): Trop 10 WBC 8.8 Chem: 130*/4.5/102/22/21/1.1/8.4 Studies: -OSH EKG - sinus mayito (HR 57), 4mm JES in I/aVL; 2mm JES V2, 2mm ST II, 5mm STD III, 3mm STD avF, 1mm STD aVR, 1mm STD in V1/V3-V6; no TWI -post-cath EKG - AV-dissoc (HR 96); wide QRS (146), RBBB, persistent 3mm JES in I/aVL, persistent STD in II/III/aVF; Cath - Right dominant LV-gram 50% Ant-base: nl, Ant-lat: severe hypokinesis, Cropsey-mild hypokinesis, mid: nl, inf- base: nl LM: mild diffuse LAD: mild-diffuse w/ 90% hazy diffuse stenosis of prox Diag1 LCx: mild-diffuse disease RCA: mild-diffuse disease Mini Vision RX (BMS) to prox diag-1 Assessment/Plan 73M w/o medical conditions (but who hasn't seen a doctor in 20y), here w/ lateral STEMI d/t Diag-1 lesion (s/p BMSx1). His symptomatic presentation is c/w an ACS w/ elevated trop (MT) and profound lateral JES's. His lesion in the diag- 1, however, isn't the typical site for his JES's. I wonder what we'll find when we eval for underlying modifiable RF's (BP, lipids, sugars) as his only otherwise RF's are unmodifiable age/sex (since he quit smoking 20y ago). I'm interestested to see his TTE with his profound rub indicative of early onset post-MT pericarditis that we'll treat w/ high-dose ASA. He's got a lot of electrical instability (variable QRS w/ premature beats) that needs beta- blockade despite lower HR's. His BP is up and will need to be controlled (likely NTG gtt vs ACEi). #lateral STEMI w/ near total diag-1 disease and early-onset post-MT pericarditis -CV[facility]U status -Eval -CXR -TTE - ECG CP protocol & daily - Cycle daily - HbA1c, fasting lipid panel - Telemetry -Tx -Plavix 75mg daily -ASA 975mg q8h (for pericarditis) -metoprolol tartrate 12.5mg PO q6h w/ titration for MT double-prodcuction control -NTG for BP control -initiate atorvastatin 80mg PO daily -nitro sublingual PRN for chest pain -initiate ACEi post-cath as tolerated FEN/PPX: -DVT: holding for now, HSQ in 24h -FEN/Diet: cont cath IVF, replace K/Mg for goal 12/07 -Access: PIV -Code Status: Full Code. -DISPO: to CVCCU now -Proxy: Joseanurag Allen (home [phone]; cell [phone]) JAYLEEN LEWIS MD M1 NF - Admitting to S1 (team pager [phone] 24h/d) 12/30/2013 Cardiology Attending I have seen and examined Jacob Allen, discussed the clinical situation and plans on rounds, and agree with the details above. He is comfortable, pleuritic chest pain essentially totally resolvedand I do not hear a rub this morning. Nikko Andrew MD, FACP, FACC documented in this encounter Procedure Notes * Provider, Scanning - 01/04/2014 11:39 AM EDTAssociated Order(s): CARDIAC CATHETERIZATION * Provider, Scanning - 01/03/2014 11:19 AM EDTAssociated Order(s): SCAN DOC: HAND DRAWER IN * Provider, Scanning - 12/29/2013 10:58 PM EDTAssociated Order(s): CARDIAC CATHETERIZATION documented in this encounter Miscellaneous Notes * Miscellaneous - Provider, Scanning - 01/03/2014 11:19 AM EDT * Discharge Summary - Jeffrey Gonzalez MD - 01/01/2014 1:25 PM EDT Discharge Summary Patient Name: Jacob Allen Patient Age: 73 y.o. Language: Cymro Race: White Ethnicity: Not nor Admit date: 12/29/2013 Discharge date and time: 01/02/2014, 12:00 PM Attending Physician: Jeffrey Gonzalez MD Discharge Physician: Dr. Telly Rizvi Follow-up Recommendations for Providers: -Patient experienced asymptomatic bradycardia during his post-STEMI hospitalization course. Beta-blockade with metoprolol was discontinued in response and he was not prescribed a beta-silverio on discharge due to this relative contraindication. Please assess patient heart rate and blood pressure at follow-up and determine if addition of beta-blockade to his regimen would be tolerated. -Mr. Allen has been out of contact with regular medical care for many years prior to this hospitalization. Please follow closely to insure adherence to his prescribed discharge medications. -Check a basic metabolic panel at follow-up to investigate renal function (was trending towards hisbaseline at discharge following slight rise in creatinine attributed to contrast exposure). Inpatient Provider Contact Information: Inpatient Team: Cardiology S1 Cardiology Attendings: Dr. Jeffrey Gonzalez, Dr. Nikko Andrew For questions regarding this document or issues relating to this hospitalization on the Medical Service, please contact your inpatient physician through the [facility] Public Relations Analyst . Issues afterhours and on weekends will be handled by the Hospitalist staff on-call. Discharge Diagnoses (Hospital Problems) and Secondary Diagnoses (Chronic Problems): Active Hospital Problems Diagnosis ??? Dyslipidemia ??? Depression Resolved Hospital Problems Diagnosis Date Resolved No resolved problems to display. Active Non-Hospital Problems Diagnosis ??? ST elevation myocardial infarction (STEMI) of lateral wall Operations/Major Procedures: Operations: Procedure(s): CARDIAC CATHETERIZATION 12/29/2013 Other Major Procedures: None History of Presentation: (per Admission History & Physical) Mr. Allen is a 73 year old male without documented medical conditions (but who hasn't seen a doctor in 20y), presenting in transfer from [facility] for STEMI alert and was taken directly to cath.Feeling in [facility] until Friday when tired (napped the afternoon). AM while splitting wood, noticed mild non- radiating heavy weight CP in middle of chest that lasted 1.5h. No associated sx. After supper, pain returned more severe (now 8/10) and radiating to b/l inner upper arms (not to jaw/neck/back) and was a little SOB. Rest didn't improve the pain. Thought he needed to burp. Never painlike this before. The pain is not tearing and does not radiated through to the back. The pain is not respirophasic/pleuritic or related to position/coughing/swallowing. Denies associated sx includingLH, N/V, sweating/flushing, palpitations. Denies BRAVO,PND, orthopnea, whz, cough, wt gain, increasedbelly girth, incr'd belt size, swelling. Not recently sick. OSH Data -Initial VS: 35.9, 51, 121/72, 18, 99% (no O2 given) -Labs: Trop-I 0.89 (ULN 0.06) Chem 139/4.4/103/27/24/1.5; Mg 2.3 (ULN 2.4) CBC: 10.9 (82% pmn), 16, 202 -EKG: STEMI (see below) -Therapy: TNK 40mg, plavix 300, full dose ASA, hep bolus/gtt, NTG (SL then gtt), morphine Cath (see full report below): 90% prox Diag1 lesion w/ BMS placed. Post-cath (during my interview), he notes 5/10 pain that is both heavy (similar to before) but is now sharp w/ inspiration. He no longer has b/l arm pains. Hospital Course: Mr. Allen was admitted on 12/29/2013 with the above presentation. During the course of his hospitalization his medical issues were identified and managed as follows. # STEMI with Diag1 Lesion Mr. Allen was admitted directly to the laboratory tech in transfer from [facility] as a STEMI alert with classic anginal chest pain, elevated troponin and ST-elevations in I/aVL and V2 and ST-depressions in II/III/aVF, V1 and V3-V6. He had a BMS x1 placed to the Diagonal 1 branch of the LAD. Following cardiac catheterization he was moved to the CVCC for close post-MT monitoring, and subsequently to the floor. He remained stable during his hospitalization and was started on routine post-MT medications, including ASA 81mg daily, clopidogrel 75mg daily, metoprolol (titrated as appropriate), high dose atorvastatin and lisinopril. He demonstrated a slight increase in his creatinine (from 1.2-1.6) about 48 hours out from the catheterization procedure, likely representing a mild contrast induced nephropathy. This resolved prior to discharge. Outpatient follow up was arranged with a primary care physician and belt operator local to him. He was referred to cardiac rehab as well. # Bradycardia Low dose beta-blockade was started following cardiac catheterization. Initial dose was 12.5 mg metoprolol tartrate every 6 hours. Several doses were held for HR < 55 bpm. Mr. Allen was asymptomatic with these episodes. While resting at night, heart rates as low as 26 beats per minutes were observed on the evening of 01/01-01/02. While awake and active he was hemodynamically stable with a normotensive blood pressure. Metoprolol was discontinued on the morning of discharge for this asymptomaticbradycardia. # Post-MT Pericarditis, transient Mr. Allen experience some mild post-MT pleuritic and positional chest pain, accompanied by a rub on exam. He was treated with high dose aspirin for about 36 hours, during which point his pain and his rub completely resolved. He was without chest pain for 48 hours prior to discharge, and thus was discharged on a stand aspirin 81mg daily. Vital Signs at Discharge: BP: 104/69 mmHg, Heart Rate: 97 , Temp: 36.7 ??C (98.1 ??F), Resp: 18 , Weight - Scale: 78.2 kg (172 lb 6.4 oz) (01/02/14 0651) Functional and Cognitive Status: Ambulatory and independent in activities of daily living. Was alert oriented, and participated meaningfully in decisions about his health care while an inpatient. Thought process occasionally circuitous but cognitively intact. Important Studies and Lab Data: Labs: Recent Labs Basename 01/02/1444701/01/140 12/31/13 0351 WBC 7.1 7.0 9.4 HGB 15.0 14.2 13.5* HCT 45.4 43.5 42.0 PLATELET 178 160 166 No results found for this basename: INR:3 in the last 168 hours Recent Labs Basename 01/02/1444701/01/14 0340 12/31/13 0351 NA 137 138 137 K 4.5 4.3 4.4 CL 106 106 105 CO2 21* 21* 22 BUN 24* 28* 28* CREATININE 1.28 1.40 1.65* Recent Labs Basename 12/30/13 0655 AST 176* ALT 20 ALKPHOS 85 BILITOT 0.8 BILIDIR 0.1 Recent Labs Basename 01/02/1444701/01/14 0340 12/31/13 0351 CALCIUM 9.6 9.5 9.8 MAGNESIUM 0.95 0.96 0.98 PHOS -- -- -- Recent Labs Basename 01/02/1444701/01/14 0340 12/31/13 0351 CK 171 394* 850* TROPONINT 4.00* 4.89* 7.90* Recent Labs Basename 12/30/13 0655 HA1C 5.5 Lab Results Component Value Date CHLPL 187 12/30/2013 HDL 32* 12/30/2013 CHOLHDL 5.8 12/30/2013 TRIG 92 12/30/2013 LDLDIRECT 147* 12/30/2013 Studies: Cardiovascular Studies: Cardiac Catheterization: -LVEDP 24 -Ventriculography 50%, severe hypokinesis of anterolateral wall -Vessels >Left Main- mild diffuse disease >LAD- mild diffuse disease, 90% diffuse stenosis of Diag 1 >LCX- mild diffuse disease > RCA- mild diffuse disease Intervention >BMS (2.50 x 08mm Mini Vision RX) to Diag 1 TTE (12/30/2013): SUMMARY: 1. Global left ventricular systolic function is mildly reduced. Ejection fraction is estimated to be 50%. There are left ventricular segmental wall motion abnormalities present, as shown in the diagram below. 2. Right ventricular chamber size, wall thickness, and systolic function are within normal limits. 3. There is no hemodynamically significant valve disease. 4. See remainder of report for additional findings. Base-Anteroseptal Normal Base-Anterior Normal Base-Anterolateral Normal Base-Posterolateral Normal Base-Inferior Normal Base-Inferoseptal Normal Mid-Anteroseptal Normal Mid-Anterior Akinetic Mid-Anterolateral Hypokinetic Mid-Posterolateral Normal Mid-Inferior Normal Mid-Inferoseptal Normal Cropsey-Septal Normal Cropsey-Anterior Hypokinetic Cropsey-Lateral Akinetic Cropsey-Inferior Normal Cropsey-Tip Normal Pending Studies and Lab Data: None Discharge Conditions/Prognosis: Stable/good prognosis with medication adherence Discharge to: home Updated Allergies/ADRs: No Known Allergies Immunizations Given this Hospitalization: There is no immunization history on file for this patient. Discharge Medications: Your Medications As of 01/02/2014 10:54 AM New Medications Dose Details aspirin 81 mg EC tablet Take 1 tablet by mouth daily. 81 mg Quantity: 30 tablet Refills: 12 atorvastatin 80 mg tablet Commonly known as: LIPITOR Take 1 tablet by mouth every evening. 80 mg Quantity: 30 tablet Refills: 12 clopidogrel 75 mg tablet Commonly known as: PLAVIX Take 1 tablet by mouth daily. 75 mg Quantity: 30 tablet Refills: 12 lisinopril 5 mg tablet Commonly known as: PRINIVIL;ZESTRIL Take 1 tablet by mouth daily. 5 mg Quantity: 30 tablet Refills: 12 nitroGLYcerin 0.4 mg SL tablet Commonly known as: NITROSTAT Place 1 tablet under the tongue daily as needed for Chest pain. 0.4 mg Quantity: 90 tablet Refills: 3 Smoking Status at Discharge: History Smoking status ??? Former Smoker -- 0.5 packs/day for 15 years ??? Types: Cigarettes ??? Quit date: 09/08/1993 Smokeless tobacco ??? Not on file Comment: Patient smoked a pipe for 20 more years (quit 1993) after quitting cigarettes Instructions Given to Patient at Discharge: Provider Instructions Why you were hospitalized: You were admitted with signs and symptoms indicative of a heart attack or a myocardial infarction. Call your doctor or report to the [...] department. The importance of your medications: 1. Lisinopril, an EMILY inhibitor, lowers your blood pressure, is anti- inflammatory, and prevents remodeling and dilation of the parrish of your heart. >Take lisinopril 5mg by mouth once per day 2. Atorvastatin, a statin, is a lipid-lowering drug. It is also anti- inflammatory and studies show intensive lipid lowering therapy decreases the rate of myocardial events after a heart attack. >Take atorvastatin 80mg by mouth once each night 3. Aspirin, an anti-platelet drug, is protective against future thrombus formation, especially in the stent. >Take aspirin 81mg by mouth once per day (baby aspirin) 4. Plavix or clopidogrel, is also an anti-platelet drug, is protective against future thrombus formation, especially in the stent. >Take clopidogrel 75mg by mouth once per day 4. Sublingual Nitroglycerine, an anti-anginal medication, is to be used only if you have recurrent chest pain; if you use this med, SEEK MEDICAL ATTENTION FOLLOW-UP APPOINTMENTS: Primary care provider- Primary Care-01/07/2014 at 1:00 PM with Kelly Jackson APRN (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 Watkins at [facility] ([facility]) We will fax a copy of your discharge summary to [phone] for PCP, for [phone] Return to Work: You were hospitalized for [...] permission from your physician. General Instructions None Future Appointments and Orders Future Orders Please Complete By Expires Referral to Cardiac Rehab [[id number] Custom] Process Instructions: If no progress note charted, please enter Clinical details in comments. Scheduling Instructions: Comments: Cardiac rehab @ [facility] Questions: Responses: Reason for referral MT, stent Discharge References/Attachments None CARDIOLOGY ATTENDING DISCHARGE NOTE Patient seen and examined by me and discussed with Dr. Rizvi. Please see his/her note which reflects my findings and our plan. 73 yo male admitted in emergency (Dec) with STEMI treated with PCI-Stent (Bare Metal) With good angiographic result. Echo (Dec) demonstrated well preserved LV Systolic function (EF ~50%) Course has been complicated by pericarditis (which has resolved). Otherwise has done well without signs of Left or Right Ventricular failure. Patient was evaluated by rehab and has been ambulating without difficulty. Patient discharged to home on regimen with includes ASA, Thienopyridine, Statin, and ACEi. Meds have been selected based on 1 a day and availability in generic formulation. Jeffrey Gonzalez M.D., F.A.CRoseyC. head of history (Cardiology) * Consult Note - Dayana Herirng RN - 12/31/2013 1:13 PM EDT Cardiac Rehabilitation Inpatient Evaluation Primary Cardiac Diagnosis: STEMI, s/p D1 stent, pericarditis Cardiac Risk Factors: Smoking: no Overweight: no Hyperlipidemia: yes Sedentary: no HTN: no Family history: no DM: no Stress: some Patient Education: Reviewed cardiac cath findings, implications of coronary artery disease, managing angina and risk factor modification. Heart healthy diet guidelines briefly reviewed. He eats mostly canned soups,veggies, frozen dinners and highly processed foods. Given parameters for home exercise. he is very active working in [employer], maintaining his home, etc. Phase II Referral: [facility] Activity Summary: By discharge, patient will be able to perform self care, walk 5-7 minutes and go up and down stairs without signs or symptoms of ischemia. Date /Initials Baseline Response Symptoms/Comments 12/31/13 Activity HR 57 kingsley well 5-6walk BP 115/68 125/66 13 stairs O2 Sat 96 97 ECG nsr nsr * Miscellaneous - Provider, Scanning - 12/30/2013 1:43 PM EDT * Miscellaneous - Provider, Scanning - 12/30/2013 1:43 PM EDT documented in this encounter Plan of Treatment Scheduled Referrals Name Type Priority Associated Diagnoses Orde r Schedule Referral to Cardiac Rehab Outpatient Referral Routine ST elevation myocardial infarction (STEMI) of lateral wall Ordered: 01/02/2014 documented as of this encounter Procedures Procedure Name Priority Date/Time Associated Diagnosis Comments HAND DRAWER IN SCAN 08/20/2017 12:00 AM EST HAND DRAWER IN SCAN 01/03/2014 11:19 AM EDT EKG 12-LEAD Routine 01/02/2014 7:[address] elevation myocardial infarction (STEMI) of lateral wall DIFFERENTIAL, AUTOMATED Routine 01/03/20 14 4:48 AM EDT CARDIAC ENZYMES ([facility]) Routine 01/02/2014 4:48 AM EDT CBC (WITH DIFF) Routine 01/02/2014 4:48 AM EDT MAGNESIUM Routine 01/02/2014 4:48 AM EDT BASIC METABOLIC PANEL (NON-FASTING) Routine 01/02/2014 4:48 AM EDT EKG 12-LEAD Routine 01/01/2014 8:[address] elevation myocardial infarction (STEMI) of lateral wall DIFFERENTIAL, AUTOMATED Routine 01/02/20 14 3:40 AM EDT CARDIAC ENZYMES ([facility]) Routine 01/01/2014 3:40 AM EDT CBC (WITH DIFF) Routine 01/01/2014 3:40 AM EDT MAGNESIUM Routine 01/01/2014 3:40 AM EDT BASIC METABOLIC PANEL (NON-FASTING) Routine 01/01/2014 3:40 AM EDT XR CHEST PA AND LATERAL Routine 01/01/20 14 9:13 AM EDT DIFFERENTIAL, AUTOMATED Routine 01/01/20 14 3:51 AM EDT CARDIAC ENZYMES ([facility]) Routine 12/31/2013 3:51 AM EDT CBC (WITH DIFF) Routine 12/31/2013 3:51 AM EDT MAGNESIUM Routine 12/31/2013 3:51 AM EDT BASIC METABOLIC PANEL (NON-FASTING) Routine 12/31/2013 3:51 AM EDT BASIC METABOLIC PANEL (NON-FASTING) Routine 12/30/2013 1:41 PM EDT ECHOCARDIOGRAM TRANSTHORACIC Routine 12/30/2013 11:[address] elevation myocardial infarction (STEMI) of lateral wall BMP W/FASTING GLUCOSE Routine 12/30/2013 6:55 AM EDT DIFFERENTIAL, AUTOMATED Routine 12/31/19 14 6:55 AM EDT CARDIAC ENZYMES ([facility]) Routine 12/30/2013 6:55 AM EDT CBC (WITH DIFF) Routine 12/30/2013 6:55 AM EDT TRIGLYCERIDE Routine 12/30/2013 6:55 AM EDT MAGNESIUM Routine 12/30/2013 6:55 AM EDT LDL CHOLESTEROL, DIRECT Routine 12/31/19 14 6:55 AM EDT HDL/CHOL PROFILE Routine 12/30/2013 6:55 AM EDT HEMOGLOBIN A1C Routine 12/30/2013 6:55 AM EDT HEPATIC FUNCTION PANEL Routine 4 6:55 AM EDT EKG 12-LEAD Routine 12/29/2013 11:[address] elevation myocardial infarction (STEMI) of lateral wall GREEN TUBE HOLD STAT 12/29/2013 10:50 PM EDT CARDIAC ENZYMES ([facility]) STAT 12/29/2013 10:50 PM EDT WBC Routine 12/29/2013 10:50 PM EDT MAGNESIUM STAT 12/29/2013 10:50 PM EDT BASIC METABOLIC PANEL (NON-FASTING) Routine 12/29/2013 10:50 PM EDT CARDIAC CATHETERIZATION Routine 12/30/19 14 10:42 PM EDT POCT GLUCOSE Routine 12/29/2013 10:15 PM EDT documented in this encounter Results * SCAN DOC: HAND DRAWER IN (08/20/2017 12:00 AM EST) Anatomical Region Laterality Modality Other Narrative 08/20/2017 12:00 AM EST Ordered by an unspecified provider. Scanning Provider MEDIA MGR SCAN EXT O RDR/RSLT * SCAN DOC: HAND DRAWER IN (01/03/2014 11:19 AM EDT) Anatomical Region Laterality Modality Other Narrative 01/03/2014 11:31 AM EDT Procedure Note Provider, Scanning - 01/03/2014 11:19 AM EDT Scanning Provider MEDIA MGR SCAN EXT O RDR/RSLT * EKG 12 Lead (01/02/2014 7:36 AM EDT) Ventricular rate 46 BPM MUSE SYSTEM Atrial Rate 46 BPM MUSE SYSTEM P-R Interval 164 ms MUSE SYSTEM QRS Duration 92 ms MUSE SYSTEM Q-T Interval 390 ms MUSE SYSTEM QTC Calculated (Bezet) 341 ms MUSE SYSTEM Calculated P Fairburn 48 degrees MUSE SYSTEM Calculated R Fairburn 76 degrees MUSE SYSTEM Calculated T Fairburn 96 degrees MUSE SYSTEM INTERPRETATION Marked sinus bradycardia Nonspecific T wave abnormality Consider Septal infarct Abnormal ECG Confirmed by MD JASON, BHAVANA ([id number]) on 01/02/2014 3:48:09 PM MUSE SYSTEM 01/02/2014 7:36 AM EDT 01/02/2014 3:48 PM EDT Nikko Andrew MD ECG ORDERABLES MUSE SYSTEM * (ABNORMAL) Differential, Automated (01/02/2014 4:48 AM EDT) Neutrophils % 69.3 34.0 - 71.0 % CERNER MILLENNIUM Neutr Abs (ANC) 4.94 1.50 - 6.30 x10(3)/mc L CERNER MILLENNIUM Lymphocytes % 16.5(L) 19.0 - 53.0 % CERNER MILLENNIUM Lymphocytes Abs 1.2 1.0 - 3.6 x10(3)/mc L CERNER MILLENNIUM Monocytes % 10.2 4.0 - 13.0 % CERNER MILLENNIUM Monocyte Abs 0.7 0.2 - 1.0 x10(3)/mc L CERNER MILLENNIUM Eosinophils % 3.5 0.0 - 7.0 % CERNER MILLENNIUM Eosinophils Abs 0.2 0.0 - 0.5 x10(3)/mc L CERNER MILLENNIUM Basophils % 0.4 0.0 - 2.0 % CERNER MILLENNIUM Basophils Abs 0.0 0.0 - 0.2 x10(3)/mc L CERNER MILLENNIUM Immature Gran % 0.10 0.00 - 0.66 % CERNER MILLENNIUM Comment: Immature granulocytes(IG's)percentage and absolute count will include metamyelocytes, myelocytes, and promyelocytes. Blood smears from CBCs yielding IG's will be scanned manually for concordance. If this scan disagrees with the automated IG or if promyelocytes are noted, a manual differential will be performed. Rebecca Gran Abs 0.01 0.00 - 0.05 x10(3)/mc L CERNER MILLENNIUM Blood specimen (specimen) 01/02/2014 4:48 AM EDT 01/02/2014 5:10 AM EDT Nikko Andrew MD HEMATOLOGY ORDERABLE S [facility] * Magnesium (01/02/2014 4:48 AM EDT) Magnesium 0.95 0.69 - 1.07 mmol/L CERNER MILLENNIUM Blood specimen (specimen) 01/02/2014 4:48 AM EDT 01/02/2014 5:13 AM EDT Narrative Resulting Agency Comment Spec In Lab Nikko Andrew MD CHEMISTRY ORDERABLES CERASN[facility]AY BASSENNIUM * (ABNORMAL) Basic Metabolic Panel (non-fasting) (01/02/2014 4:48 AM EDT) Glucose Lvl 93 60 - 199 mg/dL CERNER MILLENNIUM Comment:Diabetes: >=200 mg/d L plus symptoms BUN 24(H) 10 - 20 mg/dL CERNER MILLENNIUM Creatinine 1.28 0.80 - 1.50 mg/dL CERNER MILLENNIUM Comment: Please note that the pediatric reference intervals supplied above were not validated at [facility]. Results from pediatric patients should be interpreted in conjunction to the patient's age, height and muscle mass. Sodium 137 135 - 145 mmol/L CERNER MILLENNIUM Potassium 4.5 3.5 - 5.0 mmol/L CERNER MILLENNIUM Comment: Please note: ??Patients with WBC >100,000 may have falsely elevated Potassium levels. ??For accurate Potassium quantification in these patients send serum separator tube (gold top) for subsequent determinations. ??Contact the Clinical Chemistry Laboratory if there are any questions. Chloride 106 98 - 107 mmol/L CERNER MILLENNIUM CO2 21(L) 22 - 31 mmol/L CERNER MILLENNIUM Anion Gap 10 5 - 15 mmol/L CERNER MILLENNIUM Calcium 9.6 8.5 - 10.5 mg/dL CERNER MILLENNIUM Estimated GFR 55(L) >=60 CERNER MILLENNIUM Comment: This estimated GFR (eGFR) value was calculated using the MDRD equation which has been validated on patients between the ages of 18 and 70. The MDRD should not be used to assess kidney function in patients < 18 years of age or in patients with extremes of body mass, or in patients with acute kidney failure. This value should be multiplied by 1.2 for patients. For further information please copy and paste the following links into your internet browser. http://www.nkdep.nih.gov/lab-evaluation.shtml http://www.kidney.org/professionals/ Blood specimen (specimen) 01/02/2014 4:48 AM EDT 01/02/2014 5:13 AM EDT Narrative Resulting Agency Comment Spec In Lab Nikko Andrew MD CHEMISTRY ORDERABLES Performing Organization Address City/[facility]/ZIP Co de Phone Number REHANA BASSXAVIIUM * CBC (with Diff) (01/02/2014 4:48 AM EDT) WBC 7.1 4.0 - 10.0 x10(3)/mcL CERNER MILLENNIUM RBC 5.24 4.63 - 6.08 x10(6)/mcL CERNER MILLENNIUM Hemoglobin 15.0 13.7 - 17.5 gm/dL CERNER MILLENNIUM Hematocrit 45.4 40.0 - 51.0 % CERNER MILLENNIUM MCV 86.6 79.0 - 92.0 fL CERNER MILLENNIUM MCH 28.6 25.6 - 32.2 pg CERNER MILLENNIUM MCHC 33.0 32.0 - 36.5 gm/dL CERNER MILLENNIUM Platelets 178 145 - 370 x10(3)/mcL CERNER MILLENNIUM RDWSD 42.5 35.0 - 46.0 fL CERNER MILLENNIUM RDWCV 13.4 10.9 - 14.4 % CERNER MILLENNIUM MPV 10.8 9.0 - 12.0 fL CERNER MILLENNIUM Blood specimen (specimen) 01/02/2014 4:48 AM EDT 01/02/2014 5:10 AM EDT Narrative Resulting Agency Comment Spec In Lab Nikko Andrew MD HEMATOLOGY ORDERABLE S REHANA BASSXAVIRAVI * (ABNORMAL) Cardiac Enzymes (01/02/2014 4:48 AM EDT) Troponin-T 4.00(H) <=0.03 ng/mL REHANA ARCEO Comment: 0.03 ng/mL: Represents the 99th percentile upper reference limit for normals. >0.03 ng/mL: Elevated cardiac troponin T level indicative of myocardial damage. Diagnosis of acute, evolving or recent MT requires a typical rise and gradual fall of cTnT with at least ONE of the following: a) Ischemic symptoms b) Development of pathologic Q waves on the ECG c) ECG changes indicative of eschemia (S-T segment elevation/depression) d) Coronary artery intervention Serial bloods should be obtained for testing on admission, at 6 to 9 hrs and again at 12 to 24 hrs if earlier samples are negative and the clinical index of suspicion is high. Reference: [Myocardial infarction redefined? a consensus document of the Joint Society of Cardiology/[place] College of Cardiology Committee for the redefinition of myocardial infarction. ??Journal of the [place] College of Cardiology 2000; 36: 959-969] CK, Total 171 0 - 200 unit/L [facility] TUCSONSANJAY ARCEO Blood specimen (specimen) 01/02/2014 4:48 AM EDT 01/02/2014 5:13 AM EDT Narrative Resulting Agency Comment Spec In Lab Nikko Andrew MD CHEMISTRY ORDERABLES REHANA ARCEO * EKG 12 Lead (01/01/2014 8:07 AM EDT) Pathologist [facility] Ventricular rate 54 BPM MUSE SYSTEM Atrial Rate 54 BPM MUSE SYSTEM P-R Interval 158 ms MUSE SYSTEM QRS Duration 90 ms MUSE SYSTEM Q-T Interval 398 ms MUSE SYSTEM QTC Calculated (Bezet) 377 ms MUSE SYSTEM Calculated P Fairburn 54 degrees MUSE SYSTEM Calculated R Fairburn 73 degrees MUSE SYSTEM Calculated T Fairburn 98 degrees MUSE SYSTEM INTERPRETATION Sinus bradycardia Lateral injury pattern Abnormal ECG Confirmed by MD Lopez Douglas ([id number]) on 01/01/2014 10:01:06 AM MUSE SYSTEM 01/01/2014 8:07 AM EDT 01/01/2014 10:01 AM EDT Nikko Andrew MD ECG ORDERABLES MUSE SYSTEM * (ABNORMAL) Differential, Automated (01/01/2014 3:40 AM EDT) Neutrophils % 65.9 34.0 - 71.0 % CERNER MILLENNIUM Neutr Abs (ANC) 4.61 1.50 - 6.30 x10(3)/mc L CERNER MILLENNIUM Lymphocytes % 17.0(L) 19.0 - 53.0 % CERNER MILLENNIUM Lymphocytes Abs 1.2 1.0 - 3.6 x10(3)/mc L CERNER MILLENNIUM Monocytes % 13.7(H) 4.0 - 13.0 % CERNER MILLENNIUM Monocyte Abs 1.0 0.2 - 1.0 x10(3)/mc L CERNER MILLENNIUM Eosinophils % 3.0 0.0 - 7.0 % CERNER MILLENNIUM Eosinophils Abs 0.2 0.0 - 0.5 x10(3)/mc L CERNER MILLENNIUM Basophils % 0.3 0.0 - 2.0 % CERNER MILLENNIUM Basophils Abs 0.0 0.0 - 0.2 x10(3)/mc L CERNER MILLENNIUM Immature Gran % 0.10 0.00 - 0.66 % CERNER MILLENNIUM Comment: Immature granulocytes(IG's)percentage and absolute count will include metamyelocytes, myelocytes, and promyelocytes. Blood smears from CBCs yielding IG's will be scanned manually for concordance. If this scan disagrees with the automated IG or if promyelocytes are noted, a manual differential will be performed. Rebecca Gran Abs 0.01 0.00 - 0.05 x10(3)/mc L CERNER MILLENNIUM Blood specimen (specimen) 01/01/2014 3:40 AM EDT 01/01/2014 3:44 AM EDT Nikko Andrew MD HEMATOLOGY ORDERABLE S CERNER MILLENNIUM * Magnesium (01/01/2014 3:40 AM EDT) Magnesium 0.96 0.69 - 1.07 mmol/L CERNER MILLENNIUM Blood specimen (specimen) 01/01/2014 3:40 AM EDT 01/01/2014 3:44 AM EDT Narrative Resulting Agency Comment Spec In Lab Nikko Andrew MD CHEMISTRY ORDERABLES CERNER MILLENNIUM * (ABNORMAL) Basic Metabolic Panel (non-fasting) (01/01/2014 3:40 AM EDT) Glucose Lvl 91 60 - 199 mg/dL CERNER MILLENNIUM Comment:Diabetes: >=200 mg/d L plus symptoms BUN 28(H) 10 - 20 mg/dL CERNER MILLENNIUM Creatinine 1.40 0.80 - 1.50 mg/dL CERNER MILLENNIUM Comment: Please note that the pediatric reference intervals supplied above were not validated at [facility]. Results from pediatric patients should be interpreted in conjunction to the patient's age, height and muscle mass. Sodium 138 135 - 145 mmol/L CERNER MILLENNIUM Potassium 4.3 3.5 - 5.0 mmol/L CERNER MILLENNIUM Comment: Please note: ??Patients with WBC >100,000 may have falsely elevated Potassium levels. ??For accurate Potassium quantification in these patients send serum separator tube (gold top) for subsequent determinations. ??Contact the Clinical Chemistry Laboratory if there are any questions. Chloride 106 98 - 107 mmol/L CERNER MILLENNIUM CO2 21(L) 22 - 31 mmol/L CERNER MILLENNIUM Anion Gap 11 5 - 15 mmol/L CERNER MILLENNIUM Calcium 9.5 8.5 - 10.5 mg/dL CERNER MILLENNIUM Estimated GFR 50(L) >=60 CERNER MILLENNIUM Comment: This estimated GFR (eGFR) value was calculated using the MDRD equation which has been validated on patients between the ages of 18 and 70. The MDRD should not be used to assess kidney function in patients < 18 years of age or in patients with extremes of body mass, or in patients with acute kidney failure. This value should be multiplied by 1.2 for patients. For further information please copy and paste the following links into your internet browser. http://www.tenKsolar.nih.gov/lab-evaluation.shtml http://www.kidney.org/professionals/ Blood specimen (specimen) 01/01/2014 3:40 AM EDT 01/01/2014 3:44 AM EDT Narrative Resulting Agency Comment Spec In Lab Nikko Andrew MD CHEMISTRY ORDERABLES Performing Organization Address City/[facility] Co de Phone Number CERSANJAY MILLENNIUM * CBC (with Diff) (01/01/2014 3:40 AM EDT) WBC 7.0 4.0 - 10.0 x10(3)/mcL CERNER MILLENNIUM RBC 4.98 4.63 - 6.08 x10(6)/mcL CERNER MILLENNIUM Hemoglobin 14.2 13.7 - 17.5 gm/dL CERNER MILLENNIUM Hematocrit 43.5 40.0 - 51.0 % CERNER MILLENNIUM MCV 87.3 79.0 - 92.0 fL CERNER MILLENNIUM MCH 28.5 25.6 - 32.2 pg CERNER MILLENNIUM MCHC 32.6 32.0 - 36.5 gm/dL CERNER MILLENNIUM Platelets 160 145 - 370 x10(3)/mcL CERNER MILLENNIUM RDWSD 43.3 35.0 - 46.0 fL CERNER MILLENNIUM RDWCV 13.6 10.9 - 14.4 % CERNER MILLENNIUM MPV 10.4 9.0 - 12.0 fL CERNER MILLENNIUM Blood specimen (specimen) 01/01/2014 3:40 AM EDT 01/01/2014 3:44 AM EDT Narrative Resulting Agency Comment Spec In Lab Nikko Andrew MD HEMATOLOGY ORDERABLE S Performing Organization Address City/[facility]/ZIP Co de Phone Number REHANA VALENTINEIUM * (ABNORMAL) Cardiac Enzymes (01/01/2014 3:40 AM EDT) Troponin-T 4.89(H) <=0.03 ng/mL CERNER MILLENNIUM Comment: 0.03 ng/mL: Represents the 99th percentile upper reference limit for normals. >0.03 ng/mL: Elevated cardiac troponin T level indicative of myocardial damage. Diagnosis of acute, evolving or recent MT requires a typical rise and gradual fall of cTnT with at least ONE of the following: a) Ischemic symptoms b) Development of pathologic Q waves on the ECG c) ECG changes indicative of eschemia (S-T segment elevation/depression) d) Coronary artery intervention Serial bloods should be obtained for testing on admission, at 6 to 9 hrs and again at 12 to 24 hrs if earlier samples are negative and the clinical index of suspicion is high. Reference: [Myocardial infarction redefined? a consensus document of the Joint Society of Cardiology/[place] [employer] Committee for the redefinition of myocardial infarction. ??Journal of the [place] College [employer]iology 2000; 36: 959-969] CK, Total 394(H) 0 - 200 unit/L REHANA ARCEO Blood specimen (specimen) 01/01/2014 3:40 AM EDT 01/01/2014 3:44 AM EDT Narrative Resulting Agency Comment Spec In Lab Nikko Andrew MD CHEMISTRY ORDERABLES REHANA EQO * XR chest routine PA & lateral (12/31/2013 9:13 AM EDT) Anatomical Region Laterality Modality Chest N/A Radiographic Annie ging 12/31/2013 9:13 AM EDT Narrative 12/31/2013 9:24 AM EDT Examination CHEST ROUTINE 2 VIEWS/CORE Clinical History new STEMI- volume Comparison 12/29/2013 from an outside institution. Technique PA and lateral views of the chest. Findings Slightly increased lung volumes, consistent with deeper inspiration. ??The lungs appear clear and symmetrically expanded. ??Mild prominence of the cardiac silhouette, specifically, left ventricular prominence pattern, but similar to prior. ??Pulmonary vascular markings and within normal limits. ??No pleural effusion is seen. ??Mid thoracic spine degenerative change and mild kyphosis is present. Impression Borderline cardiomegaly, but no acute cardiopulmonary pathology identified. Procedure Note Oneyda Zurita MD - 12/31/2013 Examination CHEST ROUTINE 2 VIEWS/CORE Clinical History new STEMI- volume Comparison 12/29/2013 from an outside institution. Technique PA and lateral views of the chest. Findings Slightly increased lung volumes, consistent with deeper inspiration. Thelungs appear clear and symmetrically expanded. Mild prominence of the cardiac silhouette, specifically, left ventricular prominence pattern, but similarto prior. Pulmonary vascular markings and within normal limits. No pleural effusion is seen. Mid thoracic spine degenerative change and mildkyphosis is present. Impression Borderline cardiomegaly, but no acute cardiopulmonary pathologyidentified. Nikko Andrew MD IMG DX ORDERABLES * (ABNORMAL) Differential, Automated (12/31/2013 3:51 AM EDT) Neutrophils % 70.0 34.0 - 71.0 % CERNER MILLENNIUM Neutr Abs (ANC) 6.54(H) 1.50 - 6.30 x10(3)/mc L CERNER MILLENNIUM Lymphocytes % 14.0(L) 19.0 - 53.0 % CERNER MILLENNIUM Lymphocytes Abs 1.3 1.0 - 3.6 x10(3)/mc L CERNER MILLENNIUM Monocytes % 15.0(H) 4.0 - 13.0 % CERNER MILLENNIUM Monocyte Abs 1.4(H) 0.2 - 1.0 x10(3)/mc L CERNER MILLENNIUM Eosinophils % 0.5 0.0 - 7.0 % CERNER MILLENNIUM Eosinophils Abs 0.0 0.0 - 0.5 x10(3)/mc L CERNER MILLENNIUM Basophils % 0.2 0.0 - 2.0 % CERNER MILLENNIUM Basophils Abs 0.0 0.0 - 0.2 x10(3)/mc L CERNER MILLENNIUM Immature Gran % 0.30 0.00 - 0.66 % CERNER MILLENNIUM Comment: Immature granulocytes(IG's)percentage and absolute count will include metamyelocytes, myelocytes, and promyelocytes. Blood smears from CBCs yielding IG's will be scanned manually for concordance. If this scan disagrees with the automated IG or if promyelocytes are noted, a manual differential will be performed. Rebecca Gran Abs 0.03 0.00 - 0.05 x10(3)/mc L CERNER MILLENNIUM Blood specimen (specimen) 12/31/2013 3:51 AM EDT 12/31/2013 4:22 AM EDT Nikko Andrew MD HEMATOLOGY ORDERABLE S Performing Organization Address City/[facility]/ZIP Co de Phone Number CERNER MILLENNIUM * Magnesium (12/31/2013 3:51 AM EDT) Magnesium 0.98 0.69 - 1.07 mmol/L CERNER MILLENNIUM Blood specimen (specimen) 12/31/2013 3:51 AM EDT 12/31/2013 4:22 AM EDT Narrative Resulting Agency Comment Spec In Lab Nikko Andrew MD CHEMISTRY ORDERABLES Performing Organization Address [facility] Co de Phone Number CERNER MILLENNIUM * (ABNORMAL) Basic Metabolic Panel (non-fasting) (12/31/2013 3:51 AM EDT) Glucose Lvl 96 60 - 199 mg/dL CERNER MILLENNIUM Comment:Diabetes: >=200 mg/d L plus symptoms BUN 28(H) 10 - 20 mg/dL CERNER MILLENNIUM Creatinine 1.65(H) 0.80 - 1.50 mg/dL CERNER MILLENNIUM Comment: Please note that the pediatric reference intervals supplied above were not validated at [facility]. Results from pediatric patients should be interpreted in conjunction to the patient's age, height and muscle mass. Sodium 137 135 - 145 mmol/L CERNER MILLENNIUM Potassium 4.4 3.5 - 5.0 mmol/L CERNER MILLENNIUM Comment: Please note: ??Patients with WBC >100,000 may have falsely elevated Potassium levels. ??For accurate Potassium quantification in these patients send serum separator tube (gold top) for subsequent determinations. ??Contact the Clinical Chemistry Laboratory if there are any questions. Chloride 105 98 - 107 mmol/L CERNER MILLENNIUM CO2 22 22 - 31 mmol/L CERNER MILLENNIUM Anion Gap 10 5 - 15 mmol/L CERNER MILLENNIUM Calcium 9.8 8.5 - 10.5 mg/dL CERNER MILLENNIUM Estimated GFR 41(L) >=60 CERNER MILLENNIUM Comment: This estimated GFR (eGFR) value was calculated using the MDRD equation which has been validated on patients between the ages of 18 and 70. The MDRD should not be used to assess kidney function in patients < 18 years of age or in patients with extremes of body mass, or in patients with acute kidney failure. This value should be multiplied by 1.2 for patients. For further information please copy and paste the following links into your internet browser. http://www.nkdep.nih.gov/lab-evaluation.shtml http://www.kidney.org/professionals/ Blood specimen (specimen) 12/31/2013 3:51 AM EDT 12/31/2013 4:22 AM EDT Narrative Resulting Agency Comment Spec In Lab Nikko Andrew MD CHEMISTRY ORDERABLES [facility] * (ABNORMAL) CBC (with Diff) (12/31/2013 3:51 AM EDT) WBC 9.4 4.0 - 10.0 x10(3)/mcL CERNER MILLENNIUM RBC 4.82 4.63 - 6.08 x10(6)/mcL CERNER MILLENNIUM Hemoglobin 13.5(L) 13.7 - 17.5 gm/dL CERNER MILLENNIUM Hematocrit 42.0 40.0 - 51.0 % CERNER MILLENNIUM MCV 87.1 79.0 - 92.0 fL CERNER MILLENNIUM MCH 28.0 25.6 - 32.2 pg CERNER MILLENNIUM MCHC 32.1 32.0 - 36.5 gm/dL CERNER MILLENNIUM Platelets 166 145 - 370 x10(3)/mcL CERNER MILLENNIUM RDWSD 43.0 35.0 - 46.0 fL CERNER MILLENNIUM RDWCV 13.4 10.9 - 14.4 % CERNER MILLENNIUM MPV 10.9 9.0 - 12.0 fL CERNER MILLENNIUM Blood specimen (specimen) 12/31/2013 3:51 AM EDT 12/31/2013 4:22 AM EDT Narrative Resulting Agency Comment Spec In Lab Nikko Andrew MD HEMATOLOGY ORDERABLE S Performing Organization Address [facility] de Phone Number [facility] * (ABNORMAL) Cardiac Enzymes (12/31/2013 3:51 AM EDT) [facility] Troponin-T 7.90(H) <=0.03 ng/mL [facility] Comment: 0.03 ng/mL: Represents the 99th percentile upper reference limit for normals. >0.03 ng/mL: Elevated cardiac troponin T level indicative of myocardial damage. Diagnosis of acute, evolving or recent MT requires a typical rise and gradual fall of cTnT with at least ONE of the following: a) Ischemic symptoms b) Development of pathologic Q waves on the ECG c) ECG changes indicative of eschemia (S-T segment elevation/depression) d) Coronary artery intervention Serial bloods should be obtained for testing on admission, at 6 to 9 hrs and again at 12 to 24 hrs if earlier samples are negative and the clinical index of suspicion is high. Reference: [Myocardial infarction redefined? a consensus document of the Joint Society of Cardiology/[place] [employer] Committee for the redefinition of myocardial infarction. ??Journal of the [place] College of Cardiology 2000; 36: 959-969] CK, Total 850(H) 0 - 200 unit/L [facility] Blood specimen (specimen) 12/31/2013 3:51 AM EDT 12/31/2013 4:22 AM EDT Narrative Resulting Agency Comment Spec In Lab Nikko Andrew MD CHEMISTRY ORDERABLES Performing Organization Address [facility] de Phone Number REHANA ARCEO * (ABNORMAL) Basic Metabolic Panel (non-fasting) (12/30/2013 1:41 PM EDT) [facility] Glucose Lvl 120 60 - 199 mg/dL [facility] Comment:Diabetes: >=200 mg/d L plus symptoms BUN 20 10 - 20 mg/dL [facility] Creatinine 1.12 0.80 - 1.50 mg/dL [facility] Comment: Please note that the pediatric reference intervals supplied above were not validated at [facility]. Results from pediatric patients should be interpreted in conjunction to the patient's age, height and muscle mass. Sodium 135 135 - 145 mmol/L CERNER MILLENNIUM Potassium 4.4 3.5 - 5.0 mmol/L CERNER MILLENNIUM Comment: Please note: ??Patients with WBC >100,000 may have falsely elevated Potassium levels. ??For accurate Potassium quantification in these patients send serum separator tube (gold top) for subsequent determinations. ??Contact the Clinical Chemistry Laboratory if there are any questions. Chloride 104 98 - 107 mmol/L CERNER MILLENNIUM CO2 20(L) 22 - 31 mmol/L CERNER MILLENNIUM Anion Gap 11 5 - 15 mmol/L CERNER MILLENNIUM Calcium 9.9 8.5 - 10.5 mg/dL CERNER MILLENNIUM Estimated GFR >60 >=60 CERNER MILLENNIUM Comment: This estimated GFR (eGFR) value was calculated using the MDRD equation which has been validated on patients between the ages of 18 and 70. The MDRD should not be used to assess kidney function in patients < 18 years of age or in patients with extremes of body mass, or in patients with acute kidney failure. This value should be multiplied by 1.2 for patients. For further information please copy and paste the following links into your internet browser. http://www.nkdep.nih.gov/lab-evaluation.shtml http://www.kidney.org/professionals/ Blood specimen (specimen) 12/30/2013 1:41 PM EDT 12/30/2013 1:58 PM EDT Narrative Resulting Agency Comment Spec In Lab Nikko Andrew MD CHEMISTRY ORDERABLES REHANA ARCEO * Echocardiogram Transthoracic(Leb) (12/30/2013 11:07 AM EDT) Pathologist [facility] EF 50 HEARTLAB SYSTEM Anatomical Region Laterality Modality Other 12/30/2013 Narrative 12/30/2013 11:15 AM EDT Procedure: ? Transthoracic Echocardiogram Patient: ? LINO JACOB E ? (Age): 1940(73) Med Rec#: ?[id number] ? Sex: ?M ? Site Loc: ?DH ? Ht / Wt: ??170(cm)/80(kg) Pt. Loc: ? Adult Floor ?BSA: ?1.94 Study Date: ?12/30/2013 ? Pt. Type: Inpatient Tape: ? Referring: Nikko Andrew MD Referring: BELLO Manager Rn: Lai Rene Diagnosis:CPT Code(s): ??Echo Full (25164), ??Spectral Doppler (72413), Color Doppler (28412), ??Optison ([id number]), Indication(s): ??Myocardial infarction Rhythm: Sinus HR ?BP ?120/70 ?? SUMMARY: 1. Global left ventricular systolic function is mildly reduced. Ejection fraction is estimated to be 50%. ??There are left ventricular segmental wall motion abnormalities present, as shown in the diagram below. 2. Right ventricular chamber size, wall thickness, and systolic function are within normal limits. 3. There is no hemodynamically significant valve disease. 4. See remainder of report for additional findings. FINDINGS: Study Quality ?Adequate Left Ventricle ?The left ventricular chamber size is normal. ?Left ventricular wall thickness is normal. ?Global left ventricular systolic function is mildly reduced. Ejection fraction is estimated to be 50%. ?There are left ventricular segmental wall motion abnormalities present, as shown in the diagram below. ?The left ventricular diastolic filling pattern is consistent with impaired LV relaxation. ?Doppler assessment is consistent with normal left sided filling pressure. ?The ??mid anterolateral and apical anterior wall segments are hypokinetic. ?The ??mid anterior and apical lateral wall segments are akinetic. Left Atrium ?The left atrium is normal in size. Right Ventricle ?Right ventricular chamber size, wall thickness, and systolic function are within normal limits. ?The estimated pulmonary artery systolic pressure is 25 mmHg. Right Atrium ?The right atrium is normal in size. Aortic Valve ?The aortic valve is trileaflet. The leaflets are thin with normal excursion. There is no aortic stenosis or regurgitation present. Mitral Valve ?The mitral valve appears normal in structure and function. ?There is trace mitral regurgitation present. Tricuspid Valve ?The tricuspid valve appears normal in structure and function. ?There is trace tricuspid regurgitation present. Pulmonic Valve ?The pulmonic valve appears normal in structure and function. Pericardium ?A trivial pericardial effusion is visualized. ?No pleural effusion is present. Aorta ?The aortic root is normal in size. ?The ascending aorta is normal in size. Pulmonary Artery ?The main pulmonary artery appears normal. Venous ?The inferior vena cava appears normal in size. ?There is a greater than 50% respiratory change in the inferior vena cava dimension. Misc ?See remainder of report for additional findings. ?Two-dimensional echo, spectral Doppler and color Doppler performed. Wall Motion: Segment Name ?Rest ? Base-Anteroseptal ?? Normal ? Base-Anterior ? Normal ? Base-Anterolateral ??Normal ? Base-Posterolateral Normal ? Base-Inferior ? Normal ? Base-Inferoseptal ?? Normal ? Mid-Anteroseptal ?Normal ? Mid-Anterior ?Akinetic ? Mid-Anterolateral ?? Hypokinetic ? Mid-Posterolateral ??Normal ? Mid-Inferior ?Normal ? Mid-Inferoseptal ?Normal ? Cropsey-Septal ? Normal ? Cropsey-Anterior ? Hypokinetic ? Cropsey-Lateral ?Akinetic ? Cropsey-Inferior ? Normal ? Cropsey-Tip ?Normal ? Chambers ?Value ?Units (Range) ? IVSd 2D ? 1.1 ?cm ? LVIDd 2D ?5.3 ?cm ? PWd 2D ?1.1 ?cm ? LVIDs 2D ?2.6 ?cm ? LVFS 2D ? 51 ? % ? LA area ? 16 ? cm2 (<21) ? RA area ? 12 ? cm2 (<18) ? Ao root ? 3.2 ?cm (2.1 to 3.6) ? Asc Ao ?2.9 ?cm (2 to 3.5) ? Mitral Valve ?Value ?Units (Range) ? E peak ?0.59 ? m/sec ? E/A ratio ? 0.8 ?ratio ? MVDT ?187 ?msec ? E1 ?0.06 ? m/sec ? E/E1 ?10 ? ratio ? Tricuspid/Pulmonic Valves ?Value ?Units (Range) ? TR peak baldev ? 2.3 ?m/sec ? RAP ? 3 ?mmHg ? RVSP/PASP ? 25 ? mmHg ? This report has been electronically signed by: Jose Alberto Joseph M.D. ? 12/30/2013 11:15:05 Images reviewed and interpretation verified [facility] Cardiac Ultrasound Laboratory Procedure Note Jose Alberto Joseph MD - 12/30/2013 Procedure: Transthoracic Echocardiogram Patient: LINO ACEVES(Age): 1940(73) Med Rec#: [id number] Sex: M Site Loc: [facility] Ht / Wt: 170(cm)/80(kg) Pt. Loc: Adult Floor BSA: 1.94 Study Date: 12/30/2013 Pt. Type: Inpatient Tape: Referring: Nikko Andrew MD Referring: BELLO Manager Rn: Lai Rene Diagnosis:CPT Code(s): Echo Full (27394), Spectral Doppler (09100), Color Doppler (44783), Optison ([id number]), Indication(s): Myocardial infarction Rhythm: Sinus HR BP 120/70 SUMMARY: 1. Global left ventricular systolic function is mildly reduced. Ejection fraction is estimated to be 50%. There are left ventricular segmental wall motion abnormalities present, as shown in the diagram below. 2. Right ventricular chamber size, wall thickness, and systolic function are within normal limits. 3. There is no hemodynamically significant valve disease. 4. See remainder of report for additional findings. FINDINGS: Study Quality Adequate Left Ventricle The left ventricular chamber size is normal. Left ventricular wall thickness is normal. Global left ventricular systolic function is mildly reduced. Ejection fraction is estimated to be 50%. There are left ventricular segmental wall motion abnormalities present, as shown in the diagram below. The left ventricular diastolic filling pattern is consistent with impaired LV relaxation. Doppler assessment is consistent with normal left sided filling pressure. The mid anterolateral and apical anterior wall segments are hypokinetic. The mid anterior and apical lateral wall segments are akinetic. Left Atrium The left atrium is normal in size. Right Ventricle Right ventricular chamber size, wall thickness, and systolic function are within normal limits. The estimated pulmonary artery systolic pressure is 25 mmHg. Right Atrium The right atrium is normal in size. Aortic Valve The aortic valve is trileaflet. The leaflets are thin with normal excursion. There is no aortic stenosis or regurgitation present. Mitral Valve The mitral valve appears normal in structure and function. There is trace mitral regurgitation present. Tricuspid Valve The tricuspid valve appears normal in structure and function. There is trace tricuspid regurgitation present. Pulmonic Valve The pulmonic valve appears normal in structure and function. Pericardium A trivial pericardial effusion is visualized. No pleural effusion is present. Aorta The aortic root is normal in size. The ascending aorta is normal in size. Pulmonary Artery The main pulmonary artery appears normal. Venous The inferior vena cava appears normal in size. There is a greater than 50% respiratory change in the inferior vena cava dimension. Misc See remainder of report for additional findings. Two-dimensional echo, spectral Doppler and color Doppler performed. Wall Motion: Segment Name Rest Base-Anteroseptal Normal Base-Anterior Normal Base-Anterolateral Normal Base-Posterolateral Normal Base-Inferior Normal Base-Inferoseptal Normal Mid-Anteroseptal Normal Mid-Anterior Akinetic Mid-Anterolateral Hypokinetic Mid-Posterolateral Normal Mid-Inferior Normal Mid-Inferoseptal Normal Cropsey-Septal Normal Cropsey-Anterior Hypokinetic Cropsey-Lateral Akinetic Cropsey-Inferior Normal Cropsey-Tip Normal Chambers Value Units (Range) IVSd 2D 1.1 cm LVIDd 2D 5.3 cm PWd 2D 1.1 cm LVIDs 2D 2.6 cm LVFS 2D 51 % LA area 16 cm2 (<21) RA area 12 cm2 (<18) Ao root 3.2 cm (2.1 to 3.6) Asc Ao 2.9 cm (2 to 3.5) Mitral Valve Value Units (Range) E peak 0.59 m/sec E/A ratio 0.8 ratio MVDT 187 msec E1 0.06 m/sec E/E1 10 ratio Tricuspid/Pulmonic Valves Value Units (Range) TR peak baldev 2.3 m/sec RAP 3 mmHg RVSP/PASP 25 mmHg This report has been electronically signed by: Jose Alberto Joseph M.D. 12/30/2013 11:15:05 Images reviewed and interpretation verified [facility] Cardiac Ultrasound Laboratory Nikko Andrew MD ECHO ORDERABLES * (ABNORMAL) Differential, Automated (12/30/2013 6:55 AM EDT) Neutrophils % 81.0(H) 34.0 - 71.0 % CERNER MILLENNIUM Neutr Abs (ANC) 9.39(H) 1.50 - 6.30 x10(3)/mc L CERNER MILLENNIUM Lymphocytes % 6.8(L) 19.0 - 53.0 % CERNER MILLENNIUM Lymphocytes Abs 0.8(L) 1.0 - 3.6 x10(3)/mc L CERNER MILLENNIUM Monocytes % 11.8 4.0 - 13.0 % CERNER MILLENNIUM Monocyte Abs 1.4(H) 0.2 - 1.0 x10(3)/mc L CERNER MILLENNIUM Eosinophils % 0.1 0.0 - 7.0 % CERNER MILLENNIUM Eosinophils Abs 0.0 0.0 - 0.5 x10(3)/mc L CERNER MILLENNIUM Basophils % 0.2 0.0 - 2.0 % CERNER MILLENNIUM Basophils Abs 0.0 0.0 - 0.2 x10(3)/mc L CERNER MILLENNIUM Immature Gran % 0.10 0.00 - 0.66 % CERNER MILLENNIUM Comment: Immature granulocytes(IG's)percentage and absolute count will include metamyelocytes, myelocytes, and promyelocytes. Blood smears from CBCs yielding IG's will be scanned manually for concordance. If this scan disagrees with the automated IG or if promyelocytes are noted, a manual differential will be performed. Rebecca Gran Abs 0.01 0.00 - 0.05 x10(3)/mc L CERNER MILLENNIUM Blood specimen (specimen) 12/30/2013 6:55 AM EDT 12/30/2013 7:07 AM EDT Nikko Andrew MD HEMATOLOGY ORDERABLE S [facility] * (ABNORMAL) BMP w/fasting Glucose (12/30/2013 6:55 AM EDT) Glucose Fasting 121(H) 65 - 99 mg/dL [facility] Comment: ?Fasting* Glucose Interpretive Criteria Normal ?65-99 [...] of Diabetes Mellitus, Position Statement from the [place] [employer]. ??Diabetes Care, Volume 33, Supplement 1, Sep 2009 BUN 20 10 - 20 mg/dL [facility] Creatinine 1.24 0.80 - 1.50 mg/dL CERNER MILLENNIUM Comment: Please note that the pediatric reference intervals supplied above were not validated at [facility]. Results from pediatric patients should be interpreted in conjunction to the patient's age, height and muscle mass. Sodium 136 135 - 145 mmol/L CERNER MILLENNIUM Potassium 5.3(H) 3.5 - 5.0 mmol/L CERNER MILLENNIUM Comment: Please note: ??Patients with WBC >100,000 may have falsely elevated Potassium levels. ??For accurate Potassium quantification in these patients send serum separator tube (gold top) for subsequent determinations. ??Contact the Clinical Chemistry Laboratory if there are any questions. Chloride 103 98 - 107 mmol/L CERNER MILLENNIUM CO2 22 22 - 31 mmol/L CERNER MILLENNIUM Anion Gap 11 5 - 15 mmol/L CERNER MILLENNIUM Calcium 9.7 8.5 - 10.5 mg/dL CERNER MILLENNIUM Estimated GFR 57(L) >=60 CERNER MILLENNIUM Comment: This estimated GFR (eGFR) value was calculated using the MDRD equation which has been validated on patients between the ages of 18 and 70. The MDRD should not be used to assess kidney function in patients < 18 years of age or in patients with extremes of body mass, or in patients with acute kidney failure. This value should be multiplied by 1.2 for patients. For further information please copy and paste the following links into your internet browser. http://www.nkdep.nih.gov/lab-evaluation.shtml http://www.kidney.org/professionals/ Blood specimen (specimen) 12/30/2013 6:55 AM EDT 12/30/2013 7:07 AM EDT Narrative Resulting Agency Comment Spec In Lab Nikko Andrew MD CHEMISTRY ORDERABLES REHANA VALENTINEIUM * Magnesium (12/30/2013 6:55 AM EDT) Magnesium 1.04 0.69 - 1.07 mmol/L CERNER MILLENNIUM Blood specimen (specimen) 12/30/2013 6:55 AM EDT 12/30/2013 7:07 AM EDT Narrative Resulting Agency Comment Spec In Lab Nikko Andrew MD CHEMISTRY ORDERABLES Performing Organization Address [facility] de Phone Number REHANA ARCEO * (ABNORMAL) CBC (with Diff) (12/30/2013 6:55 AM EDT) WBC 11.6(H) 4.0 - 10.0 x10(3)/mcL CERNER MILLENNIUM RBC 5.10 4.63 - 6.08 x10(6)/mcL CERNER MILLENNIUM Hemoglobin 14.5 13.7 - 17.5 gm/dL CERNER MILLENNIUM Hematocrit 43.8 40.0 - 51.0 % CERNER MILLENNIUM MCV 85.9 79.0 - 92.0 fL CERNER MILLENNIUM MCH 28.4 25.6 - 32.2 pg CERNER MILLENNIUM MCHC 33.1 32.0 - 36.5 gm/dL CERNER MILLENNIUM Platelets 209 145 - 370 x10(3)/mcL CERNER MILLENNIUM RDWSD 41.9 35.0 - 46.0 fL CERNER MILLENNIUM RDWCV 13.3 10.9 - 14.4 % CERNER MILLENNIUM MPV 10.8 9.0 - 12.0 fL CERNER MILLENNIUM Blood specimen (specimen) 12/30/2013 6:55 AM EDT 12/30/2013 7:07 AM EDT Narrative Resulting Agency Comment Spec In Lab Nikko Andrew MD HEMATOLOGY ORDERABLE S Performing Organization Address [facility] de Phone Number REHANA ARCEO * (ABNORMAL) Cardiac Enzymes (12/30/2013 6:55 AM EDT) Troponin-T 11.59(H) <=0.03 ng/mL CERNER MILLENNIUM Comment: result rechecked-kml 0.03 ng/mL: Represents the 99th percentile upper reference limit for normals. >0.03 ng/mL: Elevated cardiac troponin T level indicative of myocardial damage. Diagnosis of acute, evolving or recent MT requires a typical rise and gradual fall of cTnT with at least ONE of the following: a) Ischemic symptoms b) Development of pathologic Q waves on the ECG c) ECG changes indicative of eschemia (S-T segment elevation/depression) d) Coronary artery intervention Serial bloods should be obtained for testing on admission, at 6 to 9 hrs and again at 12 to 24 hrs if earlier samples are negative and the clinical index of suspicion is high. Reference: [Myocardial infarction redefined? a consensus document of the Joint Society of Cardiology/[place] [employer] Committee for the redefinition of myocardial infarction. ??Journal of the [place] College [employer]iology 2000; 36: 959-969] CK, Total 2176(H) 0 - 200 unit/L CERNER MILLENNIUM Blood specimen (specimen) 12/30/2013 6:55 AM EDT 12/30/2013 7:07 AM EDT Narrative Resulting Agency Comment Spec In Lab Nikko Andrew MD CHEMISTRY ORDERABLES Performing Organization Address [facility] Co de Phone Number CERNER MILLENNIUM * (ABNORMAL) Hepatic Function Panel (12/30/2013 6:55 AM EDT) Total Protein 6.3(L) 6.4 - 8.3 gm/dL CERNER MILLENNIUM Albumin 3.8 3.2 - 5.2 gm/dL CERNER MILLENNIUM AST 176(H) 0 - 39 unit/L CERNER MILLENNIUM ALT 20 0 - 55 unit/L CERNER MILLENNIUM Alk Phos 85 40 - 120 unit/L CERNER MILLENNIUM Total Bilirubin 0.8 0.2 - 1.3 mg/dL CERNER MILLENNIUM Bili, Direct 0.1 0.0 - 0.3 mg/dL CERNER MILLENNIUM Blood specimen (specimen) 12/30/2013 6:55 AM EDT 12/30/2013 7:07 AM EDT Narrative Resulting Agency Comment Spec In Lab Nikko Andrew MD CHEMISTRY ORDERABLES Performing Organization Address [facility]/ZIP Co de Phone Number CERNER MILLENNIUM * Triglyceride (12/30/2013 6:55 AM EDT) Triglycerides 92 <=149 mg/dL CERNER MILLENNIUM Comment: Reference Range: Normal triglycerides: ??<150 mg/dL Borderline high: ??150-199 mg/dL High: ??200-499 mg/dL Very high: ??>tv=342 mg/dL MARTHA 2001; 285(19):5524-6756 Blood specimen (specimen) 12/30/2013 6:55 AM EDT 12/30/2013 7:07 AM EDT Narrative Resulting Agency Comment Spec In Lab Nikko Andrew MD CHEMISTRY ORDERABLES Performing Organization Address [facility] Co de Phone Number REHANA VALENTINEIUM * (ABNORMAL) HDL/Cholesterol Profile (12/30/2013 6:55 AM EDT) Chol, Total 187 <=199 mg/dL [facility]JAY [facility] Comment: Recommendations of the NCEP Adult Treatment Panel for the following risk cutoff thresholds for the [place] population: Desirable: <200 mg/dL Borderline High: 200-239 mg/dL High: > or = 240 mg/dL HDL 32(L) >=40 mg/dL SARAHYSANJAY [facility] Comment: Reference range: ??Low HDL: ?? < 40 mg/dL ??Normal: ?40-60 mg/dL ??Desirable: > 60 mg/dL MARTHA 2001; 285(19):2533-5961 Chol/HDL Ratio 5.8 ratio KE R SHELIAXAVIIUM Comment: A Cholesterol to HDL ratio below 4:1 is desirable. ??Studies suggest that increased CAD risk occurs at ratios above 5 for females and above 6 for men. ? [place] Heart Association ??(http://www.americanheart.org) ? Janett Int Med, 1994; 121:641 ? AM J Med, 1998; 105(1A):48S Blood specimen (specimen) 12/30/2013 6:55 AM EDT 12/30/2013 7:07 AM EDT Narrative Resulting Agency Comment Spec In Lab Nikko Andrew MD CHEMISTRY ORDERABLES Performing Organization Address [facility] Co de Phone Number REHANA VALENTINEIUM * (ABNORMAL) LDL Cholesterol, Direct (12/30/2013 6:55 AM EDT) LDL Chol Direct 147(H) <=99 mg/dL SARAHY ARCEO Comment: The National Cholesterol Education Program (NCEP) has set the following guidelines for LDL Cholesterol: Reference range: ?? Optimal: ?<100 mg/dL ?? Near Optimal/Above Optimal: ?? 100-129 mg/dL ?? Borderline high: ?130-159 mg/dL ?? High: ? 160-189 mg/dL ?? Very high: ?>dg=247 mg/dL MARTHA 2001: 285(99):8151-0565 Blood specimen (specimen) 12/30/2013 6:55 AM EDT 12/30/2013 7:07 AM EDT Narrative Resulting Agency Comment Spec In Lab Nikko Andrew MD CHEMISTRY ORDERABLES REHANA MARIELOS * Hemoglobin A1c (12/30/2013 6:55 AM EDT) Hemoglobin A1C 5.5 <=5.6 % KE ARCEO Comment: As of 2013 the methodology for Hemoglobin A1c testing has changed. This change is accompanied by a new interpretive statement and flags. Please review the new interpretive statement and contact Dr. Nolan or Dr. Barber with questions. Reference Range: 4.3 ? 5.6% 5.7 ? 6.4% - Increased Risk of Developing Diabetes Mellitus 6.5% - Consistent with diagnosis of Diabetes Mellitus In the absence of hyperglycemia (i.e. plasma glucose > 200 mg/dL) or classic symptoms of hyperglycemia a repeat measurement of HbA1c should be performed on a separate sample to confirm the diagnosis. Diagnosis and Classification of Diabetes Mellitus, Diabetes Care 2013; 36: Suppl. 1, S67-74 Est Avg Gluc See note mg/dL REHANA ARCEO Comment: Estimated Average Glucose not appropriate for [...] Additional resources are available on the ADA website: ??http://professional.diabetes.org/glucosecalculator.aspx Chase RIDER, Grace J, Alok R, et al. ??Translating the A1C assay into estimated average glucose values. ??Diabetes Care 2008:31(8):3439-5067. Blood specimen (specimen) 12/30/2013 6:55 AM EDT 12/30/2013 7:07 AM EDT Narrative Resulting Agency Comment Spec In Lab Nikko Andrew MD CHEMISTRY ORDERABLES [facility] * EKG 12 Lead (12/29/2013 11:12 PM EDT) Ventricular rate 96 BPM MUSE SYSTEM Atrial Rate 58 BPM MUSE SYSTEM QRS Duration 146 ms MUSE SYSTEM Q-T Interval 384 ms MUSE SYSTEM QTC Calculated (Bezet) 485 ms MUSE SYSTEM Calculated P [place] 67 degrees MUSE SYSTEM Calculated R [place] 125 degrees MUSE SYSTEM Calculated T [place] -4 degrees MUSE SYSTEM INTERPRETATION Sinus bradycardia with A-V dissociation and Wide QRS rhythm with Fusion complexes Right bundle branch block Septal infarct , age undetermined Lateral infarct , age undetermined T wave abnormality, consider inferior ischemia Abnormal ECG No previous ECGs available Confirmed by MD Cervantes Jon ([id number]) on 12/30/2013 1:41:49 PM MUSE SYSTEM 12/29/2013 11:1 2 PM EDT 12/30/2013 1:41 PM EDT Nikko Andrew MD ECG ORDERABLES Performing Organization Address [facility] de Phone Number MUSE SYSTEM * Magnesium (12/29/2013 10:50 PM EDT) Magnesium 0.88 0.69 - 1.07 mmol/L REHANA HookedXAVIIUM Blood specimen (specimen) 12/29/2013 10:50 PM EDT 12/29/2013 10:57 PM EDT Narrative Resulting Agency Comment Spec In Lab Nikko Andrew MD CHEMISTRY ORDERABLES Performing Organization Address [facility] de Phone Number REHANA VALENTINEIUM * Green Tube HOLD (12/29/2013 10:50 PM EDT) Green Hold Sample in lab. REHANA VALENTINEIUM Blood specimen (specimen) 12/29/2013 10:50 PM EDT 12/29/2013 10:54 PM EDT Nikko Andrew MD CHEMISTRY ORDERABLES Performing Organization Address [facility] de Phone Number CERSANJAY VALENTINEIUM * WBC (12/29/2013 10:50 PM EDT) WBC 8.8 4.0 - 10.0 x10(3)/mcL CERSANJAY HookedENNIUM Blood specimen (specimen) 12/29/2013 10:50 PM EDT 12/29/2013 10:53 PM EDT Narrative Resulting Agency Comment Spec In Lab Nikko Andrew MD HEMATOLOGY ORDERABLE S Performing Organization Address [facility] de Phone Number CERSANJAY BASSENNIUM * (ABNORMAL) Basic Metabolic Panel (non-fasting) (12/29/2013 10:50 PM EDT) [facility] Glucose Lvl 150 60 - 199 mg/dL CERNER MILLENNIUM Comment:Diabetes: >=200 mg/d L plus symptoms BUN 21(H) 10 - 20 mg/dL CERNER MILLENNIUM Creatinine 1.10 0.80 - 1.50 mg/dL CERNER MILLENNIUM Comment: Please note that the pediatric reference intervals supplied above were not validated at [facility]. Results from pediatric patients should be interpreted in conjunction to the patient's age, height and muscle mass. Sodium 130(L) 135 - 145 mmol/L CERNER MILLENNIUM Potassium 4.5 3.5 - 5.0 mmol/L CERNER MILLENNIUM Comment: Please note: ??Patients with WBC >100,000 may have falsely elevated Potassium levels. ??For accurate Potassium quantification in these patients send serum separator tube (gold top) for subsequent determinations. ??Contact the Clinical Chemistry Laboratory if there are any questions. Chloride 102 98 - 107 mmol/L CERNER MILLENNIUM CO2 22 22 - 31 mmol/L CERNER MILLENNIUM Anion Gap 6 5 - 15 mmol/L CERNER MILLENNIUM Calcium 8.4(L) 8.5 - 10.5 mg/dL CERNER MILLENNIUM Estimated GFR >60 >=60 CERNER MILLENNIUM Comment: This estimated GFR (eGFR) value was calculated using the MDRD equation which has been validated on patients between the ages of 18 and 70. The MDRD should not be used to assess kidney function in patients < 18 years of age or in patients with extremes of body mass, or in patients with acute kidney failure. This value should be multiplied by 1.2 for patients. For further information please copy and paste the following links into your internet browser. http://www.nkdep.nih.gov/lab-evaluation.shtml http://www.kidney.org/professionals/ Blood specimen (specimen) 12/29/2013 10:50 PM EDT 12/29/2013 10:53 PM EDT Narrative Resulting Agency Comment Spec In Lab Nikko Andrew MD CHEMISTRY ORDERABLES Performing Organization Address [facility] de Phone Number REHANA ARCEO * (ABNORMAL) Cardiac Enzymes (12/29/2013 10:50 PM EDT) Troponin-T 10.04(H) <=0.03 ng/mL SARAHYSANJAY ARCEO Comment: 0.03 ng/mL: Represents the 99th percentile upper reference limit for normals. >0.03 ng/mL: Elevated cardiac troponin T level indicative of myocardial damage. Diagnosis of acute, evolving or recent MT requires a typical rise and gradual fall of cTnT with at least ONE of the following: a) Ischemic symptoms b) Development of pathologic Q waves on the ECG c) ECG changes indicative of eschemia (S-T segment elevation/depression) d) Coronary artery intervention Serial bloods should be obtained for testing on admission, at 6 to 9 hrs and again at 12 to 24 hrs if earlier samples are negative and the clinical index of suspicion is high. Reference: [Myocardial infarction redefined? a consensus document of the Joint Society of Cardiology/[place] College [employer] Cardiology Committee for the redefinition of myocardial infarction. ??Journal of the [place] College of Cardiology 2000; 36: 959-969] CK, Total 2373(H) 0 - 200 unit/L [facility] Comment:result rechecked - l tricia Blood specimen (specimen) 12/29/2013 10:50 PM EDT 12/29/2013 10:53 PM EDT Narrative Resulting Agency Comment Spec In Lab Nikko Andrew MD CHEMISTRY ORDERABLES Performing Organization Address [facility] Co de Phone Number REHANA ARCEO * Cardiac Catheterization (12/29/2013 10:42 PM EDT) Anatomical Region Laterality Modality Other Narrative 01/04/2014 11:39 AM EDT Procedure Note Provider, Scanning - 12/29/2013 10:58 PM EDT Transcriptions Provider, Scanning - 01/04/2014 11:39 AM EDT Nikko Adnrew MD CARDIAC CATH ORDERAB LES * POCT Glucose (12/29/2013 10:15 PM EDT) POC Glucose 150 60 - 199 mg/dL SARAHYSANJAY ARCEO Comment: Supplemental ranges: <110 mg/dL before meals <200 mg/dL all other times of the day Blood specimen (specimen) 12/29/2013 10:15 PM EDT 12/29/2013 10:15 PM EDT Nikko Andrew MD POINT OF CARE TEST O RDERABLES REHANA ARCEO documented in this encounter Visit Diagnoses Diagnosis ST elevation myocardial infarction (STEMI) of lateral wall Acute myocardial infarction of other lateral wall, episode of care unspecified Depression Depressive disorder, not elsewhere classified Dyslipidemia Other and unspecified hyperlipidemia documented in this encounter Administered Medications Inactive Administered Medications - up to 3 most recent administrations Medication Order MAR Action Action Date Dose Rate Site aspirin EC tablet 81 mg 81 mg, Oral, DAILY, First dose on [place] 12/30/13 at 0900, Until Discontinued, Routine Given 01/02/2014 8:27 AM EDT 81 mg Given 01/01/2014 8:05 AM EDT 81 mg Given 12/31/2013 9:00 AM EDT 81 mg aspirin EC tablet 975 mg 975 mg, Oral, EVERY 8 HOURS, First dose (after last modification) on [facility] 12/30/13 at 0200, Until Discontinued, Routine Given 12/30/2013 2:44 AM EDT 975 mg aspirin tablet 650 mg 650 mg, Oral, EVERY 8 HOURS, 2 doses, First dose on [place] 12/30/13 at 1445, Last dose on Fri12/30/13 at 2245, Routine Given 12/30/2013 10:03 PM EDT 650 mg Given 12/30/2013 2:45 PM EDT 650 mg atorvastatin (LIPITOR) tablet 80 mg 80 mg, Oral, EVERY EVENING, First dose on [facility] 12/30/13 at 0030, Until Discontinued, Routine Given 01/01/2014 5:00 PM EDT 80 mg Given 12/31/2013 5:00 PM EDT 80 mg Given 12/30/2013 5:00 PM EDT 80 mg clopidogrel (PLAVIX) tablet 75 mg 75 mg, Oral, DAILY, First dose on [place] 12/30/13 at 0900, Until Discontinued, Routine Given 01/02/2014 8:27 AM EDT 75 mg Given 01/01/2014 8:05 AM EDT 75 mg Given 12/31/2013 9:00 AM EDT 75 mg lisinopril (PRINIVIL;ZESTRIL) tablet 5 mg 5 mg, Oral, DAILY, First dose on [facility] 12/30/13 at 0915, Until Discontinued, Routine Given 12/31/2013 9:00 AM EDT 5 mg Given 12/30/2013 9:15 AM EDT 5 mg lisinopril (PRINIVIL;ZESTRIL) tablet 5 mg 5 mg, Oral, DAILY, First dose on [place] 01/02/14 at 0900, Until Discontinued, Routine Given 01/02/2014 8:27 AM EDT 5 mg metoprolol (LOPRESSOR) tablet 12.5 mg 12.5 mg, Oral, EVERY 6 HOURS SCHEDULED, First dose on [facility] 12/30/13 at 0030, Until Discontinued, Hold for SBP < 90 or HR < 60, Routine Given 12/31/2013 12:00 PM EDT 12.5 mg Given 12/31/2013 12:24 AM EDT 12.5 mg Given 12/30/2013 6:00 PM EDT 12.5 mg metoprolol succinate (TOPROL-XL) XL tablet 50 mg 50 mg, Oral, DAILY, First dose on [facility] 01/01/14 at 1300, Until Discontinued, Routine Given 01/01/2014 1:04 PM EDT 50 mg nitroGLYcerin 50 mg in dextrose 5% 250 mL infusion 0-100 mcg/min (rounded to 0-30 mL/hr), Intravenous, CONTINUOUS, Starting on [facility] 12/30/13 at 0215, Until [facility] 12/30/13 at 1133, Start at 5mcg/min. Titrate to SBP target 120, Routine Rate/Dose Verify 12/30/2013 10:00 AM EDT 10 mcg/min 3 mL/hr Rate/Dose Verify 12/30/2013 8:00 AM EDT 10 mcg/min 3 mL/hr Rate/Dose Verify 12/30/2013 6:00 AM EDT 10 mcg/min 3 mL/hr pantoprazole (PROTONIX) tablet 40 mg 40 mg, Oral, DAILY, First dose on Fri12/30/13 at 0900, Until Discontinued, Restricted to patients on clopidogrel (PLAVIX) who require a proton pump inhibitor Given 01/02/2014 8:27 AM EDT 40 mg Given 01/01/2014 8:05 AM EDT 40 mg Given 12/31/2013 9:00 AM EDT 40 mg perflutren protein-A microspheres (OPTISON) 0.22 mg/mL injection 1.6 mL 1.6 mL, Intravenous, ONCE PRN, 1 dose, Starting on Fri12/30/13 at 1107, Until Fri12/30/13 at 1000, Per Protocol, Routine Given 12/30/2013 10:00 AM EDT 1.6 mLs sodium chloride 0.9 % flush 5 mL 5 mL, Intravenous, 2 TIMES DAILY, First dose on Fri12/30/13 at 0030, Until Discontinued, Routine Given 01/02/2014 8:27 AM EDT 5 mLs Given 01/01/2014 9:00 PM EDT 5 mLs Given 01/01/2014 8:05 AM EDT 5 mLs sodium chloride 0.9% infusion 125 mL/hr, Intravenous, CONTINUOUS, Starting on Fri12/29/13 at 2300, Until Fri12/30/13 at 1133 Rate/Dose Verify 12/30/2013 6:00 AM EDT 125 mL/hr 125 mL/hr Rate/Dose Verify 12/30/2013 4:00 AM EDT 125 mL/hr 125 mL/ hr Rate/Dose Verify 12/30/2013 2:00 AM EDT 125 mL/hr 125 mL/ hr documented in this encounter Active and Recently Administered Medications Times are shown in EDT. Scheduled Medication Order 12/31/2013 01/01/2014 01/02/2014 aspirin EC tablet 81 mg 81 mg, Oral, DAILY, First dose on Fri12/30/13 at 0900, Until Discontinued, Routine 0900 (Given - Provider: Sindi Giron RN) 0805 (Given - Provider: Brittani Samuel, ELO) 0827 (Given - Provider: Brittani Samuel, ELO) atorvastatin (LIPITOR) tablet 80 mg 80 mg, Oral, EVERY EVENING, First dose on Fri12/30/13 at 0030, Until Discontinued, Routine 1700 (Given - Provider: Sindi Giron RN) 1700 (Given - Provider: Brittani Samuel, ELO) clopidogrel (PLAVIX) tablet 75 mg 75 mg, Oral, DAILY, First dose on [place] 12/30/13 at 0900, Until Discontinued, Routine 0900 (Given - Provider: Sindi Giron RN) 0805 (Given - Provider: Brittani Samuel, ELO) 0827 (Given - Provider: Brittani Samuel RN) lisinopril (PRINIVIL;ZESTRIL) tablet 5 mg (CANCELED) 5 mg, Oral, DAILY, First dose on [place] 12/30/13 at 0915, Until Discontinued, Routine 0900 (Given - Provider: Sindi Giron RN) lisinopril (PRINIVIL;ZESTRIL) tablet 5 mg 5 mg, Oral, DAILY, First dose on [place] 01/02/14 at 0900, Until Discontinued, Routine 0827 (Given - Provider: Brittani Samuel RN) metoprolol (LOPRESSOR) tablet 12.5 mg (CANCELED) 12.5 mg, Oral, EVERY 6 HOURS SCHEDULED, First dose on [place] 12/30/13 at 0030, Until Discontinued, Hold for SBP < 90 or HR < 60, Routine 0024 (Given - Provider: Mariella Vogt RN)0545 (Not Given - Provider: Mariella Vogt RN - Reason: Order parameters not met)1200 (Given - Provider: Sindi Giron RN)1800 (Not Given - Provider: Sindi Giron RN - Reason: Order parameters not met) 0041 (Not Given - Provider: Jennie Baca RN - Reason: Order parameters not met)0606 (Not Given - Provider: Jennie Baca RN - Reason: Order parameters not met) metoprolol succinate (TOPROL-XL) XL tablet 50 mg (CANCELED) 50 mg, Oral, DAILY, First dose on 01/01/14 at 1300, Until Discontinued, Routine 1304 (Given - Provider: Brittani Samuel RN) pantoprazole (PROTONIX) tablet 40 mg (CANCELED) 40 mg, Oral, DAILY, First dose on [place] 12/30/13 at 0900, Until Discontinued, Restricted to patients on clopidogrel (PLAVIX) who require a proton pump inhibitor 0900 (Given - Provider: Sindi Giron, RN) 08 (Given - Provider: Brittani Samuel, ELO) 08 (Given - Provider: Brittani Samuel, ELO) sodium chloride 0.9 % flush 5 mL (CANCELED) 5 mL, Intravenous, 2 TIMES DAILY, First dose on [place] 12/30/13 at 0030, Until Discontinued, Routine 0900 (Given - Provider: Sindi Giron RN)2010 (Given - Provider: Jennie Baca RN) 08 (Given - Provider: Brittani Samuel, ELO)2099 (Given - Provider: Елена Montoya RN) 08 (Given - Provider: Brittani Samuel, ELO) PRN Medication Order 12/31/2013 01/01/2014 01/02/2014 nitroGLYcerin (NITROSTAT) SL tablet 0.4 mg 0.4 mg, Sublingual, DAILY PRN, Starting on Fri12/29/13 at 2241, Until 01/02/14 at 1432, Chest pain, May repeat every 5 minutes for a total of three doses., Routine documented in this encounter Care Teams Coil Taper Relationship Specialty Start Date End Date Unknown None PCP - General 12/30/13 10/16/14 documented as of this encounter
--- OUTSIDE RECORDS SUMMARY | 2024-03-28 13:05 | XMS_ITS | Encounter Summary ---
Author Organization [facility] [place] [address] Care Team Providers Care Board Design Engineer Name Role Phone None Primary Care Provider Unavailabl e Encounter Details Date Type Department Care Team (Latest Contact Info) Description 08/16/2017 9:17 AM EST - 08/16/2017 11:59 PM EST Hospital [place] [id number] Jade Strickland MD [facility] [place] [address] Discharge Disposition: Other Short Term [facility] Social History Tobacco Use Types Packs/Day Years [...] 1 tablet by mouth daily. 30 tablet 08/19/2017 atorvastatin (LIPITOR) 80 mg Tablet Take 1 tablet by mouth every evening. 30 tablet 08/19/2017 09/16/2017 clopidogrel (PLAVIX) 75 mg Tablet Take 1 tablet by mouth daily. 30 tablet 08/19/2017 09/16/2017 lisinopril (PRINIVIL;ZESTRIL) 2.5 mg Tablet [...] mouth daily. 90 tablet 3 08/19/2017 02/07/2022 aspirin 81 mg EC tablet Take 1 tablet by mouth daily. 30 tablet 12 01/02/2014 08/19/2017 atorvastatin (LIPITOR) 80 mg tablet Take 1 tablet by mouth every evening. 30 tablet 01/02/2014 08/19/2017 clopidogrel (PLAVIX) 75 mg tablet Take 1 tablet by mouth daily. 30 tablet 12 01/02/2014 08/19/2017 nitroGLYcerin (NITROSTAT) 0.[address] 1 tablet under the tongue daily as needed for Chest pain. 90 tablet 3 01/02/2014 08/19/2017 lisinopril (PRINIVIL;ZESTRIL) 5 mg tablet Take 1 tablet by mouth daily. 30 tablet 12 01/02/2014 08/19/2017 documented as of this encounter Plan of Treatment Not on file documented as of this encounter Visit Diagnoses Not on filedocumented in this encounter Care Teams Board Design Engineer Relationship Specialty Start Date End Date None None PCP - General 08/16/17 08/18/17 documented as of this encounter
--- OUTSIDE RECORDS SUMMARY | 2024-03-28 13:05 | XMS_ITS | Encounter Summary ---
Author Organization [facility] [place] [address] Care Team Providers Care Skid 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 Name Role Phone None Primary Care Provider Unavailabl e Encounter Details Date Type Department Care Team (Late st Contact Info) Description 08/16/2017 [place] [phone] Juliana Oates MD [facility] [place] [address] Social History Tobacco Use Types Packs/Day Years [...] encounter Miscellaneous Notes * Telephone Encounter - Juliana Oates - 08/16/2017 7:07 AM EST Telephone Triage Note Initial Contact Date: 08/16/17 Initial contact time: 7:08am Referring Provider: Chantel Patient Location: [facility] Presenting Symptoms per OSH: 76 year old male with hx PCI 2013, HTN, HLD, Hx smoking who presentd to OSH ED after waking at 4:30am and had chest pain radiating to his right shoulder. Improved some with 1 SL NTG. Chest pain currently 6/10. Received heparin gtt, plavix 300mg, ASA 325mg. In ED, VSS but EKG with inferior JES. Arrival to OSH ED: 6:40am First EKG, diagnostic: 6:44am Past Medical History: As above. Pertinent Diagnostic Findings: Vitals: BP 150/80 HR 60 SaO2 98% RA EKG : NSR with inferior ST elevations and anteroseptal ST depressions Troponin not available Hgb 15.7 Plt 196 EKG 6:44 Arrival 6:40 OSH Interventions: ASA 325mg Heparin gtt Plavix 300mg SL NTG Plan: STEMI activation. Unable to arrive to [facility] w/in 120minutes. Will administer lytics. Continue heparin gtt. Juliana Oates MD Sign Installer documented in this encounter Plan of Treatment Not on file documented as of this encounter Visit Diagnoses Not on filedocumented in this encounter Care Teams Skid 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 Relationship Specialty Start Date End Date None None PCP - General 08/16/17 08/18/17 documented as of this encounter
--- OUTSIDE RECORDS SUMMARY | 2024-03-28 13:06 | XMS_ITS | Encounter Summary ---
Author Organization [facility] [place] [address] Care Team Providers Care Pilot Captain Name Role Phone Jamie Nino MD Primary Care Provider + Reason for Visit * Reason Onset Date Comments Advice Only 12/29/2013 Transfer request Encounter Details Date Type Department Care Team (Late st Contact Info) Description 12/29/2013 Telephone Cardiology at [address] [phone] Josh Burr MD [facility] [place] [address] Advice Only (Transfer request) Social History Tobacco Use Types Packs/Day Years [...] encounter Miscellaneous Notes * Telephone Encounter - Josh Burr - 12/29/2013 7:57 PM EDT Telephone Note Caller: Dr. Hendricks (ED [facility]) Reason: Transfer STEMI Discussion: 73 yo male patient with no medical care since 1996, on no meds and with no PMHx presents to the ED with chest pain. The symptoms began acutely at 5 PM after dinner and were described as substernal chest pain with sudden onset. On arrival, ECG showed ST elevations in leads I and aVL with St depressions in leads II, III and aVF. Vitals are Tc 36.1, p 55, BP 180/96 and O2 96% on R/A. He was treated with 300 of plavix, heparin bolus, full dose lytics, ASA and lopressor. A/P: Transfer lateral STEMI. HD stable. Lytics indicated. Pt has no prior history. [facility] is delayedbut will be transporting the patient DANO. documented in this encounter Plan of Treatment Not on file documented as of this encounter Visit Diagnoses Not on filedocumented in this encounter Care Teams Pilot Captain Relationship Specialty Start Date End Date Jamie Nino MD [address] [facility] [place] [address] PCP - General 07/31/10 12/29/13 documented as of this encounter
--- OUTSIDE RECORDS SUMMARY | 2024-03-28 13:06 | XMS_ITS | Encounter Summary ---
Author Organization [facility] Address [facility] [place] [address] Care Team Providers Care Hadoop Software Engineer Name Role Phone Jamie Wills MD Primary Care Provider + Encounter Details Date Type Department Care Team (Late st Contact Info) Description 12/29/2013 10:10 PM EDT - 12/29/2013 10:49 PM EDT Surgery [place] [address] John Sanchez MD [facility] [place] [address] CARDIAC CATHETERIZATION Social History Tobacco Use Types [...] on file documented as of this encounter Discharge Instructions * Patient Instructions* [...] at 1:00 PM with Kelly Jackson APRN ([facility] Internal Medicine) Bonding Agent- Cardiology-February 02, 2014 at 9:[address] Watkins at [facility] ([facility]) We will fax a copy of your discharge summary to [phone] for PCP, for [phone] Return to Work: You were hospitalized for [...] CORONARY INTERVENTION: WHAT TO EXPECT AT HOME (BURUNDIAN) * HEART ATTACK (BURUNDIAN) * HEART ATTACK: MEDICINE TO REDUCE RISK (BURUNDIAN) documented in this encounter Medications at Time [...] discharged home with family. * Telly Rizvi Alison - 01/02/2014 6:36 AM EDT Inpatient Cardiology [...] Tangential in conversation. Labs: Recent Labs Basename 01/02/1444701/01/140 12/31/13 0351 WBC 7.1 7.0 9.4 HGB 15.0 14.2 13.5* PLATELET 178 160 166 ANC -- -- -- Recent Labs Basename 01/02/1444701/01/14 0340 12/31/13 0351 NA 137 138 137 K 4.5 4.3 4.4 CL 106 106 105 CO2 21* 21* 22 BUN 24* 28* 28* CREATININE 1.28 1.40 1.65* Recent Labs Basename 01/02/1444701/01/14 0340 12/31/13 0351 [...] Hypokinetic Mid-Posterolateral Normal Mid-Inferior Normal Mid-Inferoseptal Normal Canterbury-Septal Normal Canterbury-Anterior Hypokinetic Canterbury-Lateral Akinetic Canterbury-Inferior Normal Canterbury-Tip Normal Assessment: Jacob Allen is a 73 [...] to the CVCC with STEMI and post NV pericarditis. Creatinine is now trending down following mild elevation post-cardiac catheterization. Asymptomaticbradycardia has been observed and is likely due to the combination of vagal tone post-NV and beta-blockade. Will hold beta-silverio and not [...] today as above -Proxy: Jose Allen (home [phone]; cell [phone]) -Maico Rizvi Internal Medicine, PGY2 Cardiology Service, S1 Team Personal pager # [phone] 01/02/2014 * Елена Montoya RN - 01/02/2014 3:22 AM EDT 0315: HR dipped to 30bpm non sustained. Pt asleep, HR back in 50s,SpO2 98% RA, BP 127/71. Courtney Nur MD paged. * Jeffrey Gonzalez MD - [...] to the CVCC with STEMI and post NV pericarditis. Hospital Day 3 days Active Hospital [...] thought process. Labs: Recent Labs Basename 01/01/14 0340 12/31/13 0351 12/30/13 0655 WBC 7.0 9.4 11.6* HGB 14.2 13.5* 14.5 PLATELET 160 166 209 ANC -- -- -- Recent Labs Basename 01/01/14 0340 12/31/13 0351 12/30/13 1341 NA 138 137 135 [...] -- No results found for this basename: PHART:3,JYE2FPT:3,PO2ART:3,PJS1JHG:3 in the last 168 hours Imaging: Cardiovascular [...] Hypokinetic Mid-Posterolateral Normal Mid-Inferior Normal Mid-Inferoseptal Normal Canterbury-Septal Normal Canterbury-Anterior Hypokinetic Canterbury-Lateral Akinetic Canterbury-Inferior Normal Canterbury-Tip Normal Assessment: Jacob Allen is a 73 [...] to the CVCC with STEMI and post NV pericarditis. He is stable and doing well [...] # STEMI s/p BMS to Diag 1, Post-NV Pericarditis - ECG CP protocol & daily [...] Likely home tomorrow -Proxy: Jose Allen (home [phone]; cell [phone]) Shona Wallace MD PGY1, Internal Medicine Inpatient Cardiology S1, team pager [phone] 01/01/2014 CARDIOLOGY ATTENDING NOTE Patient seen and [...] as simple as possible. Jeffrey Gonzalez M.D., Kaley. wire weaver cloth (Cardiology) * Angela Schuler RN - 12/31/2013 11:43 AM EDT Patient Name: Jacob Allen Patient Age: 73 y.o. Birthdate: 1940 Admit date: 12/29/2013 Attending Physician: Jeffrey Gonzalez MD Office of Care Management (OCM) / Clinical In Room Dining Server (CRC) Initial Assessment Discussed patient with Provider [...] to the CVCC with STEMI and post NV pericarditis. PMH/PSH: see admission H&P in e-DH PREVIOUS FUNCTIONAL STATUS / SOCIAL / FAMILY SUPPORTS: Patient states that he has not seen a doctor in 20 years. He said that he was followed by Dr. Chiang from [place]- the famous Dr. Chiang who specializes in people that have low temperature. The doctorsaround here thought it was a mental health condition. He went to another doctor that gave him Vitamin C and then he was able to go back to work in the s. Dr. 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 Has been in [place] all his life. Sister lives in [place], [place]. Brother lives in [place], [place]- he has back disability. He has neighbors that are supportive. He did not bring the neighbors' clau number. Patient drives. Baseline independent. [place] firewood. When I need to get to the [place], I use my excavator to make my own road. CURRENT FUNCTIONAL STATUS: Ambulating without any problems. ADVANCE DIRECTIVES: None noted scanned into e- INSURANCE COVERAGE / FINANCIAL ISSUES: Medicare AARP- [...] Completed (x ) Attending. May benefit from COLD MOLDING PRESS OPERATOR consult. Will ask SRAVANI Deleon to review patient. Continue to follow patient to assist w/ changing needs and collaborate w/ pt, medical team and family to formulate a plan for discharge. Covering pager #[phone]. * Jeffrey Gonzalez MD - 12/31/2013 6:15 [...] fora 90% stenosis and admitted to the CV with STEMI and post NV pericarditis. Hospital Day 2 days Active Hospital Problems Diagnosis ??? Dyslipidemia ??? Depression Resolved Hospital Problems Diagnosis Date Resolved No resolved problems to display. 24 Hour Events/Subjective: - Transferred to [facility] from [facility] - Started lisinopril - Continued high dose ASA yesterday for post-NV pericarditis - Feeling well this morning. Pleuritic [...] -- No results found for this basename: PHART:3,NGP4PHB:3,PO2ART:3,JWM3ZFR:3 in the last 168 hours Imaging: Cardiovascular [...] Hypokinetic Mid-Posterolateral Normal Mid-Inferior Normal Mid-Inferoseptal Normal Canterbury-Septal Normal Canterbury-Anterior Hypokinetic Canterbury-Lateral Akinetic Canterbury-Inferior Normal Canterbury-Tip Normal Assessment: Jacob Allen is a 73 [...] to the CVCC with STEMI and post NV pericarditis. He is stable and doing well [...] # STEMI s/p BMS to Diag 1, Post-NV Pericarditis - ECG CP protocol & daily - Telemetry - Medications >Plavix 75mg daily >ASA 81mg qd >metoprolol tartrate 12.5mg PO q6h w/ titration for NV double-prodcuction control >stop NTG gtt >Atorvastatin 80mg [...] kidney function improves -Proxy: Jose Allen (home [phone]; cell [phone]) Shona Wallace MD PGY1, Internal Medicine Inpatient Cardiology S1, team pager [phone] 12/31/2013 CARDIOLOGY ATTENDING NOTE Patient seen and [...] and physicians aware 1120 Pt. Transferred to [facility] via w/c * Shona Wallace - 12/30/2013 [...] to the CVCC with STEMI and post NV pericarditis. Hospital Day 1 day Active Hospital Problems Diagnosis ??? Dyslipidemia ??? Depression Resolved Hospital Problems Diagnosis Date Resolved No resolved problems to display. 24 Hour Events/Subjective: -Admitted directly to laboratory geneticist after receiving TNK, plavix load, full dose ASA, heparin bolus/gtt, NITG gtt and morphine -Cath showed 90% stenosis of Diag 1, now s/p BMS. LV-gram showed EF 50% with severe hypokinesis of anterolateral wall -Noted to have persistent chest pain and a rub on exam after cath--> started treatment for post-NV pericarditis -Feeling well this morning. Having some [...] 2373* No results found for this basename: PHART:3,EFH7ETM:3,PO2ART:3,BSN9IBE:3 in the last 168 hours Imaging: Cardiovascular [...] a 90% stenosis and admitted to the [facility] with STEMI and post NV pericarditis. He is stable and doing well with some reperfusion arrythmia. His chest pain is almost resolved and his rub is gone. We will hold further pericarditis therapy for now. He is appropriate for transfer to the floor. Plan: # STEMI s/p BMS to Diag 1, Post-NV Pericarditis -CXR -TTE - ECG CP protocol & daily - Cycle daily - Telemetry - Medications >Plavix 75mg daily >ASA 81mg qd >metoprolol tartrate 12.5mg PO q6h w/ titration for NV double-prodcuction control >stop NTG gtt >Atorvastatin 80mg PO daily >Start lisinopril 5mg qd >NTG SL prn for chest pain -Will hold further pericarditis therapy and monitor, consider meds if continues # Routine -DVT ppx: holding for now, HSQ in 24h -GI ppx: pantorazole -FEN/Diet: heart health replace K/Mg for goal 12/07 -Access: PIV -Code Status: FULL CODE -DISPO: stable for transfer to [facility] -Proxy: Jose Allen (home [phone]; cell [phone]) Shona Wallace MD PGY1, Internal Medicine Inpatient Cardiology S1, team pager [phone] 12/30/2013 * Jayleen Lewis MD - 12/30/2013 [...] 12/29/2013 Inpatient Attending: Nikko Andrew MD PCP: JAMIE WILLS MD Presenting Diagnosis/Chief Complaint: Chest pain Active Problem List: # Lateral STEMI-> BMS to pD1 (95% D1 lesion w/ thrombus) History of Present Illness: HPI This is a 73 yo male patient who has not sought medical care for almost 20 years, presented to [facility] with acute chest pain. The [...] was unavailable. 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 The patient will be monitored in the CCU overnight. LVEDP is high, so assessment of pulmonary edema important if the patient has increased work of breathing. TREATMENT PLAN: # STEMI: -Admit to CCU -[facility]A [facility] -Titrate Metoprolol for improved double [...] Resolved No resolved problems to display. PCP: JAMIE WILLS MD History of Present Illness (obtained from patient, OSH records): 73M w/o medical conditions (but who hasn't seen a doctor in 20y), here on Trx from [facility] for STEMI alert and was taken directly to cath. Feeling in [facility] until Friday day when tired (napped the afternoon). AM while [...] (STEMI) of lateral wall 12/29/2013 Presented to [facility] w/ 4-5mm JES Rec'd lytics prior to transfer ??? Depression 12/29/2013 ??? Dyslipidemia 12/30/2013 Trialed mevachor in 1993 for lipids No past surgical history on file. Prior To Admission Medications: No prescriptions prior to admission Allergies: No Known Allergies Family History: No early NV (mother=age 66) Family History Problem Relation Age of Onset ??? Rectal Cancer Father ??? Myocardial Infarction Mother ??? 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 His lesion in the diag- 1, however, isn't the typical site for his JES's. I wonder what we'll find when we eval for underlying modifiable RF's (BP, lipids, sugars) as his only otherwise RF's are unmodifiable age/sex (since he quit smoking 20y ago). I'm interestested to see his TTE with his profound rub indicative of early onset post-NV pericarditis that we'll treat w/ high-dose ASA. He's got a lot of electrical instability (variable QRS w/ premature beats) that needs beta- blockade despite lower HR's. His BP is up and will need to be controlled (likely NTG gtt vs ACEi). #lateral STEMI w/ near total diag-1 disease and early-onset post-NV pericarditis -CVCCU status -Eval -CXR -TTE - ECG CP protocol & daily - Cycle daily - HbA1c, fasting lipid panel - Telemetry -Tx -Plavix 75mg daily -ASA 975mg q8h (for pericarditis) -metoprolol tartrate 12.5mg PO q6h w/ titration for NV double-prodcuction control -NTG for BP control -initiate atorvastatin 80mg PO daily -nitro sublingual PRN for chest pain -initiate ACEi post-cath as tolerated FEN/PPX: -DVT: holding for now, HSQ in 24h -FEN/Diet: cont cath IVF, replace K/Mg for goal 12/07 -Access: PIV -Code Status: Full Code. -DISPO: to CVCCU now -Proxy: Jose Lino (home [phone]; cell [phone]) JAYLEEN LEWSI MD M1 NF - Admitting to S1 (team pager [phone] 24h/d) 12/30/2013 Cardiology Attending I have seen [...] 01/03/2014 11:19 AM EDTAssociated Order(s): SCAN DOC: SEO STRATEGIST * Provider, Scanning - 12/29/2013 10:58 PM EDTAssociated Order(s): CARDIAC CATHETERIZATION documented in this encounter Miscellaneous Notes * Miscellaneous - Provider, Scanning - 01/03/2014 11:19 AM EDT * Discharge Summary - Jeffrey Gonzalez MD - 01/01/2014 1:25 PM EDT Discharge Summary Patient Name: Jacob Allen Patient Age: 73 y.o. Language: Amharic Race: White Ethnicity: Not nor Admit date: [...] please contact your inpatient physician through the [facility] Tie Binder . Issues afterhours and on weekends will [...] doctor in 20y), presenting in transfer from [facility] for STEMI alert and was taken directly to cath.Feeling in [facility] until Friday day when tired (napped the afternoon). Weds AM while splitting wood, noticed mild non- [...] Allen was admitted directly to the laboratory geneticist in transfer from [facility] as a STEMI alert with classic anginal chest pain, elevated troponin and ST-elevations in I/aVL and V2 and ST-depressions in II/III/aVF, V1 and V3-V6. He had a BMS x1 placed to the Diagonal 1 branch of the LAD. Following cardiac catheterization he was moved to the CVCC for close post-NV monitoring, and subsequently to the floor. He remained stable during his hospitalization and was started on routine post-NV medications, including ASA 81mg daily, clopidogrel 75mg daily, metoprolol (titrated as appropriate), high dose atorvastatin and lisinopril. He demonstrated a slight increase in his creatinine (from 1.2-1.6) about 48 hours out from the catheterization procedure, likely representing a mild contrast induced nephropathy. This resolved prior to discharge. Outpatient follow up was arranged with a primary care physician and operating room scheduler local to him. He was referred to [...] morning of discharge for this asymptomaticbradycardia. # Post-NV Pericarditis, transient Mr. Allen experience some mild post-NV pleuritic and positional chest pain, accompanied by [...] and Lab Data: Labs: Recent Labs Basename 01/02/1444701/01/14 0340 12/31/13 0351 WBC 7.1 7.0 9.4 HGB [...] BILITOT 0.8 BILIDIR 0.1 Recent Labs Basename 01/02/14 0448 01/01/14 0340 12/31/13 0351 CALCIUM 9.6 9.5 9.8 MAGNESIUM 0.95 0.96 0.98 PHOS -- -- -- Recent Labs Basename 01/02/14 0448 01/01/14 0340 12/31/13 0351 CK 171 394* 850* [...] Hypokinetic Mid-Posterolateral Normal Mid-Inferior Normal Mid-Inferoseptal Normal Canterbury-Septal Normal Canterbury-Anterior Hypokinetic Canterbury-Lateral Akinetic Canterbury-Inferior Normal Canterbury-Tip Normal Pending Studies and Lab Data: None [...] at 1:00 PM with Kelly Jackson APRN ([facility] Internal Medicine) Bonding Agent- Cardiology-February 02, 2014 at 9:[address] Watkins at [facility] ([facility]) We will fax a copy of your discharge summary to [phone] for PCP, for [phone] Return to Work: You were hospitalized for [...] Complete By Expires Referral to Cardiac Rehab [[id number] Custom] Process Instructions: If no progress note charted, please enter Clinical details in comments. Scheduling Instructions: Comments: Cardiac rehab @ [facility] Questions: Responses: Reason for referral NV, stent Discharge References/Attachments None CARDIOLOGY ATTENDING DISCHARGE [...] availability in generic formulation. Jeffrey Gonzalez M.D., F.A.C.C. wire weaver cloth (Cardiology) * Consult Note - Dayana Herring RN - 12/31/2013 1:13 PM EDT Cardiac [...] maintaining his home, etc. Phase II Referral: [facility] Activity Summary: By discharge, patient will be [...] Procedure Name Priority Date/Time Associated Diagnosis Comments SEO STRATEGIST SCAN 08/20/2017 12:00 AM EST SEO STRATEGIST SCAN 01/03/2014 11:19 AM EDT EKG 12-LEAD Routine 01/02/2014 7:[address] elevation myocardial infarction (STEMI) of lateral wall DIFFERENTIAL, AUTOMATED Routine 01/03/20 14 4:48 AM EDT CARDIAC ENZYMES ([facility]) Routine 01/02/2014 4:48 AM EDT CBC (WITH DIFF) Routine 01/02/2014 4:48 AM EDT MAGNESIUM Routine 01/02/2014 4:48 AM EDT BASIC METABOLIC PANEL (NON-FASTING) Routine 01/02/2014 4:48 AM EDT EKG 12-LEAD Routine 01/01/2014 8:[address] elevation myocardial infarction (STEMI) of lateral wall DIFFERENTIAL, AUTOMATED Routine 01/02/20 14 3:40 AM EDT CARDIAC ENZYMES ([facility]) Routine 01/01/2014 3:40 AM EDT CBC (WITH DIFF) Routine 01/01/2014 3:40 AM EDT MAGNESIUM Routine 01/01/2014 3:40 AM EDT BASIC METABOLIC PANEL (NON-FASTING) Routine 01/01/2014 3:40 AM EDT XR CHEST PA AND LATERAL Routine 01/01/20 14 9:13 AM EDT DIFFERENTIAL, AUTOMATED Routine 01/01/20 14 3:51 AM EDT CARDIAC ENZYMES ([facility]) Routine 12/31/2013 3:51 AM EDT CBC (WITH [...] 12/31/19 14 6:55 AM EDT CARDIAC ENZYMES ([facility]) Routine 12/30/2013 6:55 AM EDT CBC (WITH [...] STAT 12/29/2013 10:50 PM EDT CARDIAC ENZYMES ([facility]) STAT 12/29/2013 10:50 PM EDT WBC Routine 12/29/2013 10:50 PM EDT MAGNESIUM STAT 12/29/2013 10:50 PM EDT BASIC METABOLIC PANEL (NON-FASTING) Routine 12/29/2013 10:50 PM EDT CARDIAC CATHETERIZATION Routine 12/30/19 14 10:42 PM EDT POCT GLUCOSE Routine 12/29/2013 10:15 PM EDT documented in this encounter Results * SCAN DOC: SEO STRATEGIST (08/20/2017 12:00 AM EST) Anatomical Region Laterality Modality Other Narrative 08/20/2017 12:00 AM EST Ordered by an unspecified provider. Scanning Provider MEDIA MGR SCAN EXT O RDR/RSLT * SCAN DOC: SEO STRATEGIST (01/03/2014 11:19 AM EDT) Anatomical Region Laterality [...] (Bezet) 341 ms MUSE SYSTEM Calculated P Colton 48 degrees MUSE SYSTEM Calculated R Colton 76 degrees MUSE SYSTEM Calculated T Colton 96 degrees MUSE SYSTEM INTERPRETATION Marked sinus [...] MD HEMATOLOGY ORDERABLE S Performing Organization Address [facility] Co de Phone Number [facility] MILLENNIUM * Magnesium (01/02/2014 4:48 AM EDT) Pathologist [facility] Magnesium 0.95 0.69 - 1.07 mmol/L CERNER MILLENNIUM Blood specimen (specimen) 01/02/2014 4:48 AM EDT 01/02/2014 5:13 AM EDT Narrative Resulting Agency Comment Spec In Lab Nikko Andrew MD CHEMISTRY ORDERABLES Performing Organization Address [facility] Co de Phone Number [facility] * (ABNORMAL) Basic Metabolic Panel (non-fasting) (01/02/2014 4:48 AM EDT) Pathologist [facility] Glucose Lvl 93 60 - 199 mg/dL CERNER MILLENNIUM Comment:Diabetes: >=200 mg/d L plus symptoms BUN 24(H) 10 - 20 mg/dL CERNER MILLENNIUM Creatinine 1.28 0.80 - 1.50 mg/dL CERNER MILLENNIUM Comment: Please note that the pediatric reference intervals supplied above were not validated at [facility]. Results from pediatric patients should be interpreted [...] Andrew MD CHEMISTRY ORDERABLES REHANA ARCEO * CBC (with Diff) (01/02/2014 4:48 AM EDT) WBC 7.1 4.0 - 10.0 x10(3)/mcL CERNER MILLENNIUM RBC 5.24 4.63 - 6.08 x10(6)/mcL CERNER MILLENNIUM Hemoglobin 15.0 13.7 - 17.5 gm/dL CERNER MILLENNIUM Hematocrit 45.4 40.0 - 51.0 % CERNER MILLENNIUM MCV 86.6 79.0 - 92.0 fL CERNER MILLENNIUM MCH 28.6 25.6 - 32.2 pg CERNER MILLENNIUM MCHC 33.0 32.0 - 36.5 gm/dL REHANA BASSENNIUM Platelets 178 145 - 370 x10(3)/mcL REHANA BASSENNIUM RDWSD 42.5 35.0 - 46.0 fL REHANA BASSENNIUM RDWCV 13.4 10.9 - 14.4 % REHANA BASSENNIUM MPV 10.8 9.0 - 12.0 fL REHANA VALENTINEIUM Blood specimen (specimen) 01/02/2014 4:48 AM EDT 01/02/2014 5:10 AM EDT Narrative Resulting Agency Comment Spec In Lab Nikko Andrew MD HEMATOLOGY ORDERABLE S Performing Organization Address [facility] de Phone Number REHANA ARCEO * (ABNORMAL) Cardiac Enzymes (01/02/2014 4:48 AM EDT) Troponin-T 4.00(H) <=0.03 ng/mL REHANA VALENTINEIUM Comment: 0.03 ng/mL: Represents the 99th percentile upper reference limit for normals. >0.03 ng/mL: Elevated cardiac troponin T level indicative of myocardial damage. Diagnosis of acute, evolving or recent NV requires a typical rise and gradual fall [...] consensus document of the Joint Society of Cardiology/[place] College of Cardiology Committee for the redefinition of myocardial infarction. ??Journal of the [place] College of Cardiology 2000; 36: 959-969] CK, Total 171 0 - 200 unit/L REHANA VALENTINEIUM Blood specimen (specimen) 01/02/2014 4:48 AM EDT 01/02/2014 5:13 AM EDT Narrative Resulting Agency Comment Spec In Lab Nikko Andrew MD CHEMISTRY ORDERABLES Performing Organization Address [facility] de Phone Number CERNER MILLENNIUM * EKG 12 Lead (01/01/2014 8:07 AM EDT) Ventricular rate 54 BPM MUSE SYSTEM Atrial Rate 54 BPM MUSE SYSTEM P-R Interval 158 ms MUSE SYSTEM QRS Duration 90 ms MUSE SYSTEM Q-T Interval 398 ms MUSE SYSTEM QTC Calculated (Bezet) 377 ms MUSE SYSTEM Calculated P Colton 54 degrees MUSE SYSTEM Calculated R Colton 73 degrees MUSE SYSTEM Calculated T Colton 98 degrees MUSE SYSTEM INTERPRETATION Sinus bradycardia Lateral injury pattern Abnormal ECG Confirmed by MD Lopez Douglas ([id number]) on 01/01/2014 10:01:06 AM MUSE SYSTEM 01/01/2014 8:07 AM EDT 01/01/2014 10:01 AM EDT Nikko Andrew MD ECG ORDERABLES Performing Organization Address [facility] de Phone Number MUSE SYSTEM * (ABNORMAL) Differential, Automated (01/01/2014 [...] MD HEMATOLOGY ORDERABLE S Performing Organization Address [facility] Co de Phone Number [facility] SHELIAENNIUM * Magnesium (01/01/2014 3:40 AM EDT) Pathologist [facility] Magnesium 0.96 0.69 - 1.07 mmol/L [facility] MILL[facility] Blood specimen (specimen) 01/01/2014 3:40 AM EDT 01/01/2014 3:44 AM EDT Narrative Resulting Agency Comment Spec In Lab Nikko Andrew MD CHEMISTRY ORDERABLES Performing Organization Address [facility] Co de Phone Number [facility] * (ABNORMAL) Basic Metabolic Panel (non-fasting) (01/01/2014 3:40 AM EDT) Pathologist [facility] Glucose Lvl 91 60 - 199 mg/dL CERNER MILLENNIUM Comment:Diabetes: >=200 mg/d L plus symptoms BUN 28(H) 10 - 20 mg/dL CERNER MILLENNIUM Creatinine 1.40 0.80 - 1.50 mg/dL CERNER MILLENNIUM Comment: Please note that the pediatric reference intervals supplied above were not validated at [facility]. Results from pediatric patients should be interpreted [...] internet browser. http://www.nkdep.nih.gov/lab-evaluation.shtml http://www.kidney.org/professionals/ Blood specimen (specimen) 01/01/2014 3:40 AM EDT 01/01/2014 3:44 AM EDT Narrative Resulting Agency Comment Spec In Lab Nikko Andrew MD CHEMISTRY ORDERABLES REHANA VALENTINEIUM * CBC (with Diff) (01/01/2014 3:40 AM [...] MILLENNIUM RDWCV 13.6 10.9 - 14.4 % REHANA BASSENNIUM MPV 10.4 9.0 - 12.0 fL CERSANJAY VALENTINEIUM Blood specimen (specimen) 01/01/2014 3:40 AM EDT 01/01/2014 3:44 AM EDT Narrative Resulting Agency Comment Spec In Lab Nikko Andrew MD HEMATOLOGY ORDERABLE S Performing Organization Address [facility] de Phone Number REHANA ARCEO * (ABNORMAL) Cardiac Enzymes (01/01/2014 3:40 AM EDT) Troponin-T 4.89(H) <=0.03 ng/mL REHANA VALENTINEIUM Comment: 0.03 ng/mL: Represents the 99th percentile upper reference limit for normals. >0.03 ng/mL: Elevated cardiac troponin T level indicative of myocardial damage. Diagnosis of acute, evolving or recent NV requires a typical rise and gradual fall [...] consensus document of the Joint Society of Cardiology/[place] College of Cardiology Committee for the redefinition of myocardial infarction. ??Journal of the [place] College of Cardiology 2000; 36: 959-969] CK, Total 394(H) 0 - 200 unit/L REHANA VALENTINEIUM Blood specimen (specimen) 01/01/2014 3:40 AM EDT 01/01/2014 3:44 AM EDT Narrative Resulting Agency Comment Spec In Lab Nikko Andrew MD CHEMISTRY ORDERABLES Performing Organization Address [facility] Co de Phone Number REHANA ARCEO * XR chest routine PA & lateral [...] Abs 0.03 0.00 - 0.05 x10(3)/mc L [facility] MILLENNIUM Blood specimen (specimen) 12/31/2013 3:51 AM EDT 12/31/2013 4:22 AM EDT Nikko Andrew MD HEMATOLOGY ORDERABLE S [facility] * Magnesium (12/31/2013 3:51 AM EDT) Pathologist [facility] Magnesium 0.98 0.69 - 1.07 mmol/L [facility] Blood specimen (specimen) 12/31/2013 3:51 AM EDT 12/31/2013 4:22 AM EDT Narrative Resulting Agency Comment Spec In Lab Nikko Andrew MD CHEMISTRY ORDERABLES [facility] * (ABNORMAL) Basic Metabolic Panel (non-fasting) (12/31/2013 3:51 AM EDT) Glucose Lvl 96 60 - 199 mg/dL [facility] Comment:Diabetes: >=200 mg/d L plus symptoms BUN 28(H) 10 - 20 mg/dL [facility] Creatinine 1.65(H) 0.80 - 1.50 mg/dL [facility] Comment: Please note that the pediatric reference intervals supplied above were not validated at [facility]. Results from pediatric patients should be interpreted [...] Lab Nikko Andrew MD CHEMISTRY ORDERABLES CERNER SHELIAENNIUM * (ABNORMAL) CBC (with Diff) (12/31/2013 [...] Nikko Andrew MD HEMATOLOGY ORDERABLE S REHANA VALENTINEIUM * (ABNORMAL) Cardiac Enzymes (12/31/2013 3:51 AM EDT) Troponin-T 7.90(H) <=0.03 ng/mL CERNER MILLENNIUM Comment: 0.03 ng/mL: Represents the 99th percentile upper reference limit for normals. >0.03 ng/mL: Elevated cardiac troponin T level indicative of myocardial damage. Diagnosis of acute, evolving or recent NV requires a typical rise and gradual fall [...] consensus document of the Joint Society of Cardiology/[place] College of Cardiology Committee for the redefinition of myocardial infarction. ??Journal of the [place] College of Cardiology 2000; 36: 959-969] CK, Total 850(H) 0 - 200 unit/L CERNER MILLENNIUM Blood specimen (specimen) 12/31/2013 3:51 AM EDT 12/31/2013 4:22 AM EDT Narrative Resulting Agency Comment Spec In Lab Nikko Andrew MD CHEMISTRY ORDERABLES [facility] MILLENNIUM * (ABNORMAL) Basic Metabolic Panel (non-fasting) (12/30/2013 1:41 PM EDT) Glucose Lvl 120 60 - 199 mg/dL CERNER MILLENNIUM Comment:Diabetes: >=200 mg/d L plus symptoms BUN 20 10 - 20 mg/dL [facility] MILLENNIUM Creatinine 1.12 0.80 - 1.50 mg/dL CERNER MILLENNIUM Comment: Please note that the pediatric reference intervals supplied above were not validated at [facility]. Results from pediatric patients should be interpreted [...] Lab Nikko Andrew MD CHEMISTRY ORDERABLES [facility] * Echocardiogram Transthoracic(Leb) (12/30/2013 11:07 AM EDT) EF 50 HEARTLAB SYSTEM Anatomical Region Laterality Modality Other 12/30/2013 Narrative 12/30/2013 11:15 AM EDT Procedure: ? Transthoracic Echocardiogram Patient: ? LINO Hall ? (Age): 1940(73) Med Rec#: ?[id number] ? Sex: ?M ? Site Loc: ?[facility] ? Ht / Wt: ??170(cm)/80(kg) Pt. Loc: ? Adult Floor ?BSA: ?1.94 Study Date: ?12/30/2013 ? Pt. Type: Inpatient Tape: ? Referring: Nikko Andrew MD Referring: BELLO Bill Cutter: Lai Rene Diagnosis:CPT Code(s): ??Echo Full (95596), ??Spectral Doppler (38737), Color Doppler (02090), ??Optison (45041UF), Indication(s): ??Myocardial infarction Rhythm: Sinus HR ?BP [...] ? Mid-Inferior ?Normal ? Mid-Inferoseptal ?Normal ? [place]-Septal ? Normal ? [place]-Anterior ? Hypokinetic ? [place]-Lateral ?Akinetic ? [place]-Inferior ? Normal ? [place]-Tip ?Normal ? Chambers ?Value ?Units (Range) ? [...] 12/30/2013 11:15:05 Images reviewed and interpretation verified [facility] Cardiac Ultrasound Laboratory Procedure Note Jose Alberto Joseph MD - 12/30/2013 Procedure: Transthoracic Echocardiogram Patient: LINO ACEVES(Age): 1940(73) Med Rec#: [id number] Sex: M Site Loc: [facility] Ht / Wt: 170(cm)/80(kg) Pt. Loc: Adult Floor BSA: 1.94 Study Date: 12/30/2013 Pt. Type: Inpatient Tape: Referring: Nikko Andrew MD Referring: BELLO Bill Cutter: Lai Rene Diagnosis:CPT Code(s): Echo Full (24158), Spectral Doppler (65439), Color Doppler (08949), Optison (17084SM), Indication(s): Myocardial infarction Rhythm: Sinus HR BP [...] Hypokinetic Mid-Posterolateral Normal Mid-Inferior Normal Mid-Inferoseptal Normal [place]-Septal Normal [place]-Anterior Hypokinetic [place]-Lateral Akinetic [place]-Inferior Normal [place]-Tip Normal Chambers Value Units (Range) IVSd 2D [...] 12/30/2013 11:15:05 Images reviewed and interpretation verified [facility] Cardiac Ultrasound Laboratory Nikko Andrew MD ECHO [...] Nikko Andrew MD HEMATOLOGY ORDERABLE S [facility]ERNER SHELIAENNIUM * (ABNORMAL) BMP w/fasting Glucose (12/30/2013 6:55 AM EDT) Glucose Fasting 121(H) 65 - 99 mg/dL CERNER MILLENNIUM Comment: ?Fasting* Glucose Interpretive Criteria Normal [...] of Diabetes Mellitus, Position Statement from the [place] Diabetes Association. ??Diabetes Care, Volume 33, Supplement 1, Sep 2009 BUN 20 10 - 20 mg/dL CERNER MILLENNIUM Creatinine 1.24 0.80 - 1.50 mg/dL CERNER MILLENNIUM Comment: Please note that the pediatric reference intervals supplied above were not validated at [facility]. Results from pediatric patients should be interpreted [...] Andrew MD CHEMISTRY ORDERABLES Performing Organization Address [facility] Co de Phone Number CERSANJAY BSASENNIUM * Magnesium (12/30/2013 6:55 AM EDT) Magnesium 1.04 0.69 - 1.07 mmol/L CERNER MILLENNIUM Blood specimen (specimen) 12/30/2013 6:55 AM EDT 12/30/2013 7:07 AM EDT Narrative Resulting Agency Comment Spec In Lab Nikko Andrew MD CHEMISTRY ORDERABLES Performing Organization Address [facility] Co de Phone Number CERNER SHELIAENNIUM * (ABNORMAL) CBC (with Diff) (12/30/2013 6:55 [...] MD HEMATOLOGY ORDERABLE S Performing Organization Address [facility] de Phone Number REHANA ARCEO * (ABNORMAL) Cardiac Enzymes (12/30/2013 6:55 AM EDT) Pathologist [facility] Troponin-T 11.59(H) <=0.03 ng/mL CERNER MILLENNIUM Comment: result rechecked-kml 0.03 ng/mL: Represents the 99th percentile upper reference limit for normals. >0.03 ng/mL: Elevated cardiac troponin T level indicative of myocardial damage. Diagnosis of acute, evolving or recent NV requires a typical rise and gradual fall [...] consensus document of the Joint Society of Cardiology/[place] College of Cardiology Committee for the redefinition of myocardial infarction. ??Journal of the [place] College of Cardiology 2000; 36: 959-969] CK, Total 2176(H) 0 - 200 unit/L [facility]ERNER MILLENNIUM Blood specimen (specimen) 12/30/2013 6:55 AM EDT 12/30/2013 7:07 AM EDT Narrative Resulting Agency Comment Spec In Lab Nikko Andrew MD CHEMISTRY ORDERABLES Performing Organization Address [facility] Co de Phone Number REHANA ARCEO * (ABNORMAL) Hepatic Function Panel (12/30/2013 6:55 AM EDT) Pathologist [facility] Total Protein 6.3(L) 6.4 - 8.3 gm/dL CERNER MILLENNIUM Albumin 3.8 3.2 - 5.2 gm/dL CERNER MILLENNIUM AST 176(H) 0 - 39 unit/L CERNER MILLENNIUM ALT 20 0 - 55 unit/L CERNER MILLENNIUM Alk Phos 85 40 - 120 unit/L [facility] Total Bilirubin 0.8 0.2 - 1.3 mg/dL CERNER MILLENNIUM Bili, Direct 0.1 0.0 - 0.3 mg/dL [facility] Blood specimen (specimen) 12/30/2013 6:55 AM EDT 12/30/2013 7:07 AM EDT Narrative Resulting Agency Comment Spec In Lab Nikko Andrew MD CHEMISTRY ORDERABLES [facility] * Triglyceride (12/30/2013 6:55 AM EDT) Triglycerides 92 <=149 mg/dL [facility] Comment: Reference Range: Normal triglycerides: ??<150 mg/dL Borderline high: ??150-199 mg/dL High: ??200-499 mg/dL Very high: ??>tk=337 mg/dL MARTHA 2001; 285(19):4597-8307 Blood specimen (specimen) 12/30/2013 6:55 AM EDT 12/30/2013 7:07 AM EDT Narrative Resulting Agency Comment Spec In Lab Nikko Andrew MD CHEMISTRY ORDERABLES Performing Organization Address [facility] Co de Phone Number [facility] * (ABNORMAL) HDL/Cholesterol Profile (12/30/2013 6:55 AM EDT) Chol, Total 187 <=199 mg/dL [facility] Comment: Recommendations of the NCEP Adult Treatment Panel for the following risk cutoff thresholds for the [place] population: Desirable: <200 mg/dL Borderline High: 200-239 mg/dL High: > or = 240 mg/dL HDL 32(L) >=40 mg/dL [facility] Comment: Reference range: ??Low HDL: ?? < 40 mg/dL ??Normal: ?40-60 mg/dL ??Desirable: > 60 mg/dL MARTHA 2001; 285(19):3921-5620 Chol/HDL Ratio 5.8 ratio KE ARCEO Comment: A Cholesterol to HDL ratio below 4:1 is desirable. ??Studies suggest that increased CAD risk occurs at ratios above 5 for females and above 6 for men. ? [place] Heart Association ??(http://www.americanheart.org) ? Janett Int Med, 1994; 121:641 ? AM J Med, 1998; 105(1A):48S Blood specimen (specimen) 12/30/2013 6:55 AM EDT 12/30/2013 7:07 AM EDT Narrative Resulting Agency Comment Spec In Lab Nikko Andrew MD CHEMISTRY ORDERABLES Performing Organization Address [facility] de Phone Number REHANA [facility] * (ABNORMAL) LDL Cholesterol, Direct (12/30/2013 6:55 AM EDT) LDL Chol Direct 147(H) <=99 mg/dL SAR[facility]Y [facility] Comment: The National Cholesterol Education Program (NCEP) has set the following guidelines for LDL Cholesterol: Reference range: ?? Optimal: ?<100 mg/dL ?? Near Optimal/Above Optimal: ?? 100-129 mg/dL ?? Borderline high: ?130-159 mg/dL ?? High: ? 160-189 mg/dL ?? Very high: ?>zn=719 mg/dL MARTHA 2001: 285(19):1818-4257 Blood specimen (specimen) 12/30/2013 6:55 AM EDT 12/30/2013 7:07 AM EDT Narrative Resulting Agency Comment Spec In Lab Nikko Andrew MD CHEMISTRY ORDERABLES Performing Organization Address [facility] Co de Phone Number REHANA [facility] * Hemoglobin A1c (12/30/2013 6:55 AM EDT) Hemoglobin A1C 5.5 <=5.6 % KE Shukla [facility] Comment: As of 2013 the methodology for [...] Est Avg Gluc See note mg/dL REHANA [facility] Comment: Estimated Average Glucose not appropriate for [...] into estimated average glucose values. ??Diabetes Care 2008:31(8):2732-0802. Blood specimen (specimen) 12/30/2013 6:55 AM EDT 12/30/2013 7:07 AM EDT Narrative Resulting Agency Comment Spec In Lab Nikko Andrew MD CHEMISTRY ORDERABLES Performing Organization Address [facility] de Phone Number REHANA ARCEO * EKG 12 Lead (12/29/2013 11:12 PM EDT) Ventricular rate 96 BPM MUSE SYSTEM Atrial Rate 58 BPM MUSE SYSTEM QRS Duration 146 ms MUSE SYSTEM Q-T Interval 384 ms MUSE SYSTEM QTC Calculated (Bezet) 485 ms MUSE SYSTEM Calculated P Colton 67 degrees MUSE SYSTEM Calculated R [place] 125 degrees MUSE SYSTEM Calculated T Colton -4 degrees MUSE SYSTEM INTERPRETATION Sinus bradycardia with A-V dissociation and Wide QRS rhythm with Fusion complexes Right bundle branch block Septal infarct , age undetermined Lateral infarct , age undetermined T wave abnormality, consider inferior ischemia Abnormal ECG No previous ECGs available Confirmed by MD Billy, Uri ([id number]) on 12/30/2013 1:41:49 PM MUSE SYSTEM 12/29/2013 11:1 2 PM EDT 12/30/2013 1:41 PM EDT Nikko Andrew MD ECG ORDERABLES Performing Organization Address [facility] Phone Number MUSE SYSTEM * Magnesium (12/29/2013 10:50 PM EDT) Magnesium 0.88 0.69 - 1.07 mmol/L REHANA ARCEO Blood specimen (specimen) 12/29/2013 10:50 PM EDT 12/29/2013 10:57 PM EDT Narrative Resulting Agency Comment Spec In Lab Nikko Andrew MD CHEMISTRY ORDERABLES Performing Organization Address [facility] de Phone Number REHANA ARCEO * Green Tube HOLD (12/29/2013 10:50 PM EDT) Green Hold Sample in lab. REHANA VALENTINEIUM Blood specimen (specimen) 12/29/2013 10:50 PM EDT 12/29/2013 10:54 PM EDT Nikko Andrew MD CHEMISTRY ORDERABLES CERSANJAY BASSENNIUM * WBC (12/29/2013 10:50 PM EDT) WBC 8.8 4.0 - 10.0 x10(3)/mcL CERNER MILLENNIUM Blood specimen (specimen) 12/29/2013 10:50 PM EDT 12/29/2013 10:53 PM EDT Narrative Resulting Agency Comment Spec In Lab Nikko Andrew MD HEMATOLOGY ORDERABLE S Performing Organization Address [facility] Co de Phone Number CERSANJAY BASSENNIUM * (ABNORMAL) Basic Metabolic Panel (non-fasting) (12/29/2013 10:50 PM EDT) Glucose Lvl 150 60 - 199 mg/dL CERNER MILLENNIUM Comment:Diabetes: >=200 mg/d L plus symptoms BUN 21(H) 10 - 20 mg/dL CERNER MILLENNIUM Creatinine 1.10 0.80 - 1.50 mg/dL CERNER MILLENNIUM Comment: Please note that the pediatric reference intervals supplied above were not validated at [facility]. Results from pediatric patients should be interpreted [...] In Lab Nikko Andrew MD CHEMISTRY ORDERABLES [facility] * (ABNORMAL) Cardiac Enzymes (12/29/2013 10:50 PM EDT) Troponin-T 10.04(H) <=0.03 ng/mL [facility] Comment: 0.03 ng/mL: Represents the 99th percentile upper reference limit for normals. >0.03 ng/mL: Elevated cardiac troponin T level indicative of myocardial damage. Diagnosis of acute, evolving or recent NV requires a typical rise and gradual fall [...] consensus document of the Joint Society of Cardiology/[place] College of Cardiology Committee for the redefinition of myocardial infarction. ??Journal of the [place] College of Cardiology 2000; 36: 959-969] CK, Total 2373(H) 0 - 200 unit/L [facility] Comment:result rechecked - l tricia Blood specimen (specimen) 12/29/2013 10:50 PM EDT 12/29/2013 10:53 PM EDT Narrative Resulting Agency Comment Spec In Lab Nikko Andrew MD CHEMISTRY ORDERABLES Performing Organization Address [facility] Co de Phone Number REHANA ARCEO * Cardiac Catheterization (12/29/2013 10:42 PM EDT) Anatomical Region Laterality Modality Other Narrative 01/04/2014 11:39 AM EDT Procedure Note Provider, Scanning - 12/29/2013 10:58 PM EDT Transcriptions Provider, Scanning - 01/04/2014 11:39 AM EDT Nikko Andrew MD CARDIAC CATH ORDERAB LES * POCT Glucose (12/29/2013 10:15 PM EDT) POC Glucose 150 60 - 199 mg/dL SARAHYSANJAY ARCEO Comment: Supplemental ranges: <110 mg/dL before meals <200 mg/dL all other times of the day Blood specimen (specimen) 12/29/2013 10:15 PM EDT 12/29/2013 10:15 PM EDT Nikko Andrew MD POINT OF CARE TEST O RDERABLES Performing Organization Address [facility] Co de Phone Number REHANA ARCEO documented in this encounter Visit Diagnoses Not on filedocumented in this encounter Administered Medications Inactive Administered Medications - up to 3 most recent administrations Medication Order MAR Action Action Date Dose Rate Site fentaNYL 50mcg/mL injection ONCE PRN, Starting on Fri12/29/13 at 2224, Until Fri12/29/13 at 2241, Pain, Intra-Operative (Intra-Procedure), Routine Given 12/29/2013 10:24 PM EDT 25 mcg heparin (porcine) injection ONCE PRN, Starting on Fri12/29/13 at 2218, Until Thelma 12/30/13 at 0006, Cath (Intra-Procedure), Routine Given 12/29/2013 10:18 PM EDT 4,000 Units midazolam (PF) (VERSED) 1 mg/mL injection ONCE PRN, Starting on Fri12/29/13 at 2224, Until Fri12/29/13 at 2241, Sleep, Cath (Intra-Procedure), Routine Given 12/29/2013 10:24 PM EDT 1 mg nitroGLYCerin 100 mcg/mL intracoronary dilution ONCE PRN, Starting on Fri12/29/13 at 2224, Until Fri12/30/13 at 0006, Cath (Intra-Procedure), Routine Given 12/29/2013 10:24 PM EDT 100 mcg documented in this encounter Active and Recently Administered Medications Times are shown in EDT. Scheduled Medication Order 12/31/2013 01/01/2014 01/02/2014 aspirin EC tablet 81 mg 81 mg, Oral, DAILY, First dose on Fri12/30/13 at 0900, Until Discontinued, Routine 0900 (Given - Provider: Sindi Giron RN) 0805 (Given - Provider: Brittani Samuel RN) 0827 (Given - Provider: Brittani Samuel RN) atorvastatin (LIPITOR) tablet 80 mg 80 mg, Oral, EVERY EVENING, First dose on Fri12/30/13 at 0030, Until Discontinued, Routine 1700 (Given - Provider: Sindi Giron RN) 1700 (Given - Provider: Brittani Samuel RN) clopidogrel (PLAVIX) tablet 75 mg 75 mg, Oral, DAILY, First dose on Fri12/30/13 at 0900, Until Discontinued, Routine 0900 (Given - Provider: Sindi Giron RN) 0805 (Given - Provider: Brittani Samuel RN) 08 (Given - Provider: Brittani Samuel RN) lisinopril (PRINIVIL;ZESTRIL) tablet 5 mg (CANCELED) 5 mg, Oral, DAILY, First dose on Fri12/30/13 at 0915, Until Discontinued, Routine 0900 (Given - Provider: Sindi Giron RN) lisinopril (PRINIVIL;ZESTRIL) tablet 5 mg 5 mg, Oral, DAILY, First dose on Fri01/02/14 at 0900, Until Discontinued, Routine 08 (Given - Provider: Brittani Samuel RN) metoprolol [...] pump inhibitor 0900 (Given - Provider: Sindi Giron RN) 08 (Given - Provider: Brittani Samuel RN) 08 (Given - Provider: Brittani Samuel RN) sodium chloride 0.9 % flush 5 mL (CANCELED) 5 mL, Intravenous, 2 TIMES DAILY, First dose on Thelma 12/30/13 at 0030, Until Discontinued, Routine 0900 (Given - Provider: Sindi Giron RN)2010 (Given - Provider: Jennie Baca RN) 08 (Given - Provider: Brittani Samuel RN)2099 (Given - Provider: Елена Montoya RN) 08 (Given - Provider: Brittani Samuel RN) PRN Medication Order 12/31/2013 01/01/2014 01/02/2014 nitroGLYcerin (NITROSTAT) SL tablet 0.4 mg 0.4 mg, Sublingual, DAILY PRN, Starting on Fri12/29/13 at 2241, Until 4/27/14 at 1432, Chest pain, May repeat every 5 minutes for a total of three doses., Routine documented in this encounter Care Teams Hadoop Software Engineer Relationship Specialty Start Date End Date Jamie Wills MD [address] [place] [address] PCP - General 07/31/10 12/29/13 documented as of this encounter
--- OUTSIDE RECORDS SUMMARY | 2024-03-28 13:06 | XMS_ITS | Encounter Summary ---
Author Organization [facility] Address [facility] [place] [address] Care Team Providers Care Ring Sorter Name Role Phone Jamie Nino MD Primary Care Provider + Encounter Details Date Type Department Care Team (Late st Contact Info) Description 12/29/2013 Orders Only Cardiology at [address] [id number] Nikko Andrew MD [facility] [address] Social History Tobacco Use Types Packs/Day Years [...] Associated Diagnosis Comments FILM LIBRARY STORAGE ONLY DX CHEST Routine 12/29/2013 9:05 PM EDT documented in this encounter Results * Film Library- Storage only DX Chest (12/29/2013 9:05 PM EDT) Anatomical Region Laterality Modality Other 12/29/2013 9:05 PM EDT Narrative 12/29/2013 9:11 PM EDT This is a Non-reportable exam Procedure Note 12/29/2013 This is a Non-reportable exam Nikko Andrew MD [facility] FILM LIBRARY ORD ERABLES documented in this encounter Visit Diagnoses Not on filedocumented in this encounter Care Teams Ring Sorter Relationship Specialty Start Date End Date Jamie Nino MD [address] [place] [address] PCP - General 07/31/10 12/29/13 documented as of this encounter
--- OUTSIDE RECORDS SUMMARY | 2024-03-28 13:06 | XMS_ITS | Encounter Summary ---
Author Organization [facility] Address [facility] [place] [address] Care Team Providers Care Food And Beverage Associate Name Role Phone Unknown Primary Care Provider Unavailabl e Encounter Details Date Type Department Care Team (Late st Contact Info) Description 12/29/2013 [place] [address] Josh Burr MD [facility] [place] [address] Social History Tobacco Use Types Packs/Day Years [...] Priority Date/Time Associated Diagnosis Comments ECG SCAN Routine 12/29/2013 documented in this encounter Results * Scan Doc: ECG (12/29/2013) Josh Burr MD MEDIA MGR SCAN EXT O RDR/RSLT documented in this encounter Visit Diagnoses Not on filedocumented in this encounter Care Teams Food And Beverage Associate Relationship Specialty Start Date End Date Unknown None PCP - General 12/30/13 10/16/14 documented as of this encounter
[2024-03-28 13:39] LABS: BUN 26 mg/dL (7-18); CREATININE 1.5 mg/dL (0.70-1.30); Calcium 8.7 mg/dL (8.5-10.1); Calculated LDL 76 mg/dL (<100); Chloride 107 mmol/L (98-107); Cholesterol 130 mg/dL (<200); Estimated GFR 46.48 (mL/min/1.73m2); Glucose 99 mg/dL (74-106); HDL Cholesterol 41 mg/dL (40-60); Potassium 5.2 mmol/L (3.5-5.1); Sodium 144 mmol/L (136-145); Triglyceride 67 mg/dL (<150); Vitamin D 25 Total 47.5 ng/mL (30-100)
[2024-03-28 13:46] LABS: Anion Gap 9.4 mmol/L (3-11); CO2 27.6 mmol/L (21.0-32.0)
== END 2024-03-28 13:01 | disposition home or self-care (01) ==
LOC: LBN 13:00
PROVIDERS: PCP Nurse Practitioner Family; Visit Provider Nurse Practitioner Family
DX: I10 Essential (primary) hypertension (principal); I25.10 Atherosclerotic heart disease of native coronary artery without angina pectoris; N18.32 Chronic kidney disease, stage 3b; D35.1 Benign neoplasm of parathyroid gland
CPT/HCPCS: 80048; 80061; 82306

== ENCOUNTER 2024-04-19 22:35 | Outpatient (REF) | payer MEDICARE, SELFPAY ==
[2024-04-19 13:37] LABS: Anion Gap 6.6 mmol/L (3-11); BUN 26 mg/dL (7-18); CO2 28.4 mmol/L (21.0-32.0); CREATININE 1.6 mg/dL (0.70-1.30); Calcium 8.8 mg/dL (8.5-10.1); Chloride 108 mmol/L (98-107); Estimated GFR 43.02 (mL/min/1.73m2); Glucose 92 mg/dL (74-106); Sodium 143 mmol/L (136-145)
== END 2024-04-19 22:36 | disposition home or self-care (01) ==
LOC: NCHCN 22:35
PROVIDERS: PCP Nurse Practitioner Family; Visit Provider Nurse Practitioner Family
DX: N18.32 Chronic kidney disease, stage 3b (principal)
CPT/HCPCS: 80048

== ENCOUNTER 2024-08-11 10:39 | Outpatient (REF) | payer MEDICARE, SELFPAY ==
[2024-08-11 12:28] LABS: FREE T4 0.81 ng/dL (0.76-1.46); TSH 0.78 uIU/mL (0.36-3.74)
== END 2024-08-11 10:40 | disposition home or self-care (01) ==
LOC: NCHCN 10:39
PROVIDERS: PCP Nurse Practitioner Family; Visit Provider Nurse Practitioner Family
DX: E04.2 Nontoxic multinodular goiter (principal)
CPT/HCPCS: 84439; 84443

== ENCOUNTER 2024-09-09 21:12 | Outpatient (REF) | payer MEDICARE, SELFPAY ==
[2024-09-09 16:08] LABS: Anion Gap 11.4 mmol/L (3-11); BUN 24 mg/dL (7-18); CREATININE 1.6 mg/dL (0.70-1.30); Calcium 8.7 mg/dL (8.5-10.1); Chloride 112 mmol/L (98-107); Estimated GFR 43.02 (mL/min/1.73m2); Glucose 151 mg/dL (74-106); Sodium 146 mmol/L (136-145)
[2024-09-09 16:55] LABS: CO2 20.9 mmol/L (21.0-32.0)
== END 2024-09-09 21:13 | disposition home or self-care (01) ==
LOC: NCHCN 21:12
PROVIDERS: PCP Nurse Practitioner Family; Visit Provider Nurse Practitioner Family
DX: R32 Unspecified urinary incontinence (principal)
CPT/HCPCS: 80048; 84153

== ENCOUNTER 2024-10-07 17:57 | Emergency (ER) | payer MEDICARE, SELFPAY ==
[2024-10-07] VITALS (66 sets, daily range): BP systolic 71–152; BP diastolic 42–75; PULSE 46–96; RESP 15–26; TEMP 36.4–38.1; O2SAT 94–98
--- NOTE | 2024-10-07 18:15 | DI.CT_ITS ---
Exam(s) CT HEAD WO EXAM: CT HEAD WO CLINICAL HISTORY: weakness, confusion. TECHNIQUE: Imaging Protocol: Axial computed tomography images with coronal and sagittal reformatted images were created and reviewed COMPARISON: No exams were available for comparison FINDINGS: Ventricles and Extra axial spaces: Normal in size and morphology for the patient's age. Hemorrhage: None. Cerebral parenchyma: No acute territorial infarct. There are areas of decreased attenuation in the w ramone matter consistent with chronic microvascular ischemic disease. There are areas of encephalomala jimmy seen bilaterally. These likely reflect prior infarcts. Midline shift: None. Brainstem/Cerebellum: Normal. Calvarium: Normal. Visualized Paranasal sinuses/Mastoids: There is a small mucous retention cyst in the right maxillary sinus. Soft Tissues: Unremarkable. IMPRESSION: No acute intracranial process. RADIATION DOSE DELIVERED: 854.1mGy.cm Total DLP DATA REPOSITORY: All CT scans at this facility are submitted to the National Radiology Data Registry (NRDR) Dose Index Registry (DIR) with the [employer] (ACR). RADIATION OPTIMIZATION: All CT scans at this facility use at least one of these dose optimization te chniques: automated exposure control; mA and/or kV adjustment per patient size (includes targeted exa ms where dose is matched to clinical indication); or iterative reconstruction.
--- NOTE | 2024-10-07 18:15 | RT.EKG_ITS ---
APPROVED REPORT Exam: Resting ECG Reason for Exam: weakness Patient Location: E HR:83 bpm ECG Measurements Heart Rate 83 AXIS TX 177 P 77 QRSd 93 QRS 64 QT 381 T 96 QTc 449 Conclusion Sinus rhythm...normal P axis, V-rate 60- 99 Low voltage with right axis deviation...low voltage, RAD Consider anterior infarct...Q >30mS in V2-V5 Nonspecific T abnormalities, lateral leads...T <-0.10mV, I aVL V5 V6
[2024-10-07 18:35] LABS: Lactate 3.8 mmol/L (<or=2.0)
[2024-10-07 18:36] LABS: Abs Immature Grans 0.33 10^3/uL (0.0-0.06); HCT 44.7 % (40.0-50.0); HGB 14.4 g/dL (13.5-17.5); MCH 29.1 pg (27.0-33.0); MCHC 32.2 % (32.0-36.0); MCV 91 fL (80-95); Platelet Count 109 10^3/uL (130-400); RBC 4.94 10^6/uL (4.36-5.78); RDW 14.2 % (11.8-14.1); RDW-SD 47.1 fL; WBC 22.61 10^3/uL (4.4-10.8)
[2024-10-07 18:57] LABS: Absolute Lymphocyte Count 1.13 10^3/uL (1.2-3.4); Absolute Neutrophil Count 19.44 10^3/uL (1.2-6.7); Bands % 18 %
[2024-10-07 18:58] LABS: Absolute Monocyte Count 0.68 10^3/uL (0.1-0.8); Diff Comment Manual Differential; Metamyelocytes % 5; Myelocytes % 1; RBC Morphology Normal
--- NOTE | 2024-10-07 19:00 | DI.CT_ITS ---
Exam(s) CT CHEST/ABD/PEL WO EXAM: CT CHEST/ABD/PEL WO CLINICAL HISTORY: fever, diarrhea, crackles right TECHNIQUE: Imaging Protocol: Axial computed tomography images with coronal and sagittal reformatted images were created and reviewed. Computer aided detection (CAD) was utilized. COMPARISON: US US RENAL from 05/09/2021 FINDINGS: The examination is limited due to patient motion artifact. The examination is limited due to lack o f IV contrast material. CHEST: Tracheobronchial tree: Patent where visualized. No bronchiectasis. Pulmonary parenchyma: No consolidation or dominant measurable mass. Emphysematous changes are seen in the lungs. Mediastinum and Nimisha: No dominant adenopathy or fluid collection. The esophagus is unremarkable. Ther e is a large hiatal hernia. Thyroid gland: Unremarkable. Pleura: No effusion or pneumothorax. Heart: Cardiomegaly. Three vessel coronary artery calcification is present. No pericardial effusion . Aorta: Thoracic aorta non-dilated. Atherosclerotic calcification is present. Lymph nodes: Within normal limits. Bones:Within normal limits for the patient's age. Soft tissues: There is a 3.7 x 4.8 cm lipoma along the upper back. ABDOMEN: Liver: Normal density. No measurable mass. Gallbladder and Biliary Tract: The gallbladder is distended. No stones are seen in the gallbladder. Pancreas: There is a 5 mm calcification in the head of the pancreas (series 2, image 164). There is dilatation of the pancreatic duct. The gallbladder is distended. No peripancreatic fluid collection s are seen. Spleen: Normal. Adrenals: No masses seen. Kidneys: Normal size, contour and axis. No radiodense stones or obstructive uropathy. There is a larg e cyst in the superior pole of the right kidney. This is been present on prior examinations. Noneme rgent follow-up is recommended. Abdominal Aorta: There is ectasia of the abdominal aorta. There is aneurysmal dilatation of the righ t common iliac artery measuring 2.7 cm. There is aneurysmal dilatation of the right internal iliac a rtery measuring 1.9 cm. Atherosclerotic calcification is present. Bowel: No obstruction or bowel wall thickening. No evidence of appendicitis. There is no evidence of pneumatosis. Peritoneal Cavity: No ascites, collection or mesenteric inflammatory response. No free air. Lymph Nodes: Within normal limits. Bones: Within normal limits for the patient's age. Soft Tissues: Unremarkable. PELVIS: Bladder: There is diffuse thickening of the wall of the urinary bladder. This may be due to underdis tention but cystitis cannot be excluded. Reproductive Organs: The prostate gland is enlarged. Lymph Nodes: Within normal limits. Bones: Within normal limits for the patient's age. IMPRESSION: 1. No acute pulmonary process. 2. 5 mm calcification in the head of the pancreas with dilatation of the pancreatic duct suspicious f or choledocholithiasis. ERCP/MRCP should be considered for further evaluation. 3. 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 4. Diffuse thickening of the wall of the urinary bladder. This may be due to underdistention but cys titis should also be considered. Impression enlarged prostate gland. RADIATION DOSE DELIVERED: 547.88mGy.cm Total DLP 547.88mGy.cm Total DLP DATA REPOSITORY: All CT scans at this facility are submitted to the National Radiology Data Registry (NRDR) Dose Index Registry (DIR) with the [employer] (ACR). RADIATION OPTIMIZATION: All CT scans at this facility use at least one of these dose optimization te chniques: automated exposure control; mA and/or kV adjustment per patient size (includes targeted exa ms where dose is matched to clinical indication); or iterative reconstruction.
[2024-10-07 19:02] LABS: ALT 41 U/L (16-63); AST 119 U/L (15-37); Albumin 2.9 g/dL (3.4-5.0); Alkaline Phosphatase 94 U/L (46-116); Anion Gap 9.1 mmol/L (3-11); BUN 31 mg/dL (7-18); Bilirubin, Total 1.23 mg/dL (0.2-1.0); CO2 23.9 mmol/L (21.0-32.0); Calcium 8.2 mg/dL (8.5-10.1); Chloride 111 mmol/L (98-107); Estimated GFR 20.23 (mL/min/1.73m2); Glucose 90 mg/dL (74-106); Lipase 21 U/L (<78); Magnesium 1.6 mg/dL (1.8-2.4); Potassium 4.7 mmol/L (3.5-5.1); Sodium 144 mmol/L (136-145); TSH (W/Ref FT4) 0.35 uIU/mL (0.36-3.74); Total Protein 6.2 g/dL (6.4-8.2)
[2024-10-07] MEDS: ACETAMINOPHEN 500 MG/50 ML BAG 200 MG IVPB (19:03)
[2024-10-07] MEDS: PIPERACILLIN/TAZO 3.375 GM in Normal Saline 50 ML IVPB (19:04)
[2024-10-07] MEDS: Norepinephrine in D5W 8 MG/250 ML BAG 9.375 MG IV (19:12)
[2024-10-07 19:13] LABS: Bilirubin Small (Negative); Blood Large (Negative); Clarity Cloudy (Clear); Glucose Negative (Negative); Ketones Trace mg/dL (Negative); Leukocyte Esterase Moderate (Negative); Nitrite Negative (Negative); Specific Gravity 1.025 (1.005-1.025); Urobilinogen 0.2 mg/dL (Up to 0.2); pH 5.5 (5-8)
[2024-10-07 19:19] LABS: FREE T4 0.84 ng/dL (0.76-1.46)
[2024-10-07 19:27] LABS: Bacteria Many HPF (Negative); Casts Negative LPF (Negative); Crystals Negative HPF (Negative); Epithelial Cells Rare HPF (Negative); Mucus Negative (Negative); RBC >50 HPF (0-2); WBC >50 HPF (0-5)
[2024-10-07] MEDS: Dexamethasone 10 MG/ML VIAL IVP (19:27)
[2024-10-07 19:28] LABS: C & S Indicated? Yes
[2024-10-07 19:48] LABS: COVID-19 PCR Negative (Negative); Influenza A PCR Negative (Negative); Influenza B PCR Negative (Negative); RSV PCR Negative (Negative)
[2024-10-07 19:49] LABS: Source NASOPHARYNX
[2024-10-07 19:57] LABS: Troponin I 130 ng/L (<or=76)
[2024-10-07 20:02] LABS: Troponin I 125 ng/L (<or=76)
--- NOTE | 2024-10-07 20:33 | DI.VRAD_ITS ---
PROCEDURE INFORMATION: Exam: CT Head Without Contrast Exam date and time: 10/07/2024 7:46 PM Age: 83 years old Clinical indication: Altered mental status/memory loss and weakness, facial TECHNIQUE: Imaging protocol: Computed tomography of the head without contrast. Radiation optimization: All CT scans at this facility use at least one of these dose optimization techniques: automated exposure control; mA and/or kV adjustment per patient size (includes targeted exams where dose is matched to clinical indication); or iterative reconstruction. COMPARISON: MR BRAIN WO 06/09/2020 11:18 AM FINDINGS: Brain: Chronic periventricular small-vessel ischemic changes identified. [place] areas of encephalomalacia are identified involving both parietal lobes consistent with prior infarcts. Changes of cerebral atrophy are identified. Cerebral ventricles: No ventriculomegaly. Paranasal sinuses: Minimal mucosal thickening identified involving the right maxillary sinus. Mastoid air cells: Visualized mastoid air cells are well aerated. Bones: Unremarkable. No acute fracture. Soft tissues: Unremarkable. IMPRESSION: 1. No acute intracranial abnormalities noted. 2. 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 3. Chronic periventricular small-vessel ischemic changes. 4. Cerebral atrophy. Dictated and Authenticated by: Jacques Mix MD. Orderin Elizabeth Barrera MD
--- NOTE | 2024-10-07 20:52 | DI.VRAD_ITS ---
PROCEDURE INFORMATION: Exam: CT Chest Without Contrast; Diagnostic Exam date and time: 10/07/2024 7:48 PM Age: 83 years old Clinical indication: Fever and other: Diarrhea; Fever, diarrhea, crackles right TECHNIQUE: Imaging protocol: Diagnostic computed tomography of the chest without contrast. 3D rendering (Not supervised by radiologist): MIP and/or 3D reconstructed images were created by the technologist. Radiation optimization: All CT scans at this facility use at least one of these dose optimization techniques: automated exposure control; mA and/or kV adjustment per patient size (includes targeted exams where dose is matched to clinical indication); or iterative reconstruction. COMPARISON: US THYROID 05/09/2021 1:10 PM FINDINGS: Lungs: Mild subsegmental atelectasis of the lingula. Lungs are otherwise clear. Pleural spaces: Unremarkable. No pneumothorax. No pleural effusion. Heart: Unremarkable. No cardiomegaly. No pericardial effusion. Coronary arteries: Moderate coronary artery calcifications. Lymph nodes: Unremarkable. No enlarged lymph nodes. Vasculature: Unremarkable. No aortic aneurysm. Diaphragm: Small sliding-type hiatal hernia. Bones/joints: Unremarkable. No acute fracture. Soft tissues: Unremarkable. IMPRESSION: No acute abnormality. PROCEDURE INFORMATION: Exam: CT Abdomen And Pelvis Without Contrast Exam date and time: 10/07/2024 7:48 PM Age: 83 years old Clinical indication: Fever and other: Diarrhea; Fever, diarrhea, crackles right TECHNIQUE: Imaging protocol: Computed tomography of the abdomen and pelvis without contrast. 3D rendering (Not supervised by radiologist): MIP and/or 3D reconstructed images were created by the technologist. Radiation optimization: All CT scans at this facility use at least one of these dose optimization techniques: automated exposure control; mA and/or kV adjustment per patient size (includes targeted exams where dose is matched to clinical indication); or iterative reconstruction. COMPARISON: US RENAL 05/09/2021 12:49 PM FINDINGS: Liver: Normal. No mass. Gallbladder and biliary ducts: Normal. No calcified stones. No ductal dilation. Pancreas: There is significant diffuse dilation of the pancreatic duct. A single 4.7 cm calcification is noted in the pancreatic head, possibly an intraductal stone. There is mild apparent edema or inflammation of the pancreatic head. Spleen: Normal. No splenomegaly. Adrenal glands: Normal. No mass. Kidneys and ureters: 9.5 cm minimally complex cystic mass arising from the upper pole of the right kidney exhibits thin partially calcified internal septations. Left kidney appears normal. No urolithiasis or hydronephrosis. Stomach and bowel: Small hiatal hernia. No obstruction. No mucosal thickening. Appendix: No evidence of appendicitis. Intraperitoneal space: Unremarkable. No free air. No significant fluid collection. Vasculature: Moderate atherosclerotic calcification throughout the aorta and iliac arteries. There is fusiform dilation of the right common iliac artery measuring maximum diameter of 2.7 cm. Lymph nodes: Unremarkable. No enlarged lymph nodes. Urinary bladder: Unremarkable as visualized. Reproductive: Unremarkable as visualized. Bones/joints: Significant bilateral facet arthropathy at the L4-L5 level with grade 1 anterolisthesis of L4. No vertebral body compression. No acute fracture. Soft tissues: Unremarkable. IMPRESSION: 1. Significant diffuse pancreatic ductal dilation with single 4.7 mm calcification in the pancreatic head, possibly an obstructing intraductal stone. Mild edema/inflammation of the pancreatic head also noted. Follow-up pancreatic protocol CT abdomen recommended when clinically feasible to exclude underlying mass lesion 2. Mildly complex large cystic lesion of the right kidney. Correlation with renal protocol CT abdomen recommended when clinically feasible 3. 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 Orderin Elizabeth Barrera MD
[2024-10-07 21:30] LABS: Lactate 2.3 mmol/L (<or=2.0)
[2024-10-07] MEDS: Lidocaine 2% Jelly 6 ML SYR (22:08)
[2024-10-07] MEDS: Lactated Ringers 1,000 ML 150 ML IV (22:56)
--- NOTE | 2024-10-07 22:56 | W.ED.GENAD ---
Discharge Plan Disposition Patient Disposition: Transfer-Acute Inpatient Care Specific Acute Inpt Facility: [facility] Condition: Critical Discharge Details Clinical Impression: Pancreatic duct obstruction, Septic shock, Acute UTI, Acute non-ST elevation myocardial infarction (NSTEMI) Primary Care Provider: Yumi Moreland ED Provider: Holly Johnson Home Meds and New Rx's Prescriptions: No Action atorvastatin 20 mg tablet 20 mg PO DAILY loperamide [Imodium A-D] 2 mg capsule 2 mg PO DAILY PRN benzonatate 100 mg capsule 100 mg PO BID-TID PRN mirtazapine 7.5 mg tablet 15 mg PO QHS cholecalciferol (vitamin D3) 25 mcg (1,000 unit) capsule 25 mcg PO DAILY acetaminophen 500 mg capsule 1,000 mg PO Q8H PRN aspirin 81 MG tablet,delayed release (DR/EC) 81 mg PO DAILY Patient Comments: not takiing nitroglycerin 0.4 MG tablet, sublingual 0.4 mg Sublingual Patient Comments: [facility] [place] cardi[place] Rx Instructions: [facility] [place] DISCHARGE 08/19/17 HPI General Date/Time Provider Initiated Documentation: 10/07/24 18:17. HPI Narrative: 83-year-old male for weakness, fever, hypotension worsening over the course of the past 1 to 2 weeks intermittent confusion. Patient reportedly has a history of hypertension, DVT, CKD, PAD, CVA, CHF, ejection fraction of 35% on last echo in 2020. Patient has been short of breath/nausea vomiting and diarrhea. He denies any blood in stool or vomitus. He denies any recent antibiotic use. History of obtained partially from patient and partially from medics unsure as to the onset of discomfort. Denies any pain in his chest. Related Data Home Medications ?Medication ?Instructions ?Recorded ?Confirmed aspirin 81 mg tablet,delayed 81 mg PO DAILY 01/06/14 10/07/24 release nitroglycerin 0.4 mg sublingual 0.4 mg sublingual 01/06/14 tablet acetaminophen 500 mg capsule 1,000 mg PO Q8H PRN 05/27/22 10/07/24 atorvastatin 20 mg tablet 20 mg PO DAILY 05/27/22 10/07/24 benzonatate 100 mg capsule 100 mg PO BID-TID PRN 05/27/22 10/07/24 cholecalciferol (vitamin D3) 25 25 mcg PO DAILY 05/27/22 10/07/24 mcg (1,000 unit) capsule loperamide 2 mg capsule (Imodium 2 mg PO DAILY PRN 05/27/22 10/07/24 A-D) mirtazapine 7.5 mg tablet 15 mg PO QHS 05/27/22 10/07/24 Allergies Allergy/AdvReac Type Severity Reaction Status Date / Time lisinopril Allergy Severe Unverified 05/27/22 12:00 venom-honey bee Allergy Mild Verified 05/27/22 11:59 General Stated Complaint: AMS/LOC DARSHAN: 3 Exam Narrative Exam Narrative: This 83-year-old male alert, appears chronically ill with acute exacerbation, pupils equal round reactive to light and accommodation, dry mucous membrane, mild tachypnea, cardiac rate rhythm regular, 1+ edema toBilateral lower extremity Course Vital Signs Vital signs: Vital Signs Temperature 38.1 C H 10/07/24 17:59 Pulse 96 H 10/07/24 17:59 Respiratory Rate 18 10/07/24 17:59 Blood Pressure 93/55 L 10/07/24 17:59 Pulse Oximetry 94 10/07/24 17:59 Temperature 38.1 C H 10/07/24 17:59 Pulse 53 L 10/07/24 22:41 Pulse 54 L 10/07/24 22:41 Respiratory Rate 16 10/07/24 22:41 Respiratory Effort Normal, Non-Labored 10/07/24 18:54 Respiratory Depth Normal 10/07/24 18:54 Respiratory Pattern Normal 10/07/24 18:54 Blood Pressure 96/60 L 10/07/24 22:41 Blood Pressure Mean 71 10/07/24 22:41 Blood Pressure Position Sitting 10/07/24 18:54 Pulse Oximetry 95 10/07/24 22:41 Oxygen Delivery Method Room Air 10/07/24 18:54 Oxygen Flow Rate 0 10/07/24 17:59 Pain Level 0 10/07/24 18:54 Comment manual BP 10/07/24 21:14 Lab/Test Results Lab/Test Results: 10/07/24 18:59 Urine - Reflex from Ua Urine Culture - Pending 10/07/24 18:59 Blood Blood Culture - Pending 10/07/24 18:23 Blood Blood Culture - Pending Laboratory Tests Range/Units 10/07/24 10/07/24 10/07/24 18:23 18:59 19:00 WBC (4.4-10.8) 10^3/uL 22.61 H RBC (4.36-5.78) 10^6/uL 4.94 Hgb (13.5-17.5) g/dL 14.4 Hct (40.0-50.0) % 44.7 MCV (80-95) fL 91 MCH (27.0-33.0) pg 29.1 MCHC (32.0-36.0) % 32.2 RDW (11.8-14.1) % 14.2 H Plt Count (130-400) 10^3/uL 109 L MPV (8.0-11.0) fL 12.0 H Immature Gran % See Differential Neutrophils % % 68.0 Band Neutrophils % % 18 Lymphocytes % % 5.0 Monocytes % % 3.0 Eosinophils % % 0.0 Basophils % % 0.0 Metamyelocytes % 5 Myelocytes % 1 Nucleated RBC % (0.0-0.3) % 0.0 Absolute Neutrophils (1.2-6.7) 10^3/uL 19.44 H Absolute Lymphocytes (1.2-3.4) 10^3/uL 1.13 L Absolute Monocytes (0.1-0.8) 10^3/uL 0.68 Absolute Eosinophils (0.0-0.7) 10^3/uL 0.00 Absolute Basophils (0.0-0.2) 10^3/uL 0.00 RBC Morphology Normal VBG Lactate (<or=2.0) mmol/L 3.8 H* Sodium (136-145) mmol/L 144 Potassium (3.5-5.1) mmol/L 4.7 Chloride (98-107) mmol/L 111 H Carbon Dioxide (21.0-32.0) mmol/L 23.9 Anion Gap (3-11) mmol/L 9.1 BUN (7-18) mg/dL 31 H Creatinine (0.70-1.30) mg/dL 3.0 H Est GFR (CKD-EPI 2020) (mL/min/1.73m2) 20.23 Glucose (74-106) mg/dL 90 Calcium (8.5-10.1) mg/dL 8.2 L Magnesium (1.8-2.4) mg/dL 1.6 L Total Bilirubin (0.2-1.0) mg/dL 1.23 H AST (15-37) U/L 119 H ALT (16-63) U/L 41 Alkaline Phosphatase (46-116) U/L 94 Troponin I (<or=76) ng/L 130 H* Total Protein (6.4-8.2) g/dL 6.2 L Albumin (3.4-5.0) g/dL 2.9 L Lipase (<78) U/L 21 TSH (0.36-3.74) uIU/mL 0.35 L Free T4 (0.76-1.46) ng/dL 0.84 Urine Color (Yellow) Yellow Urine Clarity (Clear) Cloudy Urine pH (5-8) 5.5 Ur Specific [place] (1.005-1.025) 1.025 Urine Protein (Neg-Trace) mg/dL 100 H Urine Ketones (Negative) mg/dL Trace H Urine Blood (Negative) Large H Urine Nitrite (Negative) Negative Urine Bilirubin (Negative) Small H Urine Urobilinogen (Up to 0.2) mg/dL 0.2 Ur Leukocyte Esterase (Negative) Moderate H Urine RBC (0-2) HPF >50 H Urine WBC (0-5) HPF >50 H Ur Epithelial Cells (Negative) HPF Rare Urine Crystals (Negative) HPF Negative Urine Bacteria (Negative) HPF Many Urine Casts (Negative) LPF Negative Urine Mucus (Negative) Negative Ur Culture Indicated? Yes Urine Glucose (Negative) mg/dL Negative COVID-19 Source NASOPHARYNX SARS-CoV-2 (PCR) (Negative) Negative Influenza Type A (PCR) (Negative) Negative Influenza Type B (PCR) (Negative) Negative RSV (PCR) (Negative) Negative Add-On Test Request Range/Units 10/07/24 10/07/24 10/07/24 19:08 19:29 21:23 WBC (4.4-10.8) 10^3/uL RBC (4.36-5.78) 10^6/uL Hgb (13.5-17.5) g/dL Hct (40.0-50.0) % MCV (80-95) fL MCH (27.0-33.0) pg MCHC (32.0-36.0) % RDW (11.8-14.1) % Plt Count (130-400) 10^3/uL MPV (8.0-11.0) fL Immature Gran % Neutrophils % % Band Neutrophils % % Lymphocytes % % Monocytes % % Eosinophils % % Basophils % % Metamyelocytes % Myelocytes % Nucleated RBC % (0.0-0.3) % Absolute Neutrophils (1.2-6.7) 10^3/uL Absolute Lymphocytes (1.2-3.4) 10^3/uL Absolute Monocytes (0.1-0.8) 10^3/uL Absolute Eosinophils (0.0-0.7) 10^3/uL Absolute Basophils (0.0-0.2) 10^3/uL RBC Morphology VBG Lactate (<or=2.0) mmol/L 2.3 H* Sodium (136-145) mmol/L Potassium (3.5-5.1) mmol/L Chloride (98-107) mmol/L Carbon Dioxide (21.0-32.0) mmol/L Anion Gap (3-11) mmol/L BUN (7-18) mg/dL Creatinine (0.70-1.30) mg/dL Est GFR (CKD-EPI 2020) (mL/min/1.73m2) Glucose (74-106) mg/dL Calcium (8.5-10.1) mg/dL Magnesium (1.8-2.4) mg/dL Total Bilirubin (0.2-1.0) mg/dL AST (15-37) U/L ALT (16-63) U/L Alkaline Phosphatase (46-116) U/L Troponin I (<or=76) ng/L 125 H* Total Protein (6.4-8.2) g/dL Albumin (3.4-5.0) g/dL Lipase (<78) U/L TSH (0.36-3.74) uIU/mL Free T4 (0.76-1.46) ng/dL Urine Color (Yellow) Urine Clarity (Clear) Urine pH (5-8) Ur Specific [place] (1.005-1.025) Urine Protein (Neg-Trace) mg/dL Urine Ketones (Negative) mg/dL Urine Blood (Negative) Urine Nitrite (Negative) Urine Bilirubin (Negative) Urine Urobilinogen (Up to 0.2) mg/dL Ur Leukocyte Esterase (Negative) Urine RBC (0-2) HPF Urine WBC (0-5) HPF Ur Epithelial Cells (Negative) HPF Urine Crystals (Negative) HPF Urine Bacteria (Negative) HPF Urine Casts (Negative) LPF Urine Mucus (Negative) Ur Culture Indicated? Urine Glucose (Negative) mg/dL COVID-19 Source SARS-CoV-2 (PCR) (Negative) Influenza Type A (PCR) (Negative) Influenza Type B (PCR) (Negative) RSV (PCR) (Negative) Add-On Test Request TNP Medical Decision Making Acutely ill 83-year-old gentleman presenting with abdominal pain nausea vomiting diarrhea. Patient is quite hypotensive requiring norepinephrine, echocardiogram previously ejection fraction of 35% caution with fluid and pressors were started early. Patient has received approximately 2 L of fluid, alarmed possibly over the course of the past 5 hours. Patient mouth now remain barely over 65 which is reassuring norepinephrine infusing at 9 mcg/min patient is tolerating this well through his peripheral lines, he has 2 large-bore IVs. Patient wishes to remain a DNR/DNI status he is agreeable to transfer to [facility]. He does have a urinary tract infection based on his urinalysis from he did receive Zosyn almost immediately upon arrival concern septic shock. Troponin elevated at 130, and decreased to 125 3 hours later, patient denies chest pain. No acute findings on EKG, suspect type II secondary to strain of septic shock illness. Patient did take 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 I have spoken with Dr. Contreras and [facility] is virtually agreed to take this patient in transport. I spent approximately 15 minutes reviewing the patient's echocardiogram, diagnostic imaging test, consulting with specialists. Patient is pending bed placement and subsequent transport Quality:[facility] Health Related Social Needs: No Data to Display Critical Care Time Critical Care Time Attestation: 60 minutes critical care time secondary to septic shock requiring telemetry monitoring, norepinephrine administration, IV antibiotics, IV fluid resuscitation, diagnostic lab interpretation, critical care consultation [facility] All Active Problems (Updated 10/07/24 @ 23:15 by TIARRA Livingston) Acute non-ST elevation myocardial infarction (NSTEMI) (Acute) Acute UTI (Acute) Septic shock (Acute) Pancreatic duct obstruction (Acute) Blister of foot without infection (Acute) Essential hypertension (Acute) Dyslipidemia (Acute) Depression (Chronic) Coronary artery disease (Chronic) Chronic kidney disease (Chronic) Chronic fatigue (Acute) Memory deficit (Acute) DNR (do not resuscitate) (Acute) Cerebrovascular accident, late effects (Acute) Heart failure (Acute) Hyperlipidemia (Acute 01/07/14) Medical History (Updated 10/07/24 @ 23:15 by TIARRA Livingston) Elevated PSA GERD (gastroesophageal reflux disease) Vitamin D deficiency Hypercalcemia Elevated parathyroid hormone Multinodular goiter Parathyroid adenoma Surgical History coronary angiography, L heart cath, stent insertion (08/16/17) Social History Smoking/Tobacco Use Status: Never Smoking risk assessment performed?: Yes Alcohol Intake: former Drug use: Never Housing: assisted living facility Do you feel safe at home: Yes Do you feel safe in your relationship?: Yes Additional Social history: Yen COELHO
--- NOTE | 2024-10-07 23:00 | RT.EKG_ITS ---
APPROVED REPORT Exam: Resting ECG Reason for Exam: arrythmia Patient Location: E HR:67 bpm ECG Measurements Heart Rate 67 AXIS MA 212 P 41 QRSd 95 QRS 29 QT 449 T 110 QTc 473 Conclusion Sinus rhythm 67 normal axis no stemi
--- NOTE | 2024-10-07 23:14 | NUR.NOTE ---
Nursing Note: Arrhythmia noted on tele, Holyl MAYEN notified and to bedside to assess patient. EKG obtained. Norepi gtt titrated down due to MAP over goal. Pt arousable but more lethargic than earlier in the shift. Provider aware.
[2024-10-08] VITALS (11 sets, daily range): BP systolic 91–117; BP diastolic 52–64; PULSE 46–78; RESP 13–21; O2SAT 90–99
[2024-10-08] MEDS: PIPERACILLIN/TAZO 3.375 GM in Normal Saline 50 ML IVPB (00:25)
[2024-10-08 00:53] LABS: Troponin I 116 ng/L (<or=76)
--- NOTE | 2024-10-08 01:38 | NUR.NOTE ---
Nursing Note: Called update to Alfa Curry RN states she would touch base with famliy.
== END 2024-10-08 01:00 | disposition short-term general hospital (02) ==
PROVIDERS: Emergency Provider Physician Assistant; PCP Nurse Practitioner Family
DX: K86.89 Other specified diseases of pancreas (principal); N39.0 Urinary tract infection, site not specified; R65.21 Severe sepsis with septic shock; I21.4 Non-ST elevation (NSTEMI) myocardial infarction; I12.9 Hypertensive chronic kidney disease with stage 1 through stage 4 chronic kidney disease, or unspecified chronic kidney disease; N18.9 Chronic kidney disease, unspecified; Z86.73 Personal history of transient ischemic attack (TIA), and cerebral infarction without residual deficits; Z79.82 Long term (current) use of aspirin
CPT/HCPCS: 36415; 71250; 80053; 83690; 87040; 87077; 87637; 93005; 96365; 96367; 96368; 96375; 99285; 70450; 74176; 81003; 81015; 83605; 83735; 84439; 84443; 84484; 85025; 87086; 93010; J0131; J1100; J2543

== ENCOUNTER 2024-10-15 14:00 | Outpatient (REF) | payer MEDICARE, SELFPAY ==
[2024-10-15 12:33] LABS: Anion Gap 7.4 mmol/L (3-11); BUN 16 mg/dL (7-18); CO2 27.6 mmol/L (21.0-32.0); CREATININE 1.5 mg/dL (0.70-1.30); Calcium 8.5 mg/dL (8.5-10.1); Chloride 105 mmol/L (98-107); Estimated GFR 46.48 (mL/min/1.73m2); Glucose 118 mg/dL (74-106); Potassium 3.7 mmol/L (3.5-5.1); Sodium 140 mmol/L (136-145)
== END 2024-10-15 14:01 | disposition home or self-care (01) ==
LOC: NCHCN 14:00
PROVIDERS: PCP Nurse Practitioner Family; Visit Provider Nurse Practitioner Family
DX: I10 Essential (primary) hypertension (principal)
CPT/HCPCS: 80048

== ENCOUNTER 2024-11-22 14:17 | Outpatient (REF) | payer MEDICARE, SELFPAY ==
[2024-11-22 11:21] LABS: Abs Immature Grans 0.02 10^3/uL (0.0-0.06); Absolute Basophil Count 0.04 10^3/uL (0.0-0.2); Absolute Eosinophil Count 0.09 10^3/uL (0.0-0.7); Absolute Monocyte Count 0.36 10^3/uL (0.1-0.8); Absolute Neutrophil Count 2.94 10^3/uL (1.2-6.7); Basophils % 0.8 %; Eosinophils % 1.7 %; HCT 39.2 % (40.0-50.0); HGB 12.6 g/dL (13.5-17.5); Immature Grans % 0.4 %; Lymphocytes % 34.3 %; MCH 29.3 pg (27.0-33.0); MCHC 32.1 % (32.0-36.0); MCV 91 fL (80-95); MPV 11.3 fL (8.0-11.0); Monocytes % 6.9 %; Neutrophils % 55.9 %; Platelet Count 156 10^3/uL (130-400); RDW-SD 47.6 fL; WBC 5.25 10^3/uL (4.4-10.8)
[2024-11-22 11:43] LABS: ALT 18 U/L (16-63); AST 14 U/L (15-37); Albumin 3.2 g/dL (3.4-5.0); Alkaline Phosphatase 84 U/L (46-116); Anion Gap 6.3 mmol/L (3-11); BUN 18 mg/dL (7-18); Bilirubin, Total 1.2 mg/dL (0.2-1.0); CO2 28.7 mmol/L (21.0-32.0); CREATININE 1.5 mg/dL (0.70-1.30); Calcium 8.9 mg/dL (8.5-10.1); Chloride 108 mmol/L (98-107); Estimated GFR 46.48 (mL/min/1.73m2); Glucose 131 mg/dL (74-106); Potassium 4.1 mmol/L (3.5-5.1); Sodium 143 mmol/L (136-145); Total Protein 6.4 g/dL (6.4-8.2)
[2024-11-22 12:36] LABS: RDW 47.6 % (11.8-14.1)
== END 2024-11-22 14:18 | disposition home or self-care (01) ==
LOC: NCHCN 14:17
PROVIDERS: PCP Nurse Practitioner Family; Visit Provider Nurse Practitioner Family
DX: N18.32 Chronic kidney disease, stage 3b (principal); D69.6 Thrombocytopenia, unspecified
CPT/HCPCS: 80053; 85025